=== PATIENT | female | born 1935 | race Caucasian/White ===

== ENCOUNTER 2018-08-31 08:41 | Emergency (ER) | payer MEDICARE, OTHER, SELFPAY ==
[2018-08-31 08:48] VITALS: BP 152/94; PULSE 66; RESP 20; TEMP 37.1; O2SAT 96
--- NOTE | 2018-08-31 08:59 | ED.GENADUL_ITS ---
Discharge Plan Disposition Patient Disposition: HOME Condition: Good Discharge Details Chief Complaint: DentalOral Clinical Impression: Dental caries pit and fissure Primary Care Provider: Angelina Mueller ED Provider: Estiven Jasso Home Meds and New Rx's Prescriptions: Continued celecoxib [Celebrex] 200 MG capsule 200 mg PO DAILY RF: 0 omeprazole 20 MG capsule,delayed release(DR/EC) 20 mg PO DAILY RF: 0 metoprolol succinate 25 MG tablet extended release 24 hr 25 mg PO DAILY RF: 0 rosuvastatin [Crestor] 20 MG tablet 20 mg PO HS RF: 0 Discharge Instructions Instructions: Dental Caries (ED) Additional Instructions: Please call a dental provider today and arrange a follow-up appointment for your broken tooth. Otherwise it is recommended that you eat soft foods to help minimize irritation and chewing. If you note any fever chills, swelling to your face tongue or jaw, or any emergent concerns please return to emergency department for reevaluation. Medical Decision Making Patient presenting to the emergency department for chief complaint of fractured tooth. Patient reports yesterday she had broken off a piece of her tooth that became jagged and is now irritating her tongue. Patient states that this just occurred while she was eating food. Patient denies any other complaints at this time. Physical exam shows filling placed into tooth #18 and 19 with tooth loss surrounding the feelings. Patient has very superficial ulcerations or irritation to the left lateral aspect of the tongue corresponding to the same area. There is no swelling of the face cheek tongue or jaw, no erythema, no signs of infection. No other emergent findings are noted. Given significant tooth loss surrounding the area I do not feel that temporary filling would be appropriate but patient was strongly encouraged to call a dental provider today and arrange close follow-up. HPI General Mode of arrival: ambulatory . Date/Time Provider Initiated Documentation: 08/31/18 08:46 . Limitations to Documentation: no limitations . Information obtained by: patient and RN notes reviewed . History of Present Illness 83 year old F presents to the emergency department with the chief complaint of broken tooth, described as mild, with intensity rated at 1. Quality is described as sharp, and is localized to the mouth. Patient started experiencing this day(s) (1) and it has been constant. Patient notes no other symptoms.. Patient did receive the following treatments prior to arrival, none Related Data Home Medications Medication Instructions Recorded Confirmed celecoxib [Celebrex] 200 mg PO DAILY 12/23/12 08/31/18 metoprolol succinate 25 mg PO DAILY 12/23/12 08/31/18 omeprazole 20 mg PO DAILY 12/23/12 08/31/18 rosuvastatin [Crestor] 20 mg PO HS 12/23/12 08/31/18 Allergies Allergy/AdvReac Type Severity Reaction Status Date / Time No Known Allergies Allergy Unverified 08/31/18 08:50 General Stated Complaint: DentalOral BERTHA: 4 Review of Systems Constitutional Denies chills and Denies fever(s) ENT Reports as per HPI, Denies change in voice, Reports dental pain, Denies dysphagia, Denies throat swelling and Denies tongue swelling Cardiovascular Denies dyspnea Respiratory Denies dyspnea, Denies stridor and Denies wheezing Gastrointestinal Denies dysphagia Integumentary/Breasts Denies rash Allergic/Immunologic Denies throat swelling, Denies tongue swelling and Denies wheezing PFS Social History Smoking/Tobacco Use Status: Never Drug use: Never Exam Const General: cooperative Orientation: alert, awake and oriented x3 Limitations: mental status not altered HENMT Head: normal to inspection, normocephalic and atraumatic Ears: hearing grossly normal bilaterally, normal mastoids bilaterally and no periauricular adenopathy General nose exam: external nose normal Mouth: oropharynx normal, no drooling, no muffled voice, tongue abnormal ulcerated (Superficial to left lateral, no bleeding) and no trismus Teeth and gingiva: caries, poor dentition and other (Partially fractured teeth #18,19) Throat: posterior oropharynx normal, tonsils normal and uvula midline Eyes General: appearance normal, both eyes and all related structures Pupils: PERRL Neck Neck: normal visual inspection, full ROM, no lymphadenopathy, no meningeal signs, trachea midline, supple, no anterior neck swelling and no midline deformity Resp Effort & Inspection: normal respiratory effort and able to speak in complete sentences Course Vital Signs Temperature 37.1 C 08/31/18 08:48 Pulse 66 08/31/18 08:48 Respiratory Rate 20 08/31/18 08:48 Blood Pressure 152/94 H 08/31/18 08:48 Pulse Oximetry 96 08/31/18 08:48 Temperature 37.1 C 08/31/18 08:48 Temperature Source Temporal Artery Scan 08/31/18 08:48 Pulse 66 08/31/18 08:48 Respiratory Rate 20 08/31/18 08:48 Respiratory Effort Non-Labored 08/31/18 08:48 Blood Pressure 152/94 H 08/31/18 08:48 Pulse Oximetry 96 08/31/18 08:48 Oxygen Delivery Method Room Air 08/31/18 08:48 Oxygen Flow Rate 0 08/31/18 08:48 Pain Level 0 08/31/18 08:48
== END 2018-08-31 09:07 | disposition home or self-care (01) ==
LOC: ER 09:15
PROVIDERS: Emergency Provider Nurse Practitioner Family; PCP General Practice
DX: S02.5XXA Fracture of tooth (traumatic), initial encounter for closed fracture; X58.XXXA Exposure to other specified factors, initial encounter
CPT/HCPCS: 99282

== ENCOUNTER 2019-01-19 15:45 | Inpatient (IN) | payer MEDICARE, OTHER, SELFPAY ==
[2019-01-19] VITALS (34 sets, daily range): BP systolic 121–152; BP diastolic 64–98; PULSE 51–70; RESP 11–24; TEMP 36.6–37.1; O2SAT 91–98
--- NOTE | 2019-01-19 15:45 | NUR.NOTE ---
Nursing Note: pt developed lightheadedness and diaphoresis adroitly 2 hrs ago PT called EMS upon EMS arrival PT was complaining of right sided arm pain. ems provided full dose of nitro all symptoms resolved and were not present at time of presentation to ER
[2019-01-19 16:01] LABS: Abs Immature Grans 0.02 k/cumm (0.0-0.09); Absolute Basophil Count 0.01 k/cumm (0.0-0.2); Absolute Eosinophil Count 0.03 k/cumm (0.0-0.7); Absolute Monocyte Count 0.51 k/cumm (0.11-0.7); Basophils % 0.1; Eosinophils % 0.2; HCT 41.2 % (36.0-46.0); HGB 13.4 g/dL (12.0-15.5); Immature Grans % 0.2; Lymphocytes % 12.8; Mean Corp. HGB Concentration 32.5 g/dL (32.0-36.0); Mean Corpuscular Hemoglobin 30.9 pg (27.0-33.0); Mean Corpuscular Volume 95.2 fL (80-95); Mean Platelet Volume 11.4 fL (8.0-11.0); Neutrophils % 82.7; Platelet Count 180 x1000/uL (130-400); RBC 4.33 m/cumm (4.00-5.20); RBC Distribution Width 13.2 % (11.7-14.6); White Blood Cell Count 12.86 k/cumm (4.4-10.8)
--- NOTE | 2019-01-19 16:08 | W.ED.GENAD ---
Discharge Plan Disposition Patient Disposition: [facility] INPATIENT Condition: Serious Discharge Details Chief Complaint: Chest Pain Clinical Impression: Diaphoresis, Lightheadedness Admit Date/Time: 01/21/19 18:09 Admit Provider: Edmond Richard Attending Provider: Ellyn Curry Primary Care Provider: Angelina Mueller ED Provider: Itz Motta Discharge Data Discharge Date/Time-TO BE ENTERED AT DEPARTURE: 01/19/19 19:50 Medical Decision Making 16:12 --83-year-old female presents after sudden onset of diaphoresis, generally not feeling well. Symptoms now improved but still fatigued. Screening ECG was reviewed and interpreted by me: Sinus bradycardia 54 bpm, normal axis, no STEMI, nondiagnostic. Consider ACS. Plan to check troponin. Patient is neurologically intact with no focal deficits. Patient is afebrile. Lungs are clear to auscultation. Abdominal exam is benign. 17:34 --labs reviewed and initial troponin negative. Patient does have mild elevation of creatinine (now 1.5) from prior (1.1 in 2012). Plan for delta troponin. 18:50 --patient reassessed and now noting that she had some tightness including tightness in her chest when the episode happened. She is had no recurrent episodes while here in the emergency department. Patient does have a history of hypertension and story somewhat concerning. I called and spoke with Dr. Richard who will admit the patient for observation and continuous telemetry. He request bridging orders be placed to the floor. Urinalysis and delta troponin pending at time of admission. HPI General Mode of arrival: ambulatory. Date/Time Provider Initiated Documentation: 01/19/19 16:08. Limitations to Documentation: no limitations. Information obtained by: patient and family. HPI Narrative: 83-year-old female presents via EMS after sudden onset of diaphoretic episode. Patient notes she was sitting watching TV at rest and asymptomatic. Suddenly she felt very hot and sweaty and generally unwell. Symptoms persisted and called EMS. She denies any palpitations, shortness of breath, chest pain or abdominal pain. No headache. No associated numbness or focal weakness. Symptoms were severe. They lasted minutes and now resolved. She now feels generally fatigued but otherwise asymptomatic. Related Data Home Medications Medication Instructions Recorded Confirmed celecoxib [Celebrex] 200 mg PO DAILY 12/23/12 01/19/19 rosuvastatin [Crestor] 20 mg PO HS 12/23/12 01/19/19 aspirin [Aspir-81] 81 mg PO DAILY 01/19/19 01/19/19 calcium citrate 200 mg PO DAILY 01/19/19 01/19/19 diphenhydramine-acetaminophen 1 tab PO QHS PRN 01/19/19 01/19/19 [Tylenol PM Extra Strength] quetiapine 50 mg PO DAILY 01/19/19 01/19/19 pantoprazole [Protonix] 40 mg PO DAILY #30 tab 01/22/19 Previous Rx's Medication Instructions Recorded pantoprazole [Protonix] 40 mg PO DAILY #30 tab 01/22/19 Allergies Allergy/AdvReac Type Severity Reaction Status Date / Time No Known Allergies Allergy Unverified 01/19/19 15:50 General Stated Complaint: Chest Pain BERTHA: 3 Review of Systems Review of Systems ROS Unobtainable: All systems reviewed & are unremarkable except as noted in HPI and below Constitutional Constitutional: Denies fever(s) Cardiovascular Cardiovascular: Denies chest pain, Denies syncope, Denies edema and Denies dyspnea Respiratory Respiratory: Denies dyspnea Genitourinary Genitourinary: Denies dysuria Neurologic Neurologic: Denies syncope and Denies sensory deficit [facility] Medical History (Updated 01/30/19 @ 20:02 by Lourdes Lovelace MD) Dementia (Chronic) Hyperlipidemia (Acute) Hypertension (Chronic) Insomnia (Acute) IT band syndrome (Acute) Osteoarthritis (Chronic) Palliative care patient (Acute) Physical deconditioning (Acute) Poor historian (Acute) Right knee pain (Acute) Right shoulder pain (Acute) Surgical History (Updated 01/30/19 @ 18:57 by Lourdes Lovelace MD) History of appendectomy (Chronic) Status post right knee replacement (Acute) Status post tonsillectomy and adenoidectomy (Acute) Family History (Updated 01/30/19 @ 19:39 by Lourdes Lovelace MD) Mother , age 85 or so Dementia Cancer Father , age 82 Sudden cardiac Son No problems noted. Son No problems noted. Daughter No problems noted. Daughter No problems noted. Sister Kyphosis History of vertebroplasty Compression fracture Brother No problems noted. 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 [employer] Pets and animals: Yes What is your relationship status?: How often do you talk on the phone with friends or family?: three or more times per week How often do you get together with friends or relatives?: once per week Panel score (0-1 are the most socially isolated patients): 2 What type of physical activity do you participate in: walking and irregular exercise Duration: 15-30 minutes/day Special rodger needs: No Seatbelt use: always Working smoke detector in home: Yes Fire extinguisher in home: Yes Do you feel safe at home: Yes Do you feel safe in your relationship?: Yes Additional Social history: x 61 yrs; tells me she had a heart attack, though cardiology consult and d/c summary dispute this. Atypical CP. Bradycardia (not today) Poor understanding of her health issues. doesn't understand, either (his memory is ok). Discussed cardiac rehab. ? eligible Exam Const General: cooperative and no acute distress HENMT Head: normocephalic and atraumatic Mouth: moist mucous membranes Eyes Conjunctivae: normal conjunctivae Sclera: normal sclerae Neck Neck: trachea midline and supple Resp Auscultation: clear to auscultation bilaterally, no rales, no rhonchi and no wheezes Cardio Jugular venous pressure: no JVD Rate: bradycardic (56) Rhythm: regular rhythm GI Palpation: soft, not firm, no guarding, no masses, not rigid and nontender Skin General skin exam: no rashes or lesions noted Neuro General: alert, awake, oriented x3 and tone normal Cranial Nerves: CN's II-XI intact bilaterally Cognition: normal cognition Speech: speech normal Motor: muscle tone normal throughout and strength 5/5 throughout Sensory Exam: no sensory deficits noted Other: Negative Romberg Extrem General: no edema Psych Appearance: grossly normal Mental Status: mental status grossly normal Speech and Movement: speech and movement normal Course Vital Signs Vital signs: Vital Signs Temperature 36.6 C 01/19/19 15:47 Pulse 70 01/19/19 15:47 Respiratory Rate 16 01/19/19 15:47 Blood Pressure 138/75 01/19/19 15:47 Pulse Oximetry 92 L 01/19/19 15:47 Temperature 36.6 C 01/19/19 15:47 Temperature Source Skin 01/19/19 15:47 Pulse 70 01/19/19 15:47 Respiratory Rate 16 01/19/19 15:47 Respiratory Effort 01/19/19 15:54 Blood Pressure 138/75 01/19/19 15:47 Blood Pressure Position Supine 01/19/19 15:47 Pulse Oximetry 92 L 01/19/19 15:47 Oxygen Delivery Method Room Air 01/19/19 15:47 Oxygen Flow Rate 0 01/19/19 15:47 Pain Level 0 01/19/19 15:47
[2019-01-19 16:26] LABS: Absolute Lymphocyte Count 1.65 k/cumm (1.2-3.4); Absolute Neutrophil Count 10.64 k/cumm (1.2-6.7)
[2019-01-19 16:36] LABS: Prothrombin Time 10.5 sec (9.3-11.0)
[2019-01-19 16:44] LABS: ALT 18 U/L (14-59); AST 15 U/L (15-37); Albumin 3.8 g/dL (3.4-5.0); Alkaline Phosphatase 44 U/L (46-116); Anion Gap 9.3 mmol/L (3-11); BUN 42 mg/dL (7-18); Bilirubin, Total 0.4 mg/dL (0.2-1.0); CO2 28.7 mmol/L (21.0-32.0); CREATININE 1.55 mg/dL (0.55-1.02); Calcium 9.4 mg/dL (8.5-10.1); Chloride 104 mmol/L (98-107); Estimated GFR 32.09 (mL/min/1.73m2); Glucose 136 mg/dL (70-100); Magnesium 2.3 mg/dL (1.8-2.4); Potassium 4.6 mmol/L (3.5-5.1); Sodium 142 mmol/L (136-145); Total Protein 6.9 g/dL (6.4-8.2)
[2019-01-19 16:46] LABS: Troponin I < 0.05 ng/mL (0.00-0.06)
--- NOTE | 2019-01-19 18:50 | DI.RAD_ITS ---
EXAM: XR CHEST 2V PA LATERAL INDICATION: presyncope. COMPARISON: XR CHEST 1V IN DI DEPT from 01/20/2019 TECHNIQUE: 2D digital imaging was performed. FINDINGS: Heart is not enlarged. The lungs appear clear. No pleural effusion seen. IMPRESSION: No evidence of acute process
[2019-01-19] MEDS: Normal Saline 500 ML 1000 ML IV (19:13)
--- NOTE | 2019-01-19 19:43 | DI.VRAD_ITS ---
PROCEDURE INFORMATION: Exam: XR Chest, 2 Views Exam date and time: 01/19/2019 7:10 PM Clinical history: 83 years old, female; Other: Pre syncope TECHNIQUE: Imaging protocol: XR of the chest Views: 2 views. COMPARISON: No relevant prior studies available. FINDINGS: Lungs: No focal consolidation or pleural effusion. Pleural space: See Lungs Finding. Heart/Mediastinum: Cardiomegaly. Vasculature: Tortuous ectatic aorta. Bones/joints: Multilevel degenerative changes of the thoracic spine and shoulders. Degenerative changes of the lower cervical spine. IMPRESSION: No acute findings. Dictated and Authenticated by: Kasia Mendoza MD. Ordering:VIN Mobley MD
--- NOTE | 2019-01-19 20:32 | HPE_ITS ---
Date of service: 01/19/19 Time of Service: 20:32 Assessment and Plan Assessment and plan (1) Chest pain, atypical: Start date: 01/19/19 Status: Acute Assessment and plan: This is an 83-year-old lady who had a sudden onset of chest pressure and abdominal pressure after eating a fatty meal and with some stress of watching TV with upsetting news taking place. She had significant diaphoresis no radiation of her pain and it self resolved. In the ED she was f ound to have a high white blood cell count but otherwise lab was negative with sinus bradycardia on medical records supervisor. Patient has no history of CAD. There is no history of physical findings to suggest acute PE and the patient's creatinine was slightly elevated which was off her baseline with available labs. D-dimer was not performed patient has no new peripheral edema. He was not hypoxic. EKG was unrevealing. Cardiac monitoring thus far has revealed no dysrhythmia other than sinus bradycardia. It was thought best to keep her overnight for observation for arrhythmias but with her history I will also do an ultrasound of her abdomen to review the gallbladder. If she has recurrent symptoms we should think about PE and do further investigations with the patient on subcutaneous heparin for now. Troponins will be trended and she will be observed on telemetry overnight. If she does well she will be discharged and have further outpatient evaluation as needed in follow-up with her PMD in [place], [place]. (2) Hypertension: Status: Chronic Assessment and plan: The patient's blood pressure was slightly elevated upon admission but this will be observed without change in her medical therapy for now. She does have sinus bradycardia on a beta-munir and this does not appear to be symptomatic at this time. Qualifiers: Hypertension type: essential hypertension Qualified Code(s): I10 - Essential (primary) hypertension (3) Dementia: Status: Chronic Assessment and plan: The patient memory appears to be somewhat affected with a vague history of events prior to admission. She is on Seroquel which may be for sleep but also may indicate some behavioral problems with her dementia. This will be continued during her hospital stay. Qualifiers: Alzheimer's disease onset: late-onset Dementia behavioral disturbance: with behavioral disturbance Dementia type: Alzheimer's disease Qualified Code(s): G30.1 - Alzheimer's disease with late onset; F02.81 - Dementia in other diseases classified elsewhere with behavioral disturbance History of Present Illness History of Present Illness Chief Complaint: Chest pressure with diaphoresis Narrative: This is an 83-year-old lady who was sitting watching TV with her after lunch which consisted of corn beef hash and suddenly had an onset of a squeezing pressure over her chest and upper abdomen with no radiation of discomfort, no nausea or vomiting but profuse diaphoresis associated with her sudden onset of pressure sensation. She stated it was all over her body but concentrated over her upper abdomen lower chest. He still does have a gallbladder with her only past surgical history being a tonsillectomy and jose noidectomy. She has no history of gallbladder colic, reflux disease or coronary artery disease. She does have hypertension on multiple meds with sinus bradycardia noted in the ED. She has slight elevation in her white blood cell count in the ED but no focus for infection and no history of fever. She had no GI or complaints. She generally is healthy with mild dementia and arthritis. She is overweight. Review of Systems Review of Systems Narrative: 13 point review of systems otherwise unrevealing or stable by review. Patient is somewhat of a poor historian with her short-term memory loss but she is aware of her memory loss. [facility] Medical History Dementia (Chronic) Hyperlipidemia (Acute) Hypertension (Chronic) Insomnia (Acute) Osteoarthritis (Chronic) Surgical History Status post tonsillectomy and adenoidectomy (Acute) Family History Mother No problems noted. Father No problems noted. Social History Smoking/Tobacco Use Status: Never Alcohol Intake: never Drug use: Never Substance use type: does not use Do you feel safe at home: Yes Do you feel safe in your relationship?: Yes Meds Home Medications and Allergies Home Medications Medication Instructions Recorded Confirmed Type celecoxib [Celebrex] 200 mg PO DAILY 12/23/12 01/19/19 History metoprolol succinate 50 mg PO DAILY 12/23/12 01/19/19 History rosuvastatin [Crestor] 20 mg PO HS 12/23/12 01/19/19 History aspirin [Aspir-81] 81 mg PO DAILY 01/19/19 01/19/19 History calcium citrate 200 mg PO DAILY 01/19/19 01/19/19 History diphenhydramine-acetaminophen 1 tab PO QHS PRN 01/19/19 01/19/19 History [Tylenol PM Extra Strength] donepezil 10 mg PO DAILY 01/19/19 01/19/19 History hydrochlorothiazide 12.5 mg PO DAILY 01/19/19 01/19/19 History lisinopril 2.5 mg PO DAILY 01/19/19 01/19/19 History quetiapine 50 mg PO DAILY 01/19/19 01/19/19 History Allergies Allergy/AdvReac Type Severity Reaction Status Date / Time No Known Allergies Allergy Unverified 01/19/19 15:50 Exam Narrative Exam Narrative: General: Patient is awake and alert, oriented at least to person and place and in no acute distress. She is moderately obese. HEENT: Normocephalic, eyes with pupils equal and reactive to light symmetrically and extraocular movement intact, sclera anicteric. Oropharynx with moist oral mucosa. External ears normal. Neck: Without JVD, supple. Back: Stooped posture with no CVA tenderness. Lungs: Clear to auscultation and percussion. Normal inspiratory to expiratory phase ratio. Normal vesicular breath sounds with fair aeration. Heart: Regular rate and rhythm without murmurs or gallops. Breast: Large and pendulous with full exam not performed. Abdomen: Obese contour, soft and nontender to palpation with negative Hooker sign. No palpable hepatosplenomegaly. Bowel sounds positive all quadrants. Genitalia/rectal: Exam deferred. Extremities: Moderate bony arthritic changes of the larger joints of lower extremities, nonpitting edema lower extremities with loss of hair but no skin changes, ulcers or lesions. Peripheral pulses intact with good capillary refill. No clubbing or cyanosis. Neuro: Cranial nerves II through XII grossly intact, motor without focalizing symptoms and normal motor strength bilaterally, Babinski is negative. Psych: Remote memory intact, short-term memory appears to be decreased but fair with patient recognizing short-term memory loss. Mood is normal with normal affect and variation. Skin: Pale, warm and dry with no rashes noted. Results Imaging Imaging Studies: Exam(s) PROCEDURE INFORMATION: Exam: XR Chest, 2 Views Exam date and time: 01/19/2019 7:10 PM Clinical history: 83 years old, female; Other: Pre syncope TECHNIQUE: Imaging protocol: XR of the chest Views: 2 views. COMPARISON: No relevant prior studies available. FINDINGS: Lungs: No focal consolidation or pleural effusion. Pleural space: See Lungs Finding. Heart/Mediastinum: Cardiomegaly. Vasculature: Tortuous ectatic aorta. Bones/joints: Multilevel degenerative changes of the thoracic spine and shoulders. Degenerative changes of the lower cervical spine. IMPRESSION: No acute findings. Dictated and Authenticated by: Kasia Mendoza MD. Labs Result diagrams: 01/19/19 15:35 01/19/19 15:35 Labs: Laboratory Results - last 24 hr 01/19/19 01/19/19 01/19/19 15:35 15:35 15:35 WBC 12.86 H RBC 4.33 Hgb 13.4 Hct 41.2 MCV 95.2 H MCH 30.9 MCHC 32.5 RDW 13.2 Plt Count 180 MPV 11.4 H Immature Gran % 0.2 Neutrophils % 82.7 Lymphocytes % 12.8 Monocytes % 4.0 Eosinophils % 0.2 Basophils % 0.1 Absolute Neutrophils 10.64 H Absolute Lymphocytes 1.65 Absolute Monocytes 0.51 Absolute Eosinophils 0.03 Absolute Basophils 0.01 PT Cancelled INR Cancelled Sodium 142 Potassium 4.6 Chloride 104 Carbon Dioxide 28.7 Anion Gap 9.3 BUN 42 H Creatinine 1.55 H Estimated GFR/1.73 m2 32.09 Glucose 136 H Calcium 9.4 Magnesium 2.3 Total Bilirubin 0.4 AST 15 ALT 18 Alkaline Phosphatase 44 L Troponin I < 0.05 Total Protein 6.9 Albumin 3.8 01/19/19 16:17 WBC RBC Hgb Hct MCV MCH MCHC RDW Plt Count MPV Immature Gran % Neutrophils % Lymphocytes % Monocytes % Eosinophils % Basophils % Absolute Neutrophils Absolute Lymphocytes Absolute Monocytes Absolute Eosinophils Absolute Basophils PT 10.5 INR 1.0 Sodium Potassium Chloride Carbon Dioxide Anion Gap BUN Creatinine Estimated GFR/1.73 m2 Glucose Calcium Magnesium Total Bilirubin AST ALT Alkaline Phosphatase Troponin I Total Protein Albumin Last Vital Signs Temp 36.8 C 01/19/19 19:50 Pulse 52 L 01/19/19 19:50 Resp 18 01/19/19 19:50 BP 152/78 H 01/19/19 19:50 Pulse Ox 96 01/19/19 19:50
[2019-01-19 20:51] LABS: Troponin I < 0.05 ng/mL (0.00-0.06)
[2019-01-19 21:10] LABS: TSH (W/Ref FT4) 0.84 uIU/mL (0.36-3.74)
[2019-01-19] MEDS: Rosuvastatin 10 MG TAB 20 MG PO (21:37)
[2019-01-19] MEDS: Heparin 5,000 UNITS/ML VIAL 5000 UNITS SC (21:37)
[2019-01-19] MEDS: Normal Saline 1,000 ML 100 ML IV (21:38)
[2019-01-20] VITALS (48 sets, daily range): BP systolic 116–167; BP diastolic 59–92; PULSE 32–67; RESP 11–24; TEMP 36–37.1; O2SAT 93–98
[2019-01-20 01:01] LABS: Troponin I < 0.05 ng/mL (0.00-0.06)
[2019-01-20 01:06] LABS: TSH 0.86 uIU/mL (0.36-3.74)
[2019-01-20 01:36] LABS: Bilirubin Negative (Negative); Blood Trace-intact (Negative); Clarity Clear (Clear); Glucose Negative (Negative); Ketones Negative (Negative); Leukocyte Esterase Negative (Negative); Nitrite Negative (Negative); Urobilinogen 0.2 EU/dL (Up TO 0.2); pH 6.5 (5-8)
[2019-01-20 01:52] LABS: WBC 0-2 HPF (0-5)
[2019-01-20 01:53] LABS: Bacteria Few HPF (Negative); C & S Indicated? Yes; Casts Negative LPF (Negative); Crystals Negative HPF (Negative); Epithelial Cells Few HPF (Negative); Mucus Negative (Negative); Other Cells Negative (Negative)
[2019-01-20] MEDS: Heparin 5,000 UNITS/ML VIAL 5000 UNITS SC ×3 (06:05→22:09)
[2019-01-20 07:06] LABS: Abs Immature Grans 0.02 k/cumm (0.0-0.09); Absolute Basophil Count 0.01 k/cumm (0.0-0.2); Absolute Lymphocyte Count 4.43 k/cumm (1.2-3.4); Absolute Monocyte Count 0.78 k/cumm (0.11-0.7); Absolute Neutrophil Count 6.79 k/cumm (1.2-6.7); Basophils % 0.1; Eosinophils % 0.8; HCT 40.2 % (36.0-46.0); HGB 12.8 g/dL (12.0-15.5); Immature Grans % 0.2; Lymphocytes % 36.5; Mean Corp. HGB Concentration 31.8 g/dL (32.0-36.0); Mean Corpuscular Hemoglobin 30.5 pg (27.0-33.0); Mean Corpuscular Volume 95.9 fL (80-95); Mean Platelet Volume 11.8 fL (8.0-11.0); Monocytes % 6.4; Platelet Count 189 x1000/uL (130-400); RBC 4.19 m/cumm (4.00-5.20); RBC Distribution Width 13.4 % (11.7-14.6); White Blood Cell Count 12.13 k/cumm (4.4-10.8)
[2019-01-20 07:33] LABS: Troponin I < 0.05 ng/mL (0.00-0.06)
[2019-01-20 07:35] LABS: ALT 14 U/L (14-59); AST 13 U/L (15-37); Albumin 3.4 g/dL (3.4-5.0); Alkaline Phosphatase 38 U/L (46-116); Anion Gap 8.1 mmol/L (3-11); BUN 35 mg/dL (7-18); Bilirubin, Total 0.4 mg/dL (0.2-1.0); CO2 27.9 mmol/L (21.0-32.0); CREATININE 1.34 mg/dL (0.55-1.02); Chloride 108 mmol/L (98-107); Estimated GFR 37.96 (mL/min/1.73m2); Glucose 84 mg/dL (70-100); Potassium 4.2 mmol/L (3.5-5.1); Sodium 144 mmol/L (136-145); Total Protein 6.6 g/dL (6.4-8.2)
[2019-01-20] MEDS: Celecoxib 200 MG CAP PO (07:46)
[2019-01-20] MEDS: Metoprolol CR 25 MG TABCR 50 MG PO (07:50)
[2019-01-20] MEDS: Aspirin E.C. 81 MG TABEC PO (07:50)
[2019-01-20] MEDS: Lisinopril 5 MG TAB 2.5 MG PO (07:50)
[2019-01-20] MEDS: hydroCHLOROthiazide 12.5 MG TAB PO (07:50)
[2019-01-20] MEDS: QUEtiapine 25 MG TAB 50 MG PO (07:50)
[2019-01-20] MEDS: Normal Saline 1,000 ML 100 ML IV ×2 (08:06→18:42)
[2019-01-20] MEDS: Glucagon 1 MG VIAL 5 MG IVP (09:15)
[2019-01-20] MEDS: Ondansetron 4 MG/2 ML VIAL IVP (09:34)
--- NOTE | 2019-01-20 10:31 | PHARADMIT ---
Addendum entered by Ayse Nettles 01/21/19 14:31: Pharmacy Note Subjective cardiology consult; ECHO ordered; stress test ordered Objective VS-okay SCr-1.20(down) WBC-11.66(down) Assessment prednisone discontinued meds for stress test ordered for tomorrow Plan continue to watch VS labs and for med changes Original Note: Admission Pharmacy Clinical Review ATYPICAL CHEST PAIN WITH DIAPHORESIS Code Status Full Code Current Weight 87.6 kg Renally Cleared and Narrow Therapeutic Index Meds CrCl~27ml/min QTc Value / Action Taken QTC 433 BP Control, Fever BP 158/81, HR 50'S Electrolytes reviewed K+ 4.2 Mag 2.3 DVT Prophylaxis Heparin SC Opiate Usage / Scheduled Bowel Regimen Ordered none/yes Plt/SCr for Heparin / Enoxaparin Plt 189 SCr 1.34 INR for Warfarin H/H stable, WBC/Bands H/H 12.8/40.2 WBC 12.13 Antibiotic appropriateness Cultures and Sensitivities Urine pending Surgical ABX d/c within 24 hr DM control / Insulin Dosing BG 84 Heart Failure (Check EF%) (CB's, B-Block, Diuretics) Lisinopril, HCTZ and Toprol XL dc'd IV to PO Switch Home Meds Reviewed after code blue, Donepezil, HCTZ, Lisinopril, Toprol XL, Seroquel were dc'd Home Meds Not Ordered initially all ordered-see above Comments CODE BLUE episode-full code, syncope, vasovagal?, nausea, HR in 30's on monitor...transferred to ICU, possible Betablocker ADR, although it was Toprol XL 50mg not the immed.release. Pt rec'd Glucagon 5mg IVPush stat to treat BB toxicity, heard HR increased into the 60's per ICU nurse, we do not appear to have enough Glucagon for a continuous infusion....currently checking antidote carts for more, pt may need to be transferred to other facility Troponins negative
[2019-01-20] MEDS: Pantoprazole 40 MG VIAL IVP (10:52)
[2019-01-20] MEDS: Normal Saline Flush 10 ML SYR IVP (10:52)
[2019-01-20] MEDS: predniSONE 10 MG TAB PO (11:22)
[2019-01-20 12:20] LABS: Troponin I < 0.05 ng/mL (0.00-0.06)
--- NOTE | 2019-01-20 12:39 | PDOC.CMIN ---
Care Management Initial Assess REASON FOR HOSPITALIZATION:: Atypical Chest Pain with Diaphoresis PAST MEDICAL HISTORY/PAST SURGICAL HISTORY:: Dementia, Hyperlipidemia, Hypertension, Insomnia, Osteoarthritis, tonsillectomy and adenoidectomy PREVIOUS FUNCTIONAL STATUS/SOCIAL/FAMILY SUPPORTS:: Annmarie resides with her , Maykel and their cat in [place], [place]. The couple has four adult children who are all supportive and well involved. Bonnie Huertasiggs: [phone]: Co-Agent for Health Care, Gwen NashSt. Luke[facility] CenterD-[phone]: Co-Agent for Health Care, Terrance NashJaquxg-Cjvehm-[phone], C#[phone], Tracie Levy-[phone]. Annmarie is diagnosed with dementia and struggles with short term memory issues. She no longer drives but manages ADLs within the home including cooking, laundry and cleaning. Her children report Maykel is by her side at all times as well. CURRENT FUNCTIONAL STATUS:: Annmarie was emergently transferred to the ICU from / after CODE BLUE event, anticipate transfer. She was able to have a lucid conversation with this rfp writer and provide accurate information about being transferred to the ICU. She named her and all of her children and was pleasant in interaction. CM met with Maykel Anguiano and their four children to review code status and AD. Annmarie's children, their spouses and their grandchildren awaited news together in the family room most of the morning. Annmarie responded positively when this rfp writer commented what a ari, supportive family she has. ADVANCE DIRECTIVES:: On file; contact information outdated on form; please utilize these contact numbers: Co-Agents for Health Care: Bonnie Nash: [phone]: , Gwen NashMinidoka Memorial HospitalF-[phone]. Others: Terrance Tilley-[phone], C#[phone], Tracie Levy-[phone]. Has patient been provided with information about the portal?: No Did the patient sign up for the portal?: No CODE STATUS:: Full Code INSURANCE COVERAGE / FINANCIAL ISSUES:: Commercial Ins: Guarantee [employer]. Medicare CURRENT HOME/COMMUNITY SERVICES/EQUIPMENT:: ADRIÁN Peters PRIMARY CARE PHYSICIAN:: Angelina Mueller; [facility] POTENTIAL DISCHARGE NEEDS:: Possible transfer per MD. PATIENT/FAMILY EDUCATION NEEDS:: Review of advance directives; code status, Palliative Care, HIPPA, community based supports, discharge [id number] considerations. ANTICIPATED BARRIERS TO DISCHARGE:: None identified. TRANSPORTATION:: TBD by disposition. PLAN:: Annmarie will continue to be closely monitored. Per MD, transfer on hold for further testing and imaging at this time. CM continues to follow and support Annmarie and her family at this time.
--- NOTE | 2019-01-20 12:47 | DI.CT_ITS ---
EXAM: CT ABDOMEN PELVIS WO CLINICAL HISTORY: nausea/vomiting, recurrent vagal episodes. TECHNIQUE: The examination was carried out according to the usual protocol without contrast enhancem ent. COMPARISON: No exams were available for comparison FINDINGS: Note is made of a moderate-sized hiatus hernia. There is cholelithiasis. There is no evidence of bow el obstruction. Diverticulosis without evidence of diverticulitis is seen. The appendix is normal. No localized bowel abnormality is identified. The liver, pancreas, spleen and kidneys are intact sa ve for a small right renal cyst. The adrenals are unremarkable. There is no evidence of free air or free fluid in the intra peritoneal space. IMPRESSION: Cholelithiasis is demonstrated. No acute abnormality is apparent.
--- NOTE | 2019-01-20 12:47 | DI.RAD_ITS ---
EXAM: XR CHEST 1V IN DI DEPT INDICATION: suspected aspiration event. COMPARISON: XR CHEST 2V PA LATERAL from 01/19/2019 TECHNIQUE: 2D digital imaging was performed. FINDINGS: The lungs are well expanded and free of infiltrate. There is no pleural effusion. The heart is not e nlarged. IMPRESSION: There is no evidence of acute cardiopulmonary disease.
--- NOTE | 2019-01-20 12:55 | W.PM.PROGNOT ---
Date of Service Date of service: 01/20/19 Time of Service: 08:30 Assessment and Plan Assessment and plan (1) Syncope: Status: Acute Assessment and plan: DDx: vasovagal, symptomatic bradycardia Continue to monitor in ICU. Per my conversation with Dr Mathur at [facility], the patient does not need any more glucagon at this time, but naturally we are not going to give her any more beta blockers at this point. She does have prn atropine and pacer pads on. She is full code. We are investigating the vagal prodrome - why was the patient nauseated? She does have a moderate size hiatal hernia on CT, has been on a steroid taper for her arthritis - she could have developed gastritis, but her CT of the abdomen and pelvis is otherwise negative. She was initiated on antiemetics and a PPI. I do not see any evidence of adrenal insufficiency at this time, but will monitor closely. Obtain echo and cardiology consult. (2) Chest pain, atypical: Status: Acute Assessment and plan: As above. No ACS so far, but monitor in the ICU. (3) Hypertension: Status: Chronic Assessment and plan: Hold beta blockers. Qualifiers: Hypertension type: essential hypertension Qualified Code(s): I10 - Essential (primary) hypertension (4) Nausea & vomiting: Status: Acute Assessment and plan: As above - start PPI, antiemetics. No obvious organic reason for nausea on CT. (5) Dementia: Status: Chronic Assessment and plan: Hold donepezil given bradycardia as one of the side effects Qualifiers: Dementia type: Alzheimer's disease Alzheimer's disease onset: late-onset Dementia behavioral disturbance: with behavioral disturbance Qualified Code(s): G30.1 - Alzheimer's disease with late onset; F02.81 - Dementia in other diseases classified elsewhere with behavioral disturbance (6) DVT prophylaxis: Status: Acute Assessment and plan: Heparin SC. (7) Discharge planning issues: Status: Acute Assessment and plan: Full code Keep in ICU. Palliative care consult placed. Total Critical Care Time 60 minutes Subjective Subjective Interval history since last seen: I responded to luz marina sosa called overhead. The patient did not actually lose her pulse or stop breathing, but had syncopized and had a HR of 32 on telemetry (sinus jon). The patient came to it about a minute later with corresponding increase in her HR to 40's and then 50's. The patient was never hypotensive - at the time of the event, her SBP was in 130's. Before she syncopized, she did report to her that she was feeling nauseated and clammy. When she came to it, she vomited. She was transferred to the ICU, with her heart rates going down to 40's. She did receive a dose of metoprolol succinate 50 mg this morning at 07:40 when her heart rate was in the 60's - however, it had only been about 30 minutes since she took the medication before the syncopal episode, and she did vomit her breakfast, so there is no clear relationship between her receiving the dose of metoprolol and her bradycardia, but it's a possibility. When she arrived to the ICU, she received 5 mg of IV glucagon, with heart rates improving to high 50's. The patient did again vomit with glucagon and received zofran. I spoke with Dr Mathur of cardiology at [facility] in regards to this patient's case - specifically, my concern that she might have a tachy-jon syndrome or vagal episodes. Per my conversation with Dr Mathur, he feels that vagal episodes are more likely, especially given the prodrome with nausea. Recommendation was made to continue observing the patient at our facility, but if she has another episode and no vagal prodrome, transfer to [facility] should be considered again. Meanwhile, we are looking for the cause of her nausea - ddx: gastritis (she is finishing a steroid taper as outpatient), cholecystitis (physical exam inconsistent), other GI pathology. CT of the abdomen/pelvis is done, results are pending. I discussed the case with the family - per my conversation with her and son Gwen, the patient should have everything done. Case management then had a family meeting with all of the children present - during this meeting, the family interpreted the patient's advanced directives as DNR/DNI. Upon my personal review of advanced directives, the patient only wanted to be DNR/DNI/comfort measures if she had an irreversible/incurable/end-stage condition, which in my opinion she does not right now. Palliative care consult is being ordered to clarify goals of care, but until then, with the agreement of the family, the patient states full code. Exam Narrative Exam Narrative: General: obese female, A&Ox2, seen several times today, pale, does not appear to be feeling well, falls asleep frequently throughout the day, breathing pattern c/w NISA HEENT: EOMI, dry MM Heart: RRR, bradycardic, no m/r/g Lungs: CTAB GI: abdomen is soft, nontender, nondistended Extremities: no e/c/c BLE's Objective Objective Clinical Data: Abnormal lab results 01/19/19 01/19/19 01/20/19 Range/Units 15:35 15:35 00:50 WBC 12.86 H (4.4-10.8) k/cumm MCV 95.2 H (80-95) fL MCHC (32.0-36.0) g/dL MPV 11.4 H (8.0-11.0) fL Absolute Neutrophils 10.64 H (1.2-6.7) k/cumm Absolute Lymphocytes (1.2-3.4) k/cumm Absolute Monocytes (0.11-0.7) k/cumm Chloride (98-107) mmol/L BUN 42 H (7-18) mg/dL Creatinine 1.55 H (0.55-1.02) mg/dL Glucose 136 H (70-100) mg/dL AST (15-37) U/L Alkaline Phosphatase 44 L (46-116) U/L Urine Blood Trace-intact H (Negative) Urine RBC 3-5 H (0-2) 01/20/19 01/20/19 Range/Units 06:08 06:08 WBC 12.13 H (4.4-10.8) k/cumm MCV 95.9 H (80-95) fL MCHC 31.8 L (32.0-36.0) g/dL MPV 11.8 H (8.0-11.0) fL Absolute Neutrophils 6.79 H (1.2-6.7) k/cumm Absolute Lymphocytes 4.43 H (1.2-3.4) k/cumm Absolute Monocytes 0.78 H (0.11-0.7) k/cumm Chloride 108 H (98-107) mmol/L BUN 35 H (7-18) mg/dL Creatinine 1.34 H (0.55-1.02) mg/dL Glucose (70-100) mg/dL AST 13 L (15-37) U/L Alkaline Phosphatase 38 L (46-116) U/L Urine Blood (Negative) Urine RBC (0-2) Vital Signs Temperature 36 C L 01/20/19 08:45 Temperature Source Temporal Artery Scan 01/20/19 08:45 Pulse 56 L 01/20/19 09:39 Pulse Rhythm Regular 01/20/19 07:50 Pulse 51 L 01/20/19 09:16 Respiratory Rate 16 01/20/19 09:39 Respiratory Effort 01/20/19 08:45 Respiratory Depth Normal 01/20/19 08:45 Respiratory Pattern Normal 01/20/19 08:45 Blood Pressure 158/81 H 01/20/19 09:39 Blood Pressure Mean 86 01/20/19 09:16 Blood Pressure Position Supine 01/20/19 08:45 Pulse Oximetry 93 L 01/20/19 09:39 Oxygen Delivery Method Room Air 01/20/19 09:39 Oxygen Flow Rate 0 01/20/19 09:39 Pain Level 0 01/20/19 08:45 Comment 01/20/19 03:15 Intake & Output 01/19/19 01/20/19 01/20/19 23:59 11:59 23:59 Intake Total 2059 / 2059 Output Total 725 / 725 Balance 1335 / 1335 Weight 89.1 kg 87.6 kg Intake: IV 1520 / 1520 Oral 540 / 540 Output: Urine 725 / 725 Other: Urine Color Yellow Urine Appearance Clear Clear Urine Odor Normal Comment voids in toilet. Flushed, urine not assessed at this time. Stool Occult Blood Negative Stool Size Large Stool Characteristics Soft Formed Voiding Methods Toilet Toilet Laboratory Results WBC 12.13 k/cumm (4.4-10.8) H 01/20/19 06:08 RBC 4.19 m/cumm (4.00-5.20) 01/20/19 06:08 Hgb 12.8 g/dL (12.0-15.5) 01/20/19 06:08 Hct 40.2 % (36.0-46.0) 01/20/19 06:08 MCV 95.9 fL (80-95) H 01/20/19 06:08 MCH 30.5 pg (27.0-33.0) 01/20/19 06:08 MCHC 31.8 g/dL (32.0-36.0) L 01/20/19 06:08 RDW 13.4 % (11.7-14.6) 01/20/19 06:08 Plt Count 189 x1000/uL (130-400) 01/20/19 06:08 MPV 11.8 fL (8.0-11.0) H 01/20/19 06:08 Immature Gran % 0.2 01/20/19 06:08 Neutrophils % 56.0 01/20/19 06:08 Lymphocytes % 36.5 01/20/19 06:08 Monocytes % 6.4 01/20/19 06:08 Eosinophils % 0.8 01/20/19 06:08 Basophils % 0.1 01/20/19 06:08 Absolute Neutrophils 6.79 k/cumm (1.2-6.7) H 01/20/19 06:08 Absolute Lymphocytes 4.43 k/cumm (1.2-3.4) H 01/20/19 06:08 Absolute Monocytes 0.78 k/cumm (0.11-0.7) H 01/20/19 06:08 Absolute Eosinophils 0.10 k/cumm (0.0-0.7) 01/20/19 06:08 Absolute Basophils 0.01 k/cumm (0.0-0.2) 01/20/19 06:08 PT 10.5 sec (9.3-11.0) 01/19/19 16:17 INR 1.0 (0.9-1.1) 01/19/19 16:17 Sodium 144 mmol/L (136-145) 01/20/19 06:08 Potassium 4.2 mmol/L (3.5-5.1) 01/20/19 06:08 Chloride 108 mmol/L (98-107) H 01/20/19 06:08 Carbon Dioxide 27.9 mmol/L (21.0-32.0) 01/20/19 06:08 Anion Gap 8.1 mmol/L (3-11) 01/20/19 06:08 BUN 35 mg/dL (7-18) H 01/20/19 06:08 Creatinine 1.34 mg/dL (0.55-1.02) H 01/20/19 06:08 Estimated GFR/1.73 m2 37.96 (mL/min/1.73m2) 01/20/19 06:08 Glucose 84 mg/dL (70-100) D 01/20/19 06:08 Calcium 9.0 mg/dL (8.5-10.1) 01/20/19 06:08 Magnesium 2.3 mg/dL (1.8-2.4) 01/19/19 15:35 Total Bilirubin 0.4 mg/dL (0.2-1.0) 01/20/19 06:08 AST 13 U/L (15-37) L 01/20/19 06:08 ALT 14 U/L (14-59) 01/20/19 06:08 Alkaline Phosphatase 38 U/L (46-116) L 01/20/19 06:08 Troponin I < 0.05 ng/mL (0.00-0.06) 01/20/19 12:00 Total Protein 6.6 g/dL (6.4-8.2) 01/20/19 06:08 Albumin 3.4 g/dL (3.4-5.0) 01/20/19 06:08 TSH 0.86 uIU/mL (0.36-3.74) 01/20/19 00:25 Urine Color Yellow (Yellow) 01/20/19 00:50 Urine Clarity Clear (Clear) 01/20/19 00:50 Urine pH 6.5 (5-8) 01/20/19 00:50 Ur Specific [place] 1.020 (1.005-1.025) 01/20/19 00:50 Urine Protein Negative mg/dL (Negative) 01/20/19 00:50 Urine Ketones Negative mg/dL (Negative) 01/20/19 00:50 Urine Blood Trace-intact (Negative) H 01/20/19 00:50 Urine Nitrite Negative (Negative) 01/20/19 00:50 Urine Bilirubin Negative (Negative) 01/20/19 00:50 Urine Urobilinogen 0.2 EU/dL (Up TO 0.2) 01/20/19 00:50 Ur Leukocyte Esterase Negative (Negative) 01/20/19 00:50 Urine RBC 3-5 (0-2) H 01/20/19 00:50 Urine WBC 0-2 HPF (0-5) 01/20/19 00:50 Ur Epithelial Cells Few HPF (Negative) 01/20/19 00:50 Urine Crystals Negative HPF (Negative) 01/20/19 00:50 Urine Bacteria Few HPF (Negative) 01/20/19 00:50 Urine Casts Negative LPF (Negative) 01/20/19 00:50 Urine Mucus Negative (Negative) 01/20/19 00:50 Urine Other Negative (Negative) 01/20/19 00:50 Ur Culture Indicated? Yes 01/20/19 00:50 Urine Glucose Negative mg/dL (Negative) 01/20/19 00:50 EKG: HR 51, sinus bradycardia with decreasing R-wave progression. No obvious acute ischemia
--- NOTE | 2019-01-20 12:58 | DI.VRAD_ITS ---
PROCEDURE INFORMATION: Exam: XR Chest, 1 View Exam date and time: 01/20/2019 12:44 PM Clinical history: 83 years old, female; Other: Suspected aspiration event TECHNIQUE: Imaging protocol: XR of the chest Views: 1 view. COMPARISON: CR XR CHEST 2V PA LATERAL 01/19/2019 7:07 PM FINDINGS: The lung varma are clear bilaterally. No focal pulmonary consolidation is present. The cardiac silhouette is within normal limits. The costophrenic angles are sharp. The bony structures appear unremarkable. IMPRESSION: No evidence of acute cardiopulmonary disease. Dictated and Authenticated by: Trey Grant MD. Ordering:JOAQUINA Ragland MD
--- NOTE | 2019-01-20 12:58 | DI.VRAD_ITS ---
PROCEDURE INFORMATION: Exam: CT Abdomen And Pelvis Without Contrast Exam date and time: 01/20/2019 12:32 PM Clinical history: 83 years old, female; Other: Nausea/vomiting, recurrent vagal episodes TECHNIQUE: Imaging protocol: Computed tomography of the abdomen and pelvis without contrast. Radiation optimization: All CT scans at this facility use at least one of these dose optimization techniques: automated exposure control; mA and/or kV adjustment per patient size (includes targeted exams where dose is matched to clinical indication); or iterative reconstruction. COMPARISON: No relevant prior studies available. FINDINGS: Moderate size hiatal hernia. Cholelithiasis. Diverticulosis without evidence of diverticulitis. Appendix is normal. Aorta unremarkable for age. No focal inflammatory process. No free fluid. No extraluminal air. IMPRESSION: Incidental findings with no specific etiology identified for the patient's symptoms. Dictated and Authenticated by: Trey Grant MD. Ordering:JOAQUINA Ragland MD
[2019-01-20] MEDS: Rosuvastatin 10 MG TAB 20 MG PO (22:10)
[2019-01-21] VITALS (30 sets, daily range): BP systolic 101–159; BP diastolic 57–101; PULSE 49–85; RESP 8–24; TEMP 36.3–36.8; O2SAT 95–98
[2019-01-21] MEDS: Normal Saline Flush 10 ML SYR IVP ×3 (04:21→09:15)
[2019-01-21] MEDS: Normal Saline 1,000 ML 100 ML IV (04:21)
[2019-01-21 05:59] LABS: ALT 12 U/L (14-59); AST 16 U/L (15-37); Albumin 3.4 g/dL (3.4-5.0); Alkaline Phosphatase 39 U/L (46-116); Anion Gap 7.9 mmol/L (3-11); BUN 22 mg/dL (7-18); Bilirubin, Total 0.5 mg/dL (0.2-1.0); CO2 27.1 mmol/L (21.0-32.0); Calcium 8.6 mg/dL (8.5-10.1); Chloride 108 mmol/L (98-107); Estimated GFR 43.12 (mL/min/1.73m2); Glucose 81 mg/dL (70-100); Potassium 4.1 mmol/L (3.5-5.1); Sodium 143 mmol/L (136-145); Total Protein 6.6 g/dL (6.4-8.2)
[2019-01-21 06:39] LABS: Abs Immature Grans 0.02 k/cumm (0.0-0.09); Absolute Basophil Count 0.01 k/cumm (0.0-0.2); Absolute Lymphocyte Count 3.47 k/cumm (1.2-3.4); Basophils % 0.1; Eosinophils % 0.9; HCT 40.2 % (36.0-46.0); HGB 12.9 g/dL (12.0-15.5); Immature Grans % 0.2; Lymphocytes % 29.8; Mean Corp. HGB Concentration 32.1 g/dL (32.0-36.0); Mean Corpuscular Hemoglobin 30.7 pg (27.0-33.0); Mean Corpuscular Volume 95.7 fL (80-95); Mean Platelet Volume 11.6 fL (8.0-11.0); Monocytes % 6.9; Neutrophils % 62.1; Platelet Count 159 x1000/uL (130-400); RBC Distribution Width 13.4 % (11.7-14.6); White Blood Cell Count 11.66 k/cumm (4.4-10.8)
[2019-01-21 06:42] LABS: Troponin I < 0.05 ng/mL (0.00-0.06)
[2019-01-21 06:49] LABS: Absolute Neutrophil Count 7.24 k/cumm (1.2-6.7)
[2019-01-21] MEDS: Heparin 5,000 UNITS/ML VIAL 5000 UNITS SC ×3 (07:31→20:22)
--- NOTE | 2019-01-21 08:00 | DI.US_ITS ---
APPROVED REPORT EXAM: Comprehensive 2D, Doppler, and color-flow Echocardiogram Patient Location: In-Patient Retail Merchandising Manager: Fallon Saini [facility] ([facility]) Indications: near syncope and syncope , symptomatic bradycardia Left Ventricle The left ventricle is normal size. The left ventricular systolic function is normal. The left ventric ular ejection fraction is within the normal range. Mild concentric left ventricular hypertrophy. Ther e is normal LV segmental wall motion. There is grade 1 diastolic dysfunction 65-70% Right Ventricle The right ventricle is normal size. The right ventricular systolic function is normal. Atria The left atrium size is normal. The right atrium size is normal. Aortic Valve The aortic valve is normal in structure. There is no aortic valvular stenosis. Trace aortic regurgita tion. Mitral Valve The mitral valve is normal in structure. No evidence of mitral valve stenosis. Trace mitral regurgita tion. Tricuspid Valve The tricuspid valve is normal in structure. Trace tricuspid regurgitation. Pulmonic Valve The pulmonary valve is normal in structure. Trace pulmonic regurgitation. Great Vessels The aortic root is normal in size. The IVC is normal in size and collapses >50% with inspiration. Pericardium Prominent anterior epicardial fat pad is present. There is no pleural effusion. 2D Dimensions IVSd 1.1 cm F: 0.6-1.0 LA Volume Index A4C 20.0 mL/m2 PWd 1.1 cm F: 0.6 - 1.0 LA Area A4C 15.0 cm2 LVDd 4.3 cm F: 3.9 - 5.3 LVDs 2.8 cm F: 2.2 - 3.5 Aortic Root 2.8 cm F: 2.7 - 3.3 LVOT 2.0 cm (M/F) 1.5-2.5 Ascending Aorta 3.4 cm F: 2.3 - 3.1 LVEF (Samuel's) 68.6 % F: 54 - 74 FS 34.5 % LV Diastology E Decel Time 249.0 (160-240 msec) E/A Ratio 0.7 LV E/e LAT 10.3 (>14) Aortic Valve LVOT Peak Miki. 1.0 m/s LVOT Peak Gr. 4.1 mmHg LVOT Mean Gr. 2.4 mmHg LVOT VTI 0.2 m RAISA (VTI) 1.8 (2.5-4.5 cm2) Mitral Valve MV E Max Miki. 0.7 (0.4-1.3 m/s) MV A Velocity 1.0 (0.4-1.3 m/s) E/A Ratio 0.7 MV Decel. Time 249.3 (160-240 msec) MV PHT 72.3 msec MVA PHT 3.0 cm2 Tricuspid Valve TR P. Velocity 3.0 m/s TR P. Gradient 35.6 mmHg Conclusion Left Ventricle : The left ventricle is normal size. The left ventricular systolic function is normal. The left ventricular ejection fraction is within the normal range. Mild concentric left ventricular hypertrophy. There is grade 1 diastolic dysfunction There is normal LV segmental wall motion. Right Ventricle : The right ventricle is normal size. The right ventricular systolic function is norm al. Atria : The left atrium size is normal. The right atrium size is normal. Aortic Valve : The aortic valve is normal in structure. Trace aortic regurgitation. There is no aorti c valvular stenosis. Mitral Valve : The mitral valve is normal in structure. Trace mitral regurgitation. No evidence of mi tral valve stenosis. Tricuspid Valve : The tricuspid valve is normal in structure. Trace tricuspid regurgitation. Pulmonic Valve : The pulmonary valve is normal in structure. Great Vessels : The aortic root is normal in size. Pericardium : Prominent anterior epicardial fat pad is present. There is no pleural effusion. Great Vessels : The IVC is normal in size and collapses >50% with inspiration. EKG???patient was in normal sinus rhythm for the entirety of the study. There is no structural explanation for patient's syncopal symptoms.
--- NOTE | 2019-01-21 08:00 | DI.US_ITS ---
EXAM: US ABDOMEN LIMITED CLINICAL HISTORY: Atypical chest pain with upper abdominal pressure. TECHNIQUE: Ultrasound performed using standard protocol. FINDINGS: The aorta and vena cava are normal. The liver is within normal limits in size. The portal vein is int act. There is no Hooker's sign. The gallbladder wall thickness is 2 mm. There is a question regardin g multiple mobile gallstones. There is no sonographic evidence of acute cholecystitis. Common duct caliber is 3.7 mm. There is only limited visualization of the pancreas. The spleen is not well seen . The left kidney is not identified. The right kidney measures 10.2 x 4.4 x 4.85 cm and appears to co ntain a renal cyst measuring 2.7 x 2.3 x 2.4 cm. IMPRESSION: No evidence of acute cholecystitis. The right upper quadrant examination reveals a question regarding multiple mobile gallstones. There is no evidence of acute cholecystitis. Note is also made of a 10.2 x 4.4 x 4.8 cm right renal cyst.
--- NOTE | 2019-01-21 08:35 | DI.RAD_ITS ---
EXAM: XR PORTABLE CHEST AP INDICATION: follow up aspiration event yesterday. COMPARISON: No exams were available for comparison TECHNIQUE: 2D digital imaging was performed. FINDINGS: The lungs are well expanded and free of infiltrate. There is no pleural effusion. The heart is with in normal limits in size. 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 The findings unchan ged when compared with the prior examination of 01/20.
[2019-01-21] MEDS: Celecoxib 200 MG CAP PO (09:13)
[2019-01-21] MEDS: Aspirin E.C. 81 MG TABEC PO (09:13)
[2019-01-21] MEDS: predniSONE 10 MG TAB PO (09:13)
[2019-01-21] MEDS: Calcium Citrate 950 MG TAB PO (09:13)
[2019-01-21] MEDS: Pantoprazole 40 MG VIAL IVP (09:14)
--- NOTE | 2019-01-21 14:13 | PGE_ITS ---
Date of Service Date of service: 01/21/19 Time of Service: 14:14 Assessment and Plan Assessment and plan (1) Syncope: Status: Acute Assessment and plan: DDx: vasovagal, symptomatic bradycardia No more episodes of bradycardia observed - however, symptoms (diaphoresis) were seen on just minimal exertion in the abscence of bradycardia. Will discuss with cardiology if stress test would be appropriate, considering absence of bradycardia at the time of symptoms. Also, check orthostatics. It is likely ok to transfer the patient out of ICU. (2) Chest pain, atypical: Status: Acute Assessment and plan: As above. (3) Hypertension: Status: Chronic Assessment and plan: Hold beta blockers. Qualifiers: Hypertension type: essential hypertension Qualified Code(s): I10 - Essential (primary) hypertension (4) Nausea & vomiting: Status: Acute Assessment and plan: As above - continue PPI, prn antiemetics. No obvious organic reason for nausea on CT other than hiatal hernia. (5) Dementia: Status: Chronic Assessment and plan: Hold donepezil given bradycardia as one of the side effects Qualifiers: Dementia type: Alzheimer's disease Alzheimer's disease onset: late- onset Dementia behavioral disturbance: with behavioral disturbance Qualified Code(s): G30.1 - Alzheimer's disease with late onset; F02.81 - Dementia in other diseases classified elsewhere with behavioral disturbance (6) DVT prophylaxis: Status: Acute Assessment and plan: Heparin SC. (7) Discharge planning issues: Status: Acute Assessment and plan: Full code Palliative care consulted. Transfer out of ICU to [facility] with tele. Subjective Subjective Interval history since last seen: The patient has not had any bradycardia today - however, she became very diaphoretic twice just with a couple of steps two times with nursing, who noted no change in heart rate or O2 sat at this time. Orthostatics are being checked. Exam Narrative Exam Narrative: General: obese female, A&Ox2, looks comfortably in bed HEENT: EOMI, MMM Heart: RRR, no m/r/g Lungs: CTAB GI: abdomen is soft, nontender, nondistended Extremities: no e/c/c BLE's Objective Objective Clinical Data: Abnormal lab results 01/21/19 01/21/19 Range/Units 05:30 05:30 WBC 11.66 H (4.4-10.8) k/cumm MCV 95.7 H (80-95) fL MPV 11.6 H (8.0-11.0) fL Absolute Neutrophils 7.24 H (1.2-6.7) k/cumm Absolute Lymphocytes 3.47 H (1.2-3.4) k/cumm Absolute Monocytes 0.80 H (0.11-0.7) k/cumm Chloride 108 H (98-107) mmol/L BUN 22 H D (7-18) mg/dL Creatinine 1.20 H (0.55-1.02) mg/dL ALT 12 L (14-59) U/L Alkaline Phosphatase 39 L (46-116) U/L Vital Signs Temperature 36.3 C L 01/21/19 08:50 Temperature Source Temporal Artery Scan 01/21/19 13:42 Pulse 67 01/21/19 13:16 Pulse Rhythm Regular 01/20/19 07:50 Pulse 74 01/21/19 13:16 Respiratory Rate 13 01/21/19 13:16 Respiratory Effort Non-Labored 01/21/19 13:42 Respiratory Depth Normal 01/21/19 13:42 Respiratory Pattern Normal 01/21/19 13:42 Blood Pressure 127/73 01/21/19 13:16 Blood Pressure Mean 85 01/21/19 13:16 Blood Pressure Position Supine 01/21/19 13:42 Pulse Oximetry 96 01/21/19 13:32 Oxygen Delivery Method Room Air 01/21/19 13:42 Oxygen Flow Rate 0 01/21/19 13:42 Pain Level 0 01/21/19 13:42 Comment 01/20/19 03:15 Intake & Output 01/20/19 01/21/19 01/21/19 23:59 11:59 23:59 Intake Total 1996.667 / 4076.667 618.333 / 618.333 Output Total 1550 / 2275 1500 / 1725 225 / 1725 Balance 446.667 / 1801.667 -881.667 / -1106.667 -225 / -1106.667 Weight 87.8 kg Intake: IV 1346.667 / 2866.667 618.333 / 618.333 Oral 650 / 1210 Output: Urine 1550 / 2275 1500 / 1725 225 / 1725 Other: Urine Color Yellow Yellow Yellow Urine Appearance Clear Clear Clear Urine Odor Normal Normal Comment Voiding on the commode:250cc clear yellow urine. 225cc clear yellow urine void on commode. Urine dip stick is positive for blood and leukocytes. Voiding Methods Bedside Commode Bedside Commode Bedside Commode Laboratory Results WBC 11.66 k/cumm (4.4-10.8) H 01/21/19 05:30 RBC 4.20 m/cumm (4.00-5.20) 01/21/19 05:30 Hgb 12.9 g/dL (12.0-15.5) 01/21/19 05:30 Hct 40.2 % (36.0-46.0) 01/21/19 05:30 MCV 95.7 fL (80-95) H 01/21/19 05:30 MCH 30.7 pg (27.0-33.0) 01/21/19 05:30 MCHC 32.1 g/dL (32.0-36.0) 01/21/19 05:30 RDW 13.4 % (11.7-14.6) 01/21/19 05:30 Plt Count 159 x1000/uL (130-400) 01/21/19 05:30 MPV 11.6 fL (8.0-11.0) H 01/21/19 05:30 Immature Gran % 0.2 01/21/19 05:30 Neutrophils % 62.1 01/21/19 05:30 Lymphocytes % 29.8 01/21/19 05:30 Monocytes % 6.9 01/21/19 05:30 Eosinophils % 0.9 01/21/19 05:30 Basophils % 0.1 01/21/19 05:30 Absolute Neutrophils 7.24 k/cumm (1.2-6.7) H 01/21/19 05:30 Absolute Lymphocytes 3.47 k/cumm (1.2-3.4) H 01/21/19 05:30 Absolute Monocytes 0.80 k/cumm (0.11-0.7) H 01/21/19 05:30 Absolute Eosinophils 0.10 k/cumm (0.0-0.7) 01/21/19 05:30 Absolute Basophils 0.01 k/cumm (0.0-0.2) 01/21/19 05:30 PT 10.5 sec (9.3-11.0) 01/19/19 16:17 INR 1.0 (0.9-1.1) 01/19/19 16:17 Sodium 143 mmol/L (136-145) 01/21/19 05:30 Potassium 4.1 mmol/L (3.5-5.1) 01/21/19 05:30 Chloride 108 mmol/L (98-107) H 01/21/19 05:30 Carbon Dioxide 27.1 mmol/L (21.0-32.0) 01/21/19 05:30 Anion Gap 7.9 mmol/L (3-11) 01/21/19 05:30 BUN 22 mg/dL (7-18) H D 01/21/19 05:30 Creatinine 1.20 mg/dL (0.55-1.02) H 01/21/19 05:30 Estimated GFR/1.73 m2 43.12 (mL/min/1.73m2) 01/21/19 05:30 Glucose 81 mg/dL (70-100) 01/21/19 05:30 Calcium 8.6 mg/dL (8.5-10.1) 01/21/19 05:30 Magnesium 2.0 mg/dL (1.8-2.4) 01/21/19 05:30 Total Bilirubin 0.5 mg/dL (0.2-1.0) 01/21/19 05:30 AST 16 U/L (15-37) 01/21/19 05:30 ALT 12 U/L (14-59) L 01/21/19 05:30 Alkaline Phosphatase 39 U/L (46-116) L 01/21/19 05:30 Troponin I < 0.05 ng/mL (0.00-0.06) 01/21/19 05:30 Total Protein 6.6 g/dL (6.4-8.2) 01/21/19 05:30 Albumin 3.4 g/dL (3.4-5.0) 01/21/19 05:30 TSH 0.86 uIU/mL (0.36-3.74) 01/20/19 00:25 Urine Color Yellow (Yellow) 01/20/19 00:50 Urine Clarity Clear (Clear) 01/20/19 00:50 Urine pH 6.5 (5-8) 01/20/19 00:50 Ur Specific [place] 1.020 (1.005-1.025) 01/20/19 00:50 Urine Protein Negative mg/dL (Negative) 01/20/19 00:50 Urine Ketones Negative mg/dL (Negative) 01/20/19 00:50 Urine Blood Trace-intact (Negative) H 01/20/19 00:50 Urine Nitrite Negative (Negative) 01/20/19 00:50 Urine Bilirubin Negative (Negative) 01/20/19 00:50 Urine Urobilinogen 0.2 EU/dL (Up TO 0.2) 01/20/19 00:50 Ur Leukocyte Esterase Negative (Negative) 01/20/19 00:50 Urine RBC 3-5 (0-2) H 01/20/19 00:50 Urine WBC 0-2 HPF (0-5) 01/20/19 00:50 Ur Epithelial Cells Few HPF (Negative) 01/20/19 00:50 Urine Crystals Negative HPF (Negative) 01/20/19 00:50 Urine Bacteria Few HPF (Negative) 01/20/19 00:50 Urine Casts Negative LPF (Negative) 01/20/19 00:50 Urine Mucus Negative (Negative) 01/20/19 00:50 Urine Other Negative (Negative) 01/20/19 00:50 Ur Culture Indicated? Yes 01/20/19 00:50 Urine Glucose Negative mg/dL (Negative) 01/20/19 00:50
--- NOTE | 2019-01-21 20:15 | CMPROGNOTE_ITS ---
Care Management Progress Note S/O: Annmarie was lying in her bed, Maykel at her bedside. Her daughter Trisha and one of her grandsons were present as well. She shared no concerns and reported feeling better and sleeping well. She anticipates moving out to the MED/SURG floor and is now M/S status, she also reports she may have an MPI stress test tomorrow and remains on Tele. Anticipate she will meet with Dr. Kenny or Dr. Lovelace for Palliative Care consult to discuss code status and update advance directives. CM continues to follow. A: 83 year old female admitted to [facility] 01/19/19 for Atypical chest pain with daphoresis. P: Annmarie will return home when ready per MD. She will be evaluated by PT/OT when medically ready; she became diaphoretic when ambulating a few steps with nursing. CM will review community based supports for discharge planning considerations. Annmarie will transport via private vehicle with her .
[2019-01-21] MEDS: Rosuvastatin 10 MG TAB 20 MG PO (20:22)
[2019-01-22] VITALS (13 sets, daily range): BP systolic 130–171; BP diastolic 61–88; PULSE 60–86; RESP 9–28; O2SAT 96–97
[2019-01-22] MEDS: Heparin 5,000 UNITS/ML VIAL 5000 UNITS SC ×2 (06:29→13:11)
[2019-01-22] MEDS: Acetaminophen 325 MG TAB 650 MG PO ×2 (06:31→12:38)
[2019-01-22 06:50] LABS: Abs Immature Grans 0.01 k/cumm (0.0-0.09); Absolute Basophil Count 0.01 k/cumm (0.0-0.2); Absolute Eosinophil Count 0.13 k/cumm (0.0-0.7); Absolute Lymphocyte Count 3.29 k/cumm (1.2-3.4); Absolute Monocyte Count 0.79 k/cumm (0.11-0.7); Absolute Neutrophil Count 5.89 k/cumm (1.2-6.7); Basophils % 0.1; Eosinophils % 1.3; HCT 41.4 % (36.0-46.0); HGB 13.5 g/dL (12.0-15.5); Immature Grans % 0.1; Lymphocytes % 32.5; Mean Corp. HGB Concentration 32.6 g/dL (32.0-36.0); Mean Corpuscular Hemoglobin 30.8 pg (27.0-33.0); Mean Corpuscular Volume 94.3 fL (80-95); Mean Platelet Volume 11.4 fL (8.0-11.0); Monocytes % 7.8; Neutrophils % 58.2; Platelet Count 192 x1000/uL (130-400); RBC 4.39 m/cumm (4.00-5.20); RBC Distribution Width 13.2 % (11.7-14.6); White Blood Cell Count 10.12 k/cumm (4.4-10.8)
[2019-01-22 07:01] LABS: BUN 27 mg/dL (7-18); CREATININE 1.26 mg/dL (0.55-1.02); Chloride 107 mmol/L (98-107); Estimated GFR 40.76 (mL/min/1.73m2); Glucose 100 mg/dL (70-100); Sodium 143 mmol/L (136-145)
--- NOTE | 2019-01-22 08:00 | DI.NM_ITS ---
APPROVED REPORT Exam: Pharmacologic Patient Location: In-Patient Room/Bed: 222 Stress Nurse: Bonnie Mcdermott RN Rhythm: NSR Indications: Chest Pain, abdominal pain after eating a fatty meal. Medical History Medical History: HTN, Hyperlipidemia, Obesity Medications: Metoprolol Allergies: No known drug allergies Cardiac Risk Factors: HTN, Hyperlipidemia Pretest Chest Pain Characteristics: Nonanginal chest pain Exercise History: Sedentary Physical Disabilities: Legs Stress Test Details Test: Pharmacologic stress testing performed using 0.4 mg of regadenoson per 5 mL given IV over 10 s econds. Nuclear Acquisition: Rest Tc-99m/Stress Tc-99m 1 day Rest Isotope: Tc-99m Sestamibi. Dose: 10.3 Date: 01/22/2019 Injection Time: 1000 Stress Isotope: Tc-99m Sestamibi. Dose: 32.3 Date: 01/22/2019 Injection Time: 1145 HR Resting HR: 70 bpm Max Heart Rate (APMHR): 139 bpm Max HR Achieved: 99 bpm Target HR (85% APMHR): 118 bpm % of APMHR: 71 Recovery HR: 90 bpm HR response to stress: Normal HR response to stress BP Resting BP: 150/92 mmHg Max BP: 158/86 mmHg Recovery BP: 158/86 mmHg ECG Resting ECG: Sinus Bradycardia, Sinus Rhythm Stress ECG: Sinus Rhythm ST Change: Normal Arrhythmia: None Recovery ECG: Sinus Rhythm Recovery ST Change: Normal Recovery Arrhythmia: None Clinical Reason for Termination: Completed protocol Stress ECG Conclusion 1. There is no evidence on stress ECG to suggest ischemia. No prior study available for comparison. MPI Conclusion There is no evidence of ischemia on the imaging portion of the study. This represents a normal nuclear stress test.
[2019-01-22] MEDS: Calcium Citrate 950 MG TAB PO (08:09)
[2019-01-22] MEDS: Celecoxib 200 MG CAP PO (08:09)
[2019-01-22] MEDS: Aspirin E.C. 81 MG TABEC PO (08:09)
--- NOTE | 2019-01-22 08:19 | W.PM.PROGNOT ---
Date of Service Date of service: 01/22/19 Time of Service: : Subjective Subjective Interval history since last seen: SB 50-60's asymptomatic. Tired when going to the commode. Stress test today. Objective Objective Clinical Data: Abnormal lab results 01/22/19 01/22/19 Range/Units 06:34 06:34 MPV 11.4 H (8.0-11.0) fL Absolute Monocytes 0.79 H (0.11-0.7) k/cumm BUN 27 H (7-18) mg/dL Creatinine 1.26 H (0.55-1.02) mg/dL Vital Signs Temperature 36.3 C L 01/21/19 08:50 Temperature Source Temporal Artery Scan 01/21/19 13:42 Pulse 60 01/22/19 07:01 Pulse Rhythm Regular 01/21/19 23:35 Pulse 61 01/22/19 07:01 Respiratory Rate 9 L 01/22/19 07:01 Respiratory Effort Non-Labored 01/21/19 23:35 Respiratory Depth Normal 01/21/19 23:35 Respiratory Pattern Normal 01/21/19 23:35 Blood Pressure 152/81 H 01/22/19 07:01 Blood Pressure Mean 99 01/22/19 07:01 Blood Pressure Position Supine 01/21/19 13:42 Pulse Oximetry 98 01/21/19 14:07 Oxygen Delivery Method Room Air 01/21/19 13:42 Oxygen Flow Rate 0 01/21/19 13:42 Pain Level 0 01/21/19 13:42 Comment 01/20/19 03:15 Intake & Output 01/21/19 01/21/19 01/22/19 11:59 23:59 11:59 Intake Total 618.333 / 618.333 200 / 200 Output Total 1500 / 2125 625 / 2125 1000 / 1000 Balance -881.667 / -1506.667 -625 / -1506.667 -800 / -800 Weight 87.8 kg 89.8 kg Intake: IV 618.333 / 618.333 Oral 200 / 200 Output: Urine 1500 / 2125 625 / 2125 1000 / 1000 Other: Urine Color Yellow Yellow Yellow Urine Appearance Clear Clear Clear Urine Odor Normal Normal Normal Comment Voiding on the commode:250cc clear yellow urine. 225cc clear yellow urine void on commode. Urine dip stick is positive for blood and leukocytes. Voiding Methods Bedside Commode Bedside Commode Bedside Commode Laboratory Results WBC 10.12 k/cumm (4.4-10.8) 01/22/19 06:34 RBC 4.39 m/cumm (4.00-5.20) 01/22/19 06:34 Hgb 13.5 g/dL (12.0-15.5) 01/22/19 06:34 Hct 41.4 % (36.0-46.0) 01/22/19 06:34 MCV 94.3 fL (80-95) 01/22/19 06:34 MCH 30.8 pg (27.0-33.0) 01/22/19 06:34 MCHC 32.6 g/dL (32.0-36.0) 01/22/19 06:34 RDW 13.2 % (11.7-14.6) 01/22/19 06:34 Plt Count 192 x1000/uL (130-400) 01/22/19 06:34 MPV 11.4 fL (8.0-11.0) H 01/22/19 06:34 Immature Gran % 0.1 01/22/19 06:34 Neutrophils % 58.2 01/22/19 06:34 Lymphocytes % 32.5 01/22/19 06:34 Monocytes % 7.8 01/22/19 06:34 Eosinophils % 1.3 01/22/19 06:34 Basophils % 0.1 01/22/19 06:34 Absolute Neutrophils 5.89 k/cumm (1.2-6.7) 01/22/19 06:34 Absolute Lymphocytes 3.29 k/cumm (1.2-3.4) 01/22/19 06:34 Absolute Monocytes 0.79 k/cumm (0.11-0.7) H 01/22/19 06:34 Absolute Eosinophils 0.13 k/cumm (0.0-0.7) 01/22/19 06:34 Absolute Basophils 0.01 k/cumm (0.0-0.2) 01/22/19 06:34 PT 10.5 sec (9.3-11.0) 01/19/19 16:17 INR 1.0 (0.9-1.1) 01/19/19 16:17 Sodium 143 mmol/L (136-145) 01/22/19 06:34 Potassium 4.0 mmol/L (3.5-5.1) 01/22/19 06:34 Chloride 107 mmol/L (98-107) 01/22/19 06:34 Carbon Dioxide 25.0 mmol/L (21.0-32.0) 01/22/19 06:34 Anion Gap 11.0 mmol/L (3-11) 01/22/19 06:34 BUN 27 mg/dL (7-18) H 01/22/19 06:34 Creatinine 1.26 mg/dL (0.55-1.02) H 01/22/19 06:34 Estimated GFR/1.73 m2 40.76 (mL/min/1.73m2) 01/22/19 06:34 Glucose 100 mg/dL (70-100) 01/22/19 06:34 Calcium 9.0 mg/dL (8.5-10.1) 01/22/19 06:34 Magnesium 2.0 mg/dL (1.8-2.4) 01/22/19 06:34 Total Bilirubin 0.5 mg/dL (0.2-1.0) 01/21/19 05:30 AST 16 U/L (15-37) 01/21/19 05:30 ALT 12 U/L (14-59) L 01/21/19 05:30 Alkaline Phosphatase 39 U/L (46-116) L 01/21/19 05:30 Troponin I < 0.05 ng/mL (0.00-0.06) 01/21/19 05:30 Total Protein 6.6 g/dL (6.4-8.2) 01/21/19 05:30 Albumin 3.4 g/dL (3.4-5.0) 01/21/19 05:30 TSH 0.86 uIU/mL (0.36-3.74) 01/20/19 00:25 Urine Color Yellow (Yellow) 01/20/19 00:50 Urine Clarity Clear (Clear) 01/20/19 00:50 Urine pH 6.5 (5-8) 01/20/19 00:50 Ur Specific [place] 1.020 (1.005-1.025) 01/20/19 00:50 Urine Protein Negative mg/dL (Negative) 01/20/19 00:50 Urine Ketones Negative mg/dL (Negative) 01/20/19 00:50 Urine Blood Trace-intact (Negative) H 01/20/19 00:50 Urine Nitrite Negative (Negative) 01/20/19 00:50 Urine Bilirubin Negative (Negative) 01/20/19 00:50 Urine Urobilinogen 0.2 EU/dL (Up TO 0.2) 10 00:50 Ur Leukocyte Esterase Negative (Negative) 01/20/19 00:50 Urine RBC 3-5 (0-2) H 01/20/19 00:50 Urine WBC 0-2 HPF (0-5) 01/20/19 00:50 Ur Epithelial Cells Few HPF (Negative) 01/20/19 00:50 Urine Crystals Negative HPF (Negative) 01/20/19 00:50 Urine Bacteria Few HPF (Negative) 01/20/19 00:50 Urine Casts Negative LPF (Negative) 01/20/19 00:50 Urine Mucus Negative (Negative) 01/20/19 00:50 Urine Other Negative (Negative) 01/20/19 00:50 Ur Culture Indicated? Yes 01/20/19 00:50 Urine Glucose Negative mg/dL (Negative) 01/20/19 00:50
[2019-01-22] MEDS: Pantoprazole 40 MG VIAL IVP (10:39)
--- NOTE | 2019-01-22 11:56 | IN_ITS ---
Date of service: 01/22/19 Time of Service: 10:47 PT Notes Inpatient Physical Therapy Evaluation Date: 01/22/2019 Referring Doctor: Ellyn Curry MD PT Orders: PT CONSULT: Limited ability Precautions: Fall. Standard. Activity as tolerated. Patient Profile/Admitting Diagnosis: Patient is an 83-year-old female with past medical history significant for Alzheimer's type dementia who presented to the ED on 01/19/2019 with chief presentation of sudden onset chest pressure, diaphoresis, generally not feeling well and very much fatigued. Patient was diagnosed with atypical chest pain and hypertension PMHX: Medical History Dementia (Chronic) Hyperlipidemia (Acute) Hypertension (Chronic) Insomnia (Acute) Osteoarthritis (Chronic) Surgical History Status post tonsillectomy and adenoidectomy (Acute) Social History/Home Situation: Patient lives with in a a private home with 4 steps to enter with rails, none inside the house. Patient was independent with all aspects of mobility ADLs using 4 wheeled walker. Has been provides assistance with instrumental ADLs as needed. Equipment Owned/DME: 4WW with a seat Subjective: Patient agreed to a PT consult. She was on her way to nuclear stress testing and was agreeable to PT providing assistance with transfer and short distance ambulation. Objective: General Observation: Patient is seen resting on her bed with telemetry monitoring in place. IV open in L UE. Mental Status: Alert and oriented as to person and place Pain: 0/10 ROM: Right Lower Extremity: Hip flexion WFL. Hip abduction WFL. Knee flexion WFL. Ankle dorsiflexion WFL. Ankle plantarflexion WFL. Left Lower Extremity: Hip flexion WFL. Hip abduction WFL. Knee flexion WFL. Ankle dorsiflexion WFL. Ankle plantarflexion WFL. Strength: Right Lower Extremity: Hip flexors 4/5. Hip abductors 5/5. Knee flexors 5/5. Knee extensors 5/5. Ankle dorsiflexors 4/5. Ankle plantarflexors 5/5. Left Lower Extremity:Hip flexors 4/5. Hip abductors 5/5. Knee flexors 5/5. Knee extensors 5/5. Ankle dorsiflexors 4/5. Ankle plantarflexors 5/5. Sensation: Intact as to pain and pressure on bilateral lower extremities. Bed Mobility/Transfers: Rolling SBA Supine to sit SBA Sit to supine SBA Sit to stand CGA Stand to sit CGA Bed to chair CGA Chair to bed CGA Gait: Patient was able to tolerate in-room ambulation from bedside to about 15 feet, made a turn and backed up to sit on wheelchair using the FWW requiring only CGA and minimal verbal cues for overall safety. Balance: Static Sitting: Normal Dynamic Sitting: Normal Static Standing: Fair Dynamic Standing: Fair Special Tests: Mobility Limitations Standardized Measure [facility] AM-PAC 6 clicks Basic Mobility Inpatient Short Form: Raw Score: 20 CMS Score: 36% deficit Informed Consent/Education: Patient instructed in purpose of PT consult and plan of care. Assessment: Patient is an 83-year-old female diagnosed with atypical chest pain and hypertension. Patient presents with clinical signs and symptoms consistent with current/admitting diagnoses that have resulted to mobility limitations, gait instability, generalized weakness, and impairment of motor control as demonstrated by the following impairment level findings: 1. Decreased strength to B LE major muscle groups 2. Impaired sitting/standing balance 3. Impaired activity tolerance Impairments are contributing to the following functional limitations: 1. Dependent bed mobility skills 2. Increased dependence with transfers 3. Inability to safely ambulate without assistive device and physical assistance 4. Increase completion time for mobility ADL performance 5. Increased fall risk 6. Inability to negotiate steps alone safely Patient is assessed as a 10942 moderate complexity based on the following: History: Patient with dementia and with new diagnosis of atypical chest pain and hypertension Examination: Demonstrable impairment in strength, balance, and range of motion with underlying impairments and functional limitations as documented above Presentation:Evolving Decision Makin moderate complexity Goals: Goals X1 week 1. Supine-Sit independent 2. Sit-Supine independent 3. Sit-Stand independent 4. Stand-Sit independent 5. Bed-Chair independent 6. Chair-Bed independent 7. Independent gait on level surface with use of least restrictive device for at least 300 feet without report of pain nor dyspnea 8. Independent stair negotiation while holding onto bilateral rails for at least 5 steps without report of pain nor dyspnea 9. Independent with home exercise program 10. Good static and dynamic standing balance/tolerance Plan of Care/Treatment Plan: 1-2x/day, 7 days/week x 1 week. Plan of care has been reviewed with the HORTICULTURE PROFESSOR providing the service under Physical Therapy direction. Initiate Physical Therapy intervention for strengthening, bed mobility, transfers, gait, stairs, balance training, use of assistive device. DISCHARGE RECOMMENDATIONS: Patient will benefit from home health PT services in order to progress mobility level using least restrictive assistive ambulatory device, assess home safety, identify additional equipment needs, and establish a functional maintenance program that will increase ability of patient to remain at home. TREATMENT CODE/TIME: 41635 x 21 minutes beginning at 10:47 AM. Thank you very much for this referral. Carmen Means PT, DPT, CLT [facility]
[2019-01-22] MEDS: Regadenoson 0.4 MG/5 ML SYR IVP (12:01)
--- NOTE | 2019-01-22 12:26 | OT.INIE ---
Occupational Therapy Notes Inpatient Occupational Therapy Evaluation Date: 01/22/19 Referring Doctor:Ellyn Curry MD OT Orders: Eval and Treat Precautions: Fall, Standard PATIENT PROFILE/ADMITTING DIAGNOSIS: Pt is an 83 year old female who was admitted to [facility] through the ER for onset chest pressure, diaphoresis and fatigue. Patient was diagnosed with atypical chest pain and hypertension and is being seen in the ICU for medical management. Past Medical History: Medical History Dementia (Chronic) Hyperlipidemia (Acute) Hypertension (Chronic) Insomnia (Acute) Osteoarthritis (Chronic) Surgical History Status post tonsillectomy and adenoidectomy (Acute) Social History/Home Situation: Pt reports that she lives in a private home with her . She reports that she has Alzheimers and is able to verbalize this at the beginning of session. She reports that this limits her community mobility as she is not currently driving. Equipment owned/DME: 4WW SUBJECTIVE: Pt was sitting in bed when OT arrived. She was agreeable to OT session and was very pleasant in her demeanor. She states that she is feeling a little better. OBJECTIVE: General Observation: Pleasant, telemetry, IV Mental Status: A&Ox3, although pt does report hx of alzheimers Pain: no c/o pain ROM: RUE AROM WFL L UE AROM WFL STRENGTH: RUE 4/5 throughout globally LUE 4/5 throughout globally FUNCTIONAL MOBILITY/ADLS: Supine-sit Min vc (S) Sit-supine Min vc (S) BATHING Sitting in bed with max (A) set up Bathing UE (I) upper body with min vc Bathing LE (I) lower body with min (A) to (B) feet DRESSING sitting in bed with max (A) set up Dressing UE min (A) don and doffing hospital gown Dressing LE (I) don and doffing (B) socks GROOMING Sitting in bed (I) with brushing hair TOILETING NT EATING NT BALANCE: Static sitting Normal Dynamic Sitting Normal SPECIAL TESTS: Daily Activity Limitations Standardized Measure [facility] AM -PAC ?6 clicks? Daily Activity Inpatient Short Form: Raw score: 22 INFORMED CONSENT/EDUCATION: Pt instructed in purpose of OT Consult and plan of care. ASSESSMENT: Patient is a 83-year-old female referred to occupational therapy services with diagnosis of atypical chest pain and hypertension. Patient presents with clinical signs and symptoms consistent with dx, as demonstrated by the following impairment level findings: decreased functional mobility, hx of alzhiemers although pt presents as early stages, decreased functional activity tolerance, decreased bed mobility, decreased performance of ADLs in the standing position, heart complications and Atypical rhythm Impairments are contributing to the following functional limitations: Pt has difficulty performing ADLs in the standing position, decreased functional activity tolerance, hx of alzheimers, pt is unable to perform her ADLs at her baseline level of function at this time. AMPAC score 22 Patient is assessed as a Moderate 72288 complexity based on the following: History: See Above Examination: See functional limitations as listed above Presentation: Evolving Decision Making: AMPAC score 22 GOALS Goals x1 week 1. Transfers (I) with FWW 2. Dressing Sitting in chair (I) UE/(I) LE 3. Bathing (I) standing at sink for UE and (I) sitting for LE 4. Toileting on toilet (I) 5. Eating (I) PLAN OF CARE/TREATMENT PLAN: 1x/day, 5 days/ week x 1week Initiate Occupational Therapy Services for bathing, dressing, grooming, toileting, eating, transfer training. DISCHARGE RECOMMENDATIONS Home with when medically cleared per MD. TREATMENT TIME/MINUTES/CODES 39961, 91403, 20 minutes (09:40) Suzanne Kerr OTR/[facility]
--- NOTE | 2019-01-22 15:14 | PT.INTREAT ---
Date of service: 01/22/19 Time of Service: 14:18 PT Notes Inpatient Physical Therapy Treatment Note [facility] Date: 01/22/2019 PRECAUTIONS: Fall. Standard. Activity as tolerated. SUBJECTIVE: Patient is agreeable to a second session this afternoon. She reports being tired as she has not eaten up until she had lunch today. OBJECTIVE: Patient seen resting in bed with present inside room. Telemetry monitoring continues to be in place. PAIN: 0/10 BED MOBILITY/TRANSFERS Rolling L/R: SBA Supine-sit: SBA Sit-supine: SBA Sit-stand: SBA Stand-sit: SBA Bed-Chair: SBA Chair-bed: SBA GAIT Assistive Device: FWW Weight bearing: FWB Assist: CGA Distance: 5 feet +60 feet +75 feet. Deviation: Reduced gait speed VITALS: HR ranged between 79 bpm through 94 bpm throughout PT session THEREX: Patient tolerated seated level exercises consisting of seated marches and bilateral leg raises x deep breathing exercises done in between each exercises. STAIRS:Patient also tolerated three 4 inch steps and two 6 inch steps x2 while holding onto bilateral rails with SBA requiring only minimal verbal cues for overall safety. ASSESSMENT: Patient will continue to benefit with skilled physical therapy services in order to facilitate return to prior level of function in anticipation of return to home with as previously. PLAN: Continue with PT POC as initially established TREATMENT CODE/TIME: 74542 x47 minutes beginning at 14:18 p.m..
--- NOTE | 2019-01-22 15:30 | DSE_ITS ---
Date of service: 01/22/19 Time of Service: 15:30 DS: Diagnosis Discharge Diagnosis (1) Syncope: Status: Acute Asessment and Plan: Vasovagal vs symptomatic bardycardia (2) Chest pain, atypical: Status: Acute Asessment and Plan: Negative MPI 01/22/19 (3) Hypertension: Status: Chronic (4) Nausea & vomiting: Status: Acute (5) Dementia: Status: Chronic Discharge Plan Disposition Patient Disposition: HOME W/HOME HEALTH SERVICE Condition: Serious Discharge Details Chief Complaint: Chest Pain Clinical Impression: Diaphoresis, Lightheadedness Reason For Visit: ATYPICAL CHEST PAIN WITH DIAPHORESIS Admit Date/Time: 01/21/19 18:09 Admit Provider: Edmond Richard Attending Provider: Edmond Richard Primary Care Provider: Angelina Mueller ED Provider: Itz Motta [facility] Course Hospital Course: Ms Nash is an 83 year old female with PMHx of hypertension, hyperlipidemia, OA, completing a steroid taper for her hip pain prior to admission, who was admitted to [facility] on 01/19/19 after chest pressure and diaphoresis following a meal. On the morning of 01/20/19, the patient had what we believe was a vasovagal episode following her breakfast, when she reported feeling nauseated and lost consciousness while sitting/laying in her recliner. Telemetry revealed sinus bradycardia with HR of 32. A Code Blue was called (though the patient never truly lost her pulse or stop breathing), and the patient was transferred to the ICU. She received a dose of glucagon IV in an attempt to reverse metoprolol she got in the morning with some improvement in her heart rate, but did not require any additional medications to keep her heart rate above 50. Her beta blockers and donepezil were stopped - both could have contributed to bradycardia, but we are not confident that her metoprolol had a chance to be absorbed yet after breakfast on the morning of the event. In the last 48 hours, the patient did not have any blood pressures to demonstrate that she needed any new antihypertensive therapy. She did not have any further syncopal episodes on telemetry. Evaluating which vagal stimulus may have contributed to the episode, a CT of the abdomen/pelvis was obtained. This revealed a moderate hiatal hernia. Together wi th having been on prednisone prior to admission, but not H2 munir or PPI, one of the etiologies for nausea could be GERD/Gastritis. She was started on beta blockers and antiemetics, with resolution of GI symptoms (nausea). The patient developed significant diaphoresis just with minimal ambulation, however, and ended up undergoing a nuclear stress test on 01/22/2019, which was negative. The patient's heart rates are now in the 60's -70's. She is medically stable for discharge home today without beta blockers or donepezil and on a PPI. She could benefit from an outpatient zio patch, which should be set up by PCP. She could also benefit form home health nursing and PT. Care for patient as well as preparation of her discharge summary took 45 minutes on the day of discharge. Home Meds and New Rx's Prescriptions: New pantoprazole [Protonix] 40 mg tablet,delayed release (DR/EC) 40 mg PO DAILY Qty: 30 RF: 0 Continued celecoxib [Celebrex] 200 MG capsule 200 mg PO DAILY RF: 0 rosuvastatin [Crestor] 20 MG tablet 20 mg PO HS RF: 0 aspirin [Aspir-81] 81 mg Tablet,Delayed Release (Dr/Ec) 81 mg PO DAILY RF: 0 diphenhydramine-acetaminophen [Tylenol PM Extra Strength] 25-500 mg Tablet 1 tab PO QHS PRNRF: 0 calcium citrate 200 mg (950 mg) Tablet 200 mg PO DAILY RF: 0 quetiapine 50 mg Tablet 50 mg PO DAILY RF: 0 Discontinued metoprolol succinate 25 MG tablet extended release 24 hr 50 mg PO DAILY RF: 0 donepezil 10 mg Tablet 10 mg PO DAILY RF: 0 hydrochlorothiazide 12.5 mg Capsule 12.5 mg PO DAILY RF: 0 lisinopril 2.5 mg Tablet 2.5 mg PO DAILY RF: 0 prednisone 10 mg Tablet 10 mg PO DAILY RF: 0 Discharge Instructions Instructions: Syncope (DC), Bradycardia (DC) Additional Instructions: Carefully review your medications - quite a few of them have stopped. Return to the hospital with any fever, bleeding, episodes of dizziness/fainting, chest pain, or shortness of breath. Follow up with your PCP within 1-2 weeks. Care Plan Goals: Home with home health nursing/PT. Referrals: Angelina Mueller [Primary Care Provider] - Activity:: Activity as Tolerated Equipment/Supplies:: No Equipment Needed Diet:: As Tolerated Discharge Orders Discharge Orders: Discharge Order (Routine); Ordered 01/22/19 Ordered By: Ellyn Curry DS: Summary Status at Discharge Functional status at discharge: uses cane/walker Overall status at discharge: patient is back to baseline Mental Status: mental status grossly normal Speech and Movement: speech and movement normal Mood: congruent mood Affect: normal affect Exam Narrative Exam Narrative: General: obese female, A&Ox2, looks comfortable in bed HEENT: EOMI, MMM Heart: RRR, no m/r/g Lungs: CTAB GI: abdomen is soft, nontender, nondistended Extremities: no e/c/c BLE's Psych Mental Status: mental status grossly normal Speech and Movement: speech and movement normal Mood: congruent mood Affect: normal affect DS: Data Vitals/I&O Vitals and I&O: Vital Signs Temperature 36.3 C L 01/21/19 08:50 Temperature Source Temporal Artery Scan 01/21/19 13:42 Pulse 60 01/22/19 07:01 Pulse Rhythm Regular 01/22/19 09:23 Pulse 61 01/22/19 07:01 Respiratory Rate 9 L 01/22/19 07:01 Respiratory Effort Non-Labored 01/22/19 09:23 Respiratory Depth Normal 01/22/19 09:23 Respiratory Pattern Normal 01/22/19 09:23 Blood Pressure 152/81 H 01/22/19 07:01 Blood Pressure Mean 99 01/22/19 07:01 Blood Pressure Position Supine 01/21/19 13:42 Pulse Oximetry 98 01/21/19 14:07 Oxygen Delivery Method Room Air 01/21/19 13:42 Oxygen Flow Rate 0 01/21/19 13:42 Pain Level 10 01/22/19 12:38 Comment 01/20/19 03:15 Intake & Output 01/21/19 01/22/19 01/22/19 23:59 11:59 23:59 Intake Total 210 / 450 240 / 450 Output Total 625 / 2125 1200 / 1200 Balance -625 / -1506.667 -990 / -750 240 / -750 Weight 89.8 kg Intake: IV Oral 200 / 440 240 / 440 Output: Urine 625 / 2125 1200 / 1200 Other: Urine Color Yellow Light Beth Urine Appearance Clear Clear Urine Odor Normal Normal Comment 225cc clear yellow urine void on commode. Urine dip stick is positive for blood and leukocytes. Voiding Methods Bedside Commode Bedside Commode Data Completed and Pending Completed studies during hospitalization [Text1]: CXR 01/19/19: No evidence of acute process CT abdomen/pelvis 01/20/19: Cholelithiasis is demonstrated. No acute abnormality is apparent. CXR 01/20/19: There is no evidence of acute cardiopulmonary disease. US abdomen 01/21/19: No evidence of acute cholecystitis. The right upper quadrant examination reveals a question regarding multiple mobile gallstones. There is no evidence of acute cholecystitis. Note is also made of a 10.2 x 4.4 x 4.8 cm right renal cyst. Echo 01/21/19: Left Ventricle : The left ventricle is normal size. The left ventricular systolic function is normal. The left ventricular ejection fraction is within the normal range. Mild concentric left ventricular hypertrophy. There is grade 1 diastolic dysfunction There is normal LV segmental wall motion. Right Ventricle : The right ventricle is normal size. The right ventricular systolic function is normal. Atria : The left atrium size is normal. The right atrium size is normal. Aortic Valve : The aortic valve is normal in structure. Trace aortic regurgitation. There is no aortic valvular stenosis. Mitral Valve : The mitral valve is normal in structure. Trace mitral regurgitation. No evidence of mitral valve stenosis. Tricuspid Valve : The tricuspid valve is normal in structure. Trace tricuspid regurgitation. Pulmonic Valve : The pulmonary valve is normal in structure. Great Vessels : The aortic root is normal in size. Pericardium : Prominent anterior epicardial fat pad is present. There is no pleural effusion. Great Vessels : The IVC is normal in size and collapses >50% with inspiration. EKG???patient was in normal sinus rhythm for the entirety of the study. There is no structural explanation for patient's syncopal symptoms. CXR 01/21/19: the lungs are well expanded and free of infiltrate. There is no pleural effusion. The heart is within normal limits in size. 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 The findings unchanged when compared with the prior examination of 01/20. MPI 01/22/19: There is no evidence of ischemia on the imaging portion of the study. This represents a normal nuclear stress test. Labs on day of discharge: Labs from last 24 hours 01/22/19 01/22/19 06:34 06:34 WBC 10.12 RBC 4.39 Hgb 13.5 Hct 41.4 MCV 94.3 MCH 30.8 MCHC 32.6 RDW 13.2 Plt Count 192 MPV 11.4 H Immature Gran % 0.1 Neutrophils % 58.2 Lymphocytes % 32.5 Monocytes % 7.8 Eosinophils % 1.3 Basophils % 0.1 Absolute Neutrophils 5.89 Absolute Lymphocytes 3.29 Absolute Monocytes 0.79 H Absolute Eosinophils 0.13 Absolute Basophils 0.01 Sodium 143 Potassium 4.0 Chloride 107 Carbon Dioxide 25.0 Anion Gap 11.0 BUN 27 H Creatinine 1.26 H Estimated GFR/1.73 m2 40.76 Glucose 100 Calcium 9.0 Magnesium 2.0 PFSH Medical History Dementia (Chronic) Hyperlipidemia (Acute) Hypertension (Chronic) Insomnia (Acute) Osteoarthritis (Chronic) Surgical History Status post tonsillectomy and adenoidectomy (Acute) Family History Mother No problems noted. Father No problems noted. Social History Smoking/Tobacco Use Status: Never Alcohol Intake: never Drug use: Never Substance use type: does not use Do you feel safe at home: Yes Do you feel safe in your relationship?: Yes
--- NOTE | 2019-01-22 15:49 | PDOC.HHF2F_ITS ---
Home Health Certification Home Health Certification: 1. Encounter Date and Reason I certify that JIMBO WATTS was seen by Ellyn Curry on 01/22/19 and that I had a [id number] encounter with this patient that meets the physician face to face encounter requirements. 2. Clinical Findings Supporting Skilled Need and Homebound Status I certify that home health services are medically necessary, include either intermittent prison and/or physical/speech therapy, and that this asher ent is homebound in that absences from the home require considerable and taxing effort and are infrequent or of short duration, or are attributable to the need to receive medical care. [X] (a) Attached documentation from encounter provides clinical findings supporting skilled need and homebound status (including what assistance patient requires to leave the home). The encounter with the patient was in whole, or in part, for the following medical condition, which is the primary reason for home health care: ATYPICAL CHEST PAIN WITH DIAPHORESIS Fpc: recent syncopal episode, suspicion that the patient may have been on too much beta munir, check on BP's and heart rate at home Physical Therapy: eval and treat Homebound: unable to leave home without assistance 3. Certification and Authentication I certify that I composed the above information based on my clinical judgement relating to this patient's medical condition and, if applicable, clinical findings communicated to me by the NPP or inpatient physician who performed the Home Health Referral. All further orders will be obtained through ___Angelina Mueller (Community Based Physician - PCP)
--- NOTE | 2019-01-22 16:50 | PDOC.CMDIS ---
- If Service Date Differs Date of service: 01/22/19 Time of Service: 16:50 LACE Index Scoring Tool - Questions: Length of Stay (in days): 1 Acuity (Admit via E.D.?): Yes E.D. Visits: 2 - Answers: Total Score: 6 Risk of Readmission: Low Risk Care Management Discharge Reason for Hospitalization: Atypical Chest Pain with Diaphoresis Discharge Plan: Annmarie will be discharged home with new PT. She will transport via private vehicle with family. Annmarie will follow up with her PCP and discharge plan of care. Patient/Family Education Needs: Discharge plan, limitations, follow up plan and Ask Me Three.
--- NOTE | 2019-01-23 07:32 | OT.INDS ---
Date of service: 01/23/19 Time of Service: 07:32 Occupational Therapy Notes Occupational Therapy Inpatient Discharge Summary Date: 01/23/19 Referring Doctor:Ellyn Curry MD OT Orders: Eval and Treat Precautions: Fall, Standard PATIENT PROFILE/ADMITTING DIAGNOSIS: Pt is an 83 year old female who was admitted to [facility] through the ER for onset chest pressure, diaphoresis and fatigue. Patient was diagnosed with atypical chest pain and hypertension and is being seen in the ICU for medical management. Past Medical History: Medical History Dementia (Chronic) Hyperlipidemia (Acute) Hypertension (Chronic) Insomnia (Acute) Osteoarthritis (Chronic) Surgical History Status post tonsillectomy and adenoidectomy (Acute) Social History/Home Situation: Pt reports that she lives in a private home with her . She reports that she has Alzheimers and is able to verbalize this at the beginning of session. She reports that this limits her community mobility as she is not currently driving. Equipment owned/DME: 4WW SUBJECTIVE: NT *This document serves as a summary of care, no skilled OT services provided for this documentation.* OBJECTIVE: ROM: RUE AROM WFL L UE AROM WFL STRENGTH: RUE 4/5 throughout globally LUE 4/5 throughout globally FUNCTIONAL MOBILITY/ADLS: Supine-sit Min vc (S) Sit-supine Min vc (S) BATHING Sitting in bed with max (A) set up Bathing UE (I) upper body with min vc Bathing LE (I) lower body with min (A) to (B) feet DRESSING sitting in bed with max (A) set up Dressing UE min (A) don and doffing hospital gown Dressing LE (I) don and doffing (B) socks GROOMING Sitting in bed (I) with brushing hair TOILETING NT EATING NT BALANCE: Static sitting Normal Dynamic Sitting Normal SPECIAL TESTS: Daily Activity Limitations Standardized Measure [facility] AM -PAC ?6 clicks? Daily Activity Inpatient Short Form: Raw score: 22 INFORMED CONSENT/EDUCATION: Pt instructed in purpose of OT Consult and plan of care. ASSESSMENT: Patient is a 83-year-old female referred to occupational therapy services with diagnosis of atypical chest pain and hypertension. Pt was seen for OT consult only. OT was unable to work with pt towards established goals. Per pt's EMR she was discharged home with HH PT orders. OT will plan to formally discharge pt from skilled OT services at this time. GOALS- Not met 1. Transfers (I) with FWW 2. Dressing Sitting in chair (I) UE/(I) LE 3. Bathing (I) standing at sink for UE and (I) sitting for LE 4. Toileting on toilet (I) 5. Eating (I) PLAN OF CARE/TREATMENT PLAN: Discharge from skilled OT services. DISCHARGE RECOMMENDATIONS Home with when medically cleared per MD. TREATMENT TIME/MINUTES/CODES N/A Suzanne Kerr OTR/L [facility]
--- NOTE | 2019-01-24 08:38 | PT.INDS ---
Date of service: 01/24/19 PT Notes Inpatient Physical Therapy Discharge Summary Dates: 01/24/2019 Dates of Service: 01/22/2019 only IsReferring Doctor: Ellyn Curry MD PT Orders: PT CONSULT: Limited ability Precautions: Fall. Standard. Activity as tolerated. Patient Profile/Admitting Diagnosis: Patient is an 83-year-old female with past medical history significant for Alzheimer's type dementia who presented to the ED on 01/19/2019 with chief presentation of sudden onset chest pressure, diaphoresis, generally not feeling well and very much fatigued. Patient was diagnosed with atypical chest pain and hypertension PMHX: Medical History Dementia (Chronic) Hyperlipidemia (Acute) Hypertension (Chronic) Insomnia (Acute) Osteoarthritis (Chronic) Surgical History Status post tonsillectomy and adenoidectomy (Acute) Social History/Home Situation: Patient lives with in a a private home with 4 steps to enter with rails, none inside the house. Patient was independent with all aspects of mobility ADLs using 4 wheeled walker. Has been provides assistance with instrumental ADLs as needed. Equipment Owned/DME: 4WW with a seat Subjective: Patient agreed to a PT consult. She was on her way to nuclear stress testing and was agreeable to PT providing assistance with transfer and short distance ambulation. Objective: General Observation: Patient is seen resting on her bed with telemetry monitoring in place. IV open in L UE. Mental Status: Alert and oriented as to person and place Pain: 0/10 ROM: Right Lower Extremity: Hip flexion WFL. Hip abduction WFL. Knee flexion WFL. Ankle dorsiflexion WFL. Ankle plantarflexion WFL. Left Lower Extremity: Hip flexion WFL. Hip abduction WFL. Knee flexion WFL. Ankle dorsiflexion WFL. Ankle plantarflexion WFL. Strength: Right Lower Extremity: Hip flexors 4/5. Hip abductors 5/5. Knee flexors 5/5. Knee extensors 5/5. Ankle dorsiflexors 4/5. Ankle plantarflexors 5/5. Left Lower Extremity:Hip flexors 4/5. Hip abductors 5/5. Knee flexors 5/5. Knee extensors 5/5. Ankle dorsiflexors 4/5. Ankle plantarflexors 5/5. Sensation: Intact as to pain and pressure on bilateral lower extremities. Bed Mobility/Transfers: Rolling SBA Supine to sit SBA Sit to supine SBA Sit to stand CGA Stand to sit CGA Bed to chair CGA Chair to bed CGA Gait: Patient was able to tolerate in-room ambulation from bedside to about 15 feet, made a turn and backed up to sit on wheelchair using the FWW requiring only CGA and minimal verbal cues for overall safety. Balance: Static Sitting: Normal Dynamic Sitting: Normal Static Standing: Fair Dynamic Standing: Fair Assessment: Patient is an 83-year-old female diagnosed with atypical chest pain and hypertension. Patient presents with clinical signs and symptoms consistent with current/admitting diagnoses that have resulted to mobility limitations, gait instability, generalized weakness, and impairment of motor control as demonstrated by the following impairment level findings: 1. Decreased strength to B LE major muscle groups 2. Impaired sitting/standing balance 3. Impaired activity tolerance Impairments are contributing to the following functional limitations: 1. Dependent bed mobility skills 2. Increased dependence with transfers 3. Inability to safely ambulate without assistive device and physical assistance 4. Increase completion time for mobility ADL performance 5. Increased fall risk 6. Inability to negotiate steps alone safely Goals: Goals X1 week 1. Supine-Sit independent NOT MET 2. Sit-Supine independent NOT MET 3. Sit-Stand independent NOT MET 4. Stand-Sit independent NOT MET 5. Bed-Chair independent NOT MET 6. Chair-Bed independent NOT MET 7. Independent gait on level surface with use of least restrictive device for at least 300 feet without report of pain nor dyspnea NOT MET 8. Independent stair negotiation while holding onto bilateral rails for at least 5 steps without report of pain nor dyspnea NOT MET 9. Independent with home exercise program NOT MET 10. Good static and dynamic standing balance/tolerance NOT MET DISCHARGE RECOMMENDATIONS: Patient will benefit from home health PT services in order to progress mobility level using least restrictive assistive ambulatory device, assess home safety, identify additional equipment needs, and establish a functional maintenance program that will increase ability of patient to remain at home. TREATMENT CODE/TIME: AL Thank you very much for this referral. Carmen Means PT, DPT, CLT [facility]
--- NOTE | 2019-01-24 09:39 | PT.INIE ---
Date of service: 01/24/19 Time of Service: 09:02 PT Notes Inpatient Physical Therapy Evaluation Date: 01/24/2019 Referring Doctor: Jessee Alston MD PT Orders: PT CONSULT: Status post right TKA Precautions: Fall. Contact precautions on. WBAT on right LE. Patient Profile/Admitting Diagnosis: Patient is a 68-year-old female with primary unilateral osteoarthritis of the right knee status post right total knee arthroplasty on postoperative day 1. PMHX: Medical History Dementia (Chronic) Hyperlipidemia (Acute) Hypertension (Chronic) Insomnia (Acute) Osteoarthritis (Chronic) Surgical History Status post tonsillectomy and adenoidectomy (Acute) Social History/Home Situation: Patient lives with in a one-story house in [place], [place] with 3 steps to enter in a rail on the left going up. Patient is independent with all aspects of ADLs without the need for an assistive device nor adaptive equipment. Patient states that she used bilateral axillary crutches to negotiate steps last fall but have not used anything since. Patient states that her will be in full support when she goes home. Equipment Owned/DME: Bilateral axillary crutches, FWW Subjective: Patient consented to a physical therapy evaluation. She reports pain on the right knee especially with weight bearing and movement. She looks forward to going home today with . Objective: General Observation: Mepilex Ag over surgical incision on right knee. TEDS on left leg. Chinchilla catheter still in place. Mental Status: Alert and oriented as to person, place, time, and purpose Pain: 2/10 at rest, 5/10 with weightbearing and movement ROM: Right Upper Extremity: Shoulder Flexion WFL. Shoulder abduction WFL. Elbow flexion WFL. Wrist flexion WFL. Opening and closing of hand WFL. Left Upper Extremity: Shoulder Flexion WFL. Shoulder abduction WFL. Elbow flexion WFL. Wrist flexion WFL. Opening and closing of hand WFL. Right Lower Extremity: Hip flexion WFL. Hip abduction WFL. Knee flexion allows up to 70 degrees with pain at end range K. Knee extension lacks 40 degrees due to pain at end range. Ankle dorsiflexion WFL. Ankle plantarflexion WFL. Left Lower Extremity: Hip flexion WFL. Hip abduction WFL. Knee flexion WFL. Ankle dorsiflexion WFL. Ankle plantarflexion WFL. Strength: Right Upper Extremity: Shoulder flexors 5/5. Shoulder abductors 5/5. Elbow flexors 5/5. Elbow extensors 5/5. [employer] Superintendent strong. Left Upper Extremity: Shoulder flexors 5/5. Shoulder abductors 5/5. Elbow flexors 5/5. Elbow extensors 5/5. [employer] Operations Superintendent strong. Right Lower Extremity: Hip flexors 4/5. Hip abductors 4/5. Knee flexors 3-/5. Knee extensors 3-/5. Ankle dorsiflexors 5/5. Ankle plantarflexors 5/5. Left Lower Extremity:Hip flexors 4-/5. Hip abductors 4/5. Knee flexors 4/5. Knee extensors 4/5. Ankle dorsiflexors 5/5. Ankle plantarflexors 5/5. Sensation: Intact as to pain and pressure on bilateral lower extremities. Bed Mobility/Transfers: Rolling independent Supine to sit independent Sit to supine independent Sit to stand SBA Stand to sit SBA Bed to chair SBA Chair to bed SBA Gait: Patient was able to tolerate in room ambulation of 15 feet x 6 using FWW with SBA only with step to gait pattern. Patient reported 5/10 pain with weight bearing that subsided with rest. Balance: Static Sitting: Normal Dynamic Sitting: Normal Static Standing: Fair Dynamic Standing: Fair Special Tests: Mobility Limitations Standardized Measure [facility] 6 clicks Basic Mobility Inpatient Short Form: Raw Score: 23 CMS Score: 1.20% deficit Informed Consent/Education: Patient instructed in purpose of PT consult and plan of care. Assessment: Patient is a 68-year-old female with primary unilateral osteoarthritis of the right knee status post right total knee arthroplasty on postoperative day 1. Patient presents with clinical signs and symptoms consistent with current/admitting diagnoses that have resulted to mobility limitations, gait instability, generalized weakness, and impairment of motor control as demonstrated by the following impairment level findings: 1. Decreased strength to R LE major muscle groups 2. Impaired sitting/standing balance 3. Impaired activity tolerance 4. Limitation of joint range of motion in right knee Impairments are contributing to the following functional limitations: 1. Inability to safely ambulate without assistive device and physical assistance 2. Increase completion time for mobility ADL performance 3. Increased fall risk 4. Inability to negotiate steps alone safely Patient is assessed as a 91183 moderate complexity based on the following: History: Patient is a 68-year-old female with primary unilateral osteoarthritis of the right knee status post right total knee arthroplasty on postoperative day 1. Examination: Demonstrable impairment in strength, balance, and range of motion with underlying impairments and functional limitations as documented above Presentation:Evolving Decision Makin moderate complexity Goals: Goals X1 week 1. Stand-Sit independent 2. Bed-Chair independent 3. Chair-Bed independent 4. Independent gait on level surface with use of least restrictive device for at least 300 feet without report of pain nor dyspnea 5. Independent stair negotiation while holding onto bilateral rails for at least 10 steps without report of pain nor dyspnea 6. independent with home exercise program 7. Good static and dynamic standing balance/tolerance Plan of Care/Treatment Plan: DISCHARGE RECOMMENDATIONS: Patient goes home today at walker level. May benefit from skilled physical therapy services according to orthopedic surgeon's timeline recommendations. Patient will be educated and trained on home exercise program per TKA exercise protocol in preparation for outpatient physical therapy services. TREATMENT CODE/TIME: 61137 x 25 minutes, 19625 x 9 minutes beginning at 9:02 AM. Thank you very much for this referral. Carmen Means PT, DPT, CLT [facility]
== END 2019-01-22 16:50 | disposition home health service (06) | DRG 313 ==
LOC: ER 18:53 → MS 19:40 → ICU 01-20 08:56
PROVIDERS: Admitting Provider Family Medicine; Emergency Provider Student in an Organized Health Care Education/Training Program; PCP General Practice; Visit Provider Internal Medicine
DX: R07.89 Other chest pain (principal); R55 Syncope and collapse; R00.1 Bradycardia, unspecified; R61 Generalized hyperhidrosis; I10 Essential (primary) hypertension; E78.5 Hyperlipidemia, unspecified; R11.2 Nausea with vomiting, unspecified; F03.90 Unspecified dementia, unspecified severity, without behavioral disturbance, psychotic disturbance, mood disturbance, and anxiety; K44.9 Diaphragmatic hernia without obstruction or gangrene; E66.9 Obesity, unspecified
CPT/HCPCS: 36415; 78452; 80048; 80053; 93005; 93016; 93018; 93306; 96360; 97110; 97162; 97166; 97530; 97535; 99220; 99232; 99239; 99285; 99291; 71045; 71046; 74176; 76705; 81003; 81015; 83735; 84443; 84484; 85025; 85610; 87086; 93010; 93017; G0378; J1610; J1644; J2405; J2785; J7512

== ENCOUNTER → 2019-01-21 07:48 | Outpatient (BNVA) | payer MEDICARE, OTHER, SELFPAY | PROVIDERS: PCP General Practice; Referring Provider General Practice; Visit Provider Internal Medicine Cardiovascular Disease | DX: R69 Illness, unspecified (principal) | CPT/HCPCS: 99244 ==

== ENCOUNTER 2019-05-17 03:48 | Emergency (ER) | payer MEDICARE, OTHER, SELFPAY ==
[2019-05-17 03:52] VITALS: BP 153/96; PULSE 81; RESP 18; TEMP 36.2; O2SAT 96
--- NOTE | 2019-05-17 03:52 | W.ED.GENAD ---
Discharge Plan Disposition Patient Disposition: HOME Condition: Good Discharge Details Chief Complaint: Orthopedic Clinical Impression: Lateral pain of right hip Primary Care Provider: Angelina Mueller ED Provider: Juan Flowers [place] Meds and New Rx's Prescriptions: New lidocaine [Lidoderm] 5 % Adhesive Patch,Medicated 2 patch topical DIRECTED Qty: 15 RF: 0 Continued celecoxib [Celebrex] 200 MG capsule 200 mg PO DAILY RF: 0 rosuvastatin [Crestor] 20 MG tablet 20 mg PO HS RF: 0 aspirin [Aspir-81] 81 mg Tablet,Delayed Release (Dr/Ec) 81 mg PO DAILY RF: 0 diphenhydramine-acetaminophen [Tylenol PM Extra Strength] 25-500 mg Tablet 1 tab PO QHS PRNRF: 0 calcium citrate 200 mg (950 mg) Tablet 200 mg PO DAILY RF: 0 quetiapine 50 mg Tablet 50 mg PO DAILY RF: 0 pantoprazole [Protonix] 40 mg tablet,delayed release (DR/EC) 40 mg PO DAILY Qty: 30 RF: 0 Discharge Instructions Additional Instructions: You may benefit from physical therapy. In the meantime continue your Celebrex and Tylenol. Continue use of Lidoderm patches if they seem to help. Follow-up with primary care next week. Will have care management reach out to Dr. Lovelace regarding son's request to speak with her. Referrals: Angelina Mueller [Primary Care Provider] - Lourdes Lovelace MD [ [facility] STAFF PHYSICIAN] - Medical Decision Making Patient here with increased chronic right hip pain. No report of fall or trauma. Pain is along the lateral aspect of the hip and thigh. Mild tenderness present. Reports x-ray within the last month for same. Our records document IT band syndrome which may be where this pain is coming from. There is no evidence of septic joint. Unlikely to have fracture given recent x-rays and no falls. Decent range of motion and ambulated from house to ambulance. Do not think labs or imaging indicated tonight. She is Feng been given Tylenol by her . She is on Celebrex daily. Will try a couple of Lidoderm patches in the area and reevaluate. Patient's son, Gwen Nash, arrived. He reports that his mother used to have home health and PT but that his dad has discontinued all the services because he did not want people at the house. Patient will probably benefit from PT especially if this is IT band syndrome. She has recently been seen by Dr. Lovelace from palliative care. Son would like a call from Dr. Lovelace to discuss options. I will forward note to her as well as have care management reach out. Patient will be discharged with prescription for Lidoderm patch to try for the next week or so to see if it helps. She can follow-up with primary care next week. Return to ED if neurologic changes, inability to bear weight, fever. Medical Records Medical records reviewed: Yes I reviewed the patient's medical records. HPI General Mode of arrival: EMS. Date/Time Provider Initiated Documentation: 05/17/19 03:50. Information obtained by: patient, family, RN notes reviewed and old records reviewed. HPI Narrative: Patient brought in by ambulance tonight with right hip and thigh pain. This is not new pain. It is chronic and has been present for a long time. She had x-rays by her PCP in [place] less than a month ago per . There is no trauma. She does not feel ill. There is no fever. gave her Tylenol tonight but she was still complaining a lot about it so they called EMS and was brought in for evaluation. She was able to ambulate from the house to the ambulance. She ambulated from the stretcher to our bed. She points to the lateral right hip area and down the lateral aspect of her thigh as to where the pain is. She denies fever. She denies numbness or weakness. Related Data Home Medications Medication Instructions Recorded Confirmed celecoxib [Celebrex] 200 mg PO DAILY 12/23/12 05/17/19 rosuvastatin [Crestor] 20 mg PO HS 12/23/12 05/17/19 aspirin [Aspir-81] 81 mg PO DAILY 01/19/19 05/17/19 calcium citrate 200 mg PO DAILY 01/19/19 05/17/19 diphenhydramine-acetaminophen 1 tab PO QHS PRN 01/19/19 05/17/19 [Tylenol PM Extra Strength] quetiapine 50 mg PO DAILY 01/19/19 01/19/19 pantoprazole [Protonix] 40 mg PO DAILY #30 tab 01/22/19 05/17/19 lidocaine [Lidoderm] 2 patch TOPICAL DIRECTED #15 ea 05/17/19 Previous Rx's Medication Instructions Recorded pantoprazole [Protonix] 40 mg PO DAILY #30 tab 01/22/19 lidocaine [Lidoderm] 2 patch TOPICAL DIRECTED #15 ea 05/17/19 Allergies Allergy/AdvReac Type Severity Reaction Status Date / Time No Known Allergies Allergy Unverified 05/17/19 03:58 General BERTHA: 3 Review of Systems Constitutional Constitutional: Denies chills and Denies fever(s) Musculoskeletal Musculoskeletal: Reports arthralgias and Denies numbness Neurologic Neurologic: Denies focal weakness and Denies numbness [facility] Medical History Ankle weakness (Acute) Dementia (Chronic) Hyperlipidemia (Acute) Hypertension (Chronic) Insomnia (Acute) IT band syndrome (Acute) Obesity (Chronic) Osteoarthritis (Chronic) Palliative care patient (Acute) Physical deconditioning (Acute) Poor historian (Acute) Right knee pain (Acute) Right shoulder pain (Acute) Unsteady gait (Chronic) uses walker most of the time Surgical History History of appendectomy (Chronic) Status post right knee replacement (Acute) Status post tonsillectomy and adenoidectomy (Acute) Social History Smoking/Tobacco Use Status: Never Alcohol Intake: never Drug use: Never Substance use type: does not use Caregiver/Support person: Yes Household members: spouse Housing: house Number of Children: 4 number of grandchildren: 12 Communication Needs: Hard of Hearing and Corrective Lenses Education Level: high school Do you need help understanding health information?: Always current occupation: retired from [employer] Pets and animals: Yes What is your relationship status?: How often do you talk on the phone with friends or family?: three or more times per week How often do you get together with friends or relatives?: once per week Panel score (0-1 are the most socially isolated patients): 2 What type of physical activity do you participate in: walking and irregular exercise Duration: 15-30 minutes/day Special rodger needs: No Seatbelt use: always Working smoke detector in home: Yes Fire extinguisher in home: Yes Do you feel safe at home: Yes Do you feel safe in your relationship?: Yes Additional Social history: x 61 yrs; tells me she had a heart attack, though cardiology consult and d/c summary dispute this. Atypical CP. Bradycardia (not today) Poor understanding of her health issues. doesn't understand, either (his memory is ok). Feeling and doing better. Exercising on pedal machine. Exam Const General: cooperative, comfortable and no acute distress Skin Rashes: no rashes Extrem Other: There is no erythema in the area. There is mild tenderness along the lateral aspect of the thigh from the greater trochanteric region to about mid thigh. I am able to passively range her hip through all planes without significant pain. She has neurovascularly intact distally.
[2019-05-17] MEDS: Lidocaine 5% Patch 2 PATCH TP (04:13)
--- NOTE | 2019-05-17 04:27 | NUR.NOTE ---
Nursing Note: Pt states that she has had PT in the past for chronic right hip pain. Some confusion over whether she has recently refused this service or not. Will reconnect with PCP to resume PT services.
[2019-05-17 04:29] VITALS: BP 153/59; PULSE 81; RESP 18; TEMP 36.2; O2SAT 96
--- NOTE | 2019-05-17 04:41 | NUR.NOTE ---
Nursing Note: COPIED REFERAL FOR CAREMANAGEMENT
== END 2019-05-17 04:55 | disposition home or self-care (01) ==
LOC: ER 04:48
PROVIDERS: Emergency Provider Emergency Medicine; PCP General Practice
DX: M25.551 Pain in right hip (principal); G89.29 Other chronic pain; I10 Essential (primary) hypertension; M76.31 Iliotibial band syndrome, right leg
CPT/HCPCS: 99283

== ENCOUNTER 2019-09-16 11:13 | Outpatient (CLI) | payer MEDICARE, OTHER, SELFPAY ==
--- NOTE | 2019-09-16 10:45 | DI.RAD_ITS ---
EXAM: XR KNEE RT 3V AP,LAT,KAYCE CLINICAL HISTORY: right hip pain TECHNIQUE: COMPARISON: No exams were available for comparison FINDINGS: Three views were obtained. There is mild valgus angulation of the knee. There is moderate to severe narrowing of the lateral tibiofemoral cartilaginous joint space, there appears to be subchondral scl erosis and some flattening of the adjacent articular surfaces at the lateral joint. There is moderat e marginal osteophyte formation noted involving the lateral tibial femoral joint patellofemoral joint . No other significant bony abnormality seen. 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
--- NOTE | 2019-09-16 10:45 | DI.RAD_ITS ---
EXAM: XR HIP RT COMPLETE AP PELVIS CLINICAL HISTORY: eval right hip pain TECHNIQUE: COMPARISON: No exams were available for comparison FINDINGS: Two views were obtained. There is narrowing of the cartilaginous joint spaces of both hips superiorl y. Mild acetabular osteophyte formation noted bilaterally. Osteophytes are also present at the grea ter trochanters of femurs bilaterally. No other significant bony abnormality seen. IMPRESSION: Moderate DJD both hips.
== END 2019-09-16 11:33 ==
PROVIDERS: PCP Student in an Organized Health Care Education/Training Program; Referring Provider Family Medicine; Visit Provider Student in an Organized Health Care Education/Training Program
DX: M25.551 Pain in right hip (principal); M16.0 Bilateral primary osteoarthritis of hip; M21.061 Valgus deformity, not elsewhere classified, right knee; M17.11 Unilateral primary osteoarthritis, right knee; M25.561 Pain in right knee
CPT/HCPCS: 20610; 73562; 99203; 99214; 73502; J1040

== ENCOUNTER 2019-11-06 12:58 | Outpatient (CLI) | payer MEDICARE, OTHER, SELFPAY ==
[2019-11-06 13:32] LABS: Abs Immature Grans 0.01 k/cumm (0.0-0.09); Absolute Basophil Count 0.03 k/cumm (0.0-0.2); Absolute Lymphocyte Count 2.48 k/cumm (1.2-3.4); Absolute Monocyte Count 0.49 k/cumm (0.11-0.7); Absolute Neutrophil Count 3.89 k/cumm (1.2-6.7); Basophils % 0.4; Eosinophils % 2.8; HCT 40.8 % (36.0-46.0); HGB 13.1 g/dL (12.0-15.5); Immature Grans % 0.1 %; Lymphocytes % 34.9; Mean Corp. HGB Concentration 32.1 g/dL (32.0-36.0); Mean Corpuscular Hemoglobin 30.3 pg (27.0-33.0); Mean Corpuscular Volume 94.2 fL (80-95); Mean Platelet Volume 11.2 fL (8.0-11.0); Monocytes % 6.9; Neutrophils % 54.9; Platelet Count 186 x1000/uL (130-400); RBC 4.33 m/cumm (4.00-5.20); RBC Distribution Width 13.1 % (11.7-14.6)
[2019-11-06 14:40] LABS: Anion Gap 11.1 mmol/L (3-11); BUN 24 mg/dL (7-18); CO2 25.9 mmol/L (21.0-32.0); Calcium 9.1 mg/dL (8.5-10.1); Chloride 105 mmol/L (98-107); Estimated GFR 39.21 (mL/min/1.73m2); Glucose 138 mg/dL (74-106); Sodium 142 mmol/L (136-145)
== END 2019-11-06 13:18 ==
PROVIDERS: PCP Student in an Organized Health Care Education/Training Program; Visit Provider Nurse Practitioner Family
DX: Z01.818 Encounter for other preprocedural examination (principal)
CPT/HCPCS: 36415; 80048; 85025

== ENCOUNTER 2019-11-11 08:34 | Outpatient (CLI) | payer MEDICARE, OTHER, SELFPAY ==
[2019-11-13 18:56] LABS: SARS-CoV-2 RNA Undetected (Undetected)
== END 2019-11-11 08:54 ==
PROVIDERS: PCP Student in an Organized Health Care Education/Training Program; Visit Provider Nurse Practitioner
DX: Z11.59 Encounter for screening for other viral diseases (principal)
CPT/HCPCS: U0003

== ENCOUNTER → 2019-12-16 10:00 | Outpatient (BNVA) | payer MEDICARE, OTHER, SELFPAY | PROVIDERS: PCP Student in an Organized Health Care Education/Training Program; Referring Provider Student in an Organized Health Care Education/Training Program; Visit Provider Student in an Organized Health Care Education/Training Program | DX: M25.551 Pain in right hip (principal); M25.561 Pain in right knee; M70.61 Trochanteric bursitis, right hip | CPT/HCPCS: 99213 ==

== ENCOUNTER 2019-12-19 01:22 | Outpatient (CLI) | payer MEDICARE, OTHER, SELFPAY ==
--- NOTE | 2019-12-19 09:00 | DI.MRI_ITS ---
EXAM: MR LOWER JOINT RT WO CLINICAL HISTORY: PAIN, TROCHANTERIC BURSITIS RT HIP, M70.61, M25.551. TECHNIQUE: Multiplanar multisequence MRI was performed. COMPARISON: No exams were available for comparison FINDINGS: Bones: Marrow signal is within normal limits. No evidence of an occult fracture or avascular necrosi s. Muscles: Moderate fatty atrophy is seen of the gluteus muscles bilaterally. There is marked fatty at rophy of the tensor fascia alok muscles bilaterally. Labrum: Grossly unremarkable on this noncontrast examination. Joint: Unremarkable with minimal fluid within the joint. Soft tissues: Linear hyperintense signal is seen adjacent to the right greater trochanter suspicious for greater trochanteric bursitis. No other focal fluid collections are identified. Pelvis: Note is made of colonic diverticulosis. IMPRESSION: Findings suspicious for right greater trochanteric bursitis. DATA REPOSITORY:
== END 2019-12-19 01:42 ==
PROVIDERS: PCP Student in an Organized Health Care Education/Training Program; Visit Provider Student in an Organized Health Care Education/Training Program
DX: M25.551 Pain in right hip (principal)
CPT/HCPCS: 73721

== ENCOUNTER → 2019-12-30 14:32 | Outpatient (BNVA) | payer MEDICARE, OTHER, SELFPAY | PROVIDERS: PCP Student in an Organized Health Care Education/Training Program; Referring Provider Student in an Organized Health Care Education/Training Program; Visit Provider Student in an Organized Health Care Education/Training Program | DX: M70.61 Trochanteric bursitis, right hip (principal); I10 Essential (primary) hypertension | CPT/HCPCS: 99213 ==

== ENCOUNTER 2020-02-06 09:59 | Emergency (ER) | payer MEDICARE, OTHER, SELFPAY ==
[2020-02-06] VITALS (37 sets, daily range): BP systolic 126–183; BP diastolic 73–160; PULSE 70–93; RESP 11–28; TEMP 36.3–36.4; O2SAT 94–98
--- NOTE | 2020-02-06 10:00 | RT.EKG_ITS ---
APPROVED REPORT Exam: Resting ECG Patient Location: E HR:86 bpm ECG Measurements Heart Rate 86 AXIS WA 187 P -32 QRSd 77 QRS -33 QT 369 T 43 QTc 442 Conclusion Sinus rhythm...normal P axis, V-rate 60- 99 Left axis deviation...QRS axis (-30,-90) Low voltage, extremity and precordial leads...extremity<0.5mV, precordial<1.0mV Consider anterior infarct...Q >30mS in V2-V5. No acute change from previous EKG. No STEMI. I have reviewed and interpreted ECG and agree with software generated interpretation.
--- NOTE | 2020-02-06 10:04 | ED.GENADUL_ITS ---
Discharge Plan Disposition Patient Disposition: HOME Condition: Stable Discharge Details Clinical Impression: Chest wall pain Primary Care Provider: Lazara Stock ED Provider: Esperanza Avina Home Meds and New Rx's Prescriptions: Continued rosuvastatin [Crestor] 20 mg tablet 20 mg PO HS Qty: 90 RF: 3 lisinopril 2.5 mg tablet 2.5 mg PO DAILY RF: 0 donepezil [Aricept] 10 mg tablet 10 mg PO DAILY RF: 0 cholecalciferol (vitamin D3) 25 mcg (1,000 unit) tablet 25 mcg PO BID RF: 0 acetaminophen [Acetaminophen Extra Strength] 500 mg tablet 500 mg PO Q6H PRNRF: 0 vitamin B complex [B Complex-Vitamin B12] Tablet See Rx Instructions PO DAILY RF: 0 calcium carbonate 600 mg calcium (1,500 mg) tablet 600 mg PO BID RF: 0 multivitamin Tablet 1 tab PO DAILY RF: 0 memantine [Namenda] 10 mg tablet 10 mg PO BID Qty: 180 RF: 2 celecoxib [Celebrex] 200 mg capsule 200 mg PO BID Qty: 180 RF: 3 alendronate 70 mg tablet 70 mg PO QWEEK Qty: 14 RF: 3 quetiapine 50 mg tablet 50 mg PO DAILY Qty: 90 RF: 3 aspirin [Aspir-81] 81 mg Tablet,Delayed Release (Dr/Ec) 81 mg PO DAILY RF: 0 pantoprazole [Protonix] 40 mg tablet,delayed release (DR/EC) 40 mg PO DAILY Qty: 30 RF: 0 Discharge Instructions Instructions: Chest Wall Pain (ED) Additional Instructions: Drink plenty of fluids and get plenty of rest. Take Tylenol as needed and directed for pain. You can also continue to use the [id number] lidocaine patches as needed and directed for pain. Call your primary care doctor's office today or tomorrow to schedule follow-up appointment for reevaluation next week. Return immediately to the emergency department if you develop any worsening or new concerning symptoms. Discharge Data Discharge Date/Time-TO BE ENTERED AT DEPARTURE: 02/06/20 14:42 Discharge Physician: Esperanza Avina Medical Decision Making 1010 -- 84-year-old female with a history of asthma, dementia, CVA, GA, hypertension, hyperlipidemia and GERD presents with a brief episode of left- sided chest pain and shortness of breath that occurred while sitting at home. Denies any symptoms at present. She states her main concern is the coronavirus. She is oriented x3. She appears quite anxious. EKG notes a rate of 86, sinus with no acute ST-T wave ischemic changes. She has tenderness to palpation of her left lateral chest and left upper quadrant of abdomen. Suspect most likely musculoskeletal, but considering patient's age and history, will obtain a cardiac work-up, CT chest and abdomen and pelvis and place Lidoderm patch and reassess. 1210 --labs and imaging reviewed and unremarkable. Troponin negative. Urinalysis negative. CT negative. Patient reassessed and she still remains asymptomatic. We will plan for repeat troponin and EKG. 1420 --repeat troponin negative. Repeat EKG unchanged. Patient remains asymptomatic and feels good to go home. Advised to follow up with the primary care doctor for re-evaluation. Usual and customary return precautions given prior to discharge. Formal report of CT chest abdomen pelvis noted thickening of endometrial stripe and recommended pelvic ultrasound for further evaluation. After patient discharge, patient called at home to inform her of these findings but no answer. Called patient's daughter Bonnie and informed her of recommendation for follow-up with her PCP within the next week for reevaluation of her chest pain and for outpatient pelvic ultrasound for further evaluation of CT findings. She states she will pass this message along to her mom and dad. Medical Records Medical records reviewed: Yes I reviewed the patient's medical records. Imaging Data Radiologic Study: Radiologist's impression: CT CHEST PE ABD PELVIS W CLINICAL HISTORY: Left-sided chest pain/SOB/LUQ abd pain. TECHNIQUE: Imaging Protocol: Axial CT angiography was performed with multi- slice acquisition and multi-planar and/or 3D reconstructions. CONTRAST MATERIAL: Intravenous: Omnipaque 350 Contrast volume:100 cc COMPARISON: CT CT ABDOMEN PELVIS WO from 01/20/2019 MR MR LOWER JOINT RT WO from 12/19/2019 FINDINGS: Chest CT: There is no evidence of pulmonary emboli or aortic dissection. The aorta is tortuous but normal in diameter and shows mild atherosclerotic changes. There is a small to moderate sized hiatal hernia. There is respiratory motion. No infiltrates or effusions are seen. Degenerative changes are seen in the thoracic spine. Abdomen and pelvic CT: Cholelithiasis is again noted. There is no gallbladder wall thickening or biliary dilatation. The liver, spleen, pancreas and adrenals are unremarkable. Right renal cysts are seen. There is no hydronephrosis or evidence of urinary tract calculi. The appendix appears normal. There is no bowel dilatation or wall thickening. There is a normal quantity of stool. There is mild sigmoid diverticulosis with no evidence of diverticulitis. Abdominal aorta is mildly tortuous. There are moderate atherosclerotic changes with no evidence of an aneurysm. The bladder is unremarkable. Small uterine fibroids are noted. There is abnormal thickening of the endometrial stripe. IMPRESSION: No evidence of pulmonary embolism or other acute abnormality in the chest. No acute abnormality in the abdomen. There is thickening of the endometrial stripe. Pelvic ultrasound is recommended for further evaluation. Cholelithiasis and sigmoid diverticulosis. Lab Data Lab results reviewed: Yes I reviewed the patient's lab results. Labs: Laboratory Tests Range/Units 02/06/20 02/06/20 02/06/20 10:20 10:20 10:20 WBC (4.4-10.8) 10^3/uL 8.09 RBC (3.93-5.22) 10^6/uL 4.30 Hgb (11.2-15.7) g/dL 12.8 Hct (36.0-46.0) % 39.7 MCV (80-95) fL 92.3 MCH (27.0-33.0) pg 29.8 MCHC (32.0-36.0) % 32.2 RDW (11.7-14.6) % 11.7 Plt Count (130-400) 10^3/uL 190 MPV (8.0-11.0) fL 11.3 H Immature Gran % 0.2 Neutrophils % 62.4 Lymphocytes % 28.4 Monocytes % 7.2 Eosinophils % 1.2 Basophils % 0.6 Nucleated RBC % % 0 Absolute Neutrophils (1.2-6.7) 10^3/uL 5.04 Absolute Lymphocytes (1.2-3.4) 10^3/uL 2.30 Absolute Monocytes (0.1-0.8) 10^3/uL 0.58 Absolute Eosinophils (0.0-0.7) 10^3/uL 0.10 Absolute Basophils (0.0-0.2) 10^3/uL 0.05 PT (9.3-11.0) sec 10.6 INR (0.9-1.1) 1.1 APTT (21.0-31.4) sec 20.1 L Sodium (136-145) mmol/L 137 Potassium (3.5-5.1) mmol/L 3.7 Chloride (98-107) mmol/L 103 Carbon Dioxide (21.0-32.0) mmol/L 25.2 Anion Gap (3-11) mmol/L 8.8 BUN (7-18) mg/dL 23 H Creatinine (0.55-1.02) mg/dL 1.16 H Estimated GFR/1.73 m2 (mL/min/1.73m2) 44.73 Glucose (74-106) mg/dL 138 H Calcium (8.5-10.1) mg/dL 9.2 Magnesium (1.8-2.4) mg/dL 2.0 Total Bilirubin (0.2-1.0) mg/dL 0.4 AST (15-37) U/L 24 ALT (14-59) U/L 13 L Alkaline Phosphatase (46-116) U/L 45 L Troponin I (<0.06) ng/mL < 0.05 Total Protein (6.4-8.2) g/dL 7.0 Albumin (3.4-5.0) g/dL 3.6 Urine Color (Yellow) Urine Clarity (Clear) Urine pH (5-8) Ur Specific [place] (1.005-1.025) Urine Protein (Negative) mg/dL Urine Ketones (Negative) mg/dL Urine Blood (Negative) Urine Nitrite (Negative) Urine Bilirubin (Negative) Urine Urobilinogen (Up TO 0.2) EU/dL Ur Leukocyte Esterase (Negative) Urine RBC (0-2) HPF Urine WBC (0-5) HPF Ur Epithelial Cells (Negative) HPF Urine Crystals (Negative) HPF Urine Bacteria (Negative) HPF Urine Casts (Negative) LPF Urine Mucus (Negative) Urine Other (Negative) Ur Culture Indicated? Urine Glucose (Negative) mg/dL Range/Units 02/06/20 02/06/20 10:40 13:30 WBC (4.4-10.8) 10^3/uL RBC (3.93-5.22) 10^6/uL Hgb (11.2-15.7) g/dL Hct (36.0-46.0) % MCV (80-95) fL MCH (27.0-33.0) pg MCHC (32.0-36.0) % RDW (11.7-14.6) % Plt Count (130-400) 10^3/uL MPV (8.0-11.0) fL Immature Gran % Neutrophils % Lymphocytes % Monocytes % Eosinophils % Basophils % Nucleated RBC % % Absolute Neutrophils (1.2-6.7) 10^3/uL Absolute Lymphocytes (1.2-3.4) 10^3/uL Absolute Monocytes (0.1-0.8) 10^3/uL Absolute Eosinophils (0.0-0.7) 10^3/uL Absolute Basophils (0.0-0.2) 10^3/uL PT (9.3-11.0) sec INR (0.9-1.1) APTT (21.0-31.4) sec Sodium (136-145) mmol/L Potassium (3.5-5.1) mmol/L Chloride (98-107) mmol/L Carbon Dioxide (21.0-32.0) mmol/L Anion Gap (3-11) mmol/L BUN (7-18) mg/dL Creatinine (0.55-1.02) mg/dL Estimated GFR/1.73 m2 (mL/min/1.73m2) Glucose (74-106) mg/dL Calcium (8.5-10.1) mg/dL Magnesium (1.8-2.4) mg/dL Total Bilirubin (0.2-1.0) mg/dL AST (15-37) U/L ALT (14-59) U/L Alkaline Phosphatase (46-116) U/L Troponin I (<0.06) ng/mL < 0.05 Total Protein (6.4-8.2) g/dL Albumin (3.4-5.0) g/dL Urine Color (Yellow) Yellow Urine Clarity (Clear) Clear Urine pH (5-8) 7.0 Ur Specific [place] (1.005-1.025) 1.025 Urine Protein (Negative) mg/dL Negative Urine Ketones (Negative) mg/dL Negative Urine Blood (Negative) Small H Urine Nitrite (Negative) Negative Urine Bilirubin (Negative) Negative Urine Urobilinogen (Up TO 0.2) EU/dL 0.2 Ur Leukocyte Esterase (Negative) Negative Urine RBC (0-2) HPF 0-2 Urine WBC (0-5) HPF 3-5 Ur Epithelial Cells (Negative) HPF Moderate Urine Crystals (Negative) HPF Negative Urine Bacteria (Negative) HPF Rare Urine Casts (Negative) LPF Negative Urine Mucus (Negative) Trace Urine Other (Negative) Ur Culture Indicated? No/sq. contamination Urine Glucose (Negative) mg/dL Negative ECG Data Attestation: I personally reviewed and interpreted this ECG (s) as follows: Interpretation: #1 -- Rate of 86, sinus, no acute ST elevation or depression. RI 187. QRS 77. QTc 442. #2 -- Rate of 84, sinus, no acute ST elevation or depression. RI 191. QRS 79. QTc 463. HPI General Mode of arrival: ambulatory . Date/Time Provider Initiated Documentation: 02/06/20 10:00 . Limitations to Documentation: no limitations . Information obtained by: patient and family . HPI Narrative: Patient is a an 84-year-old female with a history of TIA, CVA, GA, hypertension, hyperlipidemia, GERD who presents for complaint of left-sided breast/chest pain with shortness of breath that occurred this morning while at home. Patient is somewhat of a poor historian and has a history of dementia with memory loss, but is oriented x3. She states that she has no complaints at present, but when asked of her , he stated that she complained of left-sided chest/breast pain today while sitting at home. Patient then does agree that she was sitting at home when she developed left lateral chest pain that lasted approximately 10 minutes and felt like tightness and then resolved. She denies any symptoms at present. She states the pain was 9/10 when it was present. She denies any aggravating or alleviating factors and states it resolved on its own. She states her main concern is this virus. Related Data Home Medications Medication Instructions Recorded Confirmed aspirin [Aspir-81] 81 mg PO DAILY 01/19/19 02/06/20 pantoprazole [Protonix] 40 mg PO DAILY #30 tab 01/22/19 02/06/20 rosuvastatin 20 mg tablet 20 mg PO HS #90 tab 06/27/19 02/06/20 acetaminophen 500 mg tablet 500 mg PO Q6H PRN 07/04/19 02/06/20 calcium carbonate 600 mg calcium 600 mg PO BID 07/04/19 02/06/20 (1,500 mg) tablet cholecalciferol (vitamin D3) 25 25 mcg PO BID tab 07/04/19 02/06/20 mcg (1,000 unit) tablet donepezil 10 mg tablet 10 mg PO DAILY 07/04/19 02/06/20 lisinopril 2.5 mg tablet 2.5 mg PO DAILY 07/04/19 02/06/20 multivitamin 1 tab PO DAILY 07/04/19 02/06/20 vitamin B complex See Rx Instructions PO DAILY 07/04/19 02/06/20 memantine 10 mg tablet 10 mg PO BID #180 tab 07/23/19 02/06/20 celecoxib 200 mg capsule 200 mg PO BID #180 cap 07/30/19 02/06/20 alendronate 70 mg tablet 70 mg PO QWEEK #14 tab 08/28/19 02/06/20 quetiapine 50 mg tablet 50 mg PO DAILY #90 tab 09/20/19 02/06/20 Previous Rx's Medication Instructions Recorded pantoprazole [Protonix] 40 mg PO DAILY #30 tab 01/22/19 rosuvastatin 20 mg tablet 20 mg PO HS #90 tab 06/27/19 memantine 10 mg tablet 10 mg PO BID #180 tab 07/23/19 celecoxib 200 mg capsule 200 mg PO BID #180 cap 07/30/19 alendronate 70 mg tablet 70 mg PO QWEEK #14 tab 08/28/19 quetiapine 50 mg tablet 50 mg PO DAILY #90 tab 09/20/19 Allergies Allergy/AdvReac Type Severity Reaction Status Date / Time No Known Allergies Allergy Verified 02/06/20 10:14 General BERTHA: 3 Review of Systems All systems reviewed & are unremarkable except as noted in HPI and below Constitutional Constitutional: Reports as per HPI, Denies chills and Denies fever(s) Eyes Eyes: Denies blurry vision ENT Ears, Nose, Mouth, and Throat: Denies dizziness, Denies sore throat and Denies throat swelling Cardiovascular Cardiovascular: Denies chest pain and Denies dyspnea Respiratory Respiratory: Denies cough and Denies dyspnea Gastrointestinal Gastrointestinal: Denies abdominal pain, Denies diarrhea and Denies vomiting Genitourinary Genitourinary: Denies hematuria and Denies dysuria Musculoskeletal Musculoskeletal: Denies back pain and Denies numbness Integumentary/Breasts Skin/Breast: Denies lesions and Denies rash Neurologic Neurologic: Denies dizziness, Denies localized weakness and Denies numbness Allergic/Immunologic Allergic/Immunologic: Denies throat swelling [facility] Medical History (Updated 02/06/20 @ 14:20 by Esperanza Avina DO) Age-related osteoporosis without current pathological fracture Amnesia Ankle weakness Asthma Cervicalgia Dementia Dizziness and giddiness DNI (do not intubate) DNR (do not resuscitate) DVT prophylaxis Encounter to establish care with new doctor Fatigue GERD (gastroesophageal reflux disease) Hyperlipidemia Hypertension Insomnia IT band syndrome Joint disorder Lateral pain of right hip Lidocaine patches helped .. now pain is more in thigh vs lateral leg (PainStop helping), 07/17/19 Left shoulder pain Obesity Obstructive sleep apnea Osteoarthritis Palliative care patient Physical deconditioning POLST (Physician Orders for Life-Sustaining Treatment) Poor historian Postnasal drip Right knee pain Right shoulder pain Somnolence Syncope Unspecified dementia without behavioral disturbance Unsteady gait uses walker most of the time Vitamin D deficiency Surgical History History of appendectomy Status post tonsillectomy and adenoidectomy Family History Mother , age 85 or so Dementia Cancer Father , age 82 Sudden cardiac Son No problems noted. Son No problems noted. Daughter No problems noted. Daughter No problems noted. Sister Kyphosis History of vertebroplasty Compression fracture Brother No problems noted. 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 Pets and animals: Yes Sexually active: No Do you think of yourself as: straight/heterosexual Current gender identity: female What is your relationship status?: How often do you talk on the phone with friends or family?: three or more times per week How often do you get together with friends or relatives?: once per week Panel score (0-1 are the most socially isolated patients): 2 What type of physical activity do you participate in: walking and irregular exercise Duration: 15-30 minutes/day Special rodger needs: No Seatbelt use: always Working smoke detector in home: Yes Fire extinguisher in home: Yes Do you feel safe at home: Yes Do you feel safe in your relationship?: Yes Additional Social history: x 61 yrs; tells me she had a heart attack, though cardiology consult and d/c summary dispute this. Atypical CP. Poor understanding of her health issues. doesn't understand, either (his memory is ok). Reports no falls. NOt sure why her hip is hurting. Willing to go to PT. Exam Const General: cooperative and anxious Orientation: alert, awake and oriented x3 HENMT Head: normal to inspection Face and sinus: normal facial exam Eyes General: appearance normal, both eyes and all related structures EOM: EOM intact bilaterally Neck Neck: normal visual inspection and No submandibular swelling Lymphatic: no lymphadenopathy noted Chest Chest: normal inspection of the chest Chest/axillae images: 1. Tenderness to palpation of left anterolateral inferior chest wall. There is no evidence of edema, ecchymosis, erythema, crepitus. Resp Effort & Inspection: normal respiratory effort and able to speak in complete sentences Auscultation: clear to auscultation bilaterally Cardio Rate: regular rate Rhythm: regular rhythm GI Inspection: normal to inspection Palpation: soft, not firm, not rigid and nontender Auscultation: normal bowel sounds Back/Spine/Pelvis Thoracic/Lumbar Spine: thoracic and lumbar spine normal to inspection Pelvis: no pain with anterior-posterior compression Skin General skin exam: no rashes or lesions noted Neuro General: patient alert, patient awake and patient oriented x3 Cognition: normal cognition Speech: speech normal Motor: muscle tone normal throughout Sensory Exam: no sensory deficits noted Extrem General: normal to inspection, full ROM, capillary refill normal, no calf tenderness bilaterally and no edema Psych Appearance: grossly normal Mental Status: mental status grossly normal Speech and Movement: speech and movement normal Affect: normal affect
[2020-02-06 10:27] LABS: Abs Immature Grans 0.02 10^3/uL (0.0-0.06); Absolute Basophil Count 0.05 10^3/uL (0.0-0.2); Absolute Monocyte Count 0.58 10^3/uL (0.1-0.8); Absolute Neutrophil Count 5.04 10^3/uL (1.2-6.7); Basophils % 0.6; Eosinophils % 1.2; HCT 39.7 % (36.0-46.0); HGB 12.8 g/dL (11.2-15.7); Immature Grans % 0.2; Lymphocytes % 28.4; MCH 29.8 pg (27.0-33.0); MCHC 32.2 % (32.0-36.0); MCV 92.3 fL (80-95); MPV 11.3 fL (8.0-11.0); Monocytes % 7.2; Neutrophils % 62.4; Nucleated RBC 0 %; Platelet Count 190 10^3/uL (130-400); RDW 11.7 % (11.7-14.6); RDW-SD 39.4 fL; WBC 8.09 10^3/uL (4.4-10.8)
--- NOTE | 2020-02-06 10:30 | DI.CT_ITS ---
EXAM: CT CHEST PE ABD PELVIS W CLINICAL HISTORY: Left-sided chest pain/SOB/LUQ abd pain. TECHNIQUE: Imaging Protocol: Axial CT angiography was performed with multi-slice acquisition and mu lti-planar and/or 3D reconstructions. CONTRAST MATERIAL: Intravenous: Omnipaque 350 Contrast volume:100 cc COMPARISON: CT CT ABDOMEN PELVIS WO from 01/20/2019 MR [place] LOWER JOINT RT WO from 12/19/2019 FINDINGS: Chest CT: There is no evidence of pulmonary emboli or aortic dissection. The aorta is tortuous but n ormal in diameter and shows mild atherosclerotic changes. There is a small to moderate sized hiatal hernia. There is respiratory motion. No infiltrates or effusions are seen. Degenerative changes ar e seen in the thoracic spine. Abdomen and pelvic CT: Cholelithiasis is again noted. There is no gallbladder wall thickening or mary iary dilatation. The liver, spleen, pancreas and adrenals are unremarkable. Right renal cysts are s een. There is no hydronephrosis or evidence of urinary tract calculi. The appendix appears normal. There is no bowel dilatation or wall thickening. There is a normal quantity of stool. There is mil d sigmoid diverticulosis with no evidence of diverticulitis. Abdominal aorta is mildly tortuous. Th ere are moderate atherosclerotic changes with no evidence of an aneurysm. The bladder is unremarkabl e. Small uterine fibroids are noted. There is abnormal thickening of the endometrial stripe. IMPRESSION: No evidence of pulmonary embolism or other acute abnormality in the chest. No acute abnormality in the abdomen. There is thickening of the endometrial stripe. Pelvic ultrasound is recommended for further evaluation. Cholelithiasis and sigmoid diverticulosis. RADIATION DOSE DELIVERED: 1,423.51mGy.cm Total DLP DATA REPOSITORY: All CT scans at this facility are submitted to the National Radiology Data Registry (NRDR) Dose Index Registry (DIR) with the [employer] (ACR). RADIATION OPTIMIZATION: All CT scans at this facility use at least one of these dose optimization te chniques: automated exposure control; mA and/or kV adjustment per patient size (includes targeted exa ms where dose is matched to clinical indication); or iterative reconstruction.
[2020-02-06 10:41] LABS: INR 1.1 (0.9-1.1); PTT Activated 20.1 sec (21.0-31.4); Prothrombin Time 10.6 sec (9.3-11.0)
[2020-02-06] MEDS: Lidocaine 5% Patch 1 PATCH TP (10:43)
[2020-02-06] MEDS: Normal Saline 500 ML IV (10:43)
[2020-02-06 10:47] LABS: ALT 13 U/L (14-59); AST 24 U/L (15-37); Albumin 3.6 g/dL (3.4-5.0); Alkaline Phosphatase 45 U/L (46-116); Anion Gap 8.8 mmol/L (3-11); BUN 23 mg/dL (7-18); Bilirubin, Total 0.4 mg/dL (0.2-1.0); CO2 25.2 mmol/L (21.0-32.0); CREATININE 1.16 mg/dL (0.55-1.02); Calcium 9.2 mg/dL (8.5-10.1); Chloride 103 mmol/L (98-107); Estimated GFR 44.73 (mL/min/1.73m2); Glucose 138 mg/dL (74-106); Potassium 3.7 mmol/L (3.5-5.1); Sodium 137 mmol/L (136-145); Troponin I < 0.05 ng/mL (<0.06)
[2020-02-06 10:49] LABS: Bilirubin Negative (Negative); Blood Small (Negative); Clarity Clear (Clear); Glucose Negative (Negative); Ketones Negative (Negative); Leukocyte Esterase Negative (Negative); Nitrite Negative (Negative); Specific Gravity 1.025 (1.005-1.025); Urobilinogen 0.2 EU/dL (Up TO 0.2)
[2020-02-06 10:59] LABS: Bacteria Rare HPF (Negative); C & S Indicated? No/Sq. Contamination; Casts Negative LPF (Negative); Crystals Negative HPF (Negative); Epithelial Cells Moderate HPF (Negative); Mucus Trace (Negative); RBC 0-2 HPF (0-2)
[2020-02-06] MEDS: Normal Saline - Diluent 50 ML VIAL IV (11:31)
[2020-02-06] MEDS: Omnipaque 350 MG/ML 100 ML BTL IJ (11:31)
[2020-02-06] MEDS: Normal Saline Flush 10 ML SYR IVP (11:32)
--- NOTE | 2020-02-06 11:45 | RT.EKG_ITS ---
APPROVED REPORT Exam: Resting ECG Patient Location: E HR:84 bpm ECG Measurements Heart Rate [address] 191 P -43 QRSd 79 QRS -20 QT 391 T 36 QTc 463 Conclusion Sinus rhythm...normal P axis, V-rate 60- 99 Inferior infarct, old...Q >35mS, II III aVF Consider anterior infarct...Q >30mS in V2-V5. No acute change from previous. No STEMI. I have reviewed and interpreted ECG and agree with software generated interpretation.
--- NOTE | 2020-02-06 13:03 | NUR.NOTE ---
provided patient and company with lunch tray
[2020-02-06 13:55] LABS: Troponin I < 0.05 ng/mL (<0.06)
== END 2020-02-06 14:42 | disposition home or self-care (01) ==
PROVIDERS: Emergency Provider Physician Assistant; PCP Student in an Organized Health Care Education/Training Program
DX: R07.81 Pleurodynia (principal); R06.02 Shortness of breath; F03.90 Unspecified dementia, unspecified severity, without behavioral disturbance, psychotic disturbance, mood disturbance, and anxiety; I10 Essential (primary) hypertension
CPT/HCPCS: 36415; 71275; 74177; 80053; 93005; 96360; 99285; 81003; 81015; 83735; 84484; 85025; 85610; 85730; 93010; J3490

== ENCOUNTER 2020-05-19 00:41 | Outpatient (CLI) | payer MEDICARE, OTHER, SELFPAY ==
--- NOTE | 2020-05-19 07:45 | DI.US_ITS ---
EXAM: US PELVIS CLINICAL HISTORY: thickened endometrium,INCIDENTAL FINDING,R93.89. TECHNIQUE: Transabdominal pelvic ultrasound was performed using standard protocol. COMPARISON: CT CT CHEST PE ABD PELVIS W from 02/06/2020 FINDINGS: KIDNEYS: Kidneys are symmetric in size. No evidence of renal calculi. No evidence of hydronephrosis. No renal mass or cyst identified. UTERUS: Position: Anteverted. Size: 8.2 long by 3.8 AP by 6.5 transverse cm Endometrium: 2.3 cm. The endometrium is thickened and heterogeneous. No blood flow is identified. Myometrium: Unremarkable. Cervix: Unremarkable. OVARIES: Right: 2.1 x 1.6 x 1.2 cm Cyst or mass: None. Left: 1.6 x 1.1 x 1.3 cm Cyst or mass: None. CUL-DE-SAC: Free fluid: None. Other: None. IMPRESSION: 1. Normal sonographic appearance of the kidneys. 2. Thickened heterogeneous endometrial stripe measuring 2.3 cm in thickness. This is abnormal in a p ostmenopausal patient. Endometrial hyperplasia and neoplasm should be considered. Gynecologic consu lt is recommended for further evaluation. 3. Unremarkable bilateral ovaries. DATA REPOSITORY:
== END 2020-05-19 00:42 | disposition home or self-care (01) ==
LOC: DI 00:43
PROVIDERS: PCP Student in an Organized Health Care Education/Training Program; Visit Provider Student in an Organized Health Care Education/Training Program
DX: R93.89 Abnormal findings on diagnostic imaging of other specified body structures (principal)
CPT/HCPCS: 76856

== ENCOUNTER → 2020-06-04 10:22 | Outpatient (BNVA) | payer MEDICARE, OTHER, SELFPAY | PROVIDERS: PCP Student in an Organized Health Care Education/Training Program; Visit Provider Nurse Practitioner Adult Health | DX: G62.9 Polyneuropathy, unspecified (principal); F02.80 Dementia in other diseases classified elsewhere, unspecified severity, without behavioral disturbance, psychotic disturbance, mood disturbance, and anxiety; G30.9 Alzheimer's disease, unspecified; G47.33 Obstructive sleep apnea (adult) (pediatric); J45.909 Unspecified asthma, uncomplicated; I10 Essential (primary) hypertension; M81.0 Age-related osteoporosis without current pathological fracture | CPT/HCPCS: 99204; 99215; G2212 ==

== ENCOUNTER 2020-06-09 01:06 | Outpatient (CLI) | payer MEDICARE, OTHER, SELFPAY ==
--- NOTE | 2020-06-09 07:30 | DI.MRI_ITS ---
EXAM: MR BRAIN WO CLINICAL HISTORY: worsening memory,alzheimers dementia, g30.9,f02.80 TECHNIQUE: Multiplanar multisequence MRI of the brain was performed. COMPARISON: No exams were available for comparison FINDINGS: The exam is mildly limited by patient motion. No intracranial hemorrhage, mass or infarct is seen. The ventricles are normal in size. There are high signal lesions in the white matter, consistent with microvascular disease. There is mild atrophy.. The vascular flow voids appear intact. The orbits and pituitary are unremarkable as visualized. The sinuses and mastoid air cells are clear. IMPRESSION: Atrophy and white matter changes consistent with chronic microvascular disease. No acute abnormality . DATA REPOSITORY:
== END 2020-06-09 01:07 ==
LOC: DI 01:06
PROVIDERS: PCP Student in an Organized Health Care Education/Training Program; Visit Provider Nurse Practitioner Adult Health
DX: F02.80 Dementia in other diseases classified elsewhere, unspecified severity, without behavioral disturbance, psychotic disturbance, mood disturbance, and anxiety (principal); G30.9 Alzheimer's disease, unspecified; G31.89 Other specified degenerative diseases of nervous system; R90.82 White matter disease, unspecified
CPT/HCPCS: 70551

== ENCOUNTER 2020-06-11 03:14 | Outpatient (CLI) | payer MEDICARE, OTHER, SELFPAY ==
[2020-06-11 12:05] LABS: Vitamin B12 1067 pg/mL (193-986)
== END 2020-06-11 03:15 | disposition home or self-care (01) ==
LOC: LBO 03:15
PROVIDERS: PCP Student in an Organized Health Care Education/Training Program; Visit Provider Nurse Practitioner Adult Health
DX: G62.89 Other specified polyneuropathies (principal)
CPT/HCPCS: 36415; 82607

== ENCOUNTER → 2020-07-01 13:05 | Outpatient (BNVA) | payer MEDICARE, OTHER, SELFPAY | PROVIDERS: PCP Student in an Organized Health Care Education/Training Program; Referring Provider Student in an Organized Health Care Education/Training Program; Visit Provider Nurse Practitioner Adult Health | DX: G30.1 Alzheimer's disease with late onset (principal); F02.81 Dementia in other diseases classified elsewhere, unspecified severity, with behavioral disturbance | CPT/HCPCS: 99213 ==

== ENCOUNTER 2020-08-15 17:53 | Emergency (ER) | payer MEDICARE, OTHER, SELFPAY ==
[2020-08-15] VITALS (20 sets, daily range): BP systolic 119–155; BP diastolic 70–94; PULSE 65–85; RESP 12–29; TEMP 36.5; O2SAT 93–98
--- NOTE | 2020-08-15 17:45 | RT.EKG_ITS ---
APPROVED REPORT Exam: Resting ECG Patient Location: E HR:75 bpm ECG Measurements Heart Rate 75 AXIS DE 204 P -16 QRSd 81 QRS -10 QT 412 T 32 QTc 461 Conclusion Sinus rhythm...normal P axis, V-rate 60- 99 Low voltage, extremity leads...all extremity leads <0.5mV
--- NOTE | 2020-08-15 18:00 | DI.RAD_ITS ---
Exam(s) XR CHEST 2V PA LATERAL EXAM: XR CHEST 2V PA LATERAL CLINICAL HISTORY: vomit, ?aspiration TECHNIQUE: 2D digital imaging was performed. COMPARISON: CR XR PORTABLE CHEST AP from 01/21/2019 FINDINGS: MEDIASTINUM: Normal. HEART: Mild cardiomegaly. PULMONARY VASCULATURE: Tortuosity of the thoracic aorta. LUNGS: Clear. PLEURAL SPACE: No pleural effusion or pneumothorax. BONE:Within normal limits for the patient's age. OTHER FINDINGS:Normal. IMPRESSION: No acute pulmonary findings. DATA REPOSITORY: RADIATION DOSE DELIVERED:
--- NOTE | 2020-08-15 18:00 | DI.CT_ITS ---
Exam(s) CT ABDOMEN PELVIS W EXAM: CT ABDOMEN PELVIS W CLINICAL HISTORY: nausea and vomit, ?obstruction TECHNIQUE: Imaging Protocol: Axial computed tomography images with coronal and sagittal reformatted images were created and reviewed CONTRAST MATERIAL: Intravenous: Omnipaque 350 Contrast volume:80 mL Oral: No COMPARISON: CT CT CHEST PE ABD PELVIS W from 02/06/2020 FINDINGS: ABDOMEN: Lung Bases: Normal where visualized. There is a moderate hiatal hernia. Liver: Normal density. No measurable mass. Portal, Superior Mesenteric, and Splenic Veins: Unremarkable. Gallbladder and Biliary Tract: Cholelithiasis. No biliary ductal dilatation. Pancreas: There is fatty atrophy. No peripancreatic fluid collection. Spleen: Normal. Adrenals: No masses seen. Kidneys: Normal size, contour and axis. No radiodense stones or obstructive uropathy. Stable right re nal cysts. Abdominal Aorta: Abdominal portion non-dilated. Moderate atherosclerosis. Bowel: No obstruction or bowel wall thickening. A normal appendix is visualized. Colonic diverticulo sis but no evidence of acute diverticulitis. Peritoneal Cavity: No ascites, collection or mesenteric inflammatory response. No free air. Lymph Nodes: Within normal limits. Bones: Within normal limits for the patient's age. Soft Tissues: Unremarkable. PELVIS: Bladder: The bladder is incompletely distended but no gross abnormality is identified. Reproductive Organs: There is again seen thickening of the endometrium. Lymph Nodes: Within normal limits. Bones: Within normal limits for the patient's age. IMPRESSION: Persistent thickening of the endometrium. This is abnormal in this postmenopausal patient. Neoplasm cannot be excluded. Ultrasound should be considered for further evaluation. RADIATION DOSE DELIVERED: 929.42mGy.cm Total DLP DATA REPOSITORY: All CT scans at this facility are submitted to the National Radiology Data Registry (NRDR) Dose Index Registry (DIR) with the [employer] ([employer]). RADIATION OPTIMIZATION: All CT scans at this facility use at least one of these dose optimization te chniques: automated exposure control; mA and/or kV adjustment per patient size (includes targeted exa ms where dose is matched to clinical indication); or iterative reconstruction.
--- NOTE | 2020-08-15 18:00 | DI.CT_ITS ---
Exam(s) CT HEAD WO EXAM: CT HEAD WO CLINICAL HISTORY: altered mental status. TECHNIQUE: Imaging Protocol: Axial computed tomography images with coronal and sagittal reformatted images were created and reviewed COMPARISON: CT HEAD WITHOUT CONTRAST from 05/16/2012 FINDINGS: The examination is limited due to patient motion artifact. Ventricles and Extra axial spaces: Normal in size and morphology for the patient's age. Hemorrhage: None. Cerebral parenchyma: There are areas of decreased attenuation in the white matter consistent with sma ll vessel ischemic disease. No acute territorial infarct is present. Midline shift: None. Brainstem/Cerebellum: Normal. Calvarium: Normal. Visualized Paranasal sinuses/Mastoids: Clear. Soft Tissues: Unremarkable. IMPRESSION: No acute intracranial process. RADIATION DOSE DELIVERED: 688.88mGy.cm Total DLP DATA REPOSITORY: All CT scans at this facility are submitted to the National Radiology Data Registry (NRDR) Dose Index Registry (DIR) with the [employer] ([employer]). RADIATION OPTIMIZATION: All CT scans at this facility use at least one of these dose optimization te chniques: automated exposure control; mA and/or kV adjustment per patient size (includes targeted exa ms where dose is matched to clinical indication); or iterative reconstruction.
--- NOTE | 2020-08-15 18:06 | ED.GENADUL_ITS ---
Discharge Plan Disposition Patient Disposition: HOME Condition: Improving Discharge Details Clinical Impression: Urinary tract infection, Vomiting, Abdominal pain Primary Care Provider: Lazara Stock ED Provider: Juan Flowers [place] Meds and New Rx's Prescriptions: New cephalexin 500 mg tablet 500 mg PO TID Qty: 9 RF: 0 ondansetron 4 mg tablet,disintegrating 4 mg PO Q8H PRNQty: 7 RF: 0 Continued acetaminophen [Acetaminophen Extra Strength] 500 mg tablet 500 mg PO Q6H PRNRF: 0 multivitamin Tablet 1 tab PO DAILY RF: 0 alendronate 70 mg tablet 70 mg PO QWEEK Qty: 14 RF: 3 quetiapine 50 mg tablet 50 mg PO DAILY Qty: 90 RF: 3 pantoprazole [Protonix] 40 mg tablet,delayed release (DR/EC) 40 mg PO DAILY Qty: 90 RF: 3 memantine [Namenda] 10 mg tablet 10 mg PO BID Qty: 180 RF: 2 rosuvastatin [Crestor] 20 mg tablet 20 mg PO HS Qty: 90 RF: 3 calcium carbonate 600 mg calcium (1,500 mg) tablet 600 mg PO BID Qty: 90 RF: 3 celecoxib [Celebrex] 200 mg capsule 200 mg PO BID Qty: 180 RF: 3 cholecalciferol (vitamin D3) 25 mcg (1,000 unit) tablet 25 mcg PO BID Qty: 90 RF: 3 lisinopril 2.5 mg tablet 2.5 mg PO DAILY Qty: 90 RF: 3 cyanocobalamin (vitamin B-12) 1,000 mcg tablet 1,000 mcg PO DAILY Qty: 90 RF: 3 aspirin [Aspir-81] 81 mg Tablet,Delayed Release (Dr/Ec) 81 mg PO DAILY RF: 0 Discharge Instructions Instructions: Acute Nausea and Vomiting (ED) Additional Instructions: Work-up here today is reassuring. Possible UTI with culture pending. 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 Also ondansetron ODT for recurrent vomiting. Follow-up with primary care next week if continued problems. Return to ED for spiking high fever, mental status changes, persistent vomiting, other concerns Referrals: Lazara Stock DO [Primary Care Provider] - Medical Decision Making <Ty Stevenson MD - Last Filed: 08/15/20 19:25> 85 yo female with dementia, htn, gerd, comes in with her with concerns for nausea and vomit x2 tonight. gives most history due to patient's dementia and notes she was her normal self during the day and then while he was cooking dinner she had two episodes of vomit. Denies any known fevers. does not she has been steadily becoming weaker over the course of weeks. She arrives stating she has no nausea but does seem drowsy on exam. She knows her name and that she is in a hospital but can't saw which hospital or town nor year. She has no focal motor or sensation deficits, no facail droop, perrl, eomi. Denies chest pain or abdomen pain though does grimace when I palpate the mid abdomen. No signs of trauma. Unclear cause for her vomit earlier and drowsiness now. Given her age and symptoms feel head ct to evaluate for possible subdural indicated and also ct abdomen/pelvis to evaluate for possible small bowel obstruction. She has no chest pain now but given unclear history due to her dementia will obtain troponin. No deficits on exam to suggest cva labs consistent with uti, chronic kidney disease not significantly changed, remains stable pending imaging results patient signed out to oncoming provider pending imaging results Differential Diagnosis Differential Diagnosis: food related illness, nstemi, subdural Medical Records Medical records reviewed: Yes I reviewed the patient's medical records. Lab Data Lab results reviewed: Yes I reviewed the patient's lab results. ECG Data Attestation: I personally reviewed and interpreted this ECG (s) as follows: Prior ECG tracings: available for review Interpretation: sinus rhythm, rate of 75, pr 204, no acute st t wave ischemic findings <Juan Flowers MD - Last Filed: 08/15/20 21:58> Patient had presented with onset of vomiting. Patient initially seen by Dr. Stevenson, please see his note for evaluation and plan. Patient demented and poor historian. Initial work-up included EKG and labs which were unremarkable other than suggesting of UTI for which she received 1 g of ceftriaxone. Imaging studies were pending at signout. These show nothing acute. She has abnormal uterine lining thickness which when I spoke to the son they are aware about. She is supposed to be getting a biopsy at some time in the future. Repeat EKG and troponin remain normal. No vomiting here. Will give patient 3-day course of Keflex for the possible UTI. We will also give few doses of Zofran for recurrent vomiting. Follow-up with primary care next week if not improving. Return to ED if mental status changes, spiking high fever, persistent vomiting, other concerns. Lab Data Lab results reviewed: Yes I reviewed the patient's lab results. Lab results narrative: Unremarkable. Urine dip positive for nitrites suggesting UTI micro with bacteria only. Culture pending. ECG Data Attestation: I personally reviewed and interpreted this ECG (s) as follows: Prior ECG tracings: available for review Interpretation: See EKG HPI <Ty Stevenson MD - Last Filed: 08/15/20 19:25> General Mode of arrival: ambulatory . Date/Time Provider Initiated Documentation: 08/15/20 17:54 . Limitations to Documentation: altered mental status (dementia) . Information obtained by: patient . History of Present Illness 85 year old F presents to the emergency department with the chief complaint of nausea and vomit, described as moderate, and it has been now resolved. No relieving factors improve symptom(s), No exacerbating factors reported . Patient notes no other symptoms.. Patient did receive the following treatments prior to arrival, none Related Data Home Medications Medication Instructions Recorded Confirmed aspirin [Aspir-81] 81 mg PO DAILY 01/19/19 08/15/20 acetaminophen 500 mg tablet 500 mg PO Q6H PRN 07/04/19 08/15/20 multivitamin 1 tab PO DAILY 07/04/19 08/15/20 alendronate 70 mg tablet 70 mg PO QWEEK #14 tab 08/28/19 08/15/20 quetiapine 50 mg tablet 50 mg PO DAILY #90 tab 09/20/19 08/15/20 pantoprazole 40 mg tablet,delayed 40 mg PO DAILY #90 tab 03/31/20 08/15/20 release memantine 10 mg tablet 10 mg PO BID #180 tab 04/29/20 08/15/20 rosuvastatin 20 mg tablet 20 mg PO HS #90 tab 06/15/20 08/15/20 calcium carbonate 600 mg calcium 600 mg PO BID #90 tab 07/31/20 08/15/20 (1,500 mg) tablet celecoxib 200 mg capsule 200 mg PO BID #180 cap 07/31/20 08/15/20 cholecalciferol (vitamin D3) 25 25 mcg PO BID #90 tab 07/31/20 08/15/20 mcg (1,000 unit) tablet lisinopril 2.5 mg tablet 2.5 mg PO DAILY #90 tab 07/31/20 08/15/20 cyanocobalamin (vitamin B-12) 1,000 mcg PO DAILY #90 tab 08/14/20 08/15/20 1,000 mcg tablet cephalexin 500 mg PO TID #9 tab 08/15/20 ondansetron 4 mg PO Q8H PRN #7 tab 08/15/20 Previous Rx's Medication Instructions Recorded alendronate 70 mg tablet 70 mg PO QWEEK #14 tab 08/28/19 quetiapine 50 mg tablet 50 mg PO DAILY #90 tab 09/20/19 pantoprazole 40 mg tablet,delayed 40 mg PO DAILY #90 tab 03/31/20 release memantine 10 mg tablet 10 mg PO BID #180 tab 04/29/20 rosuvastatin 20 mg tablet 20 mg PO HS #90 tab 06/15/20 calcium carbonate 600 mg calcium 600 mg PO BID #90 tab 07/31/20 (1,500 mg) tablet celecoxib 200 mg capsule 200 mg PO BID #180 cap 07/31/20 cholecalciferol (vitamin D3) 25 25 mcg PO BID #90 tab 07/31/20 mcg (1,000 unit) tablet lisinopril 2.5 mg tablet 2.5 mg PO DAILY #90 tab 07/31/20 cyanocobalamin (vitamin B-12) 1,000 mcg PO DAILY #90 tab 08/14/20 1,000 mcg tablet cephalexin 500 mg PO TID #9 tab 08/15/20 ondansetron 4 mg PO Q8H PRN #7 tab 08/15/20 Allergies Allergy/AdvReac Type Severity Reaction Status Date / Time No Known Allergies Allergy Verified 08/14/20 14:46 General BERTHA: 2 Review of Systems <Ty Stevenson MD - Last Filed: 08/15/20 19:25> All systems reviewed & are unremarkable except as noted in HPI and below Constitutional Constitutional: Denies chills and Denies fever(s) Cardiovascular Cardiovascular: Denies chest pain and Denies dyspnea Respiratory Respiratory: Denies cough and Denies dyspnea Gastrointestinal Gastrointestinal: Denies abdominal pain Musculoskeletal Musculoskeletal: Denies joint swelling Psychiatric Psychiatric: Denies depression [facility] <Ty Stevenson MD - Last Filed: 08/15/20 19:25> Medical History Age-related osteoporosis without current pathological fracture Alzheimer's dementia Ankle weakness Asthma DNI (do not intubate) DNR (do not resuscitate) GERD (gastroesophageal reflux disease) Hyperlipidemia Hypertension IT band syndrome Lateral pain of right hip Lidocaine patches helped .. now pain is more in thigh vs lateral leg (PainStop helping), 07/17/19 Obesity Obstructive sleep apnea Osteoarthritis Palliative care patient Physical deconditioning POLST (Physician Orders for Life-Sustaining Treatment) Right hip pain Right knee pain Right shoulder pain Syncope Trochanteric bursitis, right hip Unspecified dementia without behavioral disturbance Unsteady gait Cane/walker Vitamin D deficiency Surgical History History of appendectomy Status post tonsillectomy and adenoidectomy Family History Mother , age 85 or so Dementia Cancer Father , age 82 Sudden cardiac Son No problems noted. Son No problems noted. Daughter No problems noted. Daughter No problems noted. Sister Kyphosis History of vertebroplasty Compression fracture Brother No problems noted. Social History Smoking/Tobacco Use Status: Never Smoking risk assessment performed?: Yes Alcohol Intake: never Drug use: Never Substance use type: does not use Adopted: No Caregiver/Support person: Yes Foster care: No Household members: spouse Housing: house Number of Children: 4 number of grandchildren: 12 Communication Needs: Hard of Hearing and Corrective Lenses Education Level: high school Do you need help understanding health information?: Always current occupation: retired from [employer] Pets and animals: Yes Sexually active: No Do you think of yourself as: straight/heterosexual Current gender identity: female What is your relationship status?: How often do you talk on the phone with friends or family?: three or more times per week How often do you get together with friends or relatives?: once per week Panel score (0-1 are the most socially isolated patients): 2 What type of physical activity do you participate in: walking and irregular exercise Duration: 15-30 minutes/day Special rodger needs: No Seatbelt use: always Working smoke detector in home: Yes Fire extinguisher in home: Yes Do you feel safe at home: Yes Do you feel safe in your relationship?: Yes Additional Social history: x 61 yrs; tells me she had a heart attack, though cardiology consult and d/c summary dispute this. Atypical CP. Poor understanding of her health issues. doesn't understand, either (his memory is ok). Reports no falls. NOt sure why her hip is hurting. Willing to go to PT. Exam <Ty Stevenson MD - Last Filed: 08/15/20 19:25> Const General: no acute distress Orientation: alert [facility] Head: normal to inspection Ears: external ears normal General nose exam: external nose normal Mouth: moist mucous membranes Eyes General: appearance normal, both eyes and all related structures Neck Neck: normal visual inspection Resp Effort & Inspection: normal respiratory effort and able to speak in complete sentences Cardio Rate: regular rate GI Palpation: soft, not rigid and nontender Skin General skin exam: no rashes or lesions noted Neuro General: patient alert Extrem General: normal to inspection Sign Out <Ty Stevenson MD - Last Filed: 08/15/20 19:25> Sign Out Data: Sign Out Comment: has dementia but started to have nausea and vomit tonight, stable exam. Pending imaging results. UA positive for uti given ceftriaxone Last updated by Ty Stevenson MD at 08/15/20 19:06
[2020-08-15 18:26] LABS: Abs Immature Grans 0.01 10^3/uL (0.0-0.06); Absolute Basophil Count 0.03 10^3/uL (0.0-0.2); Absolute Eosinophil Count 0.07 10^3/uL (0.0-0.7); Absolute Lymphocyte Count 2.24 10^3/uL (1.2-3.4); Absolute Monocyte Count 0.42 10^3/uL (0.1-0.8); Absolute Neutrophil Count 3.02 10^3/uL (1.2-6.7); Basophils % 0.5; Eosinophils % 1.2; HCT 39.2 % (36.0-46.0); HGB 12.6 g/dL (11.2-15.7); Immature Grans % 0.2; Lymphocytes % 38.7; MCH 29.1 pg (27.0-33.0); MCHC 32.1 % (32.0-36.0); MCV 90.5 fL (80-95); MPV 10.7 fL (8.0-11.0); Monocytes % 7.3; Neutrophils % 52.1; Nucleated RBC 0 %; Platelet Count 159 10^3/uL (130-400); RBC 4.33 10^6/uL (3.93-5.22); RDW 13.4 % (11.7-14.6); RDW-SD 44.9 fL; WBC 5.79 10^3/uL (4.4-10.8)
[2020-08-15 18:36] LABS: Bilirubin Negative (Negative); Blood Moderate (Negative); Clarity Clear (Clear); Glucose Negative (Negative); Ketones Negative (Negative); Leukocyte Esterase Negative (Negative); Nitrite Positive (Negative); Specific Gravity >= 1.030 (1.005-1.025); Urobilinogen 0.2 EU/dL (Up TO 0.2); pH 5.5 (5-8)
[2020-08-15 18:40] LABS: INR 1.1 (0.9-1.1); PTT Activated 20.7 sec (21.0-27.5)
[2020-08-15 18:47] LABS: ALT 18 U/L (14-59); AST 21 U/L (15-37); Albumin 3.8 g/dL (3.4-5.0); Alkaline Phosphatase 40 U/L (46-116); Anion Gap 11.4 mmol/L (3-11); BUN 28 mg/dL (7-18); Bilirubin, Total 0.5 mg/dL (0.2-1.0); CO2 25.6 mmol/L (21.0-32.0); CREATININE 1.3 mg/dL (0.55-1.02); Calcium 9.3 mg/dL (8.5-10.1); Chloride 103 mmol/L (98-107); Estimated GFR 39.12 (mL/min/1.73m2); Glucose 128 mg/dL (74-106); Lipase 54 U/L (73-393); Magnesium 1.9 mg/dL (1.8-2.4); Potassium 3.6 mmol/L (3.5-5.1); Sodium 140 mmol/L (136-145)
[2020-08-15 18:51] LABS: Bacteria Many HPF (Negative); Casts Negative LPF (Negative); Crystals Negative HPF (Negative); Epithelial Cells Few HPF (Negative); Mucus Negative (Negative); Other Cells Negative (Negative); RBC 0-2 HPF (0-2)
[2020-08-15 18:52] LABS: C & S Indicated? Yes
[2020-08-15 18:56] LABS: Bilirubin, Direct < 0.1 mg/dL (0.0-0.2); Troponin I < 0.05 ng/mL (<0.06)
[2020-08-15] MEDS: Ondansetron 4 MG/2 ML VIAL IVP (18:58)
[2020-08-15] MEDS: cefTRIAXone 2 GM/50 ML BAG IVPB (19:15)
[2020-08-15] MEDS: Omnipaque 350 MG/ML 100 ML BTL IJ (20:12)
[2020-08-15] MEDS: Normal Saline - Diluent 50 ML VIAL IV (20:13)
--- NOTE | 2020-08-15 20:14 | DI.VRAD_ITS ---
PROCEDURE INFORMATION: Exam: CT Head Without Contrast Exam date and time: 08/15/2020 7:47 PM Age: 85 years old Clinical indication: Altered mental status/memory loss; Additional info: Nausea, vomiting TECHNIQUE: Imaging protocol: Computed tomography of the head without contrast. COMPARISON: MR BRAIN WO 06/09/2020 11:05 AM FINDINGS: Brain: Cerebral volume loss noted. Scattered areas of decreased attenuation in the deep periventricular white matter consistent with small vessel ischemic change. No evidence for acute intracranial hemorrhage. Cerebral ventricles: No ventriculomegaly. Bones/joints: Unremarkable. No acute fracture. Paranasal sinuses: Visualized sinuses are unremarkable. No fluid levels. Mastoid air cells: Visualized mastoid air cells are well aerated. Soft tissues: Unremarkable. IMPRESSION: Senescent changes noted. No acute intracranial abnormality. Dictated and Authenticated by: Rosy West MD. Ordering:AMADEO Crawford MD
--- NOTE | 2020-08-15 20:26 | DI.VRAD_ITS ---
PROCEDURE INFORMATION: Exam: CT Abdomen And Pelvis With Contrast Exam date and time: 08/15/2020 7:52 PM Age: 85 years old Clinical indication: Nausea and vomiting; Additional info: Nausea, vomiting TECHNIQUE: Imaging protocol: Computed tomography of the abdomen and pelvis with contrast. COMPARISON: CT CHEST PE ABD PELVIS W 02/06/2020 11:00 AM FINDINGS: Mediastinal space: Moderate-sized hiatal hernia. Coronary artery calcifications Liver: Normal. No mass. Gallbladder and bile ducts: Gallstones again seen. Pancreas: Normal. No ductal dilation. Spleen: Normal. No splenomegaly. Adrenal glands: Normal. No mass. Kidneys and ureters: Right renal cysts. Stomach and bowel: Unremarkable. No obstruction. No mucosal thickening. Appendix: The appendix is well seen, within normal limits. Intraperitoneal space: Unremarkable. No free air. No significant fluid collection. Vasculature: Moderate atherosclerotic change again noted in the vasculature. Lymph nodes: Unremarkable. No enlarged lymph nodes. Urinary bladder: Bladder nearly empty. Reproductive: There is endometrial thickening which appears increased in conspicuity compared to previous study. This is abnormal for age. Bones/joints: Unremarkable. No acute fracture. Soft tissues: Unremarkable. Other findings: /stents noted. IMPRESSION: Abnormal uterine appearances of concern for neoplasm. Dictated and Authenticated by: Rosy West MD. Ordering:AMADEO Crawford MD
--- NOTE | 2020-08-15 20:30 | DI.VRAD_ITS ---
PROCEDURE INFORMATION: Exam: XR Chest Exam date and time: 08/15/2020 6:15 PM Age: 85 years old Clinical indication: Screening exam; Other screening; Other: Vomit/aspiration; Additional info: Vomit, ? aspiration TECHNIQUE: Imaging protocol: XR of the chest. Views: 2 views. COMPARISON: CT CHEST PE ABD PELVIS W 02/06/2020 11:00 AM FINDINGS: Lungs: Unremarkable. No consolidation. Pleural spaces: Unremarkable. No pleural effusion. No pneumothorax. Heart/Mediastinum: Cardiomegaly. Vasculature: Moderate aortic ectasia. Bones/joints: Unremarkable. IMPRESSION: No evidence for acute abnormality in the chest. Dictated and Authenticated by: Rosy West MD. Ordering:AMADEO Crawford MD
--- NOTE | 2020-08-15 21:15 | RT.EKG_ITS ---
APPROVED REPORT Exam: Resting ECG Patient Location: E HR:79 bpm ECG Measurements Heart Rate 79 AXIS TN 196 P -29 QRSd 81 QRS -23 QT 409 T 31 QTc 470 Conclusion Sinus rhythm...normal P axis, V-rate 60- 99 I have reviewed and interpreted ECG and agree with software generated interpretation. There are no significant changes compared to prior EKG performed on 08/15/2020 at 18:04.
[2020-08-15 21:47] LABS: Troponin I < 0.05 ng/mL (<0.06)
== END 2020-08-15 22:10 | disposition home or self-care (01) ==
PROVIDERS: Emergency Medicine; Emergency Provider Emergency Medicine; PCP Student in an Organized Health Care Education/Training Program
DX: R11.2 Nausea with vomiting, unspecified (principal); N39.0 Urinary tract infection, site not specified; B96.20 Unspecified Escherichia coli [E. coli] as the cause of diseases classified elsewhere; R10.33 Periumbilical pain
CPT/HCPCS: 36415; 36416; 80053; 82962; 83690; 87077; 93005; 96365; 96375; 99285; 70450; 71046; 74177; 81003; 81015; 82248; 83735; 84484; 85025; 85610; 85730; 87086; 87186; 93010; J2405; J3490

== ENCOUNTER 2020-08-18 18:33 | Observation (INO) | payer MEDICARE, OTHER, SELFPAY ==
[2020-08-18] VITALS (12 sets, daily range): BP systolic 131–166; BP diastolic 62–87; PULSE 69–85; RESP 16–19; TEMP 36–36.5; O2SAT 96–98
--- NOTE | 2020-08-18 19:00 | RT.EKG_ITS ---
APPROVED REPORT Exam: Resting ECG Reason for Exam: vomiting, nausea Patient Location: E HR:68 bpm ECG Measurements Heart Rate 68 AXIS RI 202 P -9 QRSd 82 QRS -13 QT 430 T 13 QTc 459 Conclusion Sinus rhythm...normal P axis, V-rate 60- 99 Low voltage, precordial leads...precordial leads <1.0mV
--- NOTE | 2020-08-18 19:07 | W.ED.GENAD ---
Discharge Plan Disposition Condition: Fair Discharge Details Chief Complaint: Nausea/Vomit/Diar Admit Date/Time: 08/18/20 21:51 Admit Provider: Edmond Richard Attending Provider: Edmond Richard Primary Care Provider: Lazara Stock ED Provider: Marielena Edwards Discharge Instructions Activity:: Activity as Tolerated Equipment/Supplies:: No Equipment Needed Diet:: Normal Diet Discharge Orders Discharge Orders: Discharge Order (Routine); Ordered 08/20/20 Ordered By: Bi Russell Discharge Data Discharge Date/Time-TO BE ENTERED AT DEPARTURE: 08/18/20 22:26 Medical Decision Making Patient is alert and at her baseline, she is slightly weak and has been does not feel comfortable managing patient at home any longer Her urinalysis is reassuring She will continue on her Keflex Case was discussed with the admitting hospitalist, Dr. Richard who is willing to admit Creatinine 1.5, BUN highly elevated, 1 L of normal saline administered HPI General Mode of arrival: ambulatory. Date/Time Provider Initiated Documentation: 08/18/20 18:51. Limitations to Documentation: other. Information obtained by: patient and family. HPI Narrative: This 85-year-old female with history of urinary tract infection, nausea and vomiting, Alzheimer's dementia presents with reports of some increasing weakness. Patient has been on antibiotics recently with nausea and vomiting. Today patient was too weak to ambulate off of the toilet and was concerned as he is unable to assist her in her ADLs. He feels as though patient would benefit from admission and further resources at home. He states she vomited twice prior to arrival. She at least feels but not reported diarrhea. Patient declines any current complaints. She is currently finishing her antibiotics for urinary tract infections. Denies any falls or injuries. Denies chest pain, shortness of breath, dizziness. Related Data Home Medications Medication Instructions Recorded Confirmed aspirin [Aspir-81] 81 mg PO DAILY 01/19/19 08/18/20 acetaminophen 500 mg tablet 500 mg PO Q6H PRN 07/04/19 08/18/20 multivitamin 1 tab PO DAILY 07/04/19 08/18/20 alendronate 70 mg tablet 70 mg PO QWEEK #14 tab 08/28/19 08/18/20 quetiapine 50 mg tablet 50 mg PO DAILY #90 tab 09/20/19 08/18/20 pantoprazole 40 mg tablet,delayed 40 mg PO DAILY #90 tab 03/31/20 08/18/20 release memantine 10 mg tablet 10 mg PO BID #180 tab 04/29/20 08/18/20 rosuvastatin 20 mg tablet 20 mg PO HS #90 tab 06/15/20 08/18/20 calcium carbonate 600 mg calcium 600 mg PO BID #90 tab 07/31/20 08/18/20 (1,500 mg) tablet celecoxib 200 mg capsule 200 mg PO BID #180 cap 07/31/20 08/18/20 cholecalciferol (vitamin D3) 25 25 mcg PO BID #90 tab 07/31/20 08/18/20 mcg (1,000 unit) tablet lisinopril 2.5 mg tablet 2.5 mg PO DAILY #90 tab 07/31/20 08/18/20 cyanocobalamin (vitamin B-12) 1,000 mcg PO DAILY #90 tab 08/14/20 08/18/20 1,000 mcg tablet cephalexin 500 mg PO TID #9 tab 08/15/20 08/18/20 ondansetron 4 mg PO Q8H PRN #7 tab 08/15/20 08/18/20 cephalexin 500 mg PO TID #6 tab 08/20/20 Previous Rx's Medication Instructions Recorded alendronate 70 mg tablet 70 mg PO QWEEK #14 tab 08/28/19 quetiapine 50 mg tablet 50 mg PO DAILY #90 tab 09/20/19 pantoprazole 40 mg tablet,delayed 40 mg PO DAILY #90 tab 03/31/20 release memantine 10 mg tablet 10 mg PO BID #180 tab 04/29/20 rosuvastatin 20 mg tablet 20 mg PO HS #90 tab 06/15/20 calcium carbonate 600 mg calcium 600 mg PO BID #90 tab 07/31/20 (1,500 mg) tablet celecoxib 200 mg capsule 200 mg PO BID #180 cap 07/31/20 cholecalciferol (vitamin D3) 25 25 mcg PO BID #90 tab 07/31/20 mcg (1,000 unit) tablet lisinopril 2.5 mg tablet 2.5 mg PO DAILY #90 tab 07/31/20 cyanocobalamin (vitamin B-12) 1,000 mcg PO DAILY #90 tab 08/14/20 1,000 mcg tablet cephalexin 500 mg PO TID #9 tab 08/15/20 ondansetron 4 mg PO Q8H PRN #7 tab 08/15/20 cephalexin 500 mg PO TID #6 tab 08/20/20 Allergies Allergy/AdvReac Type Severity Reaction Status Date / Time No Known Allergies Allergy Verified 08/18/20 18:36 General Stated Complaint: Nausea/Vomit/Diar BERTHA: 4 Review of Systems Unobtainable due to mental condition [facility] Medical History Age-related osteoporosis without current pathological fracture Alzheimer's dementia Ankle weakness Asthma DNI (do not intubate) DNR (do not resuscitate) GERD (gastroesophageal reflux disease) Hyperlipidemia Hypertension IT band syndrome Lateral pain of right hip Lidocaine patches helped .. now pain is more in thigh vs lateral leg (PainStop helping), 07/17/19 Obesity Obstructive sleep apnea Osteoarthritis Palliative care patient Physical deconditioning POLST (Physician Orders for Life-Sustaining Treatment) Right hip pain Right knee pain Right shoulder pain Syncope Trochanteric bursitis, right hip Unspecified dementia without behavioral disturbance Unsteady gait Cane/walker Vitamin D deficiency Surgical History History of appendectomy Status post tonsillectomy and adenoidectomy Family History Mother , age 85 or so Dementia Cancer Father , age 82 Sudden cardiac Son No problems noted. Son No problems noted. Daughter No problems noted. Daughter No problems noted. Sister Kyphosis History of vertebroplasty Compression fracture Brother No problems noted. 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 Pets and animals: Yes Sexually active: No Do you think of yourself as: straight/heterosexual Current gender identity: female What is your relationship status?: How often do you talk on the phone with friends or family?: three or more times per week How often do you get together with friends or relatives?: once per week Panel score (0-1 are the most socially isolated patients): 2 What type of physical activity do you participate in: walking and irregular exercise Duration: 15-30 minutes/day Special rodger needs: No Seatbelt use: always Working smoke detector in home: Yes Fire extinguisher in home: Yes Do you feel safe at home: Yes Do you feel safe in your relationship?: Yes Additional Social history: x 61 yrs; tells me she had a heart attack, though cardiology consult and d/c summary dispute this. Atypical CP. Poor understanding of her health issues. doesn't understand, either (his memory is ok). Reports no falls. NOt sure why her hip is hurting. Willing to go to PT. Exam Const General: cooperative and frail appearing HENMT Face and sinus: No dry mucous membranes Eyes Pupils: PERRL Resp Effort & Inspection: normal respiratory effort Auscultation: clear to auscultation bilaterally Cardio Rate: regular rate Rhythm: regular rhythm GI Inspection: normal to inspection Palpation: nontender Skin General skin exam: no rashes or lesions noted Neuro General: patient alert Cognition: normal cognition Speech: speech normal Gait: normal gait Extrem Other: 1+ edema bilateral lower extremities Course Vital Signs Vital signs: Vital Signs Temperature 36 C L 08/18/20 18:34 Pulse 69 08/18/20 18:34 Respiratory Rate 16 08/18/20 18:34 Blood Pressure 131/62 08/18/20 18:34 Pulse Oximetry 97 08/18/20 18:34 Temperature 36 C L 08/18/20 18:34 Temperature Source Skin 08/18/20 18:34 Pulse 69 08/18/20 18:34 Respiratory Rate 16 08/18/20 18:34 Respiratory Effort Non-Labored 08/18/20 18:36 Blood Pressure 131/62 08/18/20 18:34 Blood Pressure Position Sitting 08/18/20 18:34 Pulse Oximetry 97 08/18/20 18:34 Oxygen Delivery Method Room Air 05/04/21 18:34 Oxygen Flow Rate 0 08/18/20 18:34 Pain Level 0 08/18/20 18:34
[2020-08-18] MEDS: Normal Saline 1,000 ML 1000 ML IV (20:26)
[2020-08-18 20:32] LABS: Abs Immature Grans 0.02 10^3/uL (0.0-0.06); Absolute Basophil Count 0.03 10^3/uL (0.0-0.2); Absolute Eosinophil Count 0.11 10^3/uL (0.0-0.7); Absolute Lymphocyte Count 2.37 10^3/uL (1.2-3.4); Absolute Monocyte Count 0.62 10^3/uL (0.1-0.8); Basophils % 0.3; Eosinophils % 1.1; HCT 38.4 % (36.0-46.0); HGB 12.5 g/dL (11.2-15.7); Immature Grans % 0.2; Lymphocytes % 24.3; MCH 29.8 pg (27.0-33.0); MCHC 32.6 % (32.0-36.0); MCV 91.4 fL (80-95); MPV 10.8 fL (8.0-11.0); Monocytes % 6.4; Neutrophils % 67.7; Nucleated RBC 0 %; Platelet Count 174 10^3/uL (130-400); RDW 13.5 % (11.7-14.6); RDW-SD 45.5 fL; WBC 9.75 10^3/uL (4.4-10.8)
[2020-08-18 20:44] LABS: ALT 20 U/L (14-59); AST 23 U/L (15-37); Albumin 3.9 g/dL (3.4-5.0); Alkaline Phosphatase 40 U/L (46-116); BUN 34 mg/dL (7-18); Bilirubin, Total 0.4 mg/dL (0.2-1.0); CREATININE 1.5 mg/dL (0.55-1.02); Calcium 9.4 mg/dL (8.5-10.1); Chloride 105 mmol/L (98-107); Estimated GFR 33.16 (mL/min/1.73m2); Glucose 117 mg/dL (74-106); Magnesium 2.2 mg/dL (1.8-2.4); Potassium 4.2 mmol/L (3.5-5.1); Sodium 141 mmol/L (136-145); Total Protein 7.2 g/dL (6.4-8.2)
[2020-08-18 20:50] LABS: Bilirubin Negative (Negative); Blood Small (Negative); Clarity Clear (Clear); Glucose Negative (Negative); Ketones Negative (Negative); Leukocyte Esterase Negative (Negative); Nitrite Negative (Negative); Urobilinogen 0.2 EU/dL (Up TO 0.2); pH 5.5 (5-8)
[2020-08-18 20:59] LABS: RBC 0-2 HPF (0-2); WBC Negative HPF (0-5)
[2020-08-18 21:00] LABS: Bacteria Negative HPF (Negative); C & S Indicated? No; Casts 0-2 Hyaline LPF (Negative); Crystals Negative HPF (Negative); Epithelial Cells Rare HPF (Negative); Mucus Trace (Negative); Other Cells Negative (Negative)
[2020-08-18 21:48] LABS: Source Nasal/Nares
--- NOTE | 2020-08-18 21:58 | HPE_ITS ---
Date of service: 08/18/20 Time of Service: 21:59 Assessment and Plan Assessment and plan (1) Failure to thrive in adult: Start date: 08/18/20 Status: Acute Assessment and plan: This is an 85-year-old lady who lives at home with her and children who live nearby as best can be ascertained by history. She has had progressive dementia and recently had a UTI which appeared to exacerbate her short-term memory loss. She is not safe with her decision making at home and her has found it difficult to care for her. This appears to be a progression of her dementia with patient not on specific therapy for memory loss. She will be observed overnight with IV hydration for slight dehydration by elevated creatinine and reevaluated for assistance needs for home versus considering placement for long-term care. She is a DNR/DNI. I did not have di scussion with family. She will finish her treatment for her UTI. (2) Alzheimer's dementia: Status: Chronic Assessment and plan: Exasperated by recent events with UTI and probably progression to where family needs increased services versus patient needs to be placed for care. She is not able to perform independent ADL activity. She is not on medications for memory deficits and may have progressed past the point where this treatment would be helpful. Her behavior does not appear to be disruptive but unsafe Qualifiers: Alzheimer's disease onset: late-onset Dementia behavioral disturbance: with behavioral disturbance Qualified Code(s): G30.1 - Alzheimer's disease with late onset; F02.81 - Dementia in other diseases classified elsewhere with behavioral disturbance (3) Urinary tract infection: Status: Acute Assessment and plan: Complete treatment with Keflex and follow-up urine culture if indicated. Increase hydration with IV fluids presently and then oral fluids with supervision. Qualifiers: Hematuria presence: without hematuria Urinary tract infection type: acute cystitis Qualified Code(s): N30.00 - Acute cystitis without hematuria (4) Hypertension: Status: Chronic Assessment and plan: Continue outpatient medical therapy. Monitor lab. Patient is on statin for hyperlipidemia. Qualifiers: Hypertension type: essential hypertension Qualified Code(s): I10 - Essential (primary) hypertension History of Present Illness History of Present Illness Chief Complaint: Increased weakness with failure to thrive Narrative: This is an 85-year-old female patient who reported to the ED because of increasing weakness and inability to take care of herself at home and her not able to care for her as well. She has advancing dementia and re cently had a UTI treated in the ED with patient placed on Keflex. This was reported as a pansensitive E. coli. She began to have increasing weakness at home with treatment and nausea with vomiting but no diarrhea. She was having no cardiovascular symptoms or respiratory symptoms. She also had no dizziness. She had been able to assist with ADL activity in the past but recently her had to totally assist patient for independent ADL activity which he felt was unsafe. In the ED the patient was thought to be better served by gentle IV hydration appearing slightly dehydrated and finishing treatment for UTI with reassessment of needs for home versus other placement possibilities. She does not meet criteria for acute admission. The patient did have continued emesis in the ED but this had resolved by the time she was interviewed by this provider. With approach the patient was not able to offer further history and gave confusing history of her children still living at home and then in the next sentence described their present living situation and work. Review of Systems Narrative: 13 point review of systems otherwise unrevealing or stable. Patient has had progressive short-term memory loss. [facility] Medical History Age-related osteoporosis without current pathological fracture Alzheimer's dementia Ankle weakness Asthma DNI (do not intubate) DNR (do not resuscitate) GERD (gastroesophageal reflux disease) Hyperlipidemia Hypertension IT band syndrome Lateral pain of right hip Lidocaine patches helped .. now pain is more in thigh vs lateral leg (PainStop helping), 07/17/19 Obesity Obstructive sleep apnea Osteoarthritis Palliative care patient Physical deconditioning POLST (Physician Orders for Life-Sustaining Treatment) Right hip pain Right knee pain Right shoulder pain Syncope Trochanteric bursitis, right hip Unspecified dementia without behavioral disturbance Unsteady gait Cane/walker Vitamin D deficiency Surgical History History of appendectomy Status post tonsillectomy and adenoidectomy Family History Mother , age 85 or so Dementia Cancer Father , age 82 Sudden cardiac Son No problems noted. Son No problems noted. Daughter No problems noted. Daughter No problems noted. Sister Kyphosis History of vertebroplasty Compression fracture Brother No problems noted. Social History Smoking/Tobacco Use Status: Never Smoking risk assessment performed?: Yes Alcohol Intake: never Drug use: Never Substance use type: does not use Adopted: No Caregiver/Support person: Yes Foster care: No Household members: spouse Housing: house Number of Children: 4 number of grandchildren: 12 Communication Needs: Hard of Hearing and Corrective Lenses Education Level: high school Do you need help understanding health information?: Always current occupation: retired from [employer] Pets and animals: Yes Sexually active: No Do you think of yourself as: straight/heterosexual Current gender identity: female What is your relationship status?: How often do you talk on the phone with friends or family?: three or more times per week How often do you get together with friends or relatives?: once per week Panel score (0-1 are the most socially isolated patients): 2 What type of physical activity do you participate in: walking and irregular e xercise Duration: 15-30 minutes/day Special rodger needs: No Seatbelt use: always Working smoke detector in home: Yes Fire extinguisher in home: Yes Do you feel safe at home: Yes Do you feel safe in your relationship?: Yes Additional Social history: x 61 yrs; tells me she had a heart attack, though cardiology consult and d/c summary dispute this. Atypical CP. Poor understanding of her health issues. doesn't understand, either (his memory is ok). Reports no falls. NOt sure why her hip is hurting. Willing to go to PT. Meds Allergies and Home Medications Allergies Allergy/AdvReac Type Severity Reaction Status Date / Time No Known Allergies Allergy Verified 08/18/20 18:36 Home Medications Medication Instructions Recorded Confirmed Type aspirin [Aspir-81] 81 mg PO DAILY 01/19/19 08/18/20 History acetaminophen 500 mg tablet 500 mg PO Q6H PRN 07/04/19 08/18/20 History multivitamin 1 tab PO DAILY 07/04/19 08/18/20 History alendronate 70 mg tablet 70 mg PO QWEEK #14 tab 08/28/19 08/18/20 Rx quetiapine 50 mg tablet 50 mg PO DAILY #90 tab 09/20/19 08/18/20 Rx pantoprazole 40 mg tablet,delayed 40 mg PO DAILY #90 tab 03/31/20 08/18/20 Rx release memantine 10 mg tablet 10 mg PO BID #180 tab 04/29/20 08/18/20 Rx rosuvastatin 20 mg tablet 20 mg PO HS #90 tab 06/15/20 08/18/20 Rx calcium carbonate 600 mg calcium 600 mg PO BID #90 tab 07/31/20 08/18/20 Rx (1,500 mg) tablet celecoxib 200 mg capsule 200 mg PO BID #180 cap 07/31/20 08/18/20 Rx cholecalciferol (vitamin D3) 25 25 mcg PO BID #90 tab 07/31/20 08/18/20 Rx mcg (1,000 unit) tablet lisinopril 2.5 mg tablet 2.5 mg PO DAILY #90 tab 07/31/20 08/18/20 Rx cyanocobalamin (vitamin B-12) 1,000 mcg PO DAILY #90 tab 08/14/20 08/18/20 Rx 1,000 mcg tablet cephalexin 500 mg PO TID #9 tab 08/15/20 08/18/20 Rx ondansetron 4 mg PO Q8H PRN #7 tab 08/15/20 08/18/20 Rx Exam Narrative Exam Narrative: General: Patient is moderately obese, pleasantly confused trying to get out of bed when I approached and not appropriate precaution being taken with activity. She is alert and oriented to at least place but not person, time or purpose. Affect is normal with good eye contact. She at times is almost euphoric. HEENT: Normocephalic, eyes with pupils equal and reactive to light symmetrically, extraocular movement intact and sclera anicteric. Oropharynx with moist mucosa. Neck: Supple without JVD and no palpated carotid thrills. Back: Slightly kyphotic without CVA tenderness. Lungs: Fair aeration and clear to auscultation and percussion. Heart: Regular rate and rhythm with no appreciable murmur or gallop. Breast: Exam deferred. Abdomen: Obese contour, soft nontender to palpation without palpable hepatosplenomegaly. Bowel sounds positive in all quadrants. Genitalia/rectal: Exam deferred. Extremities: Without pitting edema, cyanosis or clubbing. All joints appear to have fair range of motion with osteoarthritic changes of most large joints peripheral pulses intact with good capillary refill. Skin: Normal color, warm and dry. Neuro: Cranial nerves II through XII grossly intact, no focalizing motor deficits. No tremors. Psych: Slightly euphoric affect at times and wandering conversation. Mood appears normal. No abnormal thought processes. Remote memory grossly intact. Recent memory not intact. Results Labs Result diagrams: 08/19/20 06:15 08/19/20 06:15 Labs: Laboratory Results - last 24 hr 08/18/20 08/18/20 08/18/20 20:23 20:23 20:34 WBC 9.75 RBC 4.20 Hgb 12.5 Hct 38.4 MCV 91.4 MCH 29.8 MCHC 32.6 RDW 13.5 Plt Count 174 MPV 10.8 Immature Gran % 0.2 Neutrophils % 67.7 Lymphocytes % 24.3 Monocytes % 6.4 Eosinophils % 1.1 Basophils % 0.3 Nucleated RBC % 0 Absolute Neutrophils 6.60 Absolute Lymphocytes 2.37 Absolute Monocytes 0.62 Absolute Eosinophils 0.11 Absolute Basophils 0.03 Sodium 141 Potassium 4.2 Chloride 105 Carbon Dioxide 27.0 Anion Gap 9.0 BUN 34 H Creatinine 1.5 H Estimated GFR/1.73 m2 33.16 Glucose 117 H Calcium 9.4 Magnesium 2.2 Total Bilirubin 0.4 AST 23 ALT 20 Alkaline Phosphatase 40 L Total Protein 7.2 Albumin 3.9 Urine Color Yellow Urine Clarity Clear Urine pH 5.5 Ur Specific Spencer 1.020 Urine Protein Negative Urine Ketones Negative Urine Blood Small H Urine Nitrite Negative Urine Bilirubin Negative Urine Urobilinogen 0.2 Ur Leukocyte Esterase Negative Urine RBC 0-2 Urine WBC Negative Ur Epithelial Cells Rare Urine Crystals Negative Urine Bacteria Negative Urine Casts 0-2 hyaline Urine Mucus Trace Urine Other Negative Ur Culture Indicated? No Urine Glucose Negative COVID-19 Source 08/18/20 21:42 WBC RBC Hgb Hct MCV MCH MCHC RDW Plt Count MPV Immature Gran % Neutrophils % Lymphocytes % Monocytes % Eosinophils % Basophils % Nucleated RBC % Absolute Neutrophils Absolute Lymphocytes Absolute Monocytes Absolute Eosinophils Absolute Basophils Sodium Potassium Chloride Carbon Dioxide Anion Gap BUN Creatinine Estimated GFR/1.73 m2 Glucose Calcium Magnesium Total Bilirubin AST ALT Alkaline Phosphatase Total Protein Albumin Urine Color Urine Clarity Urine pH Ur Specific Spencer Urine Protein Urine Ketones Urine Blood Urine Nitrite Urine Bilirubin Urine Urobilinogen Ur Leukocyte Esterase Urine RBC Urine WBC Ur Epithelial Cells Urine Crystals Urine Bacteria Urine Casts Urine Mucus Urine Other Ur Culture Indicated? Urine Glucose COVID-19 Source Nasal/nares Last Vital Signs Temp 36 C L 08/18/20 18:34 Pulse 75 08/18/20 21:12 Resp 19 08/18/20 20:46 BP 154/87 H 08/18/20 21:12 Pulse Ox 97 08/18/20 21:12 COVID-19 Screening Have you, or household traveled for leisure in last 14 days?: No Had IN PERSON contact w/suspected or confirmed C-19 person: No
[2020-08-18] MEDS: Normal Saline 1,000 ML 80 ML IV (23:04)
[2020-08-18] MEDS: Heparin 5,000 UNITS/ML VIAL 5000 UNITS SC (23:38)
[2020-08-18 23:50] LABS: COVID-19 PCR Negative (Negative)
[2020-08-19 03:10] VITALS: BP 166/82; PULSE 76; RESP 18; TEMP 36.5; O2SAT 98
[2020-08-19 07:08] LABS: Abs Immature Grans 0.01 10^3/uL (0.0-0.06); Absolute Basophil Count 0.04 10^3/uL (0.0-0.2); Absolute Eosinophil Count 0.08 10^3/uL (0.0-0.7); Absolute Lymphocyte Count 2.17 10^3/uL (1.2-3.4); Absolute Monocyte Count 0.46 10^3/uL (0.1-0.8); Absolute Neutrophil Count 5.08 10^3/uL (1.2-6.7); Basophils % 0.5; HCT 42.8 % (36.0-46.0); HGB 13.8 g/dL (11.2-15.7); Immature Grans % 0.1; Lymphocytes % 27.7; MCHC 32.2 % (32.0-36.0); MCV 89.9 fL (80-95); MPV 12.2 fL (8.0-11.0); Monocytes % 5.9; Neutrophils % 64.8; Nucleated RBC 0 %; Platelet Count 177 10^3/uL (130-400); RBC 4.76 10^6/uL (3.93-5.22); RDW 13.5 % (11.7-14.6); RDW-SD 44.5 fL; WBC 7.84 10^3/uL (4.4-10.8)
[2020-08-19] MEDS: Heparin 5,000 UNITS/ML VIAL 5000 UNITS SC ×4 (07:13→22:13)
--- NOTE | 2020-08-19 07:27 | NUR.NOTE ---
Nursing Note: When talking to patient, she said My doesn't like it when I do things I'm not suppose to, I am going to get lectured about it.
[2020-08-19 07:32] LABS: ALT 20 U/L (14-59); AST 23 U/L (15-37); Albumin 4.1 g/dL (3.4-5.0); Alkaline Phosphatase 42 U/L (46-116); Anion Gap 11.6 mmol/L (3-11); BUN 22 mg/dL (7-18); Bilirubin, Total 0.5 mg/dL (0.2-1.0); CO2 26.4 mmol/L (21.0-32.0); CREATININE 1.3 mg/dL (0.55-1.02); Calcium 9.5 mg/dL (8.5-10.1); Chloride 107 mmol/L (98-107); Estimated GFR 39.12 (mL/min/1.73m2); Glucose 119 mg/dL (74-106); Potassium 4.1 mmol/L (3.5-5.1); Sodium 145 mmol/L (136-145); Total Protein 7.6 g/dL (6.4-8.2)
[2020-08-19] MEDS: Lisinopril 5 MG TAB 2.5 MG PO (08:10)
[2020-08-19] MEDS: QUEtiapine 25 MG TAB 50 MG PO (08:10)
[2020-08-19] MEDS: Aspirin E.C. 81 MG TABEC PO (08:11)
[2020-08-19] MEDS: Pantoprazole 40 MG TABCR PO (08:11)
[2020-08-19] MEDS: Memantine 5 MG TAB 10 MG PO ×2 (08:11→21:07)
[2020-08-19] MEDS: Celecoxib 200 MG CAP PO ×2 (08:11→21:05)
[2020-08-19] MEDS: Cephalexin 500 MG CAP PO ×3 (08:11→21:03)
[2020-08-19 08:12] VITALS: BP 145/80; PULSE 90; RESP 17; TEMP 36.8; O2SAT 95
--- NOTE | 2020-08-19 10:46 | PT.INIE ---
Date of service: 08/19/20 Time of Service: 10:46 PT Notes Visit Reasons: FAILURE TO THRIVE, WEAKNESS, UTI, DEMENTIA Physical Therapy Inpatient Initial Evaluation Date: 08/19/2020 Referring Doctor: Edmond Richard MD PT Orders: PT CONSULT: Eval/Treat Precautions: Fall. Standard. Activity as tolerated. Patient Profile/Admitting Diagnosis: Annmarie is an 85-year-old female who presented to the ED on 08/18/2020 with increasing weakness, nausea, vomiting, and diarrhea suspected to be from recent antibiotic treatment. Patient is diagnosed with failure to thrive, increasing dementia from Alzheimer's disease, and urinary tract infection. PMHX: Medical History Age-related osteoporosis without current pathological fracture Alzheimer's dementia Ankle weakness Asthma DNI (do not intubate) DNR (do not resuscitate) GERD (gastroesophageal reflux disease) Hyperlipidemia Hypertension IT band syndrome Lateral pain of right hip Lidocaine patches helped .. now pain is more in thigh vs lateral leg (PainStop helping), 07/17/19 Obesity Obstructive sleep apnea Osteoarthritis Palliative care patient Physical deconditioning POLST (Physician Orders for Life-Sustaining Treatment) Right hip pain Right knee pain Right shoulder pain Syncope Trochanteric bursitis, right hip Unspecified dementia without behavioral disturbance Unsteady gait Cane/walker Vitamin D deficiency Surgical History History of appendectomy Status post tonsillectomy and adenoidectomy Social History/Home Situation: Patient is a poor historian. Please refer to care management notes. Equipment Owned/DME: Patient is a poor historian. Please refer to care management notes. Subjective: Pleasantly confused. Cheerful. Happy to be going for a walk. Denies pain, headache, chest pain, dizziness. Objective: General Observation: Seated on bedside chair with PRAMOD Flores providing one-on-one supervision. Mental Status: Alert and but not oriented as to place and time. Able to pay attention, focus, and respond appropriately. Pain: 0/10 ROM: Right Upper Extremity: Shoulder Flexion WFL. Shoulder abduction WFL. Shoulder ER/IR WFL. Elbow flexion WFL. Forearm pronation/supination WFL. Wrist flexion WFL. Opening and closing of hand WFL. Left Upper Extremity: Shoulder Flexion WFL. Shoulder abduction WFL. Shoulder ER/IR WFL. Elbow flexion WFL. Forearm pronation/supination WFL. Wrist flexion WFL. Opening and closing of hand WFL. Right Lower Extremity: Hip flexion WFL. Hip abduction WFL. Hip ER/IR WFL. Knee flexion WFL. Knee extension. Ankle dorsiflexion/eversion WFL. Ankle plantarflexion/inversion WFL. Left Lower Extremity: Hip flexion WFL. Hip abduction WFL. Hip ER/IR WFL. Knee flexion WFL. Knee extension. Ankle dorsiflexion WFL. Ankle plantarflexion WFL. Strength: Right Upper Extremity: Shoulder flexors 4-/5. Shoulder abductors 4-/5. Shoulder ER 4-/5. Shoulder IR 4-/5. Forearm pronators 4-/5. Forearm supinators 4-/5. Elbow flexors 4-/5. Elbow extensors 4-/5. Harness Fitter strong. Left Upper Extremity: Shoulder flexors 4-/5. Shoulder abductors 4-/5. Shoulder ER 4-/5. Shoulder IR 4-/5. Forearm pronators 4-/5. Forearm supinators 4-/5. Elbow flexors 4-/5. Elbow extensors 4-/5. Harness Fitter strong. Right Lower Extremity: Hip flexors 4-/5. Hip abductors 4-/5. Hip external rotators 4-/5. Hip internal rotators 4-/5. Knee flexors 4-/5. Knee extensors 4-5. Ankle dorsiflexors/evertors 4-/5. Ankle plantarflexors/invertors 4-/5. Left Lower Extremity: Hip flexors 4-/5. Hip abductors 4-/5. Hip external rotators 4-/5. Hip internal rotators 4-/5. Knee flexors 4-/5. Knee extensors 4-5. Ankle dorsiflexors/evertors 4-/5. Ankle plantarflexors/invertors 4-/5. Bed Mobility/Transfers: Sit to stand standby assist Stand to sit standby assist Bed to bedside commode standby assist Bedside commode to bed standby assist Bed to chair standby assist Gait: Distance of 230 feet requiring standby assist using single-point cane. Mild path deviation. Coreen decreased. Step height decreased. Step length decreased. No LOB. Mild SOB. Balance: Static Sitting: Normal Dynamic Sitting: Normal Static Standing: Good Dynamic Standing: Fair Special Tests: Mobility Limitations Standardized Measure [facility] AM-PAC 6 clicks Basic Mobility Inpatient Short Form: Raw Score: 23 CMS Score: 11% deficit 4-stage Balance Test: Able to maintain feet together and semi-tandem for 10 seconds but is unable to do so for full tandem and 1 legged stance indicating need for use of assistive device to reduce fall risk. Informed Consent/Education: Patient instructed in purpose of PT consult and plan of care. Agreeable to proceed with established PT POC to achieve personal goals. Assessment: Annmarie requires the use of single-point cane for safe performance of mobility ADLs. Patient presents with clinical signs and symptoms consistent with current/admitting diagnoses that have resulted to mobility limitations, gait instability, generalized weakness, and impairment of motor control as demonstrated by the following impairment level findings: 1. Decreased strength to B UE/LE major muscle groups 2. Impaired standing balance 3. Impaired activity tolerance 4. Increased confusion Impairments are contributing to the following functional limitations: 1. Inability to safely ambulate without assistive device and standby assist 2. Increase completion time for mobility ADL performance 3. Increased fall risk 4. Inability to negotiate steps alone safely 5. Inability to return to prior living environment at this time Patient is assessed as a 90082 moderate complexity based on the following: History: 85-year-old female with past medical history as indicated above Examination: Demonstrable impairment in strength, balance, and mobility level with underlying impairments and functional limitations as exhibited above as well as deficit score of 11% utilizing the [facility] Mobility Inpatient Short Form Presentation: Stable Decision Makin moderate complexity Goals: Goals X1 week 1. Supine-Sit independent 2. Sit-Supine independent 3. Sit-Stand independent 4. Stand-Sit independent 5. Bed-Chair independent 6. Chair-Bed independent 7. Supervision gait on level surface with use of 4 wheeled walker for at least 300 feet without report of pain nor dyspnea 8. Supervision stair negotiation while holding onto 1 rail for at least 3 steps without report of pain nor dyspnea 9. Supervision with home exercise program 10. Good static and dynamic standing balance/tolerance Plan of Care/Treatment Plan: 1-2x/day, 7 days/week x 1 week. Plan of care has been reviewed with the ACOUSTIC WARFARE ANALYST providing the service under Physical Therapy direction. Initiate Physical Therapy intervention for strengthening, bed mobility, transfers, gait, stairs, balance training, and use of assistive device. DISCHARGE RECOMMENDATIONS: Patient will benefit from home health PT services in order to progress mobility level using least restrictive assistive ambulatory device, assess home safety, identify additional equipment needs, and establish a functional maintenance program that will increase ability of patient to remain at home. TREATMENT CODE/TIME: 26033 x 20 minutes, 06946 x 10 minutes beginning at 10:46 AM. Thank you for the opportunity to participate in the care of this patient. Carmen Means PT, DPT, CLT [facility] [place], [place]
--- NOTE | 2020-08-19 11:39 | PDOC.CMIN ---
- If Service Date Differs Date of service: 08/19/20 Time of Service: 11:40 Care Management Initial Assess REASON FOR HOSPITALIZATION:: Failure to thrive, Weakness, UTI, Dementia PAST MEDICAL HISTORY/PAST SURGICAL HISTORY:: Age-related osteoporosis without current pathological fracture. Alzheimer's dementia. Ankle weakness. Asthma. DNI (do not intubate). DNR (do not resuscitate). GERD (gastroesophageal reflux disease). Hyperlipidemia. Hypertension. IT band syndrome. Lateral pain of right hip. Lidocaine patches helped .. now pain is more in thigh vs lateral leg (PainStop helping), 07/17/19. Obesity. Obstructive sleep apnea. Osteoarthritis. Palliative care patient. Physical deconditioning. POLST (Physician Orders for Life-Sustaining Treatment). Right hip pain. Right knee pain. Right shoulder pain. Syncope. Trochanteric bursitis, right hip. Unspecified dementia without behavioral disturbance. Unsteady gait. Cane/walker. Vitamin D deficiency. History of appendectomy. Status post tonsillectomy and adenoidectomy PREVIOUS FUNCTIONAL STATUS/SOCIAL/FAMILY SUPPORTS:: Annmarie resides with her , Maykel and their cat in [place], [place]. The couple has four adult children who are all supportive and well involved. Bonnie Nash: [phone]: Co-Agent for Health Care, Gwen HuertasPiedmont [facility] RegionalTimoteo [phone]: Co-Agent for Health Care, Terrance NashJnzknp-Vqcmuq-[phone], C#[phone], Tracie PriceSbxfxh-Lfahvkhqf-[phone]. Annmarie is diagnosed with dementia and struggles with short term memory issues. She no longer drives but manages ADLs within the home including cooking, laundry and cleaning. Her children report Maykel is by her side at all times as well. CURRENT FUNCTIONAL STATUS:: Annmarie was sitting in her chair, Maykel at her side. Both were pleasant in interaction. ADVANCE DIRECTIVES:: On file; contact information outdated on form; please utilize these contact numbers: Co-Agents for Health Care: Bonnie Nash: [phone]: , Gwen NashZ[facility] CenterTimoteo [phone]. Others: Terrance [phone], C#[phone], Tracie PriceGjeagb-Hcvokrcby-[phone]. Has patient been provided with info about the portal/API?: No Did the patient sign up for the portal?: No CODE STATUS:: Full Code INSURANCE COVERAGE / FINANCIAL ISSUES:: Commercial Ins: [employer]. Medicare CURRENT HOME/COMMUNITY SERVICES/EQUIPMENT:: ADRIÁN Peters PRIMARY CARE PHYSICIAN:: Angelina Mueller; [facility] POTENTIAL DISCHARGE NEEDS:: Increased services in home setting, follow up with PCP. PATIENT/FAMILY EDUCATION NEEDS:: Review discharge instructions, discuss Ask Me Three. ANTICIPATED BARRIERS TO DISCHARGE:: None identified at this time. TRANSPORTATION:: TBD by disposition. PLAN:: Annmarie will return home when ready per MD. Anticipate new orders for RN/PT/OT/INPATIENT NURSING AIDE, she will continue to be followed by Palliative Care as well. She will transport via private vehicle with her .
--- NOTE | 2020-08-19 12:03 | PHA.REVIEW ---
Pharmacy Admission Review - Admission Clinical Review (Last Reviewed 08/18/20 @ 21:59 by Edmond Richard) Failure to thrive in adult (Acute) Urinary tract infection (Acute) Alzheimer's dementia (Acute) No Known Allergies Allergy (Verified 08/18/20 18:36) Height 5 ft 3 in Weight 82.4 kg Failure to thrive, weakness, UTI, Dementia - Comments Comments/Follow Ups: If CrCl worsens, consider dose adjustments of Memantine and Rosuvastatin (recommended when CrCl<30ml/min). Micro urine: >100K E.Coli being treated with Cephalexin. Possible placement issue, advancing dementia, unable to care for her. - Renal Dosing Renal Dosing: BUN 22 mg/dL (7-18) H D 08/19/20 06:15 Creatinine 1.3 mg/dL (0.55-1.02) H 08/19/20 06:15 Medications needing adjustments: Reviewed (CrCl~27ml/min-improved overnight. Borderline for dose adjustments of Memantine/Rosuvastatin, watch if renal function worsens) - Anticoagulation Anticoagulation: Hgb 13.8 g/dL (11.2-15.7) 08/19/20 06:15 Hct 42.8 % (36.0-46.0) 08/19/20 06:15 Plt Count 177 10^3/uL (130-400) 08/19/20 06:15 Creatinine 1.3 mg/dL (0.55-1.02) H 08/19/20 06:15 DVT Prohphylaxis: Reviewed Medications: Heparin - Opiate Usage Evaluate Pain Scale/Pains Meds: N/A - Relevant Labs Sodium 145 mmol/L (136-145) 08/19/20 06:15 Potassium 4.1 mmol/L (3.5-5.1) 08/19/20 06:15 Chloride 107 mmol/L (98-107) 08/19/20 06:15 Magnesium 2.2 mg/dL (1.8-2.4) 08/18/20 20:23 Electrolytes, C-Reactive P, ESR: Reviewed - DM Control DM Control: Glucose 119 mg/dL (74-106) H 08/19/20 06:15 Insulin Dosing: N/A - Heart Failure/IN EF%, CB's, B-Blockers, Diuretics: Reviewed (Lisinopril) - BP Control BP Control: Blood Pressure 145/80 Blood Pressure 166/82 If elevated: Reviewed - Qtc Review If Elevated: Reviewed (QTC 456) - IV to PO Switch IV Medications: N/A - Home Meds Home Med List reviewed: Reviewed Relevent Home Meds Not ordered & why?: Vit B12, Vit D, Calcium, Alendronate weekly - Current meds Current Medication Order Review: Reviewed (Cephalexin was started in our ED 08/16/20 written for 3 days for UTI) - Comments Comments/Follow Ups: Donepezil 10mg daily is on external outpatient fill list from [facility]. Alendronate states last taken 08/12/20...would be due today 08/19/20. Will f/u with . Rec'd 1st Moderna Covid vaccine 07/02/20
--- NOTE | 2020-08-19 12:50 | W.PM.PROGNOT ---
Date of Service Date of service: 08/19/20 Time of Service: 12:51 Assessment and Plan Assessment and plan (1) Urinary tract infection: Status: Acute Assessment and plan: Continues on Keflex initiated as outpt. She does not endorse any current symptoms. No signs/sxs of bacteremia Qualifiers: Urinary tract infection type: acute cystitis Hematuria presence: without hematuria Qualified Code(s): N30.00 - Acute cystitis without hematuria (2) Alzheimer's dementia: Status: Acute Assessment and plan: Pleasantly confused. No behavioral concerns noted. Qualifiers: Alzheimer's disease onset: late-onset Dementia behavioral disturbance: with behavioral disturbance Qualified Code(s): G30.1 - Alzheimer's disease with late onset; F02.81 - Dementia in other diseases classified elsewhere with behavioral disturbance (3) Hypertension: Status: Chronic Assessment and plan: BP in the 140-160's range. She is only on low dose of LIsinopril at 2.5mg daily. Monitor. Qualifiers: Hypertension type: essential hypertension Qualified Code(s): I10 - Essential (primary) hypertension (4) Discharge planning issues: Status: Acute Assessment and plan: Brought to the ED d/t husbands endorsement that she has become more weak and unable to manage her self-care, ADLs. PT evaluated; note pending. Unclear if she would benefit from rehab vs home health. Subjective Subjective Patient reports: afebrile Interval history since last seen: Mrs Nash is pleasantly confused. Conversant. No current complaints. Eating lunch. She states she uses a cane at home and also has a walker. She has been evaluated by PT today. Exam Const General: cooperative and no acute distress Nutritional Appearance: overweight Orientation: alert and oriented to person [facility] Head: normocephalic and atraumatic Resp Effort & Inspection: normal respiratory effort Auscultation: clear to auscultation bilaterally Cardio Rate: regular rate Rhythm: regular rhythm Heart Sounds: S1 normal and S2 normal Neuro General: no focal motor deficits Speech: speech normal Extrem General: no pedal edema and no calf tenderness Psych Appearance: grossly normal Affect: normal affect Insight: poor Objective Last Vital Signs Temp 36.8 C 08/19/20 08:12 Pulse 90 08/19/20 08:12 Resp 17 08/19/20 08:12 BP 145/80 H 08/19/20 08:12 Pulse Ox 95 08/19/20 08:12 Laboratory Results - last 24 hr 08/18/20 08/18/20 08/18/20 20:23 20:23 20:34 WBC 9.75 RBC 4.20 Hgb 12.5 Hct 38.4 MCV 91.4 MCH 29.8 MCHC 32.6 RDW 13.5 Plt Count 174 MPV 10.8 Immature Gran % 0.2 Neutrophils % 67.7 Lymphocytes % 24.3 Monocytes % 6.4 Eosinophils % 1.1 Basophils % 0.3 Nucleated RBC % 0 Absolute Neutrophils 6.60 Absolute Lymphocytes 2.37 Absolute Monocytes 0.62 Absolute Eosinophils 0.11 Absolute Basophils 0.03 Sodium 141 Potassium 4.2 Chloride 105 Carbon Dioxide 27.0 Anion Gap 9.0 BUN 34 H Creatinine 1.5 H Estimated GFR/1.73 m2 33.16 Glucose 117 H Calcium 9.4 Magnesium 2.2 Total Bilirubin 0.4 AST 23 ALT 20 Alkaline Phosphatase 40 L Total Protein 7.2 Albumin 3.9 Urine Color Yellow Urine Clarity Clear Urine pH 5.5 Ur Specific [place] 1.020 Urine Protein Negative Urine Ketones Negative Urine Blood Small H Urine Nitrite Negative Urine Bilirubin Negative Urine Urobilinogen 0.2 Ur Leukocyte Esterase Negative Urine RBC 0-2 Urine WBC Negative Ur Epithelial Cells Rare Urine Crystals Negative Urine Bacteria Negative Urine Casts 0-2 hyaline Urine Mucus Trace Urine Other Negative Ur Culture Indicated? No Urine Glucose Negative COVID-19 Source SARS-CoV-2 (PCR) 08/18/20 08/19/20 08/19/20 21:42 06:15 06:15 WBC 7.84 RBC 4.76 Hgb 13.8 Hct 42.8 MCV 89.9 MCH 29.0 MCHC 32.2 RDW 13.5 Plt Count 177 MPV 12.2 H Immature Gran % 0.1 Neutrophils % 64.8 Lymphocytes % 27.7 Monocytes % 5.9 Eosinophils % 1.0 Basophils % 0.5 Nucleated RBC % 0 Absolute Neutrophils 5.08 Absolute Lymphocytes 2.17 Absolute Monocytes 0.46 Absolute Eosinophils 0.08 Absolute Basophils 0.04 Sodium 145 Potassium 4.1 Chloride 107 Carbon Dioxide 26.4 Anion Gap 11.6 H BUN 22 H D Creatinine 1.3 H Estimated GFR/1.73 m2 39.12 Glucose 119 H Calcium 9.5 Magnesium Total Bilirubin 0.5 AST 23 ALT 20 Alkaline Phosphatase 42 L Total Protein 7.6 Albumin 4.1 Urine Color Urine Clarity Urine pH Ur Specific [place] Urine Protein Urine Ketones Urine Blood Urine Nitrite Urine Bilirubin Urine Urobilinogen Ur Leukocyte Esterase Urine RBC Urine WBC Ur Epithelial Cells Urine Crystals Urine Bacteria Urine Casts Urine Mucus Urine Other Ur Culture Indicated? Urine Glucose COVID-19 Source Nasal/nares SARS-CoV-2 (PCR) Negative
[2020-08-19] MEDS: Normal Saline 1,000 ML 80 ML IV (12:57)
--- NOTE | 2020-08-19 13:59 | PT.INTREAT ---
Date of service: 08/19/20 Time of Service: 13:59 PT Notes Visit Reasons: FAILURE TO THRIVE, WEAKNESS, UTI, DEMENTIA Physical Therapy Inpatient Treatment Note Date: 08/19/2020 Precautions: Fall. Standard. Activity as tolerated. Subjective: in room with patient. Patient is agreeable to work with PT. is happy to watch work out. Maykel reports that patient mostly uses her front wheeled walker for all they are walking activities. Is drowsy at the end of exercise session. Objective: General Observation: Seated on bedside chair with Maykel providing one-on-one supervision. Mental Status: Alert and but not oriented as to place and time. Able to pay attention, focus, and respond appropriately. Pain: 0/10 Bed Mobility/Transfers: Sit to stand standby assist Stand to sit standby assist Bed to bedside commode standby assist Bedside commode to bed standby assist Bed to chair standby assist Gait: Tolerated 300 feet + 50 feet using 4 wheeled walker with full weightbearing on bilateral lower extremities requiring only supervision with increased gait speed compared to using a single-point cane from this morning's session. Mild SOB noted. Stairs: Able to complete up-and-down 6 x 4-inch steps and 4 x 6-inch steps while holding onto 1 rail with moderate to maximal verbal cueing provided for sequence and safety. THERA EX: Initiated seated level B UE/LE strengthening exercises utilizing 2.5 ankle weight and 2 pound dumbbells in order to progress functional mobility level. Please refer to therapy exercise flow sheet for details. Balance: Static Sitting: Normal Dynamic Sitting: Normal Static Standing: Good Dynamic Standing: Fair Assessment: Annmarie is able to tolerate exercise and mobility progression with no complaints of increased discomfort nor increased shortness of breath. DISCHARGE RECOMMENDATIONS: Patient will benefit from home health PT services in order to progress mobility level using least restrictive assistive ambulatory device, assess home safety, identify additional equipment needs, and establish a functional maintenance program that will increase ability of patient to remain at home. TREATMENT CODE/TIME: 96045 x 14 minutes, 65731 x 30 minutes beginning at 13:59 PM.
[2020-08-19 14:43] VITALS: BP 124/81; PULSE 82; RESP 18; TEMP 36.8; O2SAT 97
[2020-08-19 19:31] VITALS: BP 164/100; PULSE 74; RESP 16; TEMP 36.3; O2SAT 96
[2020-08-19] MEDS: Rosuvastatin 10 MG TAB 20 MG PO (21:05)
[2020-08-19 23:39] VITALS: BP 139/108; PULSE 89; RESP 19; TEMP 36.4; O2SAT 95
[2020-08-20] MEDS: LORazepam 1 MG TAB PO (00:10)
[2020-08-20 04:51] VITALS: BP 159/86; PULSE 82; RESP 18; TEMP 36.1; O2SAT 95
[2020-08-20] MEDS: Heparin 5,000 UNITS/ML VIAL 5000 UNITS SC (05:27)
--- NOTE | 2020-08-20 09:56 | PDOC.HHF2F_ITS ---
Home Health Certification Home Health Certification: 1. Encounter Date and Reason I certify that Annmarie Nash was seen by Bi Russell MD on 08/20/20 and that I had a [id number] encounter with this patient that meets the physician face to face encounter requirements. 2. Clinical Findings Supporting Skilled Need and Homebound Status I certify that home health services are medically necessary, include either intermittent shelter and/or physical/speech therapy, and that this p atient is homebound in that absences from the home require considerable and taxing effort and are infrequent or of short duration, or are attributable to the need to receive medical care. [X] (a) Attached documentation from encounter provides clinical findings supporting skilled need and homebound status (including what assistance patient requires to leave the home). The encounter with the patient was in whole, or in part, for the following medical condition, which is the primary reason for home health care: FAILURE TO THRIVE, WEAKNESS, UTI, DEMENTIA Penitentiary: Resume Services Physical Therapy: Resume Services Speech Therapy: Homebound: 3. Certification and Authentication I certify that I composed the above information based on my clinical judgement relating to this patient's medical condition and, if applicable, clinical findings communicated to me by the NPP or inpatient physician who performed the Home Health Referral. All further orders will be obtained through ____Lazara Stock (Community Based Physician - PCP)
--- NOTE | 2020-08-20 09:57 | W.PM.DS.N ---
Date of service: 08/20/20 Time of Service: 09:57 DS: Diagnosis Discharge Diagnosis (1) Failure to thrive in adult: Status: Acute (2) Alzheimer's dementia: Status: Chronic (3) Urinary tract infection: Status: Acute (4) Hypertension: Status: Chronic Discharge Plan Disposition Patient Disposition: [facility] W/HOME HEALTH SERVICE Condition: Fair Discharge Details Reason For Visit: FAILURE TO THRIVE, WEAKNESS, UTI, DEMENTIA Admit Date/Time: 08/18/20 21:51 Admit Provider: Edmond Richard Attending Provider: Edmond Richard Primary Care Provider: Lazara Stock Hospital Course Hospital Course: This is an 85-year-old female patient who reported to the ED because of increasing weakness and inability to take care of herself at home and her not able to care for her as well. She has advancing dementia and recently had a UTI treated in the ED with patient placed on Keflex. This was reported as a pansensitive E. coli. She began to have increasing weakness at home with treatment as well as nausea with vomiting but no diarrhea. She was having no cardiovascular symptoms or respiratory symptoms. She also had no dizziness. She had been able to assist with ADL activity in the past but recently her had to totally assist patient for independent ADL activity which he felt was unsafe. In the ED the patient was thought to be better served by gentle IV hydration appearing slightly dehydrated and finishing treatment for UTI with reassessment of needs for home versus other placement possibilities. She did not meet criteria for acute admission. The patient did have continued emesis in the ED but this had resolved by the time she was interviewed by this provider. With approach the patient was not able to offer further history and gave confusing history of her children still living at home and then in the next sentence described their present living situation and work. Her lab findings included a normal CBC, creatinine of 1.5 that improved to 1.3 with IV hydration, random glucose of 119, UA unremarkable, SARS-CoV 2 negative. PT evaluation and assessment: Annmarie is able to tolerate exercise and mobility progression with no complaints of increased discomfort nor increased shortness of breath. She was agitated and more profoundly confused the night prior to discharge and received a dose of Ativan. DISCHARGE RECOMMENDATIONS: Patient will benefit from home health PT services in order to progress mobility level using least restrictive assistive ambulatory device, assess home safety, identify additional equipment needs, and establish a functional maintenance program that will increase ability of patient to remain at home. Her Home Health will be resumed upon returning to home. Certainly close monitoring is warranted to evaluate appropriateness of the home setting in regard to her safety. If her continues to find that, particularly at night, she becomes more confused and difficult for him to manage, an alternative to living at home should be explored. She will complete the prescribed course of Keflex. F/U with her PCP in 1 week. Home Meds and New Rx's Prescriptions: Continued acetaminophen [Acetaminophen Extra Strength] 500 mg tablet 500 mg PO Q6H PRNRF: 0 multivitamin Tablet 1 tab PO DAILY RF: 0 alendronate 70 mg tablet 70 mg PO QWEEK Qty: 14 RF: 3 quetiapine 50 mg tablet 50 mg PO DAILY Qty: 90 RF: 3 pantoprazole [Protonix] 40 mg tablet,delayed release (DR/EC) 40 mg PO DAILY Qty: 90 RF: 3 memantine [Namenda] 10 mg tablet 10 mg PO BID Qty: 180 RF: 2 rosuvastatin [Crestor] 20 mg tablet 20 mg PO HS Qty: 90 RF: 3 calcium carbonate 600 mg calcium (1,500 mg) tablet 600 mg PO BID Qty: 90 RF: 3 celecoxib [Celebrex] 200 mg capsule 200 mg PO BID Qty: 180 RF: 3 cholecalciferol (vitamin D3) 25 mcg (1,000 unit) tablet 25 mcg PO BID Qty: 90 RF: 3 lisinopril 2.5 mg tablet 2.5 mg PO DAILY Qty: 90 RF: 3 cyanocobalamin (vitamin B-12) 1,000 mcg tablet 1,000 mcg PO DAILY Qty: 90 RF: 3 aspirin [Aspir-81] 81 mg Tablet,Delayed Release (Dr/Ec) 81 mg PO DAILY RF: 0 cephalexin 500 mg tablet 500 mg PO TID Qty: 9 RF: 0 ondansetron 4 mg tablet,disintegrating 4 mg PO Q8H PRNQty: 7 RF: 0 Discharge Instructions Stand Alone Forms: Nursing Discharge Form Activity:: Activity as Tolerated Equipment/Supplies:: No Equipment Needed Diet:: Normal Diet Discharge Orders Discharge Orders: Discharge Order (Routine); Ordered 08/20/20 Ordered By: Bi Russell DS: Summary Time Spent with Patient providing and/or coordinating discharge services: Greater than 30 minutes Status at Discharge Functional status at discharge: uses cane/walker Overall status at discharge: patient is back to baseline Mental Status: other (Confused) Speech and Movement: speech and movement normal Mood: other (Confused) Affect: normal affect Exam Const General: cooperative and no acute distress Nutritional Appearance: obese Orientation: oriented to person Eyes Sclera: sclerae normal Pupils: PERRL Resp Effort & Inspection: normal respiratory effort Auscultation: clear to auscultation bilaterally Cardio Rate: regular rate Rhythm: regular rhythm Heart Sounds: S1 normal and S2 normal GI Palpation: soft and nontender Skin General skin exam: no rashes or lesions noted Extrem General: no pedal edema and no calf tenderness Psych Appearance: grossly normal Mental Status: other (Confused) Speech and Movement: speech and movement normal Mood: other (Confused) Affect: normal affect and other (varies; mildly animated, but now more blunted s/p dose of Ativan overnight) DS: Data Vitals/I&O Vitals and I&O: Vital Signs Temperature 36.1 C L 08/20/20 04:51 Temperature Source Tympanic 08/20/20 04:51 Pulse 82 08/20/20 04:51 Pulse Rhythm Regular 08/20/20 02:11 Respiratory Rate 18 08/20/20 04:51 Respiratory Effort Non-Labored 08/20/20 02:11 Respiratory Depth Normal 08/20/20 02:11 Respiratory Pattern Normal 08/20/20 02:11 Blood Pressure 159/86 H 08/20/20 04:51 Blood Pressure Mean 94 08/18/20 22:12 Blood Pressure Position Sitting 08/18/20 18:34 Pulse Oximetry 95 08/20/20 04:51 Oxygen Delivery Method Room Air 08/20/20 04:51 Oxygen Flow Rate 0 08/20/20 04:51 Pain Level 0 08/19/20 19:31 Comment 08/19/20 19:31 Intake & Output 08/19/20 08/19/20 08/20/20 11:59 23:59 11:59 Intake Total 1540 / 1780 240 / 1780 Output Total 300 / 926 626 / 926 500 / 500 Balance 1240 / 854 -386 / 854 -500 / -500 Weight 82.4 kg 81.9 kg Intake: IV 1000 / 1000 Oral 540 / 780 240 / 780 Output: Urine 300 / 926 626 / 926 500 / 500 Other: Urine Color Yellow Pale Yellow Yellow Urine Appearance Clear Clear Clear Urine Odor Normal Normal Comment Pt did not urineate into toilet hat Stool Size Large Stool Characteristics Formed Voiding Methods Toilet Toilet Toilet [facility] Medical History Age-related osteoporosis without current pathological fracture Alzheimer's dementia Ankle weakness Asthma DNI (do not intubate) DNR (do not resuscitate) GERD (gastroesophageal reflux disease) Hyperlipidemia Hypertension IT band syndrome Lateral pain of right hip Lidocaine patches helped .. now pain is more in thigh vs lateral leg (PainStop helping), 07/17/19 Obesity Obstructive sleep apnea Osteoarthritis Palliative care patient Physical deconditioning POLST (Physician Orders for Life-Sustaining Treatment) Right hip pain Right knee pain Right shoulder pain Syncope Trochanteric bursitis, right hip Unspecified dementia without behavioral disturbance Unsteady gait Cane/walker Vitamin D deficiency Surgical History History of appendectomy Status post tonsillectomy and adenoidectomy Family History Mother , age 85 or so Dementia Cancer Father , age 82 Sudden cardiac Son No problems noted. Son No problems noted. Daughter No problems noted. Daughter No problems noted. Sister Kyphosis History of vertebroplasty Compression fracture Brother No problems noted. Social History Smoking/Tobacco Use Status: Never Smoking risk assessment performed?: Yes Alcohol Intake: never Drug use: Never Substance use type: does not use Adopted: No Caregiver/Support person: Yes Foster care: No Household members: spouse Housing: house Number of Children: 4 number of grandchildren: 12 Communication Needs: Hard of Hearing and Corrective Lenses Education Level: high school Do you need help understanding health information?: Always current occupation: retired from [employer] Pets and animals: Yes Sexually active: No Do you think of yourself as: straight/heterosexual Current gender identity: female What is your relationship status?: How often do you talk on the phone with friends or family?: three or more times per week How often do you get together with friends or relatives?: once per week Panel score (0-1 are the most socially isolated patients): 2 What type of physical activity do you participate in: walking and irregular exercise Duration: 15-30 minutes/day Special rodger needs: No Seatbelt use: always Working smoke detector in home: Yes Fire extinguisher in home: Yes Do you feel safe at home: Yes Do you feel safe in your relationship?: Yes Additional Social history: x 61 yrs; tells me she had a heart attack, though cardiology consult and d/c summary dispute this. Atypical CP. Poor understanding of her health issues. doesn't understand, either (his memory is ok). Reports no falls. NOt sure why her hip is hurting. Willing to go to PT.
[2020-08-20] MEDS: Cephalexin 500 MG CAP PO (10:04)
[2020-08-20] MEDS: Memantine 5 MG TAB 10 MG PO (10:04)
[2020-08-20] MEDS: QUEtiapine 25 MG TAB 50 MG PO (10:04)
[2020-08-20] MEDS: Aspirin E.C. 81 MG TABEC PO (10:04)
[2020-08-20] MEDS: Lisinopril 5 MG TAB 2.5 MG PO (10:04)
[2020-08-20] MEDS: Pantoprazole 40 MG TABCR PO (10:05)
[2020-08-20] MEDS: Celecoxib 200 MG CAP PO (10:05)
[2020-08-20 10:18] VITALS: BP 146/82; PULSE 82; RESP 16; TEMP 36.2; O2SAT 97
--- NOTE | 2020-08-20 15:28 | CMDISCH_ITS ---
LACE Index Scoring Tool - Questions: Length of Stay (in days): 2 Acuity (Admit via E.D.?): Yes Comorbidities: Dementia E.D. Visits: 3 - Answers: Total Score: 11 Risk of Readmission: High Risk Care Management Discharge Reason for Hospitalization: Failure to thrive, Weakness, UTI, Dementia Discharge Plan: Annmarie will return home when ready per MD. She will have new orders for RN/PT/OT/GREENSTONE POLISHER OPERATOR, she will continue to be followed by Palliative Care as well. She will transport via private vehicle with her . Patient/Family Education Needs: Review discharge instructions, discuss Ask Me Three. Services Needed at Discharge: Home Health Care Services (RN,PT,OT, GREENSTONE POLISHER OPERATOR)
--- NOTE | 2020-08-21 09:12 | PT.INDS ---
Date of service: 08/21/20 Time of Service: 09:13 PT Notes Visit Reasons: FAILURE TO THRIVE, WEAKNESS, UTI, DEMENTIA Physical Therapy Inpatient Discharge Summary Date: 08/21/2020 Dates of Service: 08/19/2020 only This is a clinical summary of care provided on the duration of dates listed above. No charge was made in the completion of this documentation. Referring Doctor: Edmond Richard MD PT Orders: PT CONSULT: Eval/Treat Precautions: Fall. Standard. Activity as tolerated. Patient Profile/Admitting Diagnosis: Annmarie is an 85-year-old female who presented to the ED on 08/18/2020 with increasing weakness, nausea, vomiting, and diarrhea suspected to be from recent antibiotic treatment. Patient is diagnosed with failure to thrive, increasing dementia from Alzheimer's disease, and urinary tract infection. PMHX: Medical History Age-related osteoporosis without current pathological fracture Alzheimer's dementia Ankle weakness Asthma DNI (do not intubate) DNR (do not resuscitate) GERD (gastroesophageal reflux disease) Hyperlipidemia Hypertension IT band syndrome Lateral pain of right hip Lidocaine patches helped .. now pain is more in thigh vs lateral leg (PainStop helping), 07/17/19 Obesity Obstructive sleep apnea Osteoarthritis Palliative care patient Physical deconditioning POLST (Physician Orders for Life-Sustaining Treatment) Right hip pain Right knee pain Right shoulder pain Syncope Trochanteric bursitis, right hip Unspecified dementia without behavioral disturbance Unsteady gait Cane/walker Vitamin D deficiency Surgical History History of appendectomy Status post tonsillectomy and adenoidectomy Social History/Home Situation: Patient is a poor historian. Please refer to care management notes. Equipment Owned/DME: Patient is a poor historian. Please refer to care management notes. Subjective: NT. See most recent ADMINISTRATIVE ASSISTANT OFFICE MANAGER notes. Objective: General Observation: NT. See most recent ADMINISTRATIVE ASSISTANT OFFICE MANAGER notes. Mental Status: NT. See most recent ADMINISTRATIVE ASSISTANT OFFICE MANAGER notes. Pain: NT. See most recent ADMINISTRATIVE ASSISTANT OFFICE MANAGER notes. ROM: Right Upper Extremity: Shoulder Flexion WFL. Shoulder abduction WFL. Shoulder ER/IR WFL. Elbow flexion WFL. Forearm pronation/supination WFL. Wrist flexion WFL. Opening and closing of hand WFL. Left Upper Extremity: Shoulder Flexion WFL. Shoulder abduction WFL. Shoulder ER/IR WFL. Elbow flexion WFL. Forearm pronation/supination WFL. Wrist flexion WFL. Opening and closing of hand WFL. Right Lower Extremity: Hip flexion WFL. Hip abduction WFL. Hip ER/IR WFL. Knee flexion WFL. Knee extension. Ankle dorsiflexion/eversion WFL. Ankle plantarflexion/inversion WFL. Left Lower Extremity: Hip flexion WFL. Hip abduction WFL. Hip ER/IR WFL. Knee flexion WFL. Knee extension. Ankle dorsiflexion WFL. Ankle plantarflexion WFL. Strength: Right Upper Extremity: Shoulder flexors 4-/5. Shoulder abductors 4-/5. Shoulder ER 4-/5. Shoulder IR 4-/5. Forearm pronators 4-/5. Forearm supinators 4-/5. Elbow flexors 4-/5. Elbow extensors 4-/5. Program Trainer strong. Left Upper Extremity: Shoulder flexors 4-/5. Shoulder abductors 4-/5. Shoulder ER 4-/5. Shoulder IR 4-/5. Forearm pronators 4-/5. Forearm supinators 4-/5. Elbow flexors 4-/5. Elbow extensors 4-/5. Program Trainer strong. Right Lower Extremity: Hip flexors 4-/5. Hip abductors 4-/5. Hip external rotators 4-/5. Hip internal rotators 4-/5. Knee flexors 4-/5. Knee extensors 4-5. Ankle dorsiflexors/evertors 4-/5. Ankle plantarflexors/invertors 4-/5. Left Lower Extremity: Hip flexors 4-/5. Hip abductors 4-/5. Hip external rotators 4-/5. Hip internal rotators 4-/5. Knee flexors 4-/5. Knee extensors 4-5. Ankle dorsiflexors/evertors 4-/5. Ankle plantarflexors/invertors 4-/5. Bed Mobility/Transfers: Sit to stand standby assist Stand to sit standby assist Bed to bedside commode standby assist Bedside commode to bed standby assist Bed to chair standby assist Gait: Distance of 300 feet requiring standby assist using single-point cane. Mild path deviation. Coreen decreased. Step height decreased. Step length decreased. No LOB. Mild SOB. Balance: Static Sitting: Normal Dynamic Sitting: Normal Static Standing: Good Dynamic Standing: Fair 4-stage Balance Test: Able to maintain feet together and semi-tandem for 10 seconds but is unable to do so for full tandem and 1 legged stance indicating need for use of assistive device to reduce fall risk. Informed Consent/Education: Patient instructed in purpose of PT consult and plan of care. Agreeable to proceed with established PT POC to achieve personal goals. Assessment: Annmarie requires the use of single-point cane for safe performance of mobility ADLs. Patient continues to present with clinical signs and symptoms consistent with current/admitting diagnoses that have resulted to mobility limitations, gait instability, generalized weakness, and impairment of motor control as demonstrated by the following impairment level findings: 1. Decreased strength to B UE/LE major muscle groups 2. Impaired standing balance 3. Impaired activity tolerance 4. Increased confusion Impairments are continuing to contribute to the following functional limitations: 1. Inability to safely ambulate without assistive device and standby assist 2. Increase completion time for mobility ADL performance 3. Increased fall risk 4. Inability to negotiate steps alone safely 5. Inability to return to prior living environment at this time Patient is assessed as a [id number] moderate complexity based on the following: History: 85-year-old female with past medical history as indicated above Examination: Demonstrable impairment in strength, balance, and mobility level with underlying impairments and functional limitations as exhibited above as well as deficit score of 11% utilizing the [facility] Mobility Inpatient Short Form Presentation: Stable Decision Makin moderate complexity Goals: Goals X1 week 1. Supine-Sit independent NOT MET 2. Sit-Supine independent NOT MET 3. Sit-Stand independent NOT MET 4. Stand-Sit independent NOT MET 5. Bed-Chair independent NOT MET 6. Chair-Bed independent NOT MET 7. Supervision gait on level surface with use of 4 wheeled walker for at least 300 feet without report of pain nor dyspnea MET 8. Supervision stair negotiation while holding onto 1 rail for at least 3 steps without report of pain nor dyspnea MET 9. Supervision with home exercise program MET 10. Good static and dynamic standing balance/tolerance MET DISCHARGE RECOMMENDATIONS: Patient will benefit from home health PT services in order to progress mobility level using least restrictive assistive ambulatory device, assess home safety, identify additional equipment needs, and establish a functional maintenance program that will increase ability of patient to remain at home. TREATMENT CODE/TIME: NC Thank you for the opportunity to participate in the care of this patient. Carmen Means PT, DPT, CLT [facility] [place], [place]
== END 2020-08-20 13:23 | disposition designated cancer center or children's hospital (05) ==
LOC: ER 22:16 → MS 22:27
PROVIDERS: Admitting Provider Family Medicine; Emergency Provider Physician Assistant; PCP Student in an Organized Health Care Education/Training Program; Visit Provider Family Medicine
DX: N30.00 Acute cystitis without hematuria (principal); G30.1 Alzheimer's disease with late onset; F02.81 Dementia in other diseases classified elsewhere, unspecified severity, with behavioral disturbance; I10 Essential (primary) hypertension; R53.1 Weakness; R62.7 Adult failure to thrive; M81.0 Age-related osteoporosis without current pathological fracture; J45.909 Unspecified asthma, uncomplicated; Z66 Do not resuscitate; K21.9 Gastro-esophageal reflux disease without esophagitis; E78.5 Hyperlipidemia, unspecified; E66.9 Obesity, unspecified; G47.33 Obstructive sleep apnea (adult) (pediatric); M19.09 Primary osteoarthritis, other specified site; M70.61 Trochanteric bursitis, right hip; E55.9 Vitamin D deficiency, unspecified; R26.81 Unsteadiness on feet; Z20.822 Contact with and (suspected) exposure to COVID-19
CPT/HCPCS: 36415; 80053; 87635; 93005; 96360; 97110; 97162; 97530; 99285; 81003; 81015; 83735; 85025; 93010; 99217; 99225; G0378; J1644

== ENCOUNTER 2020-08-23 16:02 | Emergency (ER) | payer MEDICARE, OTHER, SELFPAY ==
--- NOTE | 2020-08-23 16:00 | RT.EKG_ITS ---
APPROVED REPORT Exam: Resting ECG Reason for Exam: nausea Patient Location: E HR:77 bpm ECG Measurements Heart Rate 77 AXIS AR 217 P 98 QRSd 85 QRS 77 QT 413 T 51 QTc 469 Conclusion Sinus rhythm...normal P axis, V-rate 60- 99 Borderline prolonged AR interval...AR >212, V-rate 50- 90 Low voltage with right axis deviation...low voltage, RAD Probable anterolateral infarct, old...Q>35mS, abnrm ST-T, V2-V6,I,aVL
[2020-08-23 16:01] VITALS: BP 158/93; PULSE 76; RESP 20; TEMP 36.5; O2SAT 97
[2020-08-23] MEDS: Lactated Ringers 250 ML 1000 ML IV (16:40)
[2020-08-23 16:44] LABS: Abs Immature Grans 0.02 10^3/uL (0.0-0.06); Absolute Basophil Count 0.03 10^3/uL (0.0-0.2); Absolute Eosinophil Count 0.07 10^3/uL (0.0-0.7); Absolute Lymphocyte Count 1.96 10^3/uL (1.2-3.4); Absolute Monocyte Count 0.56 10^3/uL (0.1-0.8); Absolute Neutrophil Count 5.53 10^3/uL (1.2-6.7); Basophils % 0.4; Eosinophils % 0.9; HCT 40.6 % (36.0-46.0); Immature Grans % 0.2; MCV 90.4 fL (80-95); MPV 12.3 fL (8.0-11.0); Monocytes % 6.9; Neutrophils % 67.6; Nucleated RBC 0 %; RBC 4.49 10^6/uL (3.93-5.22); RDW 13.8 % (11.7-14.6); RDW-SD 45.7 fL; WBC 8.17 10^3/uL (4.4-10.8)
[2020-08-23] MEDS: Ondansetron 4 MG/2 ML VIAL IVP (16:50)
[2020-08-23 16:58] LABS: ALT 23 U/L (14-59); AST 24 U/L (15-37); Albumin 4.1 g/dL (3.4-5.0); Alkaline Phosphatase 46 U/L (46-116); Anion Gap 8.8 mmol/L (3-11); BUN 27 mg/dL (7-18); Bilirubin, Total 0.5 mg/dL (0.2-1.0); CO2 28.2 mmol/L (21.0-32.0); CREATININE 1.3 mg/dL (0.55-1.02); Calcium 9.6 mg/dL (8.5-10.1); Chloride 105 mmol/L (98-107); Estimated GFR 39.12 (mL/min/1.73m2); Glucose 123 mg/dL (74-106); Magnesium 2.2 mg/dL (1.8-2.4); Sodium 142 mmol/L (136-145); Total Protein 7.7 g/dL (6.4-8.2); Troponin I < 0.05 ng/mL (<0.06)
[2020-08-23 16:59] LABS: Lipase 150 U/L (73-393)
[2020-08-23 17:04] LABS: Platelet Count 162 10^3/uL (130-400)
--- NOTE | 2020-08-23 17:34 | ED.GENADUL_ITS ---
Discharge Plan Disposition Patient Disposition: HOME Condition: Stable Discharge Details Clinical Impression: Vomiting Primary Care Provider: Lazara Stock ED Provider: Itz Motta Zapata Meds and New Rx's Prescriptions: No Action acetaminophen [Acetaminophen Extra Strength] 500 mg tablet 500 mg PO Q6H PRNRF: 0 multivitamin Tablet 1 tab PO DAILY RF: 0 alendronate 70 mg tablet 70 mg PO QWEEK Qty: 14 RF: 3 quetiapine 50 mg tablet 50 mg PO DAILY Qty: 90 RF: 3 pantoprazole [Protonix] 40 mg tablet,delayed release (DR/EC) 40 mg PO DAILY Qty: 90 RF: 3 memantine [Namenda] 10 mg tablet 10 mg PO BID Qty: 180 RF: 2 rosuvastatin [Crestor] 20 mg tablet 20 mg PO HS Qty: 90 RF: 3 calcium carbonate 600 mg calcium (1,500 mg) tablet 600 mg PO BID Qty: 90 RF: 3 celecoxib [Celebrex] 200 mg capsule 200 mg PO BID Qty: 180 RF: 3 cholecalciferol (vitamin D3) 25 mcg (1,000 unit) tablet 25 mcg PO BID Qty: 90 RF: 3 lisinopril 2.5 mg tablet 2.5 mg PO DAILY Qty: 90 RF: 3 cyanocobalamin (vitamin B-12) 1,000 mcg tablet 1,000 mcg PO DAILY Qty: 90 RF: 3 aspirin [Aspir-81] 81 mg Tablet,Delayed Release (Dr/Ec) 81 mg PO DAILY RF: 0 cephalexin 500 mg tablet 500 mg PO TID Qty: 9 RF: 0 ondansetron 4 mg tablet,disintegrating 4 mg PO Q8H PRNQty: 7 RF: 0 cephalexin 500 mg tablet 500 mg PO TID Qty: 6 RF: 0 Discharge Instructions Additional Instructions: Med reconciliation was not performed today. Please take your medications as prescribed. Please maintain a clear liquid diet this evening. You may advance your diet tomorrow to soft bland food like rice and continue with clear fluids. Advance diet slowly the following day to full diet as tolerated. Please contact your primary care physician to arrange follow-up. Return to the ER for any worsening or new concerning symptoms. Referrals: Lazara Stock DO [Primary Care Provider] - Discharge Data Discharge Date/Time-TO BE ENTERED AT DEPARTURE: 08/23/20 18:40 Medical Decision Making 1740 -- 85-year-old female with history of Alzheimer's dementia here after episode of vomiting that occurred around 2 PM. Patient has no complaints. She feels well with no abdominal pain. Screening ECG was reviewed and interpreted by me: Please see report, sinus rhythm 77 bpm, borderline prolonged NE 217, no STEMI. Labs reviewed and troponin negative. No leukocytosis. No significant electrolyte abnormalities. --Urinalysis was performed on straight cath urine specimen and is not consistent with urinary tract infection. Patient is tolerating fluids well and able to ambulate around the department any difficulty. I talked with family and patient about diagnostic treatment results and discharge plan including outpatient fo llow-up. Understands to return immediately for any worsening or new concerning symptoms. HPI General Date/Time Provider Initiated Documentation: 08/23/20 16:09 . Limitations to Documentation: altered mental status . Information obtained by: patient and family . HPI Narrative: 85-year-old female with history of Alzheimer's dementia here after episode of vomiting that occurred around 2 PM. Patient has no complaints. Nausea resolved. She feels well with no associated abdominal pain. No chest pain. thought amount of vomit was heavy. Patient taking medications as prescribed. Related Data Home Medications Medication Instructions Recorded Confirmed aspirin [Aspir-81] 81 mg PO DAILY 01/19/19 08/18/20 acetaminophen 500 mg tablet 500 mg PO Q6H PRN 07/04/19 08/18/20 multivitamin 1 tab PO DAILY 07/04/19 08/18/20 alendronate 70 mg tablet 70 mg PO QWEEK #14 tab 08/28/19 08/18/20 quetiapine 50 mg tablet 50 mg PO DAILY #90 tab 09/20/19 08/18/20 pantoprazole 40 mg tablet,delayed 40 mg PO DAILY #90 tab 03/31/20 08/18/20 release memantine 10 mg tablet 10 mg PO BID #180 tab 04/29/20 08/18/20 rosuvastatin 20 mg tablet 20 mg PO HS #90 tab 06/15/20 08/18/20 calcium carbonate 600 mg calcium 600 mg PO BID #90 tab 07/31/20 08/18/20 (1,500 mg) tablet celecoxib 200 mg capsule 200 mg PO BID #180 cap 07/31/20 08/18/20 cholecalciferol (vitamin D3) 25 25 mcg PO BID #90 tab 07/31/20 08/18/20 mcg (1,000 unit) tablet lisinopril 2.5 mg tablet 2.5 mg PO DAILY #90 tab 07/31/20 08/18/20 cyanocobalamin (vitamin B-12) 1,000 mcg PO DAILY #90 tab 08/14/20 08/18/20 1,000 mcg tablet cephalexin 500 mg PO TID #9 tab 08/15/20 08/18/20 ondansetron 4 mg PO Q8H PRN #7 tab 08/15/20 08/18/20 cephalexin 500 mg PO TID #6 tab 08/20/20 Previous Rx's Medication Instructions Recorded alendronate 70 mg tablet 70 mg PO QWEEK #14 tab 08/28/19 quetiapine 50 mg tablet 50 mg PO DAILY #90 tab 09/20/19 pantoprazole 40 mg tablet,delayed 40 mg PO DAILY #90 tab 03/31/20 release memantine 10 mg tablet 10 mg PO BID #180 tab 04/29/20 rosuvastatin 20 mg tablet 20 mg PO HS #90 tab 06/15/20 calcium carbonate 600 mg calcium 600 mg PO BID #90 tab 07/31/20 (1,500 mg) tablet celecoxib 200 mg capsule 200 mg PO BID #180 cap 07/31/20 cholecalciferol (vitamin D3) 25 25 mcg PO BID #90 tab 07/31/20 mcg (1,000 unit) tablet lisinopril 2.5 mg tablet 2.5 mg PO DAILY #90 tab 07/31/20 cyanocobalamin (vitamin B-12) 1,000 mcg PO DAILY #90 tab 08/14/20 1,000 mcg tablet cephalexin 500 mg PO TID #9 tab 08/15/20 ondansetron 4 mg PO Q8H PRN #7 tab 08/15/20 cephalexin 500 mg PO TID #6 tab 08/20/20 Allergies Allergy/AdvReac Type Severity Reaction Status Date / Time No Known Allergies Allergy Verified 08/23/20 16:08 General Stated Complaint: Nausea/Vomit/Diar BERTHA: 3 Review of Systems All systems reviewed & are unremarkable except as noted in HPI and below Constitutional Constitutional: Denies fever(s) Cardiovascular Cardiovascular: Denies chest pain PFSH Medical History Age-related osteoporosis without current pathological fracture Alzheimer's dementia Ankle weakness Asthma DNI (do not intubate) DNR (do not resuscitate) GERD (gastroesophageal reflux disease) Hyperlipidemia Hypertension IT band syndrome Lateral pain of right hip Lidocaine patches helped .. now pain is more in thigh vs lateral leg (PainStop helping), 07/17/19 Obesity Obstructive sleep apnea Osteoarthritis Palliative care patient Physical deconditioning POLST (Physician Orders for Life-Sustaining Treatment) Right hip pain Right knee pain Right shoulder pain Syncope Trochanteric bursitis, right hip Unspecified dementia without behavioral disturbance Unsteady gait Cane/walker Vitamin D deficiency Surgical History History of appendectomy Status post tonsillectomy and adenoidectomy Family History Mother , age 85 or so Dementia Cancer Father , age 82 Sudden cardiac Son No problems noted. Son No problems noted. Daughter No problems noted. Daughter No problems noted. Sister Kyphosis History of vertebroplasty Compression fracture Brother No problems noted. Social History Smoking/Tobacco Use Status: Never Smoking risk assessment performed?: Yes Alcohol Intake: never Drug use: Never Substance use type: does not use Adopted: No Caregiver/Support person: Yes Foster care: No Household members: spouse Housing: house Number of Children: 4 number of grandchildren: 12 Communication Needs: Hard of Hearing and Corrective Lenses Education Level: high school Do you need help understanding health information?: Always current occupation: retired from [employer] Pets and animals: Yes Sexually active: No Do you think of yourself as: straight/heterosexual Current gender identity: female What is your relationship status?: How often do you talk on the phone with friends or family?: three or more times per week How often do you get together with friends or relatives?: once per week Panel score (0-1 are the most socially isolated patients): 2 What type of physical activity do you participate in: walking and irregular exercise Duration: 15-30 minutes/day Special rodger needs: No Seatbelt use: always Working smoke detector in home: Yes Fire extinguisher in home: Yes Do you feel safe at home: Yes Do you feel safe in your relationship?: Yes Exam Const General: cooperative and no acute distress HENMT Head: normocephalic and atraumatic Mouth: moist mucous membranes Eyes Sclera: normal sclerae Neck Neck: trachea midline and supple Resp Auscultation: clear to auscultation bilaterally, no rales, no rhonchi and no wheezes Cardio Rate: regular rate and not tachycardic Rhythm: regular rhythm GI Palpation: soft, not firm, no guarding, no masses, not rigid and nontender Skin General skin exam: no rashes or lesions noted Neuro General: patient alert, patient awake, oriented Patient Orientation: Person and Confused and tone normal Psych Appearance: grossly normal Speech and Movement: speech and movement normal Course Vital Signs Vital signs: Vital Signs Temperature 36.5 C 08/23/20 16:01 Pulse 76 08/23/20 16:01 Respiratory Rate 20 08/23/20 16:01 Blood Pressure 158/93 H 08/23/20 16:01 Pulse Oximetry 97 08/23/20 16:01 Temperature 36.5 C 08/23/20 16:01 Temperature Source Skin 08/23/20 16:01 Pulse 76 08/23/20 16:01 Respiratory Rate 20 08/23/20 16:01 Respiratory Effort Non-Labored 08/23/20 16:08 Blood Pressure 158/93 H 08/23/20 16:01 Blood Pressure Position Sitting 08/23/20 16:01 Pulse Oximetry 97 08/23/20 16:01 Oxygen Delivery Method Room Air 08/23/20 16:01 Oxygen Flow Rate 0 08/23/20 16:01 Pain Level 0 08/23/20 16:01 Lab/Test Results Lab/Test Results: Laboratory Tests Range/Units 08/23/20 08/23/20 08/23/20 16:25 16:25 16:25 WBC (4.4-10.8) 10^3/uL 8.17 RBC (3.93-5.22) 10^6/uL 4.49 Hgb (11.2-15.7) g/dL 13.0 Hct (36.0-46.0) % 40.6 MCV (80-95) fL 90.4 MCH (27.0-33.0) pg 29.0 MCHC (32.0-36.0) % 32.0 RDW (11.7-14.6) % 13.8 Plt Count (130-400) 10^3/uL 162 MPV (8.0-11.0) fL 12.3 H Immature Gran % 0.2 Neutrophils % 67.6 Lymphocytes % 24.0 Monocytes % 6.9 Eosinophils % 0.9 Basophils % 0.4 Nucleated RBC % % 0 Absolute Neutrophils (1.2-6.7) 10^3/uL 5.53 Absolute Lymphocytes (1.2-3.4) 10^3/uL 1.96 Absolute Monocytes (0.1-0.8) 10^3/uL 0.56 Absolute Eosinophils (0.0-0.7) 10^3/uL 0.07 Absolute Basophils (0.0-0.2) 10^3/uL 0.03 Sodium (136-145) mmol/L 142 Potassium (3.5-5.1) mmol/L 4.0 Chloride (98-107) mmol/L 105 Carbon Dioxide (21.0-32.0) mmol/L 28.2 Anion Gap (3-11) mmol/L 8.8 BUN (7-18) mg/dL 27 H Creatinine (0.55-1.02) mg/dL 1.3 H Estimated GFR/1.73 m2 (mL/min/1.73m2) 39.12 Glucose (74-106) mg/dL 123 H Calcium (8.5-10.1) mg/dL 9.6 Magnesium (1.8-2.4) mg/dL 2.2 Total Bilirubin (0.2-1.0) mg/dL 0.5 AST (15-37) U/L 24 ALT (14-59) U/L 23 Alkaline Phosphatase (46-116) U/L 46 Troponin I (<0.06) ng/mL < 0.05 Total Protein (6.4-8.2) g/dL 7.7 Albumin (3.4-5.0) g/dL 4.1 Lipase (73-393) U/L 150
[2020-08-23 17:44] VITALS: BP 152/80; PULSE 85; RESP 19; TEMP 36.2; O2SAT 97
[2020-08-23 17:48] LABS: Bilirubin Negative (Negative); Blood Small (Negative); Clarity Clear (Clear); Glucose Negative (Negative); Ketones 15 mg/dL (Negative); Leukocyte Esterase Negative (Negative); Nitrite Negative (Negative); Specific Gravity 1.025 (1.005-1.025); Urobilinogen 0.2 EU/dL (Up TO 0.2)
[2020-08-23 17:58] LABS: Bacteria Negative HPF (Negative); C & S Indicated? No; Crystals Negative HPF (Negative); Epithelial Cells Moderate HPF (Negative); Mucus Trace (Negative); WBC 0-2 HPF (0-5)
--- NOTE | 2020-08-23 18:00 | NUR.NOTE ---
pt ambulated to the bath room using the walker and assist of one . tolerated well. she also drank some apple juice Nursing Note:
== END 2020-08-23 18:40 | disposition home or self-care (01) ==
PROVIDERS: Emergency Provider Student in an Organized Health Care Education/Training Program; PCP Student in an Organized Health Care Education/Training Program
DX: R11.2 Nausea with vomiting, unspecified (principal)
CPT/HCPCS: 36415; 51701; 80053; 83690; 93005; 96361; 96374; 99284; 81003; 81015; 83735; 84484; 85025; 93010; J2405

== ENCOUNTER 2020-11-09 00:54 | Outpatient (CLI) | payer MEDICARE, SELFPAY ==
--- NOTE | 2020-11-09 07:15 | DI.US_ITS ---
Exam(s) US PELVIS TRANSVAGINAL EXAM: US PELVIS TRANSVAGINAL CLINICAL HISTORY: INCIDENTAL FINDING OF THICKENED ENDOMETRIAL STRIPE,R93.89 TECHNIQUE: Ultrasound of the pelvis was performed both transabdominal and transvaginal. COMPARISON: US US PELVIS from 05/19/2020 FINDINGS: UTERUS: Measures 7.1 cm length x 3.9 cm AP x 4.4 cm wide. There are no uterine fibroids. Endometrium is thickened and cystic some hyperechoic possibly calcified components. Endometrial thic kness is 1.7 cm, significantly abnormal. There is no fluid in the endometrial canal. CERVIX: There are no obvious nabothian cysts. RIGHT OVARY: Measures 1.1 x 0.5 x 0.7 cm No significant cysts nor masses evident in the right ovary. LEFT OVARY: Not visualized CUL-DE-SAC: No free fluid evident. IMPRESSION: 1. The endometrial thickness is abnormally thickened, approximately 1.7 cm thick somewhat cystic and somewhat calcified. Suspicious for malignancy. 2. No abnormal ovarian findings. Left ovary not seen. Right ovary size is age-appropriate 3. No free fluid evident in the adnexal regions and cul-de-sac. Cysts are incidentally noted the right kidney, there largest measuring 3 cm. DATA REPOSITORY:
== END 2020-11-09 01:14 ==
PROVIDERS: PCP Student in an Organized Health Care Education/Training Program; Visit Provider Obstetrics & Gynecology Gynecology
DX: R93.89 Abnormal findings on diagnostic imaging of other specified body structures (principal)
CPT/HCPCS: 76830; 76856

== ENCOUNTER 2020-11-13 19:20 | Emergency (ER) | payer MEDICARE, SELFPAY ==
[2020-11-13 19:15] VITALS: BP 145/73; PULSE 83; RESP 16; TEMP 36.6; O2SAT 97
--- NOTE | 2020-11-13 19:15 | RT.EKG_ITS ---
APPROVED REPORT Exam: Resting ECG Reason for Exam: Near Syncope Patient Location: E HR:78 bpm ECG Measurements Heart Rate 78 AXIS WV 182 P 12 QRSd 82 QRS -15 QT 391 T 35 QTc 445 Conclusion Sinus rhythm...normal P axis, V-rate 60- 99 Consider anterior infarct...Q >30mS in V2-V5
[2020-11-13 19:19] VITALS: RESP 16
--- NOTE | 2020-11-13 19:22 | ED.GENADUL_ITS ---
Discharge Plan Disposition Patient Disposition: HOME Condition: Stable Discharge Details Clinical Impression: Dehydration Primary Care Provider: Lazara Stock ED Provider: Sandra Llamas Home Meds and New Rx's Prescriptions: Continued alendronate 70 mg tablet 70 mg PO QWEEK Qty: 14 RF: 3 aspirin 81 mg tablet,delayed release (DR/EC) 81 mg PO DAILY Qty: 90 RF: 3 multivitamin Tablet 1 tab PO DAILY Qty: 90 RF: 3 pantoprazole [Protonix] 40 mg tablet,delayed release (DR/EC) 40 mg PO DAILY Qty: 90 RF: 3 acetaminophen [Acetaminophen Extra Strength] 500 mg tablet 500 mg PO BID Qty: 60 RF: 5 memantine [Namenda] 10 mg tablet 10 mg PO BID Qty: 180 RF: 2 gabapentin 100 mg capsule 100 mg PO QHS Qty: 10 RF: 0 magnesium oxide 500 mg tablet 500 mg PO QHS Qty: 30 RF: 1 rosuvastatin [Crestor] 20 mg tablet 20 mg PO HS Qty: 90 RF: 3 calcium carbonate 600 mg calcium (1,500 mg) tablet 600 mg PO BID Qty: 90 RF: 3 celecoxib [Celebrex] 200 mg capsule 200 mg PO BID Qty: 180 RF: 3 cholecalciferol (vitamin D3) 25 mcg (1,000 unit) tablet 25 mcg PO BID Qty: 90 RF: 3 lisinopril 2.5 mg tablet 2.5 mg PO DAILY Qty: 90 RF: 3 cyanocobalamin (vitamin B-12) 1,000 mcg tablet 1,000 mcg PO DAILY Qty: 90 RF: 3 blister angel PO RF: 0 quetiapine 50 mg tablet 100 mg PO DAILY Qty: 90 RF: 3 docusate sodium 100 mg capsule 100 mg PO DAILY Qty: 90 RF: 3 ondansetron 4 mg tablet,disintegrating 4 mg PO Q8H PRNQty: 7 RF: 0 Discharge Instructions Instructions: Dehydration (ED) Additional Instructions: Follow up with primary care provider in 3-5 days. Return to ED sooner if any worsening or concerns. Increase oral fluids. Referrals: Lazara Stock DO [Primary Care Provider] - Discharge Data Discharge Date/Time-TO BE ENTERED AT DEPARTURE: 11/13/20 21:30 Medical Decision Making 85-year-old female past medical history of Alzheimer's type dementia, hyperlipidemia, hypertension, she is a DNR/DNI, asthma, obesity, obstructive sleep apnea, restless leg syndrome, bilateral chronic hip pain presents to the ER with chief complaint of feeling flushed, and not feeling right. Patient had dinner of vegetables meat got up and went to the bathroom denies diarrhea and then has been feeling unwell since then. Denies any headache chest pain shortness of breath no abdominal pain no other associated symptoms. Patient's FAST exam is negative she is slow to respond and has some short memory loss but is able to recall what she had for dinner. No focal neuro deficits noted on initial exam. EKG was reviewed by Dr. Itz Motta ER attending, please see his official report. Old EKG was available for review no significant change noted by me. CBC shows no leukocytosis, CMP largely within normal limits except for BUN is 36 creatinine 1.7 GFR is 28 glucose 162 initial troponin within normal limits less than 0.05. Urinalysis shows trace blood 20-50 WBCs many epithelial cells with squamous contamination culture is not pending at this time. 2052: Discussed lab results with patient and family Maykel who is at bedside they verbalized understanding. Patient is getting 500 cc normal saline bolus infusing without difficulty at this time due to elevated kidney function. Will to road test fracture patient is ambulatory prior to discharge I do suspect at this time patient will be discharged home with strict return instructions and follow-up with PCP. Patient was road tested by staff command and control officer with walker prior to discharge. Patient was able to walk at least 20 feet with little to no assistance. Plan to discharge patient home with follow-up with primary care provider. I did discuss with patient and son results of the lab test and work-up and encouraged follow-up with primary care provider. Family verbalized understanding HPI General Mode of arrival: EMS . Date/Time Provider Initiated Documentation: 11/13/20 19:20 . Limitations to Documentation: no limitations . Information obtained by: patient, EMS and old records reviewed . HPI Narrative: 85-year-old female past medical history of Alzheimer's type dementia, hyperlipidemia, hypertension, she is a DNR/DNI, asthma, obesity, obstructive sleep apnea, restless leg syndrome, bilateral chronic hip pain presents to the ER with chief complaint of feeling flushed, and not feeling right. Patient had dinner of vegetables meat got up and went to the bathroom denies diarrhea and then has been feeling unwell since then. Denies any headache chest pain shortness of breath no abdominal pain no other associated symptoms. Patient's FAST exam is negative she is slow to respond and has some short memory loss but is able to recall what she had for dinner. No focal neuro deficits noted on initial exam. Related Data Home Medications Medication Instructions Recorded Confirmed rosuvastatin 20 mg tablet 20 mg PO HS #90 tab 06/15/20 11/13/20 calcium carbonate 600 mg calcium 600 mg PO BID #90 tab 07/31/20 11/13/20 (1,500 mg) tablet celecoxib 200 mg capsule 200 mg PO BID #180 cap 07/31/20 11/13/20 cholecalciferol (vitamin D3) 25 25 mcg PO BID #90 tab 07/31/20 11/13/20 mcg (1,000 unit) tablet lisinopril 2.5 mg tablet 2.5 mg PO DAILY #90 tab 07/31/20 11/13/20 cyanocobalamin (vitamin B-12) 1,000 mcg PO DAILY #90 tab 08/14/20 11/13/20 1,000 mcg tablet ondansetron 4 mg PO Q8H PRN #7 tab 08/15/20 11/13/20 blister angel PO 09/09/20 10/15/20 acetaminophen 500 mg tablet 500 mg PO BID #60 tab 09/10/20 11/13/20 alendronate 70 mg tablet 70 mg PO QWEEK #14 tab 09/10/20 11/13/20 aspirin 81 mg tablet,delayed 81 mg PO DAILY #90 tab 09/10/20 11/13/20 release memantine 10 mg tablet 10 mg PO BID #180 tab 09/10/20 11/13/20 multivitamin 1 tab PO DAILY #90 tab 09/10/20 11/13/20 pantoprazole 40 mg tablet,delayed 40 mg PO DAILY #90 tab 09/10/20 11/13/20 release quetiapine 50 mg tablet 100 mg PO DAILY #90 tab 09/30/20 11/13/20 docusate sodium 100 mg capsule 100 mg PO DAILY #90 cap 10/17/20 11/13/20 gabapentin 100 mg capsule 100 mg PO QHS #10 cap 11/12/20 11/13/20 magnesium oxide 500 mg tablet 500 mg PO QHS #30 tab 11/12/20 11/13/20 Previous Rx's Medication Instructions Recorded rosuvastatin 20 mg tablet 20 mg PO HS #90 tab 06/15/20 calcium carbonate 600 mg calcium 600 mg PO BID #90 tab 07/31/20 (1,500 mg) tablet celecoxib 200 mg capsule 200 mg PO BID #180 cap 07/31/20 cholecalciferol (vitamin D3) 25 25 mcg PO BID #90 tab 07/31/20 mcg (1,000 unit) tablet lisinopril 2.5 mg tablet 2.5 mg PO DAILY #90 tab 07/31/20 cyanocobalamin (vitamin B-12) 1,000 mcg PO DAILY #90 tab 08/14/20 1,000 mcg tablet ondansetron 4 mg PO Q8H PRN #7 tab 08/15/20 acetaminophen 500 mg tablet 500 mg PO BID #60 tab 09/10/20 alendronate 70 mg tablet 70 mg PO QWEEK #14 tab 09/10/20 aspirin 81 mg tablet,delayed 81 mg PO DAILY #90 tab 09/10/20 release memantine 10 mg tablet 10 mg PO BID #180 tab 09/10/20 multivitamin 1 tab PO DAILY #90 tab 09/10/20 pantoprazole 40 mg tablet,delayed 40 mg PO DAILY #90 tab 09/10/20 release quetiapine 50 mg tablet 100 mg PO DAILY #90 tab 09/30/20 docusate sodium 100 mg capsule 100 mg PO DAILY #90 cap 10/17/20 gabapentin 100 mg capsule 100 mg PO QHS #10 cap 11/12/20 magnesium oxide 500 mg tablet 500 mg PO QHS #30 tab 11/12/20 Allergies Allergy/AdvReac Type Severity Reaction Status Date / Time No Known Allergies Allergy Verified 11/13/20 19:54 General Stated Complaint: Dizzy/Sync BERTHA: 3 Review of Systems All systems reviewed & are unremarkable except as noted in HPI and below Cardiovascular Cardiovascular: Reports as per HPI, Denies chest pain, Denies syncope, Denies leg edema, Reports lightheadedness and Denies dyspnea Respiratory Respiratory: Denies dyspnea Gastrointestinal Gastrointestinal: Denies abdominal pain, Denies nausea and Denies vomiting Genitourinary Genitourinary: Denies difficulty voiding, Denies dysuria and Denies urinary urgency Musculoskeletal Musculoskeletal: Reports as per HPI (Reports restless leg syndrome) and Denies muscle weakness Neurologic Neurologic: Denies syncope [facility] Medical History (Updated 11/13/20 @ 21:22 by Sandra Llamas) Aching leg syndrome qHS, 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 B/L. No claudication complaints. [ ] Mag, Becca Age-related osteoporosis without current pathological fracture Alzheimer's dementia Ankle weakness Asthma DNI (do not intubate) DNR (do not resuscitate) GERD (gastroesophageal reflux disease) Hyperlipidemia Hypertension IT band syndrome Lateral pain of right hip Lidocaine patches helped .. now pain is more in thigh vs lateral leg (PainStop helping), 07/17/19 Obesity Obstructive sleep apnea Osteoarthritis Palliative care patient Physical deconditioning POLST (Physician Orders for Life-Sustaining Treatment) Right hip pain Right knee pain Right shoulder pain Syncope Trochanteric bursitis, right hip Unspecified dementia without behavioral disturbance Unsteady gait Cane/walker Vitamin D deficiency Weight gain Surgical History History of appendectomy Status post tonsillectomy and adenoidectomy Family History Mother , age 85 or so Dementia Cancer Father , age 82 Sudden cardiac Son No problems noted. Son No problems noted. Daughter No problems noted. Daughter No problems noted. Sister Kyphosis History of vertebroplasty Compression fracture Brother No problems noted. Social History Smoking/Tobacco Use Status: Never Smoking risk assessment performed?: Yes Alcohol Intake: never Drug use: Never Substance use type: does not use Adopted: No Caregiver/Support person: Yes Foster care: No Household members: spouse Housing: house Number of Children: 4 number of grandchildren: 12 Communication Needs: Hard of Hearing and Corrective Lenses Education Level: high school Do you need help understanding health information?: Always current occupation: retired from [employer] and [employer] Pets and animals: Yes Sexually active: No Do you think of yourself as: straight/heterosexual Current gender identity: female What is your relationship status?: How often do you talk on the phone with friends or family?: three or more times per week How often do you get together with friends or relatives?: once per week Panel score (0-1 are the most socially isolated patients): 2 What type of physical activity do you participate in: walking and irregular exercise Duration: 15-30 minutes/day Special rodger needs: No Seatbelt use: always Working smoke detector in home: Yes Fire extinguisher in home: Yes Do you feel safe at home: Yes Do you feel safe in your relationship?: Yes Exam Narrative Exam Narrative: Constitutional: Alert and oriented x3. Appears stated age. Normal body habitus. Head: Normocephalic, no trauma. Eyes: Pupils PERRLA, Red reflex noted, EOM's intact. Eyelids symmetrical without lesions, discharge, or swelling. ENT: Bilateral TM's WNL, External ear normal to inspection, no mastoid TTP, swel ling, or erythema, Nasal turbinates WNL, no nasal discharge. Normal dentition, Posterior pharynx WNL, no exudate. Chest: RRR, Normal S1, S2, distal pulses intact. Resp: Lungs clear to auscultation bilaterally, no wheezes, rales, or rhonchi. Abdomen: Soft, nondistended nontender to palpation all 4 quadrants. Musculoskeletal: Normal gait, 5/5 strength to all four extremities. Skin: No suspicious rashes or lesions. Capillary refill less than 2 sec. Neurologic: Cranial nerves II-XII intact. Alert and oriented x 3. Patient is somewhat slow to respond but does have short-term memory recall. DTR's intact. Hematologic/Lymphatic: No ecchymosis, no lymphadenopathy. Course Vital Signs Vital signs: Vital Signs Temperature 36.6 C 11/13/20 19:15 Pulse 83 11/13/20 19:15 Respiratory Rate 16 11/13/20 19:15 Blood Pressure 145/73 H 11/13/20 19:15 Pulse Oximetry 97 11/13/20 19:15 Temperature 36.6 C 11/13/20 19:15 Temperature Source Skin 11/13/20 19:15 Pulse 83 11/13/20 19:15 Respiratory Rate 16 11/13/20 19:19 Respiratory Effort Non-Labored 11/13/20 19:19 Respiratory Depth Normal 11/13/20 19:19 Respiratory Pattern Normal 11/13/20 19:19 Blood Pressure 145/73 H 11/13/20 19:15 Blood Pressure Position Supine 11/13/20 19:15 Pulse Oximetry 97 11/13/20 19:15 Oxygen Delivery Method Room Air 11/13/20 19:15 Oxygen Flow Rate 0 11/13/20 19:15 Pain Level 0 11/13/20 19:15
[2020-11-13 19:30] LABS: Abs Immature Grans 0.02 10^3/uL (0.0-0.06); Absolute Basophil Count 0.03 10^3/uL (0.0-0.2); Absolute Eosinophil Count 0.08 10^3/uL (0.0-0.7); Absolute Lymphocyte Count 2.19 10^3/uL (1.2-3.4); Absolute Neutrophil Count 4.11 10^3/uL (1.2-6.7); Basophils % 0.4; Eosinophils % 1.1; HCT 41.3 % (36.0-46.0); HGB 12.9 g/dL (11.2-15.7); Immature Grans % 0.3; Lymphocytes % 31.2; MCH 29.3 pg (27.0-33.0); MCHC 31.2 % (32.0-36.0); MCV 93.7 fL (80-95); MPV 11.4 fL (8.0-11.0); Monocytes % 8.5; Neutrophils % 58.5; Nucleated RBC 0 %; Platelet Count 169 10^3/uL (130-400); RBC 4.41 10^6/uL (3.93-5.22); RDW 12.9 % (11.7-14.6); RDW-SD 44.5 fL; WBC 7.03 10^3/uL (4.4-10.8)
--- OUTSIDE RECORDS SUMMARY | 2020-11-13 19:30 | XMS_ITS ---
:1935 Author Organization [facility] Address [address] [place] [address] Care Team Providers Name Role Phone Willis Lala Unavailable Unavailable PROBLEMS Type Condition ICD9-CM Code MBR29-FM Code Onset Condition SNO MED Code Dates Status Problem Ingrown toenail L60.0 Active 4002 55139 Problem Onychomycosis B35.1 Active 105395 008 ALLERGIES No Known Allergies ENCOUNTERS Encounter Location Date Diagnosis [facility] May, Ingro wn toenail L60.0 [place] [address] Onychomycos is B35.1 [facility] Jan, Ingro wn toenail L60.0 [place] [address] Onychomycos is B35.[address] [id number], Jul, Ingro wn toenail L60.0 ; [place] [address] Onychomycosis B3 5.1 and Toe pain, bilateral M79.674 [id number], Feb, Ingro wn toenail L60.0 ; [place] [address] Onychomycosis B3 5.1 and Toe pain, bilateral M79.674 [id number], Nov, Ingro wn toenail L60.0 ; [place] [address] Onychomycosis B3 5.1 and Toe pain, bilateral M79.674 [id number], Sep, Toe p ain, right M79.674 ; [place] [address] Ingrown toenail L60.0 and Onychomycosis B3 5.[address] [id number], [place] [address] IMMUNIZATIONS No Known Immunizations SOCIAL HISTORY Qualifiers Date Former Smoker REASON FOR REFERRAL FUNCTIONAL STATUS PLAN OF CARE Activity Details Follow Up 4 Months at patient's reques t Reason: VITAL SIGNS Height 63 in 2019-05-21 Temperature 98.3 degrees Fahrenheit 2019-05-21 Heart Rate 83 /min 2019-05-21 Respiratory Rate 18 /min 2019-05-21 Oximetry 96 % 2019-05-21 Blood pressure systolic 120 mm Hg 2019-05-21 Blood pressure diastolic 80 mm Hg 2019-05-21 MEDICATIONS Medication Instructions Dosage Frequency Start End Duration Statu s Date Date QUEtiapine Fumarate orally once at 1 tab(s) Active 50 mg bedtime Ventolin HFA 90 inhaled as 2 puff(s) Act stephanie mcg/inh needed, every 4 hours Aspirin 81 mg orally once a 1 tab(s) 24h Act stephanie day Cyclobenzaprine HCl orally at 1 tab(s) A ctive 10 mg bedtime Namenda 10 mg orally 2 times 1 tab(s) 12h Ac tive a day Lisinopril 2.5 mg orally once a 1 tab(s) 24h Active day CeleBREX 200 mg orally 2 times 1 cap(s) 12h Active a day MULTIVITAMIN orally once a 1 tab(s) 24h Acti ve Multiple Vitamins day Metoprolol orally once a 1 tab(s) 24h Active Succinate ER 50 mg day Aricept 10 mg orally once a 1 tab(s) Act stephanie day (at bedtime) Melatonin 5 mg orally once a 1 cap(s) Ac tive day (at bedtime), as needed with food Alendronate Sodium orally once a 1 tab(s) Active 70 mg week ACETAMINOPHEN 500 orally every 6 2 tab(s) Active mg hours, as needed Omeprazole 20 mg orally once a 1 cap(s) 24h Active day VITAMIN D3 1000 orally twice a 1 tab(s) 12h Active intl units day Vitamin B12 100 mcg orally once a 5 tablets 24h Active day Rosuvastatin orally once a 1 tab(s) 24h Acti ve Calcium 20 mg day PROCEDURES Procedure Date Ordered Result Body Site TRIMMING DYSTROPHIC NAILS ANY # May 21, 2019 RESULTS No Results REASON FOR VISIT 4 month f/u spouse cancelled unable to travel at this time will r/s later 08/19, Onychomycosis f/u, referral done, pt states that she needs some nail care today , nailcare f/u referral done, last seen by for footcare-KG, ot states that her feet are doing good, pt states that she needs some nail care done today , 4 mo f/u, Referral Done, Last seen on 07/25/18 by for f/u nail and footcare , f/u [place] [facility], Referral Done, pt last seen by [facility] on 03/14/2018, seen for nailcare, pt states she is here for nailcare, 3 month follow up , 3 mo f/u Referral Done, pt states that she is here for a foot eval today, 3 mo f/u , f/u , last seen 09/26/2017 [facility]- nail care, Pt states she is here for nailcare- no other concerns , nail care, referral done , pt states she is here for nailcare, no other concerns ,09/22 sm- Records request Insurance Providers [facility] Member Patient Patient Patient Patient Patient Subscriber Subscriber Subscriber Group Insurance Plan Plan Plan Plan ID Relationship Address Phone Name Date of ID Name Date of No Type Insurance Insurance Insurance Coverage to Subscriber Address Phone Name Dates MEDICARE [address] MEDICARE self JIMBO [id number] [facility] [id number] SELF [address] SELF PAY self JIMBO [id number] [place] [address] INS MEDICARE [address] MEDICARE self [place]IMBO [id number] [facility] [id number] [address] SELF PAY self [place]IM[place] [id number] [place] [address] SELF PAY self [place]IM[place] [id number] [place] [address] INSURANCE [address] [place] [id number] Y OTHER [place] [facility] [place] [facility] [id number] MEDICAL (GENERAL) HISTORY Type Description Date Medical History Essential primary hypertension Medical History Insomnia, unspecified Medical History Unspecified dementia without behavioral disturbance Surgical History tonsillectomy Surgical History right broken knee Hospitalization History breathing trouble/heart attck while in hospital mar 2019 [facility]
[2020-11-13 19:51] LABS: ALT 20 U/L (14-59); AST 19 U/L (15-37); Alkaline Phosphatase 48 U/L (46-116); Anion Gap 10.9 mmol/L (3-11); BUN 36 mg/dL (7-18); Bilirubin, Total 0.4 mg/dL (0.2-1.0); CO2 26.1 mmol/L (21.0-32.0); CREATININE 1.7 mg/dL (0.55-1.02); Calcium 9.1 mg/dL (8.5-10.1); Chloride 105 mmol/L (98-107); Glucose 162 mg/dL (74-106); Magnesium 2.1 mg/dL (1.8-2.4); Potassium 3.9 mmol/L (3.5-5.1); Sodium 142 mmol/L (136-145); Total Protein 7.4 g/dL (6.4-8.2); Troponin I < 0.05 ng/mL (<0.06)
[2020-11-13 20:30] VITALS: BP 114/81; PULSE 75; RESP 16; O2SAT 97
[2020-11-13 20:32] LABS: Bilirubin Negative (Negative); Blood Trace-intact (Negative); Clarity Clear (Clear); Glucose Negative (Negative); Ketones Negative (Negative); Leukocyte Esterase Negative (Negative); Nitrite Negative (Negative); Specific Gravity >= 1.030 (1.005-1.025); Urobilinogen 0.2 EU/dL (Up TO 0.2)
[2020-11-13] MEDS: Normal Saline 500 ML IV (20:41)
[2020-11-13 20:51] LABS: Bacteria Many HPF (Negative); C & S Indicated? No/Sq. Contamination; Casts Negative LPF (Negative); Crystals Negative HPF (Negative); Epithelial Cells Many HPF (Negative); Mucus Negative (Negative); RBC Negative HPF (0-2); WBC 20-50 HPF (0-5)
[2020-11-13 21:20] VITALS: BP 133/69; PULSE 77; RESP 22; O2SAT 96
== END 2020-11-13 21:30 | disposition home or self-care (01) ==
PROVIDERS: Emergency Provider Registered Nurse Emergency; PCP Student in an Organized Health Care Education/Training Program
DX: E86.0 Dehydration (principal); R23.2 Flushing; R55 Syncope and collapse
CPT/HCPCS: 80053; 93005; 96360; 99283; 81003; 81015; 83735; 84484; 85025; 93010

== ENCOUNTER 2020-12-22 17:08 | Observation (INO) | payer MEDICARE, SELFPAY ==
--- NOTE | 2020-12-22 17:15 | RT.EKG_ITS ---
APPROVED REPORT Exam: Resting ECG Reason for Exam: weakness Patient Location: E HR:74 bpm ECG Measurements Heart Rate 74 AXIS [place] 212 P -15 QRSd 67 QRS -24 QT 404 T 18 QTc 449 Conclusion Sinus rhythm...normal P axis Borderline prolonged [place] interval Low voltage, extremity and precordial leads
--- NOTE | 2020-12-22 17:15 | DI.RAD_ITS ---
Exam(s) XR CHEST 2V PA LATERAL EXAM: XR CHEST 2V PA LATERAL CLINICAL HISTORY: mental status change, ? syncope. TECHNIQUE: 2D digital imaging was performed. COMPARISON: CR,XR XR CHEST 2V PA LATERAL from 08/15/2020 FINDINGS: Cardiomegaly again noted. Tortuous descending thoracic aorta again noted. Tenting right hemidiaphra gm again noted. Retrocardiac hiatal hernia again noted. Lungs are clear. No infiltrates nor pleural effusions. IMPRESSION: No acute pulmonary findings. Small-moderate size retrocardiac hiatal hernia. Other findings as above. DATA REPOSITORY: RADIATION DOSE DELIVERED:
--- NOTE | 2020-12-22 17:15 | DI.CT_ITS ---
Exam(s) CT HEAD WO EXAM: CT HEAD WO CLINICAL HISTORY: mental status change. TECHNIQUE: Imaging Protocol: Axial computed tomography images with coronal and sagittal reformatted images were created and reviewed COMPARISON: CT CT HEAD WO from 08/15/2020 FINDINGS: There are no skull fractures nor fluid in the visualized paranasal sinuses. There is no evidence of intracranial hemorrhage, mass effect, or shift of midline structures. There are no extra-axial fluid collections. The ventricles are not enlarged or shifted and there is no blo od within the ventricular system nor within the basal cisterns. There is abundant bilateral relatively symmetrical periventricular hypodensity consistent chronic sma ll vessel disease., similar to the previous study. IMPRESSION: No acute intracranial findings on this noninfused CT scan of the brain. Chronic small-vessel white matter ischemic changes, as was evident on the prior CT scan of 08/15/2020 . RADIATION DOSE DELIVERED: 710.68mGy.cm Total DLP DATA REPOSITORY: All CT scans at this facility are submitted to the National Radiology Data Registry (NRDR) Dose Index Registry (DIR) with the [employer] (A[employer]). RADIATION OPTIMIZATION: All CT scans at this facility use at least one of these dose optimization te chniques: automated exposure control; mA and/or kV adjustment per patient size (includes targeted exa ms where dose is matched to clinical indication); or iterative reconstruction.
[2020-12-22 17:17] VITALS: PULSE 78; RESP 24; TEMP 36.7
--- NOTE | 2020-12-22 17:27 | W.ED.GENAD ---
Discharge Plan Disposition Patient Disposition: [facility] INPATIENT Condition: Improving Discharge Details Chief Complaint: GenMedical Clinical Impression: Acute UTI, Altered mental status Primary Care Provider: Lazara Stock ED Provider: Taran Cline Home Meds and New Rx's Prescriptions: No Action alendronate 70 mg tablet 70 mg PO QWEEK Qty: 14 RF: 3 aspirin 81 mg tablet,delayed release (DR/EC) 81 mg PO DAILY Qty: 90 RF: 3 multivitamin Tablet 1 tab PO DAILY Qty: 90 RF: 3 pantoprazole [Protonix] 40 mg tablet,delayed release (DR/EC) 40 mg PO DAILY Qty: 90 RF: 3 memantine [Namenda] 10 mg tablet 10 mg PO BID Qty: 180 RF: 2 rosuvastatin [Crestor] 20 mg tablet 20 mg PO HS Qty: 90 RF: 3 celecoxib [Celebrex] 200 mg capsule 200 mg PO BID Qty: 180 RF: 3 cholecalciferol (vitamin D3) 25 mcg (1,000 unit) tablet 25 mcg PO BID Qty: 90 RF: 3 lisinopril 2.5 mg tablet 2.5 mg PO DAILY Qty: 90 RF: 3 cyanocobalamin (vitamin B-12) 1,000 mcg tablet 1,000 mcg PO DAILY Qty: 90 RF: 3 blister angel PO RF: 0 quetiapine 50 mg tablet 100 mg PO DAILY Qty: 90 RF: 3 magnesium oxide 500 mg tablet 500 mg PO QHS Qty: 90 RF: 3 gabapentin 100 mg capsule 200 mg PO QHS Qty: 180 RF: 1 Medical Decision Making 85-year-old female presents from home via EMS. reported after receiving her evening medications the patient was sitting in a chair became unresponsive when he felt that she stopped breathing for a number of minutes. There is no perioral cyanosis or seizure-like activity. EMS was called and noted the patient seemed to be sleepy. She has not had any recent illness and has reportedly been well with no changes to medications. Patient arrives to the ER alert but slightly somnolent, she is afebrile with a pulse of 78, she responds to voice and is appropriate. Different diagnosis includes dehydration, urinary tract infection, must exclude intracranial process. Patient IV access established, EKG, laboratories, urinalysis obtained patient referred for chest x-ray and CT scan of the head. Laboratory notes a white count of 7, hematocrit 36, platelets 169. Chemistries note BUN 31, creatinine 1.4. LFTs unremarkable, troponin negative. Urine with positive nitrites, 10-20 white blood cells and numerous bacteria with no epithelial cells. Consistent with acute cystitis. Chest x-ray: No acute findings CT scan of the head: No acute intracranial hemorrhage, chronic microvascular disease. This is a consistent with acute cystitis with mental status changes in the elderly with a history of dementia. Antibiotics initiated and will discuss admission. HPI General Mode of arrival: EMS. Date/Time Provider Initiated Documentation: 12/22/20 17:09. Limitations to Documentation: no limitations. Information obtained by: patient and EMS. History of Present Illness 85 year old F presents to the emergency department with the chief complaint of Sleepiness at home, mental status changes, described as mild, and is localized to the head. Patient reports no radiation. Patient started experiencing this hour(s) and it has been intermittent. No relieving factors improve symptom(s), No exacerbating factors reported . Patient notes weakness and other (Question of syncope at home. states she felt the patient stopped breathing. Did not turn blue or have a seizure.); denies chest pain. Patient did receive the following treatments prior to arrival, none Related Data Home Medications Medication Instructions Recorded Confirmed rosuvastatin 20 mg tablet 20 mg PO HS #90 tab 06/15/20 12/22/20 celecoxib 200 mg capsule 200 mg PO BID #180 cap 07/31/20 12/22/20 cholecalciferol (vitamin D3) 25 25 mcg PO BID #90 tab 07/31/20 12/22/20 mcg (1,000 unit) tablet lisinopril 2.5 mg tablet 2.5 mg PO DAILY #90 tab 07/31/20 12/22/20 cyanocobalamin (vitamin B-12) 1,000 mcg PO DAILY #90 tab 08/14/20 12/22/20 1,000 mcg tablet blister angel PO 09/09/20 12/05/20 alendronate 70 mg tablet 70 mg PO QWEEK #14 tab 09/10/20 12/22/20 aspirin 81 mg tablet,delayed 81 mg PO DAILY #90 tab 09/10/20 12/22/20 release memantine 10 mg tablet 10 mg PO BID #180 tab 09/10/20 12/22/20 multivitamin 1 tab PO DAILY #90 tab 21 12/22/20 pantoprazole 40 mg tablet,delayed 40 mg PO DAILY #90 tab 09/10/20 12/22/20 release quetiapine 50 mg tablet 100 mg PO DAILY #90 tab 09/30/20 12/22/20 gabapentin 100 mg capsule 200 mg PO QHS #180 cap 12/09/20 12/22/20 magnesium oxide 500 mg tablet 500 mg PO QHS #90 tab 12/09/20 12/22/20 Previous Rx's Medication Instructions Recorded rosuvastatin 20 mg tablet 20 mg PO HS #90 tab 06/15/20 celecoxib 200 mg capsule 200 mg PO BID #180 cap 07/31/20 cholecalciferol (vitamin D3) 25 25 mcg PO BID #90 tab 07/31/20 mcg (1,000 unit) tablet lisinopril 2.5 mg tablet 2.5 mg PO DAILY #90 tab 07/31/20 cyanocobalamin (vitamin B-12) 1,000 mcg PO DAILY #90 tab 08/14/20 1,000 mcg tablet alendronate 70 mg tablet 70 mg PO QWEEK #14 tab 09/10/20 aspirin 81 mg tablet,delayed 81 mg PO DAILY #90 tab 09/10/20 release memantine 10 mg tablet 10 mg PO BID #180 tab 09/10/20 multivitamin 1 tab PO DAILY #90 tab 09/10/20 pantoprazole 40 mg tablet,delayed 40 mg PO DAILY #90 tab 09/10/20 release quetiapine 50 mg tablet 100 mg PO DAILY #90 tab 09/30/20 gabapentin 100 mg capsule 200 mg PO QHS #180 cap 12/09/20 magnesium oxide 500 mg tablet 500 mg PO QHS #90 tab 12/09/20 Allergies Allergy/AdvReac Type Severity Reaction Status Date / Time No Known Allergies Allergy Verified 12/22/20 17:21 General Stated Complaint: GenMedical BERTHA: 3 Review of Systems Narrative: No chest pain or palpitations, no headache, no recent illness. 8 systems reviewed are otherwise negative. FOR[facility]LY [facility], [facility] Medical History Aching leg syndrome qHS, 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 B/L. No claudication complaints. [ ] Mag, Becca Age-related osteoporosis without current pathological fracture Alzheimer's dementia Ankle weakness Asthma DNI (do not intubate) DNR (do not resuscitate) GERD (gastroesophageal reflux disease) Hyperlipidemia Hypertension IT band syndrome Lateral pain of right hip Lidocaine patches helped .. now pain is more in thigh vs lateral leg (PainStop helping), 07/17/19 Obesity Obstructive sleep apnea Osteoarthritis Palliative care patient Physical deconditioning POLST (Physician Orders for Life-Sustaining Treatment) Right hip pain Right knee pain Right shoulder pain Syncope Trochanteric bursitis, right hip Unspecified dementia without behavioral disturbance Unsteady gait Cane/walker Vitamin D deficiency Weight gain Surgical History History of appendectomy Status post tonsillectomy and adenoidectomy Family History Mother , age 85 or so Dementia Cancer Father , age 82 Sudden cardiac Son No problems noted. Son No problems noted. Daughter No problems noted. Daughter No problems noted. Sister Kyphosis History of vertebroplasty Compression fracture Brother No problems noted. Social History Smoking/Tobacco Use Status: Never Smoking risk assessment performed?: Yes Alcohol Intake: never Drug use: Never Substance use type: does not use Adopted: No Caregiver/Support person: Yes Foster care: No Household members: spouse Housing: house Number of Children: 4 number of grandchildren: 12 Communication Needs: Hard of Hearing and Corrective Lenses Education Level: high school Do you need help understanding health information?: Always current occupation: retired from [employer] and [email or web address] Pets and animals: Yes Sexually active: No Do you think of yourself as: straight/heterosexual Current gender identity: female What is your relationship status?: How often do you talk on the phone with friends or family?: three or more times per week How often do you get together with friends or relatives?: once per week Panel score (0-1 are the most socially isolated patients): 2 What type of physical activity do you participate in: walking and irregular exercise Duration: 15-30 minutes/day Special rodger needs: No Seatbelt use: always Working smoke detector in home: Yes Fire extinguisher in home: Yes Do you feel safe at home: Yes Do you feel safe in your relationship?: Yes Exam Narrative Exam Narrative: GEN: awake, alert, oriented 3. Pleasant, well groomed, interactive. Slightly somnolent but arouses and responds to voice. HEAD: Normocephalic, atraumatic ENT: Mucous membranes moist, oropharynx unremarkable, External ear exam unremarkable EYES: PERRL, EOMI NECK: Full ROM, no TERE, no menigismus CHEST/RESP: Nontender, clear to auscultation bilateral, no wheeze/rhonchi/rales CARDIOVASCULAR: RRR, no murmur, rub jacob. 2+ Rad pulse bilateral ABDOMEN: Soft, nontender, no mass. +Bowel sounds EXT: Full ROM, no edema, no rash Neuro: Grossly normal neurologic exam, conversant, interactive. Responds and interactive to voice. Cranial nerves II through XII intact. Psych: Speech fluent, thoughts congruent, affect normal Course Vital Signs Vital signs: Vital Signs Temperature 36.7 C 12/22/20 17:17 Pulse 78 12/22/20 17:17 Respiratory Rate 24 12/22/20 17:17 Temperature 36.7 C 12/22/20 17:17 Temperature Source Skin 12/22/20 17:17 Pulse 78 12/22/20 17:17 Respiratory Rate 24 12/22/20 17:17 Respiratory Effort Non-Labored 12/22/20 17:22 Blood Pressure Position Supine 12/22/20 17:17 Oxygen Delivery Method Room Air 12/22/20 17:17 Oxygen Flow Rate 0 12/22/20 17:17 Pain Level 0 12/22/20 17:17
[2020-12-22 17:38] LABS: Abs Immature Grans 0.01 10^3/uL (0.0-0.06); Absolute Basophil Count 0.04 10^3/uL (0.0-0.2); Absolute Eosinophil Count 0.14 10^3/uL (0.0-0.7); Absolute Monocyte Count 0.47 10^3/uL (0.1-0.8); Absolute Neutrophil Count 3.42 10^3/uL (1.2-6.7); Basophils % 0.5; Eosinophils % 1.9; HCT 36.7 % (36.0-46.0); HGB 11.9 g/dL (11.2-15.7); Immature Grans % 0.1; Lymphocytes % 45.5; MCH 29.8 pg (27.0-33.0); MCHC 32.4 % (32.0-36.0); MPV 11.5 fL (8.0-11.0); Monocytes % 6.3; Neutrophils % 45.7; Nucleated RBC 0 %; Platelet Count 169 10^3/uL (130-400); RBC 3.99 10^6/uL (3.93-5.22); RDW 13.1 % (11.7-14.6); RDW-SD 44.4 fL; WBC 7.48 10^3/uL (4.4-10.8)
[2020-12-22 17:49] LABS: Magnesium 2.4 mg/dL (1.8-2.4)
[2020-12-22 17:49] LABS: Bilirubin Negative (Negative); Blood Trace-intact (Negative); Clarity Sl Cloudy (Clear); Glucose Negative (Negative); Ketones Negative (Negative); Leukocyte Esterase Negative (Negative); Nitrite Positive (Negative); Urobilinogen 0.2 EU/dL (Up TO 0.2); pH 7.5 (5-8)
[2020-12-22 17:53] LABS: Source Nasal/Nares
[2020-12-22 17:55] LABS: Bacteria Packed HPF (Negative); C & S Indicated? Yes; Crystals Negative HPF (Negative); Epithelial Cells Negative HPF (Negative); Mucus Negative (Negative); RBC 0-2 HPF (0-2)
[2020-12-22 17:55] LABS: ALT 20 U/L (14-59); AST 22 U/L (15-37); Albumin 3.7 g/dL (3.4-5.0); Alkaline Phosphatase 43 U/L (46-116); Anion Gap 8.5 mmol/L (3-11); BUN 31 mg/dL (7-18); Bilirubin, Total 0.4 mg/dL (0.2-1.0); CO2 25.5 mmol/L (21.0-32.0); CREATININE 1.4 mg/dL (0.55-1.02); Calcium 9.3 mg/dL (8.5-10.1); Chloride 108 mmol/L (98-107); Estimated GFR 35.91 (mL/min/1.73m2); Glucose 148 mg/dL (74-106); Potassium 4.2 mmol/L (3.5-5.1); Sodium 142 mmol/L (136-145); Total Protein 6.8 g/dL (6.4-8.2)
[2020-12-22 17:59] LABS: Troponin I < 0.05 ng/mL (<0.06)
[2020-12-22 18:00] LABS: *AMPHETAMINES SCREEN URINE Negative (Negative); *BARBITURATES SCREEN URINE Negative (Negative); *BENZODIAZEPINES SCREEN URINE Negative (Negative); Cannabinoids THC Negative (Negative); Cocaine Screen,Urine Negative (Negative); METHADONE URINE SCREEN Negative (Negative); OPIATES URINE SCREEN Negative (Negative)
[2020-12-22 18:02] LABS: Tricyclic Antidepressants Negative (Negative)
--- OUTSIDE RECORDS SUMMARY | 2020-12-22 18:12 | XMS_ITS ---
:1935 Author Organization [facility] Address [address] [place] [address] Care Team Providers Name Role Phone Willis Lala Unavailable Unavailable PROBLEMS Type Condition ICD9-CM Code [id number] Code Onset Condition SNO MED Code Dates Status Problem Ingrown toenail L60.0 Active 4002 69980 Problem Onychomycosis B35.1 Active 354802 008 ALLERGIES No Known Allergies ENCOUNTERS Encounter Location Date Diagnosis [facility] May, Ingro wn toenail L60.[address] [place] [address] Onychomycos is B35.1 [facility] Jan, Ingro [place]n [place] L60.[address] [place] [address] Onychomycos is B35.[address] [facility], Jul, Ingro wn toenail L60.0 ; [place] [address] Onychomycosis B3 5.1 and Toe pain, bilateral M79.674 [facility], Feb, Ingro wn toenail L60.0 ; [place] [address] Onychomycosis B3 5.1 and Toe pain, bilateral M79.674 [facility], Nov, Ingro wn toenail L60.0 ; [place] [address] Onychomycosis B3 5.1 and Toe pain, bilateral M79.674 [facility], Sep, Toe p ain, right M79.674 ; [place] [address] Ingrown toenail L60.0 and Onychomycosis B3 5.[address] [facility], [place] [address] IMMUNIZATIONS No Known Immunizations SOCIAL HISTORY Qualifiers [...] concerns ,09/22 sm- Records request Insurance Providers [facility] Health Member Patient Patient Patient Patient Patient Subscriber Subscriber Subscriber Group Insurance Plan Plan Plan Plan ID Relationship Address Phone Name Date of ID Name Date of No Type Insurance Insurance Insurance Coverage to Subscriber Address Phone Name Dates MEDICARE [address] MEDICARE self [place]IM[place] [id number] [facility] [id number] SELF [address]Y [address] SELF PAY self [place] [id number] [place] [address] SELF PAY self [place] [id number] [place] [address] SELF PAY self [place]IM[place] [id number] [place] [address] INS[address] [place] [id number] Y OTHER G[address] OTHER [address] [facility] [id number] MEDICARE [address] MEDICARE self [place]IM[place] [id number] [facility] [id number] MEDICAL (GENERAL) HISTORY Type Description Date Medical History Essential primary hypertension Medical History Insomnia, unspecified Medical History Unspecified dementia without behavioral disturbance Surgical History tonsillectomy Surgical History right broken knee Hospitalization History breathing trouble/heart attck while in hospital mar 2019 [facility]
[2020-12-22 18:24] LABS: ETHANOL BLOOD < 3.0 mg/dL (<3)
--- NOTE | 2020-12-22 18:49 | DI.VRAD_ITS ---
PROCEDURE INFORMATION: Exam: CT Head Without Contrast Exam date and time: 12/22/2020 5:27 PM Age: 85 years old Clinical indication: Altered mental status/memory loss; Confusion or disorientation; Patient HX: Mental status change TECHNIQUE: Imaging protocol: Computed tomography of the head without contrast. Radiation optimization: All CT scans at this facility use at least one of these dose optimization techniques: automated exposure control; mA and/or kV adjustment per patient size (includes targeted exams where dose is matched to clinical indication); or iterative reconstruction. COMPARISON: CT HEAD WO 08/15/2020 7:48 PM FINDINGS: Brain: There is no acute intracranial hemorrhage, mass effect or midline shift. No large acute territorial infarct identified. There are patchy regions of hypodensity in the periventricular and subcortical white matter, likely on the basis of chronic microvascular ischemic disease. Cerebral ventricles: The ventricles and sulci are prominent in size, which is at least in part due to global cerebral volume loss. Paranasal sinuses: Visualized sinuses are unremarkable. No fluid levels. Mastoid air cells: Visualized mastoid air cells are well aerated. Bones/joints: No acute fracture. Degenerative changes are noted involving the bilateral temporomandibular joints. Soft tissues: Unremarkable. IMPRESSION: 1. No acute intracranial hemorrhage, mass effect or midline shift. 2. Suggestion of chronic microvascular ischemic disease. Dictated and Authenticated by: Izzy Luke MD. Ordering:BAKARI Chirinos MD
--- NOTE | 2020-12-22 18:53 | DI.VRAD_ITS ---
PROCEDURE INFORMATION: Exam: XR Chest Exam date and time: 12/22/2020 5:27 PM Age: 85 years old Clinical indication: Mental status change, ? syncope TECHNIQUE: Imaging protocol: XR of the chest. Views: 2 views. COMPARISON: CR XR CHEST 2V PA LATERAL 08/15/2020 9:15 PM FINDINGS: Lungs: No consolidation or significant pulmonary edema. Pleural spaces: Unremarkable. No pleural effusion. No pneumothorax. Heart/Mediastinum: The heart appears slightly enlarged. A hiatal hernia is noted. Bones/joints: Unremarkable. IMPRESSION: No acute findings. Dictated and Authenticated by: Izzy Luke MD. Ordering:BAKARI Chirinos MD
[2020-12-22] MEDS: cefTRIAXone 1 GM/50 ML BAG IVPB (19:06)
[2020-12-22] MEDS: Normal Saline 1,000 ML 125 ML IV (19:07)
--- NOTE | 2020-12-22 19:38 | W.PM.HP.N ---
Date of service: 12/22/20 Time of Service: 19:39 Assessment and Plan Assessment and plan (1) Altered mental status: Start date: 12/22/20 Status: Acute Assessment and plan: 85-year-old lady with multiple stress test prior to presentation to the ED with had previous episodes with recurrent UTIs in the past. The patient describes a more dramatic unresponsive episode and breathing abnormalities but lab and imaging was unrevealing for acute septic syndrome or acute neurological process. Patient will be treated for UTI and gently IV hydration if necessary. Treatment for UTI will be with IV Rocephin converting to oral therapy appropriate for pathogen if urine culture is positive. Qualifiers: Altered mental status type: delirium Qualified Code(s): R41.0 - Disorientation, unspecified (2) Acute UTI: Start date: 12/22/20 Status: Acute Assessment and plan: Acute UTI with stress on baseline dementia and altered mental status with unresponsive episode. IV Rocephin with conversion to oral antibiotic with guidance from pathogen on urine culture if positive. (3) Alzheimer's dementia: Status: Chronic Assessment and plan: This is a chronic problem with patient on treatment and being cared for by her . At this time this appears to be an appropriate and safe care environment. Physical therapy and occupational therapy if necessary though patient may not be rehab level and may return baseline with simple treatment of UTI. Patient is a DNR/DNI. Qualifiers: Alzheimer's disease onset: late-onset Dementia behavioral disturbance: with behavioral disturbance Qualified Code(s): G30.1 - Alzheimer's disease with late onset; F02.81 - Dementia in other diseases classified elsewhere with behavioral disturbance History of Present Illness History of Present Illness Chief Complaint: Brief unresponsive spell with decreased breath pain Narrative: This is an 85-year-old female patient with a history of dementia which appears to be advanced to a degree spell sitting in the chair at home while receiving her evening meals. describes her as becoming unresponsive and stopping her breathing for minutes but she appeared comfortable in the ED and more responsive. She had no recurrent spells. Her evaluation was essentially negative except for UTI, see ED decision making discussion. At time of palpation she was pleasantly confused but very talkative and wondering speech with obvious short-term memory loss. This appears to be close to her baseline. She offers no complaints of urinary discomfort or abdominal pain. She had no respiratory complaints or cough. She had no chills or measured fever at home reported. She has had UTIs in the past with increased confusion from her baseline dementia. Review of Systems Narrative: 13 point review of systems otherwise unrevealing or unobtainable patient short-term memory loss. was not present during my visit. [facility] Medical History Aching leg syndrome qHS, 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 B/L. No claudication complaints. [ ] Mag, Becca Age-related osteoporosis without current pathological fracture Alzheimer's dementia Ankle weakness Asthma DNI (do not intubate) DNR (do not resuscitate) GERD (gastroesophageal reflux disease) Hyperlipidemia Hypertension IT band syndrome Lateral pain of right hip Lidocaine patches helped .. now pain is more in thigh vs lateral leg (PainStop helping), 07/17/19 Obesity Obstructive sleep apnea Osteoarthritis Palliative care patient Physical deconditioning POLST (Physician Orders for Life-Sustaining Treatment) Right hip pain Right knee pain Right shoulder pain Syncope Trochanteric bursitis, right hip Unspecified dementia without behavioral disturbance Unsteady gait Cane/walker Vitamin D deficiency Weight gain Surgical History History of appendectomy Status post tonsillectomy and adenoidectomy Family History Mother , age 85 or so Dementia Cancer Father , age 82 Sudden cardiac Son No problems noted. Son No problems noted. Daughter No problems noted. Daughter No problems noted. Sister Kyphosis History of vertebroplasty Compression fracture Brother No problems noted. Social History Smoking/Tobacco Use Status: Never Smoking risk assessment performed?: Yes Alcohol Intake: never Drug use: Never Substance use type: does not use Adopted: No Caregiver/Support person: Yes Foster care: No Household members: spouse Housing: house Number of Children: 4 number of grandchildren: 12 Communication Needs: Hard of Hearing and Corrective Lenses Education Level: high school Do you need help understanding health information?: Always current occupation: retired from [employer] Pets and animals: Yes Sexually active: No Do you think of yourself as: straight/heterosexual Current gender identity: female What is your relationship status?: How often do you talk on the phone with friends or family?: three or more times per week How often do you get together with friends or relatives?: once per week Panel score (0-1 are the most socially isolated patients): 2 What type of physical activity do you participate in: walking and irregular exercise Duration: 15-30 minutes/day Special rodger needs: No Seatbelt use: always Working smoke detector in home: Yes Fire extinguisher in home: Yes Do you feel safe at home: Yes Do you feel safe in your relationship?: Yes Meds Allergies and Home Medications Allergies Allergy/AdvReac Type Severity Reaction Status Date / Time No Known Allergies Allergy Verified 12/22/20 17:21 Home Medications Medication Instructions Recorded Confirmed Type rosuvastatin 20 mg tablet 20 mg PO HS #90 tab 06/15/20 12/22/20 Rx celecoxib 200 mg capsule 200 mg PO BID #180 cap 07/31/20 12/22/20 Rx cholecalciferol (vitamin D3) 25 25 mcg PO BID #90 tab 07/31/20 12/22/20 Rx mcg (1,000 unit) tablet lisinopril 2.5 mg tablet 2.5 mg PO DAILY #90 tab 07/31/20 12/22/20 Rx cyanocobalamin (vitamin B-12) 1,000 mcg PO DAILY #90 tab 08/14/20 12/22/20 Rx 1,000 mcg tablet blister angel PO 09/09/20 12/05/20 History alendronate 70 mg tablet 70 mg PO QWEEK #14 tab 09/10/20 12/22/20 Rx aspirin 81 mg tablet,delayed 81 mg PO DAILY #90 tab 09/10/20 12/22/20 Rx release memantine 10 mg tablet 10 mg PO BID #180 tab 09/10/20 12/22/20 Rx multivitamin 1 tab PO DAILY #90 tab 09/10/20 12/22/20 Rx pantoprazole 40 mg tablet,delayed 40 mg PO DAILY #90 tab 09/10/20 12/22/20 Rx release quetiapine 50 mg tablet 100 mg PO DAILY #90 tab 09/30/20 12/22/20 Rx gabapentin 100 mg capsule 200 mg PO QHS #180 cap 12/09/20 12/22/20 Rx magnesium oxide 500 mg tablet 500 mg PO QHS #90 tab 12/09/20 12/22/20 Rx Exam Narrative Exam Narrative: General: Patient appears in no acute distress, alert and oriented possibly to place and person only. She is moderately obese. Pleasantly confused. HEENT: Normocephalic eyes with pupils equal and react light symmetrically, extraocular movement intact and sclera anicteric. Neck: Supple without JVD. Lungs: Clear to auscultation. Breast: Exam deferred. Back: Stooped posture without CVA tenderness. Heart: Regular rate and rhythm with quiet systolic murmur over left sternal border. No gallops or murmurs. Abdomen: Obese contour, soft internal patient with no palpable hepatosplenomegaly. Bowel sounds positive in all quadrants. Genitalia/rectal: Exam deferred. Extremities: Nonpitting edema over both lower extremities with obesity. No cyanosis or clubbing. Peripheral pulses decreased but intact. Good capillary refill. Skin: Pale, warm and dry. Good turgor. Rough texture. Neuro: Cranial nerves II through XII grossly intact, no focalizing motor deficits. Psych: Normal affect with euphoric mood. Wandering conversation with decreased short-term memory and difficult to assess long-term memory. No abnormal thought processes manifested no patient at times is off topic during conversation. Results Imaging Imaging Studies: CT HEAD WO EXAM: CT HEAD WO CLINICAL HISTORY: mental status change. TECHNIQUE: Imaging Protocol: Axial computed tomography images with coronal and sagittal reformatted images were created and reviewed COMPARISON: CT CT HEAD WO from 08/15/2020 FINDINGS: There are no skull fractures nor fluid in the visualized paranasal sinuses. There is no evidence of intracranial hemorrhage, mass effect, or shift of midline structures. There are no extra-axial fluid collections. The ventricles are not enlarged or shifted and there is no blood within the ventricular system nor within the basal cisterns. There is abundant bilateral relatively symmetrical periventricular hypodensity consistent chronic small vessel disease., similar to the previous study. IMPRESSION: No acute intracranial findings on this noninfused CT scan of the brain. Chronic small-vessel white matter ischemic changes, as was evident on the prior CT scan of 08/15/2020. Exam: XR Chest Exam date and time: 12/22/2020 5:27 PM Age: 85 years old Clinical indication: Mental status change, ? syncope TECHNIQUE: Imaging protocol: XR of the chest. Views: 2 views. COMPARISON: CR XR CHEST 2V PA LATERAL 08/15/2020 9:15 PM FINDINGS: Lungs: No consolidation or significant pulmonary edema. Pleural spaces: Unremarkable. No pleural effusion. No pneumothorax. Heart/Mediastinum: The heart appears slightly enlarged. A hiatal hernia is noted. Bones/joints: Unremarkable. IMPRESSION: No acute findings. Dictated and Authenticated by: Izzy Luke MD. Labs Result diagrams: 12/23/20 06:10 12/23/20 06:10 Labs: Laboratory Results - last 24 hr 12/22/20 12/22/20 12/22/20 17:23 17:23 17:23 WBC RBC Hgb Hct MCV MCH MCHC RDW Plt Count MPV Immature Gran % Neutrophils % Lymphocytes % Monocytes % Eosinophils % Basophils % Nucleated RBC % Absolute Neutrophils Absolute Lymphocytes Absolute Monocytes Absolute Eosinophils Absolute Basophils Sodium 142 Potassium 4.2 Chloride 108 H Carbon Dioxide 25.5 Anion Gap 8.5 BUN 31 H Creatinine 1.4 H Estimated GFR/1.73 m2 35.91 Glucose 148 H Calcium 9.3 Magnesium 2.4 Total Bilirubin 0.4 AST 22 ALT 20 Alkaline Phosphatase 43 L Troponin I < 0.05 Total Protein 6.8 Albumin 3.7 Urine Color Urine Clarity Urine pH Ur Specific [place] Urine Protein Urine Ketones Urine Blood Urine Nitrite Urine Bilirubin Urine Urobilinogen Ur Leukocyte Esterase Urine RBC Urine WBC Ur Epithelial Cells Urine Crystals Urine Bacteria Urine Mucus Ur Culture Indicated? Urine Glucose Urine Opiates Screen Urine Methadone Screen Ur Barbiturates Screen Ur Tricyclics Screen Ur Amphetamines Screen U Benzodiazepines Scrn Urine Cocaine Screen Ur THC Screen Ethyl Alcohol < 3.0 COVID-19 Source 12/22/20 12/22/20 12/22/20 17:23 17:38 17:38 WBC 7.48 RBC 3.99 Hgb 11.9 Hct 36.7 MCV 92.0 MCH 29.8 MCHC 32.4 RDW 13.1 Plt Count 169 MPV 11.5 H Immature Gran % 0.1 Neutrophils % 45.7 Lymphocytes % 45.5 Monocytes % 6.3 Eosinophils % 1.9 Basophils % 0.5 Nucleated RBC % 0 Absolute Neutrophils 3.42 Absolute Lymphocytes 3.40 Absolute Monocytes 0.47 Absolute Eosinophils 0.14 Absolute Basophils 0.04 Sodium Potassium Chloride Carbon Dioxide Anion Gap BUN Creatinine Estimated GFR/1.73 m2 Glucose Calcium Magnesium Total Bilirubin AST ALT Alkaline Phosphatase Troponin I Total Protein Albumin Urine Color Yellow Urine Clarity Sl Cloudy Urine pH 7.5 Ur Specific [place] 1.020 Urine Protein Negative Urine Ketones Negative Urine Blood Trace-intact H Urine Nitrite Positive H Urine Bilirubin Negative Urine Urobilinogen 0.2 Ur Leukocyte Esterase Negative Urine RBC 0-2 Urine WBC 10-20 H Ur Epithelial Cells Negative Urine Crystals Negative Urine Bacteria Packed Urine Mucus Negative Ur Culture Indicated? Yes Urine Glucose Negative Urine Opiates Screen Negative Urine Methadone Screen Negative Ur Barbiturates Screen Negative Ur Tricyclics Screen Negative Ur Amphetamines Screen Negative U Benzodiazepines Scrn Negative Urine Cocaine Screen Negative Ur THC Screen Negative Ethyl Alcohol COVID-19 Source 12/22/20 17:44 WBC RBC Hgb Hct MCV MCH MCHC RDW Plt Count MPV Immature Gran % Neutrophils % Lymphocytes % Monocytes % Eosinophils % Basophils % Nucleated RBC % Absolute Neutrophils Absolute Lymphocytes Absolute Monocytes Absolute Eosinophils Absolute Basophils Sodium Potassium Chloride Carbon Dioxide Anion Gap BUN Creatinine Estimated GFR/1.73 m2 Glucose Calcium Magnesium Total Bilirubin AST ALT Alkaline Phosphatase Troponin I Total Protein Albumin Urine Color Urine Clarity Urine pH Ur Specific [place] Urine Protein Urine Ketones Urine Blood Urine Nitrite Urine Bilirubin Urine Urobilinogen Ur Leukocyte Esterase Urine RBC Urine WBC Ur Epithelial Cells Urine Crystals Urine Bacteria Urine Mucus Ur Culture Indicated? Urine Glucose Urine Opiates Screen Urine Methadone Screen Ur Barbiturates Screen Ur Tricyclics Screen Ur Amphetamines Screen U Benzodiazepines Scrn Urine Cocaine Screen Ur THC Screen Ethyl Alcohol COVID-19 Source Nasal/Nares Last Vital Signs Temp 36.7 C 12/22/20 17:17 Pulse 78 12/22/20 17:17 Resp 24 12/22/20 17:17
[2020-12-22 19:49] LABS: COVID-19 PCR Negative (Negative)
--- OUTSIDE RECORDS SUMMARY | 2020-12-22 20:37 | XMS_ITS ---
:1935 Author Organization [facility] Address [address] [place] [address] Care Team Providers Name Role Phone Willis Lala Unavailable Unavailable PROBLEMS Type Condition ICD9-CM Code VDO33-RO Code Onset Condition SNO MED Code Dates Status Problem Ingrown toenail L60.0 Active 4002 31664 Problem Onychomycosis B35.1 Active 972466 008 ALLERGIES No Known Allergies ENCOUNTERS Encounter Location Date Diagnosis [facility] May, In[place] wn to[place] L60[address] [place] [address] Onychomycos is B35.1 [facility] Jan, [place]n [place]enail [place] [place] [address] Onychomycos is B35.1 [facility], Jul, Ingro wn toenail L60.0 ; [place] [address] Onychomycosis B3 5.1 and Toe pain, bilateral M79.674 [facility], Feb, Ingro wn toenail L60.0 ; [place] [address] Onychomycosis B3 5.1 and Toe pain, bilateral M79.674 [facility], Nov, Ingro wn toenail L60.0 ; [place] [address] Onychomycosis B3 5.1 and Toe pain, bilateral M79.674 [id number], Sep, Toe p ain, right M79.674 ; [place] [address] Ingrown toenail L60.0 and Onychomycosis B3 5.[address] [facility], [place] [address] IMMUNIZATIONS No Known Immunizations SOCIAL HISTORY Qualifiers [...] concerns ,09/22 sm- Records request Insurance Providers [facility] Member Patient Patient Patient Patient Patient Subscriber Subscriber Subscriber Group Insurance Plan Plan Plan Plan ID Relationship Address Phone Name Date of ID Name Date of No Type Insurance Insurance Insurance Coverage to Subscriber Address Phone Name Dates MEDICARE [address] MEDICARE self JIMBO [id number] [facility] [id number] MEDICARE [address] MEDICARE self [place]IMBO [id number] [facility] [id number] SELF [address] SELF PAY self [place]IMBO [id number] [employer] [employer] [place] [address] SELF PAY self [place]IM[place] [id number] [place] [employer] [place] [address] INSURANCE [address] [place] [id number] G[address] [place] [facility] [id number] SELF PAY self [place]IM[place] [id number] NO [employer] [place] [address] INSURANCE MEDICAL (GENERAL) HISTORY Type Description Date Medical History Essential primary hypertension Medical History Insomnia, unspecified Medical History Unspecified dementia without behavioral disturbance Surgical History tonsillectomy Surgical History right broken knee Hospitalization History breathing trouble/heart attck while in hospital mar 2019 [facility]
[2020-12-22 21:03] VITALS: BP 157/91; PULSE 74; RESP 16; TEMP 36.4; O2SAT 97
[2020-12-22] MEDS: Celecoxib 200 MG CAP PO (21:31)
[2020-12-22] MEDS: Magnesium Oxide 400 MG TAB PO (21:32)
[2020-12-22] MEDS: Rosuvastatin 10 MG TAB 20 MG PO (21:32)
[2020-12-22] MEDS: Heparin 5,000 UNITS/ML VIAL 5000 UNITS SC (21:33)
[2020-12-22 22:45] LABS: Troponin I < 0.05 ng/mL (<0.06)
[2020-12-22 23:00] VITALS: BP 151/96; PULSE 72; RESP 16; TEMP 35.5; O2SAT 97
[2020-12-23] MEDS: Normal Saline 1,000 ML 125 ML IV (00:34)
[2020-12-23] MEDS: Heparin 5,000 UNITS/ML VIAL 5000 UNITS SC ×2 (03:44→15:06)
[2020-12-23 03:45] VITALS: BP 162/84; PULSE 79; RESP 17; TEMP 36.4; O2SAT 95
[2020-12-23 06:39] LABS: Abs Immature Grans 0.02 10^3/uL (0.0-0.06); Absolute Basophil Count 0.03 10^3/uL (0.0-0.2); Absolute Eosinophil Count 0.08 10^3/uL (0.0-0.7); Absolute Lymphocyte Count 2.09 10^3/uL (1.2-3.4); Absolute Monocyte Count 0.52 10^3/uL (0.1-0.8); Absolute Neutrophil Count 4.51 10^3/uL (1.2-6.7); Basophils % 0.4; Eosinophils % 1.1; HCT 41.4 % (36.0-46.0); HGB 12.7 g/dL (11.2-15.7); Immature Grans % 0.3; Lymphocytes % 28.8; MCH 28.8 pg (27.0-33.0); MCHC 30.7 % (32.0-36.0); MCV 93.9 fL (80-95); MPV 11.7 fL (8.0-11.0); Monocytes % 7.2; Neutrophils % 62.2; Nucleated RBC 0 %; Platelet Count 149 10^3/uL (130-400); RBC 4.41 10^6/uL (3.93-5.22); WBC 7.25 10^3/uL (4.4-10.8)
[2020-12-23 07:02] LABS: ALT 17 U/L (14-59); AST 22 U/L (15-37); Albumin 3.8 g/dL (3.4-5.0); Alkaline Phosphatase 46 U/L (46-116); Anion Gap 10.6 mmol/L (3-11); BUN 23 mg/dL (7-18); Bilirubin, Total 0.4 mg/dL (0.2-1.0); CO2 25.4 mmol/L (21.0-32.0); CREATININE 1.2 mg/dL (0.55-1.02); Calcium 9.5 mg/dL (8.5-10.1); Chloride 109 mmol/L (98-107); Glucose 116 mg/dL (74-106); Sodium 145 mmol/L (136-145); Total Protein 7.2 g/dL (6.4-8.2)
[2020-12-23] MEDS: QUEtiapine 100 MG TAB PO (07:36)
[2020-12-23] MEDS: Pantoprazole 40 MG TABCR PO (07:36)
[2020-12-23] MEDS: Celecoxib 200 MG CAP PO ×2 (07:36→21:49)
[2020-12-23] MEDS: Multivitamin TAB 1 TAB PO (07:36)
[2020-12-23] MEDS: Lisinopril 5 MG TAB 2.5 MG PO (07:36)
[2020-12-23] MEDS: Aspirin E.C. 81 MG TABEC PO (07:36)
--- NOTE | 2020-12-23 09:04 | INITIAL_ITS ---
- If Service Date Differs Date of service: 12/23/20 Time of Service: 09:04 Care Management Initial Assess REASON FOR HOSPITALIZATION:: AMS, dementia PAST MEDICAL HISTORY/PAST SURGICAL HISTORY:: Medical History . Aching leg syndrome. qHS, 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 B/L. No claudication complaints. [ ] Mag, Becca. Age-related osteoporosis without current pathological fracture. Alzheimer's dementia. Ankle weakness. Asthma. DNI (do not intubate). DNR (do not resuscitate). GERD (gastroesophageal reflux disease). Hyperlipidemia. Hypertension. IT band syndrome. Lateral pain of right hip. Lidocaine patches helped .. now pain is more in thigh vs lateral leg (PainStop helping), 07/17/19. Obesity. Obstructive sleep apnea. Osteoarthritis. Palliative care patient. Physical deconditioning. POLST (Physician Orders for Life-Sustaining Treatment). Right hip pain. Right knee pain. Right shoulder pain. Syncope. Trochanteric bursitis, right hip. Unspecified dementia without behavioral disturbance. Unsteady gait. Cane/walker. Vitamin D deficiency. Weight gain. Surgical History . History of appendectomy. Status post tonsillectomy and adenoidectomy PREVIOUS FUNCTIONAL STATUS/SOCIAL/FAMILY SUPPORTS:: Annmarie resides with her , Maykel and their cat in an apartment in [place], [place]. The couple has four adult children who are all supportive and well involved. Annmarie is now retired but has had many occupations . 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 Annmarie did the bookeeping as well as some of the driving.Annmarie has been diagnosed with dementia and struggles with short term memory issues. She no longer drives but manages ADLs within the home. She including cooking, laundry and cleaning. She and Maykel rewceive meals on Wheels and they have some help at home but it is not clear exactly which agence supplies the help. Annmarie uses a cane and a walker for ambulatory assistance. CURRENT FUNCTIONAL STATUS:: Annmarie was sitting up in a chair when met with her. Her Maykel was visiting at the time and was very helpful and forthcoming with information. he shared that they currently receive help at home, but need more. he said that it is in process but is not sure which agency is assisting them. ADVANCE DIRECTIVES:: On file. Bonnie STEWART Has patient been provided with info about the portal/API?: Yes Did the patient sign up for the portal?: No CODE STATUS:: DNR/DNI INSURANCE COVERAGE / FINANCIAL ISSUES:: Medicare. [employer] CURRENT HOME/COMMUNITY SERVICES/EQUIPMENT:: Annmarie receives Meals on Wheels and has some home assistance. She uses a walker and a cane PRIMARY CARE PHYSICIAN:: Lazara Stock POTENTIAL DISCHARGE NEEDS:: Follow up with PCP and plan of care PATIENT/FAMILY EDUCATION NEEDS:: Review of discharge instructions, activity, medications, follow up plan Ask Me Three TRANSPORTATION:: via private vehicle with family PLAN:: Annmarie will likely be discharged home with a resumption of services. She will follow up with her PCP and plan of care and transport with family. CM will continue to follow and assess for discharge needs.
[2020-12-23 10:17] VITALS: BP 174/97; PULSE 87; RESP 20; TEMP 36.8; O2SAT 97
[2020-12-23 12:46] VITALS: BP 131/81; PULSE 80; RESP 20; TEMP 36.7; O2SAT 97
--- NOTE | 2020-12-23 15:05 | PGE_ITS ---
Date of Service Date of service: 12/23/20 Time of Service: 15:05 Assessment and Plan Assessment and plan (1) Acute UTI: Status: Acute Assessment and plan: cultures pending, received ceftriaxone in ED. now without IV access d/t confusion. will change to po fosfomycin (one dose) (2) Alzheimer's dementia: Status: Chronic Assessment and plan: This is a chronic problem with patient on treatment and being cared for by her . anticipate acute delirium outside of her usual environment. would be in her best interest to return to home erika Physical therapy and occupational therapy if necessary though patient may not be rehab level and may return baseline with simple treatment of UTI. Patient is a DNR/DNI. discussed with Dr Gonzalez Qualifiers: Alzheimer's disease onset: late-onset Dementia behavioral disturbance: with behavioral disturbance Qualified Code(s): G30.1 - Alzheimer's disease with late onset; F02.81 - Dementia in other diseases classified elsewhere with behavioral disturbance Subjective Subjective Patient reports: afebrile Interval history since last seen: confused and agitated all night long. pulled out 4 IV's. taking some PO and meds at times. Exam Const General: no acute distress Nutritional Appearance: obese Orientation: alert, awake and oriented to person HENND Head: normal to inspection, normocephalic and atraumatic Mouth: oral mucosae normal Resp Effort & Inspection: normal respiratory effort Cardio Rate: regular rate Rhythm: regular rhythm GI Inspection: normal to inspection Palpation: soft Auscultation: normal bowel sounds Skin General skin exam: no rashes or lesions noted Neuro General: patient alert, patient awake and no focal motor deficits Motor: muscle tone normal throughout Extrem General: normal to inspection and full ROM Objective Last Vital Signs Temp 36.7 C 12/23/20 12:46 Pulse 80 12/23/20 12:46 Resp 20 12/23/20 12:46 BP 131/81 12/23/20 12:46 Pulse Ox 97 12/23/20 12:46 Laboratory Results - last 24 hr 12/22/20 12/22/20 12/22/20 17:23 17:23 17:23 WBC RBC Hgb Hct MCV MCH MCHC RDW Plt Count MPV Immature Gran % Neutrophils % Lymphocytes % Monocytes % Eosinophils % Basophils % Nucleated RBC % Absolute Neutrophils Absolute Lymphocytes Absolute Monocytes Absolute Eosinophils Absolute Basophils Sodium 142 Potassium 4.2 Chloride 108 H Carbon Dioxide 25.5 Anion Gap 8.5 BUN 31 H Creatinine 1.4 H Estimated GFR/1.73 m2 35.91 Glucose 148 H Calcium 9.3 Magnesium 2.4 Total Bilirubin 0.4 AST 22 ALT 20 Alkaline Phosphatase 43 L Troponin I < 0.05 Total Protein 6.8 Albumin 3.7 TSH Urine Color Urine Clarity Urine pH Ur Specific [place] Urine Protein Urine Ketones Urine Blood Urine Nitrite Urine Bilirubin Urine Urobilinogen Ur Leukocyte Esterase Urine RBC Urine WBC Ur Epithelial Cells Urine Crystals Urine Bacteria Urine Mucus Ur Culture Indicated? Urine Glucose Urine Opiates Screen Urine Methadone Screen Ur Barbiturates Screen Ur Tricyclics Screen Ur Amphetamines Screen U Benzodiazepines Scrn Urine Cocaine Screen Ur THC Screen Ethyl Alcohol < 3.0 COVID-19 Source SARS-CoV-2 (PCR) 12/22/20 12/22/20 12/22/20 17:23 17:38 17:38 WBC 7.48 RBC 3.99 Hgb 11.9 Hct 36.7 MCV 92.0 MCH 29.8 MCHC 32.4 RDW 13.1 Plt Count 169 MPV 11.5 H Immature Gran % 0.1 Neutrophils % 45.7 Lymphocytes % 45.5 Monocytes % 6.3 Eosinophils % 1.9 Basophils % 0.5 Nucleated RBC % 0 Absolute Neutrophils 3.42 Absolute Lymphocytes 3.40 Absolute Monocytes 0.47 Absolute Eosinophils 0.14 Absolute Basophils 0.04 Sodium Potassium Chloride Carbon Dioxide Anion Gap BUN Creatinine Estimated GFR/1.73 m2 Glucose Calcium Magnesium Total Bilirubin AST ALT Alkaline Phosphatase Troponin I Total Protein Albumin TSH Urine Color Yellow Urine Clarity Sl Cloudy Urine pH 7.5 Ur Specific [place] 1.020 Urine Protein Negative Urine Ketones Negative Urine Blood Trace-intact H Urine Nitrite Positive H Urine Bilirubin Negative Urine Urobilinogen 0.2 Ur Leukocyte Esterase Negative Urine RBC 0-2 Urine WBC 10-20 H Ur Epithelial Cells Negative Urine Crystals Negative Urine Bacteria Packed Urine Mucus Negative Ur Culture Indicated? Yes Urine Glucose Negative Urine Opiates Screen Negative Urine Methadone Screen Negative Ur Barbiturates Screen Negative Ur Tricyclics Screen Negative Ur Amphetamines Screen Negative U Benzodiazepines Scrn Negative Urine Cocaine Screen Negative Ur THC Screen Negative Ethyl Alcohol COVID-19 Source SARS-CoV-2 (PCR) 12/22/20 12/22/20 12/22/20 17:44 22:10 22:10 WBC RBC Hgb Hct MCV MCH MCHC RDW Plt Count MPV Immature Gran % Neutrophils % Lymphocytes % Monocytes % Eosinophils % Basophils % Nucleated RBC % Absolute Neutrophils Absolute Lymphocytes Absolute Monocytes Absolute Eosinophils Absolute Basophils Sodium Potassium Chloride Carbon Dioxide Anion Gap BUN Creatinine Estimated GFR/1.73 m2 Glucose Calcium Magnesium Total Bilirubin AST ALT Alkaline Phosphatase Troponin I < 0.05 Total Protein Albumin TSH 1.00 Urine Color Urine Clarity Urine pH Ur Specific [place] Urine Protein Urine Ketones Urine Blood Urine Nitrite Urine Bilirubin Urine Urobilinogen Ur Leukocyte Esterase Urine RBC Urine WBC Ur Epithelial Cells Urine Crystals Urine Bacteria Urine Mucus Ur Culture Indicated? Urine Glucose Urine Opiates Screen Urine Methadone Screen Ur Barbiturates Screen Ur Tricyclics Screen Ur Amphetamines Screen U Benzodiazepines Scrn Urine Cocaine Screen Ur THC Screen Ethyl Alcohol COVID-19 Source Nasal/Nares SARS-CoV-2 (PCR) Negative 12/23/20 12/23/20 06:10 06:10 WBC 7.25 RBC 4.41 Hgb 12.7 Hct 41.4 MCV 93.9 MCH 28.8 MCHC 30.7 L RDW 13.0 Plt Count 149 MPV 11.7 H Immature Gran % 0.3 Neutrophils % 62.2 Lymphocytes % 28.8 Monocytes % 7.2 Eosinophils % 1.1 Basophils % 0.4 Nucleated RBC % 0 Absolute Neutrophils 4.51 Absolute Lymphocytes 2.09 Absolute Monocytes 0.52 Absolute Eosinophils 0.08 Absolute Basophils 0.03 Sodium 145 Potassium 4.0 Chloride 109 H Carbon Dioxide 25.4 Anion Gap 10.6 BUN 23 H Creatinine 1.2 H Estimated GFR/1.73 m2 42.90 Glucose 116 H Calcium 9.5 Magnesium Total Bilirubin 0.4 AST 22 ALT 17 Alkaline Phosphatase 46 Troponin I Total Protein 7.2 Albumin 3.8 TSH Urine Color Urine Clarity Urine pH Ur Specific [place] Urine Protein Urine Ketones Urine Blood Urine Nitrite Urine Bilirubin Urine Urobilinogen Ur Leukocyte Esterase Urine RBC Urine WBC Ur Epithelial Cells Urine Crystals Urine Bacteria Urine Mucus Ur Culture Indicated? Urine Glucose Urine Opiates Screen Urine Methadone Screen Ur Barbiturates Screen Ur Tricyclics Screen Ur Amphetamines Screen U Benzodiazepines Scrn Urine Cocaine Screen Ur THC Screen Ethyl Alcohol COVID-19 Source SARS-CoV-2 (PCR)
[2020-12-23] MEDS: Fosfomycin Tromethamine 3 GM PACKET PO (16:02)
--- NOTE | 2020-12-23 16:23 | PT.INIE ---
Date of service: 12/23/20 Time of Service: 16:23 PT Notes Visit Reasons: AMS, UTI, Dementia Physical Therapy Inpatient Initial Evaluation Date: 12/23/2020 Referring Doctor: Edmond Richard MD PT Orders: PT CONSULT: Limited ability Precautions: Fall. Standard. Activity as tolerated. Patient Profile/Admitting Diagnosis: Annmarie is an 85-year-old female with Alzheimer's type dementia who presented to the ED on 12/22/2020 due to and an unresponsive episode. Patient is diagnosed with altered mental status and acute urinary tract infection. 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 B/L. No claudication complaints. [ ] Mag, Becca Age-related osteoporosis without current pathological fracture Alzheimer's dementia Ankle weakness Asthma DNI (do not intubate) DNR (do not resuscitate) GERD (gastroesophageal reflux disease) Hyperlipidemia Hypertension IT band syndrome Lateral pain of right hip Lidocaine patches helped .. now pain is more in thigh vs lateral leg (PainStop helping), 07/17/19 Obesity Obstructive sleep apnea Osteoarthritis Palliative care patient Physical deconditioning POLST (Physician Orders for Life-Sustaining Treatment) Right hip pain Right knee pain Right shoulder pain Syncope Trochanteric bursitis, right hip Unspecified dementia without behavioral disturbance Unsteady gait Cane/walker Vitamin D deficiency Weight gain Surgical History History of appendectomy Status post tonsillectomy and adenoidectomy Social History/Home Situation: Lives with who is with her 07/11. They both get meals on wheels. Per , uses a FWW at baseline independently inside the house. Equipment Owned/DME: 4WW Subjective: Mildly confused. Very pleasant. Denies pain, headche, and dizziness. Wondering why she is not at home. Objective: General Observation: Seated on bedide recliner. and CADRE present in room throughout evaluation. Mental Status: Alert . Able to follow single-step commands. Very calm and apporachable. Pain: Denies ROM: Right Upper Extremity: Shoulder Flexion WFL. Shoulder abduction WFL. Elbow flexion WFL. Wrist flexion WFL. Functional opening and closing of hand WFL. Left Upper Extremity: Shoulder Flexion WFL. Shoulder abduction WFL. Elbow flexion WFL. Wrist flexion WFL. Functional opening and closing of hand WFL. Right Lower Extremity: Hip flexion WFL. Hip abduction WFL. Knee flexion WFL. Ankle dorsiflexion WFL. Ankle plantarflexion WFL. Left Lower Extremity: Hip flexion WFL. Hip abduction WFL. Knee flexion WFL. Ankle dorsiflexion WFL. Ankle plantarflexion WFL. Strength: Right Upper Extremity: Shoulder flexors 4/5. Shoulder abductors 4/5. Elbow flexors 5/5. Elbow extensors 5/5. Promotions Associate strong. Left Upper Extremity: Shoulder flexors 4/5. Shoulder abductors 4/5. Elbow flexors 5/5. Elbow extensors 5/5. Promotions Associate strong. Right Lower Extremity: Hip flexors 4/5. Hip abductors 4/5. Knee flexors 4/5. Knee extensors 4/5. Ankle dorsiflexors 4/5. Ankle plantarflexors 4/5. Left Lower Extremity: Hip flexors 4/5. Hip abductors 4/5. Knee flexors 4/5. Knee extensors 4/5. Ankle dorsiflexors 4/5. Ankle plantarflexors 4/5. Bed Mobility/Transfers: Rolling supervision Supine to sit supervision Sit to supine supervision Sit to stand supervision Stand to sit with supervision Bed to reclining chair supervision Reclining chair to bed supervision Gait: Instructed patient with level surface ambulation of 200 feet x 2 requiring stand by assist. Coreen decreased. Step height decreased. Step length decreased. Balance: Static Sitting: Normal Dynamic Sitting: Normal Static Standing: Fair Dynamic Standing: Fair Special Tests: Mobility Limitations Standardized Measure [facility] 6 clicks Basic Mobility Inpatient Short Form: Raw Score: 23 CMS Score: 11% deficit 4-Stage Balance Test: Able to do feet together and semi-tandem positions for 10 seconds but does not feel safe with full tandem and one-legged stance. Informed Consent/Education: Patient was instructed in purpose of PT consult and plan of care. Agreeable to proceed with established PT POC to achieve personal goals. Assessment: Patient requires stand by assist for all mobility ADL performance to reduce fall risk. Patient presents with clinical signs and symptoms consistent with current/admitting diagnoses that have resulted to mobility limitations, gait instability, generalized weakness, and overall ADL decline as demonstrated by the following impairment level findings: 1. Decreased strength to B UE/LE major muscle groups 2. Impaired sitting/standing balance 3. Impaired activity tolerance 4. Shortness of breath 5. Impaired safety awareness Impairments are contributing to the following functional limitations: 1. Difficulty with ambulation without assistive device and physical assistance 2. Increased completion time for mobility ADL performance 3. Increased risk for falls 4. Difficulty with managing steps alone safely Patient is assessed as a 75765 moderate complexity based on the following: History: 85-year-old female with past medical history as indicated above Examination: Demonstrable impairment in strength, balance, and mobility level with underlying impairments and functional limitations as exhibited above as well as deficit score of 11% utilizing the [facility] Mobility Inpatient Short Form Presentation: Evolving Decision Makin moderate complexity Goals: Goals X1 week 1. Supine-Sit independent 2. Sit-Supine independent 3. Sit-Stand independent 4. Stand-Sit independent with FWW 5. Bed-Chair independent with FWW 6. Chair-Bed independent with FWW 7. Independent gait on level surface with use of FWW for at least 300 feet without report of pain nor dyspnea 8. Good static and dynamic standing balance/tolerance Plan of Care/Treatment Plan: 1-2x/day, 7 days/week x 1 week. Plan of care has been reviewed with the PHONE SCREENER providing the service under Physical Therapy direction. Initiate Physical Therapy intervention for pain management as needed, strengthening, bed mobility, transfers, gait, stairs, balance training, and use of assistive device. DISCHARGE RECOMMENDATIONS: Patient will benefit from home health PT services in order to progress mobility level using least restrictive assistive ambulatory device, assess home safety, identify additional equipment needs, and establish a functional maintenance program that will increase ability of patient to remain at home. TREATMENT CODE/TIME: 61694 x 20 minutes, 58530 x 15 minutes beginning at 4:23 PM. Thank you for the opportunity to participate in the care of this patient. Carmen Means PT, DPT, CLT [facility] [place], [place]
--- NOTE | 2020-12-23 19:17 | NUR.NOTE ---
Nursing Note: Patient's provided other phone number to reach him if needed: [phone]
[2020-12-23] MEDS: Rosuvastatin 10 MG TAB 20 MG PO (21:48)
[2020-12-23] MEDS: Memantine 5 MG TAB 10 MG PO (21:48)
[2020-12-23] MEDS: QUEtiapine 25 MG TAB PO (21:49)
[2020-12-23] MEDS: Magnesium Oxide 400 MG TAB PO (21:49)
[2020-12-24 00:13] VITALS: BP 146/92; PULSE 79; RESP 18; TEMP 36.6; O2SAT 95
[2020-12-24] MEDS: Heparin 5,000 UNITS/ML VIAL 5000 UNITS SC ×2 (05:16→11:43)
[2020-12-24 07:32] VITALS: BP 143/80; PULSE 79; RESP 20; TEMP 36.6; O2SAT 97
[2020-12-24] MEDS: Memantine 5 MG TAB 10 MG PO (08:04)
[2020-12-24] MEDS: Pantoprazole 40 MG TABCR PO (08:05)
[2020-12-24] MEDS: Celecoxib 200 MG CAP PO (08:05)
[2020-12-24] MEDS: Cyanocobalamin 500 MCG TAB 1000 MCG PO (08:05)
[2020-12-24] MEDS: Multivitamin TAB 1 TAB PO (08:05)
[2020-12-24] MEDS: Lisinopril 5 MG TAB 2.5 MG PO (08:05)
[2020-12-24] MEDS: QUEtiapine 100 MG TAB PO (08:06)
[2020-12-24] MEDS: Aspirin E.C. 81 MG TABEC PO (08:06)
--- NOTE | 2020-12-24 08:37 | PDOC.CMPRO ---
- If Service Date Differs Date of service: 12/24/20 Time of Service: 08:37 Care Management Progress Note S/O: A:Annmarie is an 85 year old woman admitted with AMS and a UTI on 12/22/20 P:Annmarie will likely be discharged home with a resumption of services. She will follow up with her PCP and plan of care and transport with family. CM will continue to follow and assess for discharge needs.
[2020-12-24 10:43] VITALS: O2SAT 98
--- NOTE | 2020-12-24 12:59 | PT.INTREAT ---
Date of service: 12/24/20 Time of Service: 10:47 PT Notes Visit Reasons: AMS, UTI, Dementia Inpatient Physical Therapy Treatment Note [facility] Date: 12/24/2020 PRECAUTIONS: Dementia, activity as tolerated SUBJECTIVE: Annmarie is pleasant and agreeable to participating in PT. She states it feels good to get up and move around. OBJECTIVE: PAIN: No c/o pain BED MOBILITY/TRANSFERS Supine-sit: I Sit-stand: I Stand-sit: I GAIT Assistive Device: 4WW Weight bearing: Full Assist: S Distance: ~600' Deviation: Slow pacing, short step height/length STAIRS: Up/down 3x4 and 2x6 using B rails and a step-over pattern with supervision ASSESSMENT: Patient tolerated session well without complaint. She was able to tolerate a progression in gait distance with 4WW support and supervision. PLAN: Patient to discharge later today, per provider. Patient to follow up with PT. TREATMENT CODE/TIME: 20 minutes; 61692 (10:47)
--- NOTE | 2020-12-24 13:21 | W.PM.DS.N ---
Date of service: 12/24/20 Time of Service: 13:21 DS: Diagnosis Discharge Diagnosis (1) Acute UTI: Start date: 12/24/20 Start time: 13:21 Status: Acute Asessment and Plan: Growing gram negative rods, last time she grew e. coli. given dose of fosfoamycin, feeling well. Per PT can go home with HH PT, will give second dose script for in 2 days will discharge home. (2) Alzheimer's dementia: Start date: 12/24/20 Start time: 13:22 Status: Chronic Asessment and Plan: Continue safety, best to be home as being in the hospital exacerbates confusion. discussed with Dr. Gonzalez. Discharge Plan Disposition Patient Disposition: HOME Condition: Good Discharge Details Reason For Visit: AMS, UTI, Dementia Admit Date/Time: 12/22/20 19:25 Admit Provider: Edmond Richard Attending Provider: Edmond Richard Primary Care Provider: Lazara Stock Hospital Course Hospital Course: 85-year-old female patient with a history of dementia. Her evaluation was essentially negative except for UTI with positive nitrates, she was placed on rocephin. She was admitted to m/s obs for further management. Urine cx revealed gram negative rods, she lost her IV and was given a dose of IV fosfamycin. She was found to have e. coli last admission soto sensitive. PT cleared her for home with Home health PT. She appears to be at baseline mentation. She is being discharged with a second dose of fosfamycin to take tomorrow and HH PT. Home Meds and New Rx's Prescriptions: New fosfomycin tromethamine 3 gram packet 3 g PO ONCE Qty: 1 RF: 0 fosfomycin tromethamine 3 gram packet 3 g PO ONCE 1 Days Qty: 1 RF: 0 Continued alendronate 70 mg tablet 70 mg PO QWEEK Qty: 14 RF: 3 aspirin 81 mg tablet,delayed release (DR/EC) 81 mg PO DAILY Qty: 90 RF: 3 multivitamin Tablet 1 tab PO DAILY Qty: 90 RF: 3 pantoprazole [Protonix] 40 mg tablet,delayed release (DR/EC) 40 mg PO DAILY Qty: 90 RF: 3 memantine [Namenda] 10 mg tablet 10 mg PO BID Qty: 180 RF: 2 rosuvastatin [Crestor] 20 mg tablet 20 mg PO HS Qty: 90 RF: 3 celecoxib [Celebrex] 200 mg capsule 200 mg PO BID Qty: 180 RF: 3 cholecalciferol (vitamin D3) 25 mcg (1,000 unit) tablet 25 mcg PO BID Qty: 90 RF: 3 lisinopril 2.5 mg tablet 2.5 mg PO DAILY Qty: 90 RF: 3 cyanocobalamin (vitamin B-12) 1,000 mcg tablet 1,000 mcg PO DAILY Qty: 90 RF: 3 blister angel PO RF: 0 quetiapine 50 mg tablet 100 mg PO DAILY Qty: 90 RF: 3 magnesium oxide 500 mg tablet 500 mg PO QHS Qty: 90 RF: 3 gabapentin 100 mg capsule 200 mg PO QHS Qty: 180 RF: 1 Discharge Instructions Instructions: Urinary Tract Infection in Older Adults (DC) Additional Instructions: Take antibiotic tomorrow Take yogurt daily for 30 days Follow up with your primary provider as needed. Activity:: Activity as Tolerated Equipment/Supplies:: No Equipment Needed Diet:: As Tolerated Discharge Orders Discharge Orders: Discharge Order (Routine); Ordered 12/24/20 Ordered By: Calista Conde DS: Summary Time Spent with Patient providing and/or coordinating discharge services: Less than 30 minutes Status at Discharge Functional status at discharge: uses cane/walker Overall status at discharge: patient is not back to baseline Mental Status: other Speech and Movement: speech and movement normal Mood: other Affect: normal affect and other Exam Const General: no acute distress Nutritional Appearance: obese Orientation: alert, awake and oriented to person [facility] Head: normal to inspection, normocephalic and atraumatic Mouth: oral mucosae normal Resp Effort & Inspection: normal respiratory effort Cardio Rate: regular rate Rhythm: regular rhythm GI Inspection: normal to inspection Palpation: soft Auscultation: normal bowel sounds Skin General skin exam: no rashes or lesions noted Neuro General: patient alert, patient awake and no focal motor deficits Motor: muscle tone normal throughout Extrem General: normal to inspection and full ROM Psych Mental Status: other Speech and Movement: speech and movement normal Mood: other Affect: normal affect and other DS: Data Vitals/I&O Vitals and I&O: Vital Signs Temperature 36.6 C 12/24/20 07:32 Temperature Source Skin 12/24/20 07:32 Pulse 79 12/24/20 07:32 Pulse Rhythm Regular 12/24/20 10:43 Respiratory Rate 20 12/24/20 07:32 Respiratory Effort 12/24/20 10:43 Respiratory Depth Normal 12/24/20 10:43 Respiratory Pattern Normal 12/24/20 10:43 Blood Pressure 143/80 H 12/24/20 07:32 Blood Pressure Position Supine 12/22/20 17:17 Pulse Oximetry 98 12/24/20 10:43 Oxygen Delivery Method Room Air 12/24/20 10:43 Oxygen Flow Rate 0 12/24/20 10:43 Pain Level 0 12/24/20 10:43 Comment 12/23/20 03:45 Intake & Output 12/23/20 12/24/20 12/24/20 23:59 11:59 23:59 Intake Total 360 / 1281.25 240 / 240 Output Total 300 / 500 Balance 60 / 781.25 240 / 240 Weight 88.9 kg Intake: Oral 360 / 600 240 / 240 Output: Urine 300 / 500 Other: Urine Color Yellow Urine Appearance Clear Comment large void in toilet Voiding Methods Toilet Data Completed and Pending Completed studies during hospitalization [Text1]: Exam(s) XR CHEST 2V PA LATERAL EXAM: XR CHEST 2V PA LATERAL CLINICAL HISTORY: mental status change, ? syncope. TECHNIQUE: 2D digital imaging was performed. COMPARISON: CR,XR XR CHEST 2V PA LATERAL from 08/15/2020 FINDINGS: Cardiomegaly again noted. Tortuous descending thoracic aorta again noted. Tenting right hemidiaphragm again noted. Retrocardiac hiatal hernia again noted. Lungs are clear. No infiltrates nor pleural effusions. Exam(s) a CT:CT head wo Exam(s) CT HEAD WO EXAM: CT HEAD WO CLINICAL HISTORY: mental status change. TECHNIQUE: Imaging Protocol: Axial computed tomography images with coronal and sagittal reformatted images were created and reviewed COMPARISON: CT CT HEAD WO from 08/15/2020 FINDINGS: There are no skull fractures nor fluid in the visualized paranasal sinuses. There is no evidence of intracranial hemorrhage, mass effect, or shift of midline structures. There are no extra-axial fluid collections. The ventricles are not enlarged or shifted and there is no blood within the ventricular system nor within the basal cisterns. There is abundant bilateral relatively symmetrical periventricular hypodensity consistent chronic small vessel disease., similar to the previous study. IMPRESSION: No acute intracranial findings on this noninfused CT scan of the brain. Chronic small-vessel white matter ischemic changes, as was evident on the prior CT scan of 08/15/2020. 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 B/L. No claudication complaints. [ ] Mag, Becca Age-related osteoporosis without current pathological fracture Alzheimer's dementia Ankle weakness Asthma DNI (do not intubate) DNR (do not resuscitate) GERD (gastroesophageal reflux disease) Hyperlipidemia Hypertension IT band syndrome Lateral pain of right hip Lidocaine patches helped .. now pain is more in thigh vs lateral leg (PainStop helping), 07/17/19 Obesity Obstructive sleep apnea Osteoarthritis Palliative care patient Physical deconditioning POLST (Physician Orders for Life-Sustaining Treatment) Right hip pain Right knee pain Right shoulder pain Syncope Trochanteric bursitis, right hip Unspecified dementia without behavioral disturbance Unsteady gait Cane/walker Vitamin D deficiency Weight gain Surgical History History of appendectomy Status post tonsillectomy and adenoidectomy Family History Mother , age 85 or so Dementia Cancer Father , age 82 Sudden cardiac Son No problems noted. Son No problems noted. Daughter No problems noted. Daughter No problems noted. Sister Kyphosis History of vertebroplasty Compression fracture Brother No problems noted. 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 Pets and animals: Yes Sexually active: No Do you think of yourself as: straight/heterosexual Current gender identity: female What is your relationship status?: How often do you talk on the phone with friends or family?: three or more times per week How often do you get together with friends or relatives?: once per week Panel score (0-1 are the most socially isolated patients): 2 What type of physical activity do you participate in: walking and irregular exercise Duration: 15-30 minutes/day Special rodger needs: No Seatbelt use: always Working smoke detector in home: Yes Fire extinguisher in home: Yes Do you feel safe at home: Yes Do you feel safe in your relationship?: Yes
--- NOTE | 2020-12-24 13:38 | PDOC.HHF2F_ITS ---
Home Health Certification Home Health Certification: 1. Encounter Date and Reason I certify that Annmarie Nash was seen by Calista Conde on 12/24/20 and that I had a [id number] encounter with this patient that meets the physician face to face encounter requirements. 2. Clinical Findings Supporting Skilled Need and Homebound Status I certify that home health services are medically necessary, include either intermittent long term and/or physical/speech therapy, and that this patie nt is homebound in that absences from the home require considerable and taxing effort and are infrequent or of short duration, or are attributable to the need to receive medical care. [X] (a) Attached documentation from encounter provides clinical findings supporting skilled need and homebound status (including what assistance patient requires to leave the home). The encounter with the patient was in whole, or in part, for the following medical condition, which is the primary reason for home health care: AMS, UTI, Dementia Physical Therapy: Patient would benefit from HH PT for further strength and balance with gait stability and increasing ADL Homebound: Patient unable to leave home without assistance 3. Certification and Authentication I certify that I composed the above information based on my clinical judgement relating to this patient's medical condition and, if applicable, clinical findings communicated to me by the NPP or inpatient physician who performed the Home Health Referral. All further orders will be obtained through ___Esther Sweeney (Community Based Physician - PCP)
--- NOTE | 2020-12-24 15:40 | PDOC.CMDIS ---
- If Service Date Differs Date of service: 12/24/20 Time of Service: 15:41 LACE Index Scoring Tool - Questions: Length of Stay (in days): 2 Acuity (Admit via E.D.?): Yes E.D. Visits: 6 - Answers: Total Score: 9 Risk of Readmission: Low Risk Care Management Discharge Reason for Hospitalization: AMS, dementia Discharge Plan: Annmarie will likely be discharged home with a resumption of services. She will follow up with her PCP and plan of care and transport with family. CM will continue to follow and assess for discharge needs. Patient/Family Education Needs: Review of discharge instructions, activity, medications, follow up plan Ask Me Three
--- NOTE | 2020-12-28 17:40 | INDS_ITS ---
Date of service: 12/28/20 PT Notes Visit Reasons: AMS, UTI, Dementia Physical Therapy Inpatient Discharge Summary Date: 12/28/2020 Dates of Service: 12/23/2020 through 12/24/2020 This is a clinical summary of care provided for the duration of dates listed above. No charge was made in the completion of this documentation. Referring Doctor: Edmond Richard MD PT Orders: PT CONSULT: Limited ability Precautions: Fall. Standard. Activity as tolerated. Patient Profile/Admitting Diagnosis: Annmarie is an 85-year-old female with Alzheimer's type dementia who presented to the ED on 12/22/2020 due to and an unresponsive episode. Patient is diagnosed with altered mental status and acute urinary tract infection. 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 B/L. No claudication complaints. [ ] Mag, Becca Age-related osteoporosis without current pathological fracture Alzheimer's dementia Ankle weakness Asthma DNI (do not intubate) DNR (do not resuscitate) GERD (gastroesophageal reflux disease) Hyperlipidemia Hypertension IT band syndrome Lateral pain of right hip Lidocaine patches helped .. now pain is more in thigh vs lateral leg (PainStop helping), 07/17/19 Obesity Obstructive sleep apnea Osteoarthritis Palliative care patient Physical deconditioning POLST (Physician Orders for Life-Sustaining Treatment) Right hip pain Right knee pain Right shoulder pain Syncope Trochanteric bursitis, right hip Unspecified dementia without behavioral disturbance Unsteady gait Cane/walker Vitamin D deficiency Weight gain Surgical History History of appendectomy Status post tonsillectomy and adenoidectomy Social History/Home Situation: Lives with who is with her 07/11. They both get meals on wheels. Per , uses a FWW at baseline independently inside the house. Equipment Owned/DME: 4[employer] Subjective: NT. See most recent ENGINEERING TEST MECHANIC notes. Objective: General Observation: NT. See most recent ENGINEERING TEST MECHANIC notes. Mental Status: NT. See most recent ENGINEERING TEST MECHANIC notes. Pain: NT. See most recent ENGINEERING TEST MECHANIC notes. ROM: Right Upper Extremity: Shoulder Flexion WFL. Shoulder abduction WFL. Elbow flexion WFL. Wrist flexion WFL. Functional opening and closing of hand WFL. Left Upper Extremity: Shoulder Flexion WFL. Shoulder abduction WFL. Elbow flexion WFL. Wrist flexion WFL. Functional opening and closing of hand WFL. Right Lower Extremity: Hip flexion WFL. Hip abduction WFL. Knee flexion WFL. Ankle dorsiflexion WFL. Ankle plantarflexion WFL. Left Lower Extremity: Hip flexion WFL. Hip abduction WFL. Knee flexion WFL. Ankl e dorsiflexion WFL. Ankle plantarflexion WFL. Strength: Right Upper Extremity: Shoulder flexors 4/5. Shoulder abductors 4/5. Elbow flexors 5/5. Elbow extensors 5/5. Manager Community Development strong. Left Upper Extremity: Shoulder flexors 4/5. Shoulder abductors 4/5. Elbow flexors 5/5. Elbow extensors 5/5. Manager Community Development strong. Right Lower Extremity: Hip flexors 4/5. Hip abductors 4/5. Knee flexors 4/5. Knee extensors 4/5. Ankle dorsiflexors 4/5. Ankle plantarflexors 4/5. Left Lower Extremity: Hip flexors 4/5. Hip abductors 4/5. Knee flexors 4/5. Knee extensors 4/5. Ankle dorsiflexors 4/5. Ankle plantarflexors 4/5. Bed Mobility/Transfers: Rolling independent Supine to sit independent Sit to supine independent Sit to stand independent Stand to sit with supervision Bed to reclining chair supervision Reclining chair to bed supervision Gait: Instructed patient with level surface ambulation of 600 feet requiring supervision assist. Coreen decreased. Step height decreased. Step length decreased. Balance: Static Sitting: Normal Dynamic Sitting: Normal Static Standing: Fair Dynamic Standing: Fair Assessment: Patient requires supervision for all mobility ADL performance to reduce fall risk. Patient presents with clinical signs and symptoms consistent with current/admitting diagnoses that have resulted to mobility limitations, gait instability, generalized weakness, and overall ADL decline as demonstrated by the following impairment level findings: 1. Decreased strength to B UE/LE major muscle groups 2. Impaired sitting/standing balance 3. Impaired activity tolerance 4. Shortness of breath 5. Impaired safety awareness Impairments are contributing to the following functional limitations: 1. Difficulty with ambulation without assistive device 2. Increased completion time for mobility ADL performance 3. Increased risk for falls 4. Difficulty with managing steps alone safely Goals: Goals X1 week 1. Supine-Sit independent MET 2. Sit-Supine independent MET 3. Sit-Stand independent MET 4. Stand-Sit independent with FWW MET 5. Bed-Chair independent with FWW MET 6. Chair-Bed independent with FWW MET 7. Independent gait on level surface with use of FWW for at least 300 feet without report of pain nor dyspnea NOT MET 8. Good static and dynamic standing balance/tolerance NOT MET DISCHARGE RECOMMENDATIONS: Patient will benefit from home health PT services in order to progress mobility level using least restrictive assistive ambulatory device, assess home safety, identify additional equipment needs, and establish a functional maintenance program that will increase ability of patient to remain at home. TREATMENT CODE/TIME: DE Thank you for the opportunity to participate in the care of this patient. Carmen Means PT, DPT, CLT [facility] [place], [place]
== END 2020-12-24 14:33 | disposition home or self-care (01) ==
LOC: ER 19:06 → MS 20:36
PROVIDERS: Admitting Provider Family Medicine; Emergency Provider Emergency Medicine; PCP Student in an Organized Health Care Education/Training Program; Visit Provider Family Medicine
DX: N39.0 Urinary tract infection, site not specified (principal); F05 Delirium due to known physiological condition; G30.1 Alzheimer's disease with late onset; F02.81 Dementia in other diseases classified elsewhere, unspecified severity, with behavioral disturbance; M81.0 Age-related osteoporosis without current pathological fracture; Z66 Do not resuscitate; K21.9 Gastro-esophageal reflux disease without esophagitis; E78.5 Hyperlipidemia, unspecified; I10 Essential (primary) hypertension; M76.30 Iliotibial band syndrome, unspecified leg; M70.61 Trochanteric bursitis, right hip; E55.9 Vitamin D deficiency, unspecified; Z20.822 Contact with and (suspected) exposure to COVID-19
CPT/HCPCS: 36415; 80053; 80307; 87077; 87635; 93005; 96361; 96365; 97162; 97530; 99285; 70450; 71046; 80320; 81003; 81015; 83735; 84443; 84484; 85025; 87086; 87186; 93010; 99217; 99220; 99225; 99284; G0378; J0696; J1644; J3490

== ENCOUNTER 2021-01-04 19:37 | Emergency (ER) | payer MEDICARE, SELFPAY ==
[2021-01-04] VITALS (22 sets, daily range): BP systolic 123–156; BP diastolic 57–85; PULSE 76–95; RESP 12–23; TEMP 36.1–36.6; O2SAT 95–99
--- NOTE | 2021-01-04 19:45 | RT.EKG_ITS ---
APPROVED REPORT Exam: Resting ECG Reason for Exam: confusion Patient Location: E HR:80 bpm ECG Measurements Heart Rate 80 AXIS GA 181 P -6 QRSd 95 QRS -11 QT 408 T 41 QTc 472 Conclusion Sinus rhythm...normal P axis, V-rate 60- 99 Ventricular premature complex...V complex w/ short R-R interval Low voltage, extremity and precordial leads...extremity<0.5mV, precordial<1.0mV. Sinus. PVCs. No STEMI. I have reviewed and interpreted ECG and agree with software generated interpretation.
--- NOTE | 2021-01-04 19:58 | NUR.NOTE ---
Spouse arrives at bedside. Reports patient was sitting in chair beside him, they were talking and patient brought her arms towards her abdomen and shook them. Patient was awake. Spouse reports normal day for them.Nursing Note:
--- NOTE | 2021-01-04 20:05 | W.ED.GENAD ---
Discharge Plan Discharge Details Chief Complaint: GenMedical Primary Care Provider: Lazara Stock ED Provider: Esperanza Avina Home Meds and New Rx's Prescriptions: No Action alendronate 70 mg tablet 70 mg PO QWEEK Qty: 14 RF: 3 aspirin 81 mg tablet,delayed release (DR/EC) 81 mg PO DAILY Qty: 90 RF: 3 multivitamin Tablet 1 tab PO DAILY Qty: 90 RF: 3 pantoprazole [Protonix] 40 mg tablet,delayed release (DR/EC) 40 mg PO DAILY Qty: 90 RF: 3 memantine [Namenda] 10 mg tablet 10 mg PO BID Qty: 180 RF: 2 rosuvastatin [Crestor] 20 mg tablet 20 mg PO HS Qty: 90 RF: 3 celecoxib [Celebrex] 200 mg capsule 200 mg PO BID Qty: 180 RF: 3 cholecalciferol (vitamin D3) 25 mcg (1,000 unit) tablet 25 mcg PO BID Qty: 90 RF: 3 lisinopril 2.5 mg tablet 2.5 mg PO DAILY Qty: 90 RF: 3 cyanocobalamin (vitamin B-12) 1,000 mcg tablet 1,000 mcg PO DAILY Qty: 90 RF: 3 blister angel PO RF: 0 quetiapine 50 mg tablet 100 mg PO DAILY Qty: 90 RF: 3 magnesium oxide 500 mg tablet 500 mg PO QHS Qty: 90 RF: 3 gabapentin 100 mg capsule 200 mg PO QHS Qty: 180 RF: 1 fosfomycin tromethamine 3 gram packet 3 g PO ONCE Qty: 1 RF: 0 HPI General Date/Time Provider Initiated Documentation: 01/04/21 19:51. Related Data Home Medications Medication Instructions Recorded Confirmed rosuvastatin 20 mg tablet 20 mg PO HS #90 tab 06/15/20 01/04/21 celecoxib 200 mg capsule 200 mg PO BID #180 cap 07/31/20 01/04/21 cholecalciferol (vitamin D3) 25 25 mcg PO BID #90 tab 07/31/20 01/04/21 mcg (1,000 unit) tablet lisinopril 2.5 mg tablet 2.5 mg PO DAILY #90 tab 07/31/20 01/04/21 cyanocobalamin (vitamin B-12) 1,000 mcg PO DAILY #90 tab 08/14/20 01/04/21 1,000 mcg tablet blister angel PO 09/09/20 01/01/21 alendronate 70 mg tablet 70 mg PO QWEEK #14 tab 09/10/20 01/04/21 aspirin 81 mg tablet,delayed 81 mg PO DAILY #90 tab 09/10/20 01/04/21 release memantine 10 mg tablet 10 mg PO BID #180 tab 09/10/20 01/04/21 multivitamin 1 tab PO DAILY #90 tab 09/10/20 01/04/21 pantoprazole 40 mg tablet,delayed 40 mg PO DAILY #90 tab 09/10/20 01/04/21 release quetiapine 50 mg tablet 100 mg PO DAILY #90 tab 09/30/20 01/04/21 gabapentin 100 mg capsule 200 mg PO QHS #180 cap 12/09/20 01/04/21 magnesium oxide 500 mg tablet 500 mg PO QHS #90 tab 12/09/20 01/04/21 fosfomycin tromethamine 3 g PO ONCE #1 ea 12/24/20 01/04/21 Previous Rx's Medication Instructions Recorded rosuvastatin 20 mg tablet 20 mg PO HS #90 tab 06/15/20 celecoxib 200 mg capsule 200 mg PO BID #180 cap 07/31/20 cholecalciferol (vitamin D3) 25 25 mcg PO BID #90 tab 07/31/20 mcg (1,000 unit) tablet lisinopril 2.5 mg tablet 2.5 mg PO DAILY #90 tab 07/31/20 cyanocobalamin (vitamin B-12) 1,000 mcg PO DAILY #90 tab 08/14/20 1,000 mcg tablet alendronate 70 mg tablet 70 mg PO QWEEK #14 tab 09/10/20 aspirin 81 mg tablet,delayed 81 mg PO DAILY #90 tab 09/10/20 release memantine 10 mg tablet 10 mg PO BID #180 tab 09/10/20 multivitamin 1 tab PO DAILY #90 tab 09/10/20 pantoprazole 40 mg tablet,delayed 40 mg PO DAILY #90 tab 09/10/20 release quetiapine 50 mg tablet 100 mg PO DAILY #90 tab 09/30/20 gabapentin 100 mg capsule 200 mg PO QHS #180 cap 12/09/20 magnesium oxide 500 mg tablet 500 mg PO QHS #90 tab 12/09/20 fosfomycin tromethamine 3 g PO ONCE #1 ea 12/24/20 Allergies Allergy/AdvReac Type Severity Reaction Status Date / Time No Known Allergies Allergy Verified 01/04/21 19:51 General Stated Complaint: GenMedical BERTHA: 3 [facility] Medical History Aching leg syndrome qHS, 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 B/L. No claudication complaints. [ ] Mag, Becca Age-related osteoporosis without current pathological fracture Alzheimer's dementia Ankle weakness Asthma DNI (do not intubate) DNR (do not resuscitate) GERD (gastroesophageal reflux disease) Hx of recurrent urinary tract infection Hospitalized, 12/22-->12/24/20. ED ([facility], 11/13/20, Dehydration, UA Leuko/Cx NEG); [facility] ED, 10/2020? Hosp 08/2020 (UTI, AMS). Hyperlipidemia Hypertension IT band syndrome Lateral pain of right hip Lidocaine patches helped .. now pain is more in thigh vs lateral leg (PainStop helping), 07/17/19 Obesity Obstructive sleep apnea Osteoarthritis Palliative care patient Physical deconditioning POLST (Physician Orders for Life-Sustaining Treatment) Right hip pain Right knee pain Right shoulder pain Syncope Trochanteric bursitis, right hip Unspecified dementia without behavioral disturbance Unsteady gait Cane/walker Vitamin D deficiency Weight gain Surgical History History of appendectomy Status post tonsillectomy and adenoidectomy Family History Mother , age 85 or so Dementia Cancer Father , age 82 Sudden cardiac Son No problems noted. Son No problems noted. Daughter No problems noted. Daughter No problems noted. Sister Kyphosis History of vertebroplasty Compression fracture Brother No problems noted. 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 Pets and animals: Yes Sexually active: No Do you think of yourself as: straight/heterosexual Current gender identity: female What is your relationship status?: How often do you talk on the phone with friends or family?: three or more times per week How often do you get together with friends or relatives?: once per week Panel score (0-1 are the most socially isolated patients): 2 What type of physical activity do you participate in: walking and irregular exercise Duration: 15-30 minutes/day Special rodger needs: No Seatbelt use: always Working smoke detector in home: Yes Fire extinguisher in home: Yes Do you feel safe at home: Yes Do you feel safe in your relationship?: Yes Course Vital Signs Vital signs: Vital Signs Temperature 97.0 F L 01/04/21 19:45 Pulse 88 01/04/21 19:45 Respiratory Rate 18 01/04/21 19:45 Blood Pressure 150/63 H 01/04/21 19:45 Pulse Oximetry 99 01/04/21 19:45 Temperature 97.0 F L 01/04/21 19:45 Temperature Source Temporal Artery Scan 01/04/21 19:45 Pulse 88 01/04/21 19:45 Respiratory Rate 18 01/04/21 19:45 Respiratory Effort Non-Labored 01/04/21 19:51 Respiratory Depth Normal 01/04/21 19:51 Respiratory Pattern Normal 01/04/21 19:51 Blood Pressure 150/63 H 01/04/21 19:45 Blood Pressure Position Sitting 01/04/21 19:45 Pulse Oximetry 99 01/04/21 19:45 Oxygen Delivery Method Room Air 01/04/21 19:45 Oxygen Flow Rate 0 01/04/21 19:45 Pain Level 0 01/04/21 19:45
--- NOTE | 2021-01-04 20:07 | NUR.NOTE ---
Fingerstick glucose 147Nursing Note:
--- OUTSIDE RECORDS SUMMARY | 2021-01-04 20:10 | XMS_ITS ---
:1935 Author Organization [facility] Address [address] [place] [address] Care Team Providers Name Role Phone Willis Lala Unavailable Unavailable PROBLEMS Type Condition ICD9-CM Code [id number] Code Onset Condition SNO MED Code Dates Status Problem Ingrown toenail L60.0 Active 4002 83769 Problem Onychomycosis B35.1 Active 137645 008 ALLERGIES No Known Allergies ENCOUNTERS Encounter Location Date Diagnosis [facility] May, Ingro [place] [address] [place] [address] Onychomycos is B35.1 [facility] Jan, Ingro wn toenail L60.0 [place] [address] Onychomycos is B35.[address] [facility], Jul, Ingro wn toenail L60.0 ; [place] [address] Onychomycosis B3 5.1 and Toe pain, bilateral M79.674 [facility], Feb, Ingro wn toenail L60.0 ; [place] [address] Onychomycosis B3 5.1 and Toe pain, bilateral M79.674 [id number], Nov, Ingro wn toenail L60.0 ; [place] [address] Onychomycosis B3 5.1 and Toe pain, bilateral M79.674 [id number], Sep, Toe p ain, right M79.674 ; [place] [address] Ingrown toenail L60.0 and Onychomycosis B3 5.[address] [id number], [place] [address] IMMUNIZATIONS No Known Immunizations SOCIAL HISTORY Qualifiers [...] concerns ,09/22 sm- Records request Insurance Providers [facility] Member Patient Patient Patient Patient Patient Subscriber Subscriber Subscriber Group Insurance Plan Plan Plan Plan ID Relationship Address Phone Name Date of ID Name Date of No Type Insurance Insurance Insurance Coverage to Subscriber Address Phone Name Dates MEDICARE [address] MEDICARE self JIMBO [id number] [facility] [id number] MEDICARE 3000 [address] MEDICARE self JIMBO [id number] [facility] [id number] [address] self [place] [id number] Y [address] [place] [facility] [id number] SELF PAY self [place]IMBO [id number] [place] [address] SELF PAY self JIMBO [id number] [facility] [place] [address] SELF PAY self JIMBO [id number] [place] [address] INSURANCE MEDICAL (GENERAL) HISTORY Type Description Date Medical History Essential primary hypertension Medical History Insomnia, unspecified Medical History Unspecified dementia without behavioral disturbance Surgical History tonsillectomy Surgical History right broken knee Hospitalization History breathing trouble/heart attck while in hospital mar 2019 [facility]
[2021-01-04 20:13] LABS: Bilirubin Negative (Negative); Blood Trace-intact (Negative); Clarity Clear (Clear); Glucose Negative (Negative); Ketones Negative (Negative); Leukocyte Esterase Trace (Negative); Nitrite Negative (Negative); Urobilinogen 0.2 EU/dL (Up TO 0.2); pH 5.5 (5-8)
--- NOTE | 2021-01-04 20:17 | NUR.NOTE ---
Unable to obtain IV access. Blood sent to lab. Nursing Note:
[2021-01-04 20:22] LABS: Abs Immature Grans 0.01 10^3/uL (0.0-0.06); Absolute Basophil Count 0.05 10^3/uL (0.0-0.2); Absolute Eosinophil Count 0.19 10^3/uL (0.0-0.7); Absolute Monocyte Count 0.61 10^3/uL (0.1-0.8); Absolute Neutrophil Count 3.31 10^3/uL (1.2-6.7); Basophils % 0.7; Eosinophils % 2.8; HCT 36.6 % (36.0-46.0); HGB 11.6 g/dL (11.2-15.7); Immature Grans % 0.1; Lymphocytes % 39.3; MCH 29.7 pg (27.0-33.0); MCHC 31.7 % (32.0-36.0); MCV 93.8 fL (80-95); MPV 11.5 fL (8.0-11.0); Monocytes % 8.9; Neutrophils % 48.2; Nucleated RBC 0 %; Platelet Count 161 10^3/uL (130-400); RDW 13.1 % (11.7-14.6); RDW-SD 44.8 fL; WBC 6.87 10^3/uL (4.4-10.8)
[2021-01-04 20:29] LABS: Bacteria Few HPF (Negative); Crystals Negative HPF (Negative); Epithelial Cells Moderate HPF (Negative); Mucus Negative (Negative); Other Cells Mod Transitional (Negative); RBC 0-2 HPF (0-2)
[2021-01-04 20:30] LABS: C & S Indicated? Yes
--- NOTE | 2021-01-04 20:43 | W.ED.GENAD ---
Discharge Plan Disposition Patient Disposition: HOME Condition: Stable Discharge Details Clinical Impression: Alzheimer's dementia, Confusion Primary Care Provider: Lazara Stock ED Provider: Ena Campos Home Meds and New Rx's Prescriptions: Continued alendronate 70 mg tablet 70 mg PO QWEEK Qty: 14 RF: 3 aspirin 81 mg tablet,delayed release (DR/EC) 81 mg PO DAILY Qty: 90 RF: 3 multivitamin Tablet 1 tab PO DAILY Qty: 90 RF: 3 pantoprazole [Protonix] 40 mg tablet,delayed release (DR/EC) 40 mg PO DAILY Qty: 90 RF: 3 memantine [Namenda] 10 mg tablet 10 mg PO BID Qty: 180 RF: 2 rosuvastatin [Crestor] 20 mg tablet 20 mg PO HS Qty: 90 RF: 3 celecoxib [Celebrex] 200 mg capsule 200 mg PO BID Qty: 180 RF: 3 lisinopril 2.5 mg tablet 2.5 mg PO DAILY Qty: 90 RF: 3 cyanocobalamin (vitamin B-12) 1,000 mcg tablet 1,000 mcg PO DAILY Qty: 90 RF: 3 blister angel PO RF: 0 quetiapine 50 mg tablet 100 mg PO DAILY Qty: 90 RF: 3 magnesium oxide 500 mg tablet 500 mg PO QHS Qty: 90 RF: 3 gabapentin 100 mg capsule 200 mg PO QHS Qty: 180 RF: 1 fosfomycin tromethamine 3 gram packet 3 g PO ONCE Qty: 1 RF: 0 No Action cholecalciferol (vitamin D3) 25 mcg (1,000 unit) tablet 25 mcg PO BID Qty: 90 RF: 3 calcium carbonate-vitamin D3 600 mg(1,500mg) -400 unit capsule 2 cap PO BID Qty: 180 RF: 3 Discharge Instructions Instructions: Dementia (ED) Additional Instructions: Exam and labs are reassuring here today. Please encourage hydration. Please follow-up in the next week for reevaluation with primary care and to discuss continued management of dementia. If you develop fever/chills, headache, inability stay hydrated or other new/worsening symptoms please seek care urgently once again. Referrals: Lazara Stock DO [Primary Care Provider] - Discharge Data Discharge Date/Time-TO BE ENTERED AT DEPARTURE: 01/04/21 22:03 Medical Decision Making Patient is a pleasant 85-year-old male, brought in by her , after having an episode at home where she began punching herself in the leg. He states that during this episode she did appear angry and confused. Patient is unclear what occurred. Past medical history is pertinent for Alzheimer's dementia. Patient has been does report that classically has been sundowning recently. He states that approximately 1.5 months ago she had a second agent added to her medications and I did initially seem to help with her Alzheimer's symptoms. However, is that recently she has had more of a progression. Patient was admitted recently for urinary tract infection. She denies any urinary symptoms. No fevers or chills. States that currently she is feeling well. On exam, patient is pleasantly confused. She is oriented to person and place but not time. Unclear who the president is. She has normal neurological exam at this time. Concern for potential UTI, particularly given her recent admission for this. This may potentially be worsening symptoms. However, I also discussed with patient and this may be a progression of disease. Her symptoms are not consistent with a CVA or acute intracranial pathology. Patient denies any headache, visual change, nausea, vomiting or other new/worsening symptoms. Initial urinalysis appears contaminated. Will obtain straight cath. CBC without significant abnormality, no leukocytosis, stable H&H. CMP concerning for elevated creatinine of 1.8, not unusual for patient to be elevated historically. This was significant jump. However, I did give the patient encourage hydration. BUN was elevated at 28. Troponin within normal limits. Spoke with patient's son, Gwen. We discussed symptoms and workup thus far. He advises that they are safe at home. He is <1mi from their home and checks in frequently. He states [facility] with [facility]. Repeat urinalysis is negative for leukocyte esterase, negative bacteria with no culture indicated. Discussed the findings with the patient and her . Primarily concern for progression of disease. The prefer to be able to stay at home and feels safe in doing so. Was you have a good support system. I did encourage hydration. Encourage close follow-up with primary care and to discuss her Alzheimer's and Alzheimer management once again. Return precautions were discussed. All the questions and concerns were addressed in agreement this plan. HPI General Date/Time Provider Initiated Documentation: 01/04/21 19:51. Limitations to Documentation: no limitations. Information obtained by: patient, family and RN notes reviewed. HPI Narrative: Patient is a pleasant 85 year old female, brought in by , with c/c of unusual behavior. Patient has hx of dementia. Has had unusual behavior in the past. describes 15 minute episode where she became upset and was punching herself in the leg. Paitent denies feeling upset now. No thoughts of self harm. Patient is aware of her dementia. Oriented to person and place. Related Data Home Medications Medication Instructions Recorded Confirmed rosuvastatin 20 mg tablet 20 mg PO HS #90 tab 06/15/20 01/04/21 celecoxib 200 mg capsule 200 mg PO BID #180 cap 07/31/20 01/04/21 lisinopril 2.5 mg tablet 2.5 mg PO DAILY #90 tab 07/31/20 01/04/21 cyanocobalamin (vitamin B-12) 1,000 mcg PO DAILY #90 tab 08/14/20 01/04/21 1,000 mcg tablet blister angel PO 09/09/20 01/01/21 alendronate 70 mg tablet 70 mg PO QWEEK #14 tab 09/10/20 01/04/21 aspirin 81 mg tablet,delayed 81 mg PO DAILY #90 tab 09/10/20 01/04/21 release memantine 10 mg tablet 10 mg PO BID #180 tab 09/10/20 01/04/21 multivitamin 1 tab PO DAILY #90 tab 09/10/20 01/04/21 pantoprazole 40 mg tablet,delayed 40 mg PO DAILY #90 tab 09/10/20 01/04/21 release quetiapine 50 mg tablet 100 mg PO DAILY #90 tab 09/30/20 01/04/21 gabapentin 100 mg capsule 200 mg PO QHS #180 cap 12/09/20 01/04/21 magnesium oxide 500 mg tablet 500 mg PO QHS #90 tab 12/09/20 01/04/21 fosfomycin tromethamine 3 g PO ONCE #1 ea 12/24/20 01/04/21 cholecalciferol (vitamin D3) 25 25 mcg PO BID #90 tab 01/05/21 mcg (1,000 unit) tablet calcium carbonate-vitamin D3 600 2 cap PO BID #180 cap 01/06/21 mg (1,500 mg)-400 unit capsule Previous Rx's Medication Instructions Recorded rosuvastatin 20 mg tablet 20 mg PO HS #90 tab 06/15/20 celecoxib 200 mg capsule 200 mg PO BID #180 cap 07/31/20 lisinopril 2.5 mg tablet 2.5 mg PO DAILY #90 tab 07/31/20 cyanocobalamin (vitamin B-12) 1,000 mcg PO DAILY #90 tab 08/14/20 1,000 mcg tablet alendronate 70 mg tablet 70 mg PO QWEEK #14 tab 09/10/20 aspirin 81 mg tablet,delayed 81 mg PO DAILY #90 tab 09/10/20 release memantine 10 mg tablet 10 mg PO BID #180 tab 09/10/20 multivitamin 1 tab PO DAILY #90 tab 09/10/20 pantoprazole 40 mg tablet,delayed 40 mg PO DAILY #90 tab 09/10/20 release quetiapine 50 mg tablet 100 mg PO DAILY #90 tab 09/30/20 gabapentin 100 mg capsule 200 mg PO QHS #180 cap 12/09/20 magnesium oxide 500 mg tablet 500 mg PO QHS #90 tab 12/09/20 fosfomycin tromethamine 3 g PO ONCE #1 ea 12/24/20 cholecalciferol (vitamin D3) 25 25 mcg PO BID #90 tab 01/05/21 mcg (1,000 unit) tablet calcium carbonate-vitamin D3 600 2 cap PO BID #180 cap 01/06/21 mg (1,500 mg)-400 unit capsule Allergies Allergy/AdvReac Type Severity Reaction Status Date / Time No Known Allergies Allergy Verified 01/04/21 19:51 General Stated Complaint: GenMedical BERTHA: 3 Review of Systems Unobtainable due to mental condition [facility] Medical History Aching leg syndrome qHS, 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 B/L. No claudication complaints. [ ] Mag, Becca Age-related osteoporosis without current pathological fracture Alzheimer's dementia Ankle weakness Asthma DNI (do not intubate) DNR (do not resuscitate) GERD (gastroesophageal reflux disease) Hx of recurrent urinary tract infection Hospitalized, 12/22-->12/24/20. ED ([facility], 11/13/20, Dehydration, UA Leuko/Cx NEG); [facility] ED, 10/2020? Hosp 08/2020 (UTI, AMS). Hyperlipidemia Hypertension IT band syndrome Lateral pain of right hip Lidocaine patches helped .. now pain is more in thigh vs lateral leg (PainStop helping), 07/17/19 Obesity Obstructive sleep apnea Osteoarthritis Palliative care patient Physical deconditioning POLST (Physician Orders for Life-Sustaining Treatment) Right hip pain Right knee pain Right shoulder pain Syncope Trochanteric bursitis, right hip Unspecified dementia without behavioral disturbance Unsteady gait Cane/walker Vitamin D deficiency Weight gain Surgical History History of appendectomy Status post tonsillectomy and adenoidectomy Family History Mother , age 85 or so Dementia Cancer Father , age 82 Sudden cardiac Son No problems noted. Son No problems noted. Daughter No problems noted. Daughter No problems noted. Sister Kyphosis History of vertebroplasty Compression fracture Brother No problems noted. Social History Smoking/Tobacco Use Status: Never Smoking risk assessment performed?: Yes Alcohol Intake: never Drug use: Never Substance use type: does not use Adopted: No Caregiver/Support person: Yes Foster care: No Household members: spouse Housing: house Number of Children: 4 number of grandchildren: 12 Communication Needs: Hard of Hearing and Corrective Lenses Education Level: high school Do you need help understanding health information?: Always current occupation: retired from [employer] Pets and animals: Yes Sexually active: No Do you think of yourself as: straight/heterosexual Current gender identity: female What is your relationship status?: How often do you talk on the phone with friends or family?: three or more times per week How often do you get together with friends or relatives?: once per week Panel score (0-1 are the most socially isolated patients): 2 What type of physical activity do you participate in: walking and irregular exercise Duration: 15-30 minutes/day Special rodger needs: No Seatbelt use: always Working smoke detector in home: Yes Fire extinguisher in home: Yes Do you feel safe at home: Yes Do you feel safe in your relationship?: Yes Exam Const General: cooperative, healthy appearing, comfortable, no acute distress, well developed, well groomed and anxious Nutritional Appearance: average body habitus and well nourished Orientation: alert, awake, oriented to person and oriented to place [facility] Head: normal to inspection, no palpable skull fracture, normocephalic and atraumatic Ears: hearing grossly normal bilaterally, external ears normal and TM's normal bilaterally General nose exam: external nose normal Mouth: oral mucosae normal and moist mucous membranes Throat: posterior oropharynx normal Eyes General: appearance normal, both eyes and all related structures Alignment and Position: alignment normal Periorbital: periorbital findings normal Eyelids: eyelids normal Sclera: sclerae normal Cornea: corneas normal Pupils: PERRL EOM: EOM intact bilaterally Neck Neck: normal visual inspection, full ROM, no lymphadenopathy and no meningeal signs Resp Effort & Inspection: normal respiratory effort, able to speak in complete sentences and no respiratory distress Auscultation: clear to auscultation bilaterally, no rales, no rhonchi and no wheezes Cardio Rate: regular rate Rhythm: regular rhythm Heart Sounds: S1 normal and S2 normal GI Inspection: normal to inspection and non-distended Palpation: soft, no hepatosplenomegaly, not firm, no guarding, not rigid and nontender Percussion: normal to percussion Auscultation: normal bowel sounds Back/Spine/Pelvis Cervical Spine: normal cervical lordosis and cervical ROM normal Skin General skin exam: no rashes or lesions noted Neuro General: patient alert and patient awake Cranial Nerves: CN's II-XI intact bilaterally Cognition: normal cognition Speech: speech normal Gait: normal gait Motor: muscle tone normal throughout, strength 5/5 throughout, no pronator drift, no movement abnormalities noted and no fasciculations Sensory Exam: no sensory deficits noted Coordination: [id number] test normal and [id number] test normal Extrem General: normal to inspection, capillary refill normal, no pedal edema and no calf tenderness Psych Appearance: grossly normal and well kempt Mental Status: mental status grossly normal Speech and Movement: speech and movement normal Course Vital Signs Vital signs: Vital Signs Temperature 36.1 C L 01/04/21 19:45 Pulse 88 01/04/21 19:45 Respiratory Rate 18 01/04/21 19:45 Blood Pressure 150/63 H 01/04/21 19:45 Pulse Oximetry 99 01/04/21 19:45 Temperature 36.6 C 01/04/21 20:05 Temperature Source Temporal Artery Scan 01/04/21 19:45 Pulse 88 01/04/21 19:45 Respiratory Rate 18 01/04/21 19:45 Respiratory Effort Non-Labored 01/04/21 19:51 Respiratory Depth Normal 01/04/21 19:51 Respiratory Pattern Normal 01/04/21 19:51 Blood Pressure 150/63 H 01/04/21 19:45 Blood Pressure Position Sitting 01/04/21 19:45 Pulse Oximetry 99 01/04/21 19:45 Oxygen Delivery Method Room Air 01/04/21 19:45 Oxygen Flow Rate 0 01/04/21 19:45 Pain Level 0 01/04/21 19:45 Lab/Test Results Lab/Test Results: 01/04/21 19:50 Urine - Reflex from Ua Urine Culture - Pending Laboratory Tests Range/Units 01/04/21 01/04/21 19:50 20:15 WBC (4.4-10.8) 10^3/uL 6.87 RBC (3.93-5.22) 10^6/uL 3.90 L Hgb (11.2-15.7) g/dL 11.6 Hct (36.0-46.0) % 36.6 MCV (80-95) fL 93.8 MCH (27.0-33.0) pg 29.7 MCHC (32.0-36.0) % 31.7 L RDW (11.7-14.6) % 13.1 Plt Count (130-400) 10^3/uL 161 MPV (8.0-11.0) fL 11.5 H Immature Gran % 0.1 Neutrophils % 48.2 Lymphocytes % 39.3 Monocytes % 8.9 Eosinophils % 2.8 Basophils % 0.7 Nucleated RBC % % 0 Absolute Neutrophils (1.2-6.7) 10^3/uL 3.31 Absolute Lymphocytes (1.2-3.4) 10^3/uL 2.70 Absolute Monocytes (0.1-0.8) 10^3/uL 0.61 Absolute Eosinophils (0.0-0.7) 10^3/uL 0.19 Absolute Basophils (0.0-0.2) 10^3/uL 0.05 Urine Color (Yellow) Yellow Urine Clarity (Clear) Clear Urine pH (5-8) 5.5 Ur Specific [place] (1.005-1.025) 1.010 Urine Protein (Negative) mg/dL Negative Urine Ketones (Negative) mg/dL Negative Urine Blood (Negative) Trace-intact H Urine Nitrite (Negative) Negative Urine Bilirubin (Negative) Negative Urine Urobilinogen (Up TO 0.2) EU/dL 0.2 Ur Leukocyte Esterase (Negative) Trace H Urine RBC (0-2) HPF 0-2 Urine WBC (0-5) HPF 10-20 H Ur Epithelial Cells (Negative) HPF Moderate Urine Crystals (Negative) HPF Negative Urine Bacteria (Negative) HPF Few Urine Mucus (Negative) Negative Urine Other (Negative) Mod Transitional Ur Culture Indicated? Yes Urine Glucose (Negative) mg/dL Negative
[2021-01-04 20:46] LABS: ALT 19 U/L (14-59); AST 12 U/L (15-37); Albumin 3.7 g/dL (3.4-5.0); Alkaline Phosphatase 45 U/L (46-116); Anion Gap 7.9 mmol/L (3-11); BUN 28 mg/dL (7-18); Bilirubin, Total 0.2 mg/dL (0.2-1.0); CO2 28.1 mmol/L (21.0-32.0); CREATININE 1.8 mg/dL (0.55-1.02); Calcium 9.2 mg/dL (8.5-10.1); Chloride 107 mmol/L (98-107); Estimated GFR 26.87 (mL/min/1.73m2); Glucose 151 mg/dL (74-106); Magnesium 2.3 mg/dL (1.8-2.4); Potassium 4.3 mmol/L (3.5-5.1); Sodium 143 mmol/L (136-145); Total Protein 6.9 g/dL (6.4-8.2)
[2021-01-04 20:48] LABS: Troponin I < 0.05 ng/mL (<0.06)
[2021-01-04 21:11] LABS: Bilirubin Negative (Negative); Blood Trace-lysed (Negative); Clarity Clear (Clear); Glucose Negative (Negative); Ketones Negative (Negative); Leukocyte Esterase Negative (Negative); Nitrite Negative (Negative); Urobilinogen 0.2 EU/dL (Up TO 0.2); pH 5.5 (5-8)
[2021-01-04 21:37] LABS: Epithelial Cells Few HPF (Negative); RBC 0-2 HPF (0-2); WBC 0-2 HPF (0-5)
[2021-01-04 21:38] LABS: Bacteria Negative HPF (Negative); C & S Indicated? No; Crystals Negative HPF (Negative); Mucus Negative (Negative)
== END 2021-01-04 22:03 | disposition home or self-care (01) ==
PROVIDERS: Physician Assistant; Emergency Provider Physician Assistant; PCP Student in an Organized Health Care Education/Training Program
DX: G30.9 Alzheimer's disease, unspecified (principal); F02.80 Dementia in other diseases classified elsewhere, unspecified severity, without behavioral disturbance, psychotic disturbance, mood disturbance, and anxiety; R40.4 Transient alteration of awareness
CPT/HCPCS: 36415; 36416; 80053; 82962; 93005; 99283; 81003; 81015; 83735; 84484; 85025; 87086; 93010

== ENCOUNTER 2021-01-25 04:42 | Emergency (ER) | payer MEDICARE, SELFPAY ==
[2021-01-25] VITALS (19 sets, daily range): BP systolic 128–187; BP diastolic 74–94; PULSE 67–84; RESP 11–20; TEMP 36.3; O2SAT 95–99
--- NOTE | 2021-01-25 04:30 | RT.EKG_ITS ---
APPROVED REPORT Exam: Resting ECG Reason for Exam: chest pain Patient Location: E HR:70 bpm ECG Measurements Heart Rate 70 AXIS VT 213 P -5 QRSd 87 QRS -17 QT 422 T 24 QTc 457 Conclusion Sinus rhythm...normal P axis, V-rate 60- 99 Borderline prolonged VT interval...VT >212, V-rate 50- 90 Inferior infarct, old...Q >35mS, II III aVF Consider anterior infarct...Q >30mS in V2-V5 Physician: no stemi, unchanged from prior ekg on 01/04/21
--- NOTE | 2021-01-25 04:45 | DI.RAD_ITS ---
Exam(s) XR PORTABLE CHEST AP EXAM: XR PORTABLE CHEST AP CLINICAL HISTORY: central chest pain TECHNIQUE: COMPARISON: CR,XR XR CHEST 2V PA LATERAL from 12/22/2020 FINDINGS: The heart is mildly enlarged. Thoracic aorta is tortuous. Lungs are grossly clear. No pleural effu forrest identified on this frontal film. IMPRESSION: No evidence of acute process. RADIATION DOSE DELIVERED: Total DLP
--- OUTSIDE RECORDS SUMMARY | 2021-01-25 04:51 | XMS_ITS ---
:1935 Author Organization [facility] Address [address] [place] [address] Care Team Providers Name Role Phone Willis Lala Unavailable Unavailable PROBLEMS Type Condition ICD9-CM Code [id number] Code Onset Condition SNO MED Code Dates Status Problem Ingrown toenail L60.0 Active 4002 70758 Problem Onychomycosis B35.1 Active 659447 008 ALLERGIES No Known Allergies ENCOUNTERS Encounter Location Date Diagnosis [facility] May, Ingro [place]n [place] [address] [place] [address] Onychomycos is B35.1 [facility] Jan, Ingro [place]ail [address] [place] [address] Onychomycos is B35.[address] [facility], Jul, Ingro wn toenail L60.0 ; [place] [address] Onychomycosis B3 5.1 and Toe pain, bilateral M79.674 [facility], Feb, Ingro wn toenail L60.0 ; [place] [address] Onychomycosis B3 5.1 and Toe pain, bilateral M79.674 [facility], Nov, Ingro wn toenail L60.0 ; [place] [address] Onychomycosis B3 5.1 and Toe pain, bilateral M79.674 [facility], Sep, Toe p ain, right M79.674 ; [place] [address] Ingrown toenail L60.0 and Onychomycosis B3 5.[address] [facility], [place] [address] IMMUNIZATIONS No Known Immunizations SOCIAL HISTORY Qualifiers [...] concerns ,09/22 sm- Records request Insurance Providers [facility]ly [facility] Health Member Patient Patient Patient Patient Patient Subscriber Subscriber Subscriber Group Insurance Plan Plan Plan Plan ID Relationship Address Phone Name Date of ID Name Date of No Type Insurance Insurance Insurance Coverage to Subscriber Address Phone Name Dates MEDICARE [address] MEDICARE self [place] [id number] [facility] [id number] [address]EL[address] SELF PAY self [place]IM[place] [id number] [id number] SELF PAY self [place] [id number] [place] [id number] [place] [address] [id number] [address] [place] [address] [facility] [id number] SELF PAY self [place] [id number] [place] [id number] INSURANCE MEDICARE [address] MEDICARE self [place] [id number] [facility] [id number] MEDICAL (GENERAL) HISTORY Type Description Date Medical History Essential primary hypertension Medical History Insomnia, unspecified Medical History Unspecified dementia without behavioral disturbance Surgical History tonsillectomy Surgical History right broken knee Hospitalization History breathing trouble/heart attck while in hospital mar 2019 [facility]
--- NOTE | 2021-01-25 04:56 | W.ED.GENAD ---
Discharge Plan Disposition Patient Disposition: HOME Condition: Good Discharge Details Clinical Impression: Chest pain Primary Care Provider: Lazara Stock ED Provider: Eligio Cancino Home Meds and New Rx's Prescriptions: Continued alendronate 70 mg tablet 70 mg PO QWEEK Qty: 14 RF: 3 aspirin 81 mg tablet,delayed release (DR/EC) 81 mg PO DAILY Qty: 90 RF: 3 multivitamin Tablet 1 tab PO DAILY Qty: 90 RF: 3 pantoprazole [Protonix] 40 mg tablet,delayed release (DR/EC) 40 mg PO DAILY Qty: 90 RF: 3 memantine [Namenda] 10 mg tablet 10 mg PO BID Qty: 180 RF: 2 rosuvastatin [Crestor] 20 mg tablet 20 mg PO HS Qty: 90 RF: 3 lisinopril 2.5 mg tablet 2.5 mg PO DAILY Qty: 90 RF: 3 cyanocobalamin (vitamin B-12) 1,000 mcg tablet 1,000 mcg PO DAILY Qty: 90 RF: 3 blister angel PO RF: 0 magnesium oxide 500 mg tablet 500 mg PO QHS Qty: 90 RF: 3 cholecalciferol (vitamin D3) 25 mcg (1,000 unit) tablet 25 mcg PO BID Qty: 90 RF: 3 calcium carbonate-vitamin D3 600 mg(1,500mg) -400 unit capsule 2 cap PO BID Qty: 180 RF: 3 celecoxib [Celebrex] 200 mg capsule 200 mg PO BID Qty: 6 RF: 0 gabapentin 100 mg capsule 200 mg PO QHS Qty: 6 RF: 0 quetiapine 50 mg tablet 100 mg PO DAILY Qty: 6 RF: 0 Discharge Instructions Instructions: Chest Pain (ED) Additional Instructions: At this time your heart work-up shows no signs of heart attack or other significant abnormality. Please follow-up closely with your primary care provider. If you notice any worsening of your symptoms, or any new symptoms such as vomiting, diarrhea, fever, chills, shortness of breath, chest pain, numbness, weakness, or fainting , please return immediately to the emergency department for reevaluation. Please follow up with your primary care provider as soon as possible for reassessment and reevaluation. As always, it was a pleasure participating in your medical care today. Referrals: Krechetoff,Lazara, DO [Primary Care Provider] - Discharge Data Discharge Date/Time-TO BE ENTERED AT DEPARTURE: 01/25/21 06:32 Medical Decision Making This is a pleasant 85-year-old female with a past medical history of Alzheimer's dementia, GERD, reactive airway disease, appendectomy, previous cardiac disease, who is DNR DNI, who presents tonight with her for evaluation of chest pain. A few hours ago earlier this evening the patient had chest pain, EMS came and assessed the patient upon their arrival the patient had no chest pain. After assessment it is recommended that they come for further evaluation. Patient and came by POV. Patient does not recall much of the event but does state that it was a pressure-like sensation in her chest, it just lasted for short amount of time. who is at bedside states that he feels that it was from her bra being too tight. Currently the patient feels well, denies any chest shortness of breath, or any other complaints Physical exam demonstrates no significant abnormalities, no evidence of shingles or reproducible chest pain. Patient vital signs are stable. Uncertain if symptoms are cardiac in nature, however by history they certainly seem less likely to be cardiac. Out of an abundance of precaution we will perform screening EKG and troponin as it has been greater than 3 hours since the initial symptom onset. Will monitor closely give aspirin and reassess. 6:30 AM On reassessment patient continues to feel well, no chest pain or shortness of breath whatsoever. Vital signs remained stable. EKG and troponin laboratory work-up stable. Sodium minimally high. Did recommend low-sodium diet for the next few days. Patient will be discharged home. Discussed red flags with patient's for which to return. Symptoms at this time are inconsistent with ACS. I have extensively reviewed the treatment plan and discharge instructions with the patient. I have addressed all patient concerns at this time. The patient was made aware of what symptoms to monitor for that would warrant a return to the emergency department. Discussed the plan with the patient, they demonstrate verbal understanding and agreement with our assessment and plan at this time. The documentation in this chart was dictated using [employer] dictation software. Please excuse any dictation errors. FINDINGS: Lungs: Chronic interstitial prominence is grossly stable No consolidation. Pleural spaces: No pleural effusion. No pneumothorax. Heart/Mediastinum: Grossly stable. Bones/joints: Unremarkable. IMPRESSION: No acute findings. Thank you for allowing us to participate in the care of your patient. Dictated and Authenticated by: Thom Pastor MD 01/25/2021 7:23 AM Eastern Time ([place] & [place]) HPI General Date/Time Provider Initiated Documentation: 01/25/21 04:46. HPI Narrative: This is a pleasant 85-year-old female with a past medical history of Alzheimer's dementia, GERD, reactive airway disease, appendectomy, previous cardiac disease, who is DNR DNI, who presents tonight with her for evaluation of chest pain. A few hours ago earlier this evening the patient had chest pain, EMS came and assessed the patient upon their arrival the patient had no chest pain. After assessment it is recommended that they come for further evaluation. Patient and came by POV. Patient does not recall much of the event but does state that it was a pressure-like sensation in her chest, it just lasted for short amount of time. who is at bedside states that he feels that it was from her bra being too tight. Currently the patient feels well, denies any chest shortness of breath, or any other complaints Related Data Home Medications Medication Instructions Recorded Confirmed rosuvastatin 20 mg tablet 20 mg PO HS #90 tab 06/15/20 01/25/21 lisinopril 2.5 mg tablet 2.5 mg PO DAILY #90 tab 07/31/20 01/25/21 cyanocobalamin (vitamin B-12) 1,000 mcg PO DAILY #90 tab 08/14/20 01/25/21 1,000 mcg tablet blister angel PO 09/09/20 01/14/21 alendronate 70 mg tablet 70 mg PO QWEEK #14 tab 09/10/20 01/25/21 aspirin 81 mg tablet,delayed 81 mg PO DAILY #90 tab 09/10/20 01/25/21 release memantine 10 mg tablet 10 mg PO BID #180 tab 09/10/20 01/25/21 multivitamin 1 tab PO DAILY #90 tab 09/10/20 01/25/21 pantoprazole 40 mg tablet,delayed 40 mg PO DAILY #90 tab 09/10/20 01/25/21 release magnesium oxide 500 mg tablet 500 mg PO QHS #90 tab 12/09/20 01/25/21 cholecalciferol (vitamin D3) 25 25 mcg PO BID #90 tab 01/05/21 01/25/21 mcg (1,000 unit) tablet calcium carbonate-vitamin D3 600 2 cap PO BID #180 cap 01/06/21 01/25/21 mg (1,500 mg)-400 unit capsule celecoxib 200 mg capsule 200 mg PO BID #6 cap 01/23/21 01/25/21 gabapentin 100 mg capsule 200 mg PO QHS #6 cap 01/23/21 01/25/21 quetiapine 50 mg tablet 100 mg PO DAILY #6 tab 01/23/21 01/25/21 Previous Rx's Medication Instructions Recorded rosuvastatin 20 mg tablet 20 mg PO HS #90 tab 06/15/20 lisinopril 2.5 mg tablet 2.5 mg PO DAILY #90 tab 07/31/20 cyanocobalamin (vitamin B-12) 1,000 mcg PO DAILY #90 tab 08/14/20 1,000 mcg tablet alendronate 70 mg tablet 70 mg PO QWEEK #14 tab 09/10/20 aspirin 81 mg tablet,delayed 81 mg PO DAILY #90 tab 09/10/20 release memantine 10 mg tablet 10 mg PO BID #180 tab 09/10/20 multivitamin 1 tab PO DAILY #90 tab 09/10/20 pantoprazole 40 mg tablet,delayed 40 mg PO DAILY #90 tab 09/10/20 release magnesium oxide 500 mg tablet 500 mg PO QHS #90 tab 12/09/20 cholecalciferol (vitamin D3) 25 25 mcg PO BID #90 tab 01/05/21 mcg (1,000 unit) tablet calcium carbonate-vitamin D3 600 2 cap PO BID #180 cap 01/06/21 mg (1,500 mg)-400 unit capsule celecoxib 200 mg capsule 200 mg PO BID #6 cap 01/23/21 gabapentin 100 mg capsule 200 mg PO QHS #6 cap 01/23/21 quetiapine 50 mg tablet 100 mg PO DAILY #6 tab 01/23/21 Allergies Allergy/AdvReac Type Severity Reaction Status Date / Time No Known Allergies Allergy Verified 01/25/21 04:48 General Stated Complaint: Chest Pain BERTHA: 3 Review of Systems All systems reviewed & are unremarkable except as noted in HPI and below PFSH Medical History Aching leg syndrome qHS, 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 B/L. No claudication complaints. [ ] Mag, Becca Age-related osteoporosis without current pathological fracture Alzheimer's dementia Ankle weakness Asthma DNI (do not intubate) DNR (do not resuscitate) GERD (gastroesophageal reflux disease) Hx of recurrent urinary tract infection Hospitalized, 12/22-->12/24/20. ED ([facility], 11/13/20, Dehydration, UA Leuko/Cx NEG); [facility] ED, 10/2020? Hosp 08/2020 (UTI, AMS). Hyperlipidemia Hypertension IT band syndrome Lateral pain of right hip Lidocaine patches helped .. now pain is more in thigh vs lateral leg (PainStop helping), 07/17/19 Obesity Obstructive sleep apnea Osteoarthritis Palliative care patient Physical deconditioning POLST (Physician Orders for Life-Sustaining Treatment) Right hip pain Right knee pain Right shoulder pain Syncope Trochanteric bursitis, right hip Unspecified dementia without behavioral disturbance Unsteady gait Cane/walker Vitamin D deficiency Weight gain Surgical History History of appendectomy Status post tonsillectomy and adenoidectomy Family History Mother , age 85 or so Dementia Cancer Father , age 82 Sudden cardiac Son No problems noted. Son No problems noted. Daughter No problems noted. Daughter No problems noted. Sister Kyphosis History of vertebroplasty Compression fracture Brother No problems noted. Social History Smoking/Tobacco Use Status: Never Smoking risk assessment performed?: Yes Alcohol Intake: never Drug use: Never Substance use type: does not use Adopted: No Caregiver/Support person: Yes Foster care: No Household members: spouse Housing: house Number of Children: 4 number of grandchildren: 12 Communication Needs: Hard of Hearing and Corrective Lenses Education Level: high school Do you need help understanding health information?: Always current occupation: retired from [employer] Pets and animals: Yes Sexually active: No Do you think of yourself as: straight/heterosexual Current gender identity: female What is your relationship status?: How often do you talk on the phone with friends or family?: three or more times per week How often do you get together with friends or relatives?: once per week Panel score (0-1 are the most socially isolated patients): 2 What type of physical activity do you participate in: walking and irregular exercise Duration: 15-30 minutes/day Special rodger needs: No Seatbelt use: always Working smoke detector in home: Yes Fire extinguisher in home: Yes Do you feel safe at home: Yes Do you feel safe in your relationship?: Yes Exam Narrative Exam Narrative: 1.Const: Well-nourished, Well-developed, appearing stated age 2.Eyes: PERRL, no conjunctival injection, and symmetrical lids. 3.ENT: Atraumatic external nose and ears. Moist MM. Neck: Symmetric, trachea midline, No thyromegaly. 4.CVS: +S1/S2, No murmurs or gallops. Peripheral pulses 2+ and equal in all extremities. Brisk capillary refill in all extremities. 5.RESP: Unlabored respiratory effort. Clear to auscultation bilaterally. No wheezes rales or rhonchi 6.GI: Soft, Nontender/Nondistended, No hepatosplenomegaly. No guarding or rebound. 7.MSK: Normocephalic/Atraumatic, Extremities w/o deformity or ttp No cyanosis or clubbing, Normal movement of all extremities 8.Skin: Warm, Dry. No rashes or lesions. No evidence of shingles, or other rash. 9.Neuro: security software engineer II-XII grossly intact. Sensation grossly intact, no focal neurologic deficits. 10.Psych: (AAO) x3. Appropriate mood and affect Course Vital Signs Vital signs: Vital Signs Temperature 36.3 C L 01/25/21 04:43 Pulse 77 01/25/21 04:43 Respiratory Rate 19 01/25/21 04:43 Blood Pressure 187/91 H 01/25/21 04:43 Pulse Oximetry 97 01/25/21 04:43 Temperature 36.3 C L 01/25/21 04:43 Temperature Source Temporal Artery Scan 01/25/21 04:43 Pulse 77 01/25/21 04:43 Respiratory Rate 19 01/25/21 04:51 Respiratory Effort Non-Labored 01/25/21 04:51 Respiratory Depth Normal 01/25/21 04:51 Respiratory Pattern Normal 01/25/21 04:51 Blood Pressure 187/91 H 01/25/21 04:43 Blood Pressure Position Sitting 01/25/21 04:43 Pulse Oximetry 97 01/25/21 04:43 Oxygen Delivery Method Room Air 01/25/21 04:43 Oxygen Flow Rate 0 01/25/21 04:43 Pain Level 0 01/25/21 04:43
[2021-01-25] MEDS: Aspirin 81 MG CHEW 324 MG CH (04:59)
[2021-01-25 05:38] LABS: Abs Immature Grans 0.02 10^3/uL (0.0-0.06); Absolute Basophil Count 0.04 10^3/uL (0.0-0.2); Absolute Eosinophil Count 0.25 10^3/uL (0.0-0.7); Absolute Monocyte Count 0.54 10^3/uL (0.1-0.8); Absolute Neutrophil Count 2.74 10^3/uL (1.2-6.7); Basophils % 0.7; Eosinophils % 4.2; HCT 37.1 % (36.0-46.0); HGB 11.4 g/dL (11.2-15.7); Immature Grans % 0.3; Lymphocytes % 40.1; MCH 29.1 pg (27.0-33.0); MCHC 30.7 % (32.0-36.0); MCV 94.6 fL (80-95); MPV 11.4 fL (8.0-11.0); Neutrophils % 45.7; Nucleated RBC 0 %; Platelet Count 144 10^3/uL (130-400); RBC 3.92 10^6/uL (3.93-5.22); RDW 12.9 % (11.7-14.6); RDW-SD 44.7 fL; WBC 5.99 10^3/uL (4.4-10.8)
[2021-01-25 05:54] LABS: ALT 16 U/L (14-59); AST 14 U/L (15-37); Albumin 3.6 g/dL (3.4-5.0); Alkaline Phosphatase 44 U/L (46-116); Anion Gap 8.5 mmol/L (3-11); BUN 26 mg/dL (7-18); Bilirubin, Total 0.3 mg/dL (0.2-1.0); CO2 29.5 mmol/L (21.0-32.0); CREATININE 1.5 mg/dL (0.55-1.02); Chloride 109 mmol/L (98-107); Estimated GFR 33.16 (mL/min/1.73m2); Glucose 108 mg/dL (74-106); Magnesium 2.4 mg/dL (1.8-2.4); Potassium 4.1 mmol/L (3.5-5.1); Sodium 147 mmol/L (136-145); Total Protein 6.8 g/dL (6.4-8.2)
[2021-01-25 05:58] LABS: Troponin I < 0.05 ng/mL (<0.06)
--- NOTE | 2021-01-25 07:24 | DI.VRAD_ITS ---
PROCEDURE INFORMATION: Exam: XR Chest Exam date and time: 01/25/2021 4:56 AM Age: 85 years old Clinical indication: Patient HX: Central chest pain TECHNIQUE: Imaging protocol: XR of the chest. Views: 1 view. COMPARISON: CR XR CHEST 2V PA LATERAL 12/22/2020 6:33 PM FINDINGS: Lungs: Chronic interstitial prominence is grossly stable No consolidation. Pleural spaces: No pleural effusion. No pneumothorax. Heart/Mediastinum: Grossly stable. Bones/joints: Unremarkable. IMPRESSION: No acute findings. Dictated and Authenticated by: Thom Pastor MD. Ordering:CESAR Del Valle MD
== END 2021-01-25 06:32 | disposition home or self-care (01) ==
PROVIDERS: Emergency Provider Student in an Organized Health Care Education/Training Program; PCP Student in an Organized Health Care Education/Training Program
DX: R07.89 Other chest pain (principal)
CPT/HCPCS: 36415; 80053; 93005; 99284; 71045; 83735; 84484; 85025; 93010

== ENCOUNTER → 2021-02-04 09:07 | Outpatient (BNVA) | payer MEDICARE, SELFPAY | PROVIDERS: PCP Student in an Organized Health Care Education/Training Program; Referring Provider Student in an Organized Health Care Education/Training Program; Visit Provider Nurse Practitioner Gerontology | DX: N39.0 Urinary tract infection, site not specified (principal) | CPT/HCPCS: 99213 ==